=== PATIENT | male | born 1955 | race American Indian/Alaskan Native ===

== ENCOUNTER 2017-09-28 01:18 | Inpatient (IN) | payer MEDICARE, OTHER ==
[2017-09-28 01:56] LABS: Basophils # (Auto) 0.1 K/mm3 (0.0-0.1); Basophils % (Auto) 0.4 % (0.0-1.8); Eosinophils # (Auto) 0.2 K/mm3 (0.0-0.4); Eosinophils % (Auto) 1.6 % (0.0-4.3); Hematocrit 35.8 % (35.5-45.6); Hemoglobin 12.1 gm/dl (11.8-15.2); Lymphocytes # (Auto) 1.1 K/mm3 (1.2-5.4); Lymphocytes % (Auto) 8.8 % (13.4-35.0); Mean Corpuscular HGB Conc 34 % (32-34); Mean Corpuscular Hemoglobin 32 pg (28-32); Mean Corpuscular Volume 93 fl (84-94); Monocytes # (Auto) 0.5 K/mm3 (0.0-0.8); Monocytes % (Auto) 4.4 % (0.0-7.3); Platelet Count 221 K/mm3 (140-440); Red Blood Count 3.84 M/mm3 (3.65-5.03); Red Cell Distribution Width 14.2 % (13.2-15.2)
--- NOTE | 2017-09-28 02:07 | XRay Report ---
FINAL REPORT EXAM: XR CHEST 1V AP HISTORY: shortness of breath, hypoxia TECHNIQUE: A portable semi-upright view of the chest was obtained. FINDINGS: The heart size is normal. The lungs appear diffusely congested. There is patchy airspace disease in the right lung base. Pleural fluid is not seen. There are EKG leads overlying the chest wall. The bones and soft tissues otherwise appear well maintained IMPRESSION: Pulmonary vascular congestion. Patchy airspace disease in the right lung base. As to whether this is related to edema or superimposed pneumonia is uncertain.
--- NOTE | 2017-09-28 02:11 | Emergency Department Report ---
HPI - General Time Seen by Provider: 09/28/17 01:27 - HPI HPI: Room 23 The patient is a 62-year-old male presenting with chief complaint of shortness of breath. The patient states approximately one hour prior to arrival he began feeling short of breath and hot and diaphoretic. Patient states he never had chest pain but he has had an occasional cough has been nonproductive. Patient does admit to subjective fever. The patient states for the last week he's had decreased energy. The patient has a history of end-stage renal disease on dialysis and was last dialyzed 09/26/2017 as part of his normal regimen. Patient satting 77% on room air Location: Lungs Duration: One hour Quality: Shortness of breath Severity: Severe Modifying factors: [see above] Context: [see above] Mode of transportation: [not driving] ED Past Medical Hx - Past Medical History Hx Hypertension: Yes Hx Diabetes: Yes Hx Renal Disease: Yes - Surgical History Additional Surgical History: A.V graft, vas cath - Family History Family history: no significant - Social History Smoking Status: Current Every Day Smoker (1 pack per day) Substance Use Type: None (denies illicit drug use) ED Review of Systems ROS: Stated complaint: AVTAR Other details as noted in HPI Constitutional: diaphoresis, fever Respiratory: cough, shortness of breath Cardiovascular: denies: chest pain Physical Exam - Physical Exam Vital Signs: Vital Signs 09/28/17 09/28/17 01:25 01:39 Pulse Rate 80 Respiratory 22 22 Rate Blood Pressure 175/84 O2 Sat by Pulse 77 L 94 Oximetry Physical Exam: GENERAL: The patient is well-developed well-nourished male lying on stretcher not appearing to be in acute distress. [] HEENT: Normocephalic. Atraumatic. Extraocular motions are intact. Patient has moist mucous membranes. NECK: Supple. Trachea midline CHEST/LUNGS: Bibasilar crackles greatest on the right. There is no respiratory distress noted. HEART/CARDIOVASCULAR: Regular. There is no tachycardia. There is no gallop rub or murmur. ABDOMEN: Abdomen is soft, nontender. Patient has normal bowel sounds. There is no abdominal distention. SKIN: There is no rash. There is no diaphoresis. 1-2+ bilateral lower extremity pitting edema NEURO: The patient is awake, alert, and oriented. The patient is cooperative. The patient has normal speech MUSCULOSKELETAL: There is no evidence of acute injury. ED Course Vital Signs 09/28/17 09/28/17 01:25 01:39 Pulse Rate 80 Respiratory 22 22 Rate Blood Pressure 175/84 O2 Sat by Pulse 77 L 94 Oximetry - Consultations Consultation #1: 09/28/17 02:27 Nephrology paged 09/28/17 02:[address] Cuadra. Recommends Lasix 80 mg IV BID ED Medical Decision Making - Lab Data Result diagrams: 09/28/17 01:45 09/28/17 01:45 Laboratory Tests 09/28/17 09/28/17 09/28/17 01:45 01:45 01:45 WBC 11.9 H RBC 3.84 Hgb 12.1 Hct 35.8 MCV 93 MCH 32 MCHC 34 RDW 14.2 Plt Count 221 Lymph % (Auto) 8.8 L [place] % (Auto) 4.4 Eos % (Auto) 1.6 Baso % (Auto) 0.4 Lymph # 1.1 L [place] # 0.5 Eos # 0.2 Baso # 0.1 Seg Neutrophils % 84.8 H Seg Neutrophils # 10.1 H PT 12.8 INR 0.92 APTT 37.2 H Sodium 134 L Potassium 4.4 Chloride 93.0 L Carbon Dioxide 28 Anion Gap 17 BUN 20 Creatinine 6.0 H Estimated GFR 12 BUN/Creatinine Ratio 3 Glucose 137 H Calcium 8.6 Total Creatine Kinase 128 CK-MB (CK-2) 3.3 CK-MB (CK-2) Rel Index 2.5 Troponin T 0.030 H - EKG Data -: EKG Interpreted by Me EKG shows normal: sinus rhythm Rate: normal - EKG Data When compared to previous EKG there are: previous EKG unavailable - Radiology Data Radiology results: report reviewed (chest x-ray), image reviewed (chest x-ray) interpreted by me: Chest [id number] haziness (greatest in the right lower lobe) consistent with pulmonary edema. No pneumothorax FINAL REPORT EXAM: XR CHEST 1V AP HISTORY: shortness of breath, hypoxia TECHNIQUE: A portable semi-upright view of the chest was obtained. FINDINGS: The heart size is normal. The lungs appear diffusely congested. There is patchy airspace disease in the right lung base. Pleural fluid is not seen. There are EKG leads overlying the chest wall. The bones and soft tissues otherwise appear well maintained IMPRESSION: Pulmonary vascular congestion. Patchy airspace disease in the right lung base. As to whether this is related to edema or superimposed pneumonia is uncertain. Transcribed By: RB Dictated By: MILA BISWAS MD Electronically Authenticated By: MILA BISWAS MD Signed Date/Time: 09/27/172203 DD/ 03 TD/TT: 09/27/172203 - Differential Diagnosis flash pulmonary edema, pneumonia, pneumothorax Critical care attestation.: If time is entered above; I have spent that time in minutes in the direct care of this critically ill patient, excluding procedure time. ED Disposition Clinical Impression: Pulmonary edema, Hypoxia, Shortness of breath Disposition: -09 OP ADMIT IP TO THIS HOSP Is pt being admited?: Yes Does the pt Need Aspirin: Yes Condition: Serious Instructions: Pulmonary Edema (ED) Referrals: JAQUELINE WAGGONER MD [Primary Care Provider] - 3-5 Days Time of Disposition: 02:56 (hospitalist paged)
[2017-09-28 02:12] LABS: INR 0.92 (0.87-1.13); Partial Thromboplastin Time 37.2 Sec. (24.2-36.6)
[2017-09-28 02:19] LABS: Creatine Kinase MB 3.3 ng/mL (0.0-4.0)
[2017-09-28 02:20] LABS: Calcium 8.6 mg/dL (8.4-10.2)
[2017-09-28] MEDS ORDERED: ASPIRIN PO ONE (02:30)
[2017-09-28] MEDS ORDERED: LASIX IV ONE (02:55)
[2017-09-28 04:36] LABS: Chol/HDL Ratio 2.77 %
[2017-09-28] MEDS ORDERED: MILK OF MAGNESIA PO PRN (05:54)
[2017-09-28] MEDS ORDERED: D50W (25GM) Syringe IV PRN (05:54)
[2017-09-28] MEDS ORDERED: ZOFRAN IV PRN (05:54)
[2017-09-28] MEDS ORDERED: DULCOLAX PR PRN (05:54)
[2017-09-28] MEDS ORDERED: TYLENOL PO PRN (05:54)
[2017-09-28] MEDS ORDERED: LEVAQUIN 500MG/100ML 500 MG/100 ML BAG IV SCH (06:00)
--- NOTE | 2017-09-28 06:03 | History and Physical Report ---
History of Present Illness Date of examination: 09/28/17 History of present illness: 62-year-old man with a history of hypertension, diabetes, end-stage renal disease on dialysis Sunday [facility] emergency room with complaints of shortness of breath that started last night. Also complaining of focal nonproductive cough, subjective fever and chills Review Of Systems: Constitutional: no weight loss Ears, eyes, nose, mouth and throat: no nasal congestion, no nasal discharge, no sinus pressure, blurry vision, diplopia Neck: No neck pain or rigidity. Cardiovascular: No chest pain, palpitations Respiratory: + shortness of breath, cough Gastrointestinal: No abdominal pain, hematochezia Genitourinary : no dysuria, frequency , hematuria Musculoskeletal: no muscle ache Integumentary: no rash, no pruritis Neurological: no parathesias, focal weakness Endocrine: no cold or heat intolerance, no polyuria or polydipsia Hematologic/Lymphatic: no easy bruising, no easy bleeding, no gland swelling Allergic/Immunologic: no urticaria, no angioedema. PAST MEDICAL HISTORY:hypertension, diabetes, end-stage renal disease on dialysis PAST SURGICAL HISTORY: AV fistula, port placement FAMILY HISTORY: Hypertension SOCIAL HISTORY: Smoke a pack a day, no alcohol or drug Medications and Allergies Allergies Allergy/AdvReac Type Severity Reaction Status Date / Time No Known Allergies Allergy Verified 09/28/17 06:02 Home Medications Medication Instructions Recorded Confirmed Last Taken Type Atorvastatin [Lipitor] 40 mg PO QHS 09/28/17 09/28/17 Unknown History Carvedilol [Coreg] 12.5 mg PO BID 09/28/17 09/28/17 Unknown History Lisinopril [Zestril TAB] 20 mg PO QDAY 09/28/17 09/28/17 Unknown History Omeprazole 20 mg PO BID 09/28/17 09/28/17 Unknown History Vit B Comp No.3/Folic/C/Biotin 1 tab PO DAILY 09/28/17 09/28/17 Unknown History [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-[facility] Rx Tablet] amLODIPine [Norvasc] 10 mg PO DAILY 09/28/17 09/28/17 Unknown History Levofloxacin [Levaquin TAB] 500 mg PO Q48H #3 tablet 09/29/17 Unknown Rx Active Meds: Active Medications Acetaminophen (Tylenol) 650 mg PO Q4H PRN PRN Reason: Pain MILD(1-3)/Fever >100.5/JUAREZ Bisacodyl (Dulcolax) 10 mg CO QDAY PRN PRN Reason: Constipation unrelieved by MOM Dextrose (D50w (25gm) Syringe) 50 ml IV PRN PRN PRN Reason: Hypoglycemia Levofloxacin/Dextrose (Levaquin 500mg/100ml) 500 mg in 100 mls @ 100 mls/hr IV Q48H JOHANA Insulin Aspart (Novolog) 0 units SUB-Q ACHS JOHANA PRN Reason: Protocol Magnesium Hydroxide (Milk Of Magnesia) 30 ml PO Q4H PRN PRN Reason: Constipation Exam - Physical Exam Narrative exam: Gen. appearance: Patient lying in bed in no acute distress HEENT: Normocephalic/atraumatic, pupils equal round reactive to light, extra occular movement intact, no scleral icterus, no JVD or thyromegaly or nodule, neck is supple, mucous membrane moist, no erythema or exudate Heart: S1-S2, regular rate and rhythm Lungs: Crackles breathing comfortable Abdomen: Positive bowel sounds, nontender, nondistended, no organomegaly Extremities: No edema, cyanosis, clubbing Neuro:: Oriented 3 , cranial nerves II-12 intact, speech, motor intact Skin: No rash, nodules, warm dry - Constitutional Vitals: Temp Pulse Resp BP Pulse Ox 70 18 145/79 100 09/28/17 04:00 09/28/17 04:00 09/28/17 04:00 09/28/17 04:00 Results - Labs CBC & Chem 7: 09/29/17 05:04 09/29/17 05:04 Labs: Abnormal lab results 09/28/17 09/28/17 09/28/17 Range/Units 01:45 01:45 01:45 WBC 11.9 H (4.5-11.0) K/mm3 Lymph % (Auto) 8.8 L (13.4-35.0) % Lymph # 1.1 L (1.2-5.4) K/mm3 Seg Neutrophils % 84.8 H (40.0-70.0) % Seg Neutrophils # 10.1 H (1.8-7.7) K/mm3 APTT 37.2 H (24.2-36.6) Sec. Sodium 134 L (137-145) mmol/L Chloride 93.0 L (98-107) mmol/L Creatinine 6.0 H (0.8-1.5) mg/dL Glucose 137 H (75-100) mg/dL Troponin T 0.030 H (0.00-0.029) ng/mL - Imaging and Cardiology EKG: image reviewed Chest x-ray: image reviewed Assessment and Plan Assessment Acquire pneumonia End-stage renal disease needing dialysis Hypertension Diabetes type 2 Plan Admit to medicine Start IV Levaquin, obtain blood cultures Consult renal for dialysis, check fingersticks and initiate insulin signs scale Continue appropriate outpatient medications DVT prophylaxis
[2017-09-28] MEDS ORDERED: NACL 0.9% 100 ML IV PRN (06:41)
[2017-09-28] MEDS ORDERED: LEVAQUIN 500MG/100ML 500 MG/100 ML BAG IV ONE (06:41)
[2017-09-28] MEDS: NOVOLOG SUB-Q SCH ×2 (07:44→22:58)
--- NOTE | 2017-09-28 08:44 | Consultation ---
History of Present Illness - Reason for Consult Consult date: 09/28/17 end stage renal disease - History of Present Illness Mr. Winters is a 62yo with ESRD on HD MWF who presented to the ED with a one week history of SOB, cough. He reports that on yesterday, symptoms worsened which prompted his visit to the ED. He denies fever but reports sweats. He states that cough is nonproductive. He denies pleuritic chest pain. Appetite is poor. Past History Past Medical History: ESRD, hypertension, hyperlipidemia Past Surgical History: Other (AV access creation) Social history: no significant social history Family history: no significant family history Medications and Allergies Allergies Allergy/AdvReac Type Severity Reaction Status Date / Time No Known Allergies Allergy Verified 09/28/17 06:02 Home Medications Medication Instructions Recorded Confirmed Last Taken Type Atorvastatin [Lipitor Tab] 40 mg PO QHS 09/28/17 09/28/17 Unknown History Carvedilol [Coreg] 12.5 mg PO BID 09/28/17 09/28/17 Unknown History Lisinopril [Zestril] 20 mg PO QDAY 09/28/17 09/28/17 Unknown History Omeprazole 20 mg PO BID 09/28/17 09/28/17 Unknown History Vit B Comp No.3/Folic/C/Biotin 1 tab PO DAILY 09/28/17 09/28/17 Unknown History [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[facility] Rx 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] amLODIPine [Norvasc] 10 mg PO DAILY 09/28/17 09/28/17 Unknown History Active Meds: Active Medications Acetaminophen (Tylenol) 650 mg PO Q4H PRN PRN Reason: Pain MILD(1-3)/Fever >100.5/JUAREZ Bisacodyl (Dulcolax) 10 mg LA QDAY PRN PRN Reason: Constipation unrelieved by MOM Dextrose (D50w (25gm) Syringe) 50 ml IV PRN PRN PRN Reason: Hypoglycemia Levofloxacin/Dextrose (Levaquin 500mg/100ml) 500 mg in 100 mls @ 100 mls/hr IV Q48H [facility] Last Admin: 09/28/17 06:58 Dose: 100 mls/hr Sodium Chloride (Nacl 0.9%) 100 mls @ 999 mls/hr IV KIMBERLY PRN PRN Reason: Hypotension Insulin Aspart (Novolog) 0 units SUB-Q ACHS JOHANA PRN Reason: Protocol Last Admin: 09/28/17 07:44 Dose: Not Given Magnesium Hydroxide (Milk Of Magnesia) 30 ml PO Q4H PRN PRN Reason: Constipation Ondansetron HCl (Zofran) 4 mg IV Q8H PRN PRN Reason: N/V unrelieved by Reglan Review of Systems All systems: negative Constitutional: poor appetite Cardiovascular: shortness of breath Respiratory: cough Gastrointestinal: no nausea, no vomiting Exam - Vital Signs Vital signs: Vital Signs Pulse Resp BP Pulse Ox 80 22 175/84 77 L 09/28/17 01:25 09/28/17 01:25 09/28/17 01:25 09/28/17 01:25 - General Appearance General appearance: well-developed, well-nourished EENT: ATNC Respiratory: Decreased Breath Sounds Heart: regular, S1S2 Gastrointestinal: Present: normal. Absent: tenderness, distended Integumentary: no rash, warm and dry Neurologic: no focal deficit, alert and oriented x3 Musculoskeletal: Present: other (no edema) Psychiatric: cooperative Results - Lab Results 09/28/17 01:45 09/28/17 01:45 Most recent lab results Calcium 8.6 mg/dL (8.4-10.2) 09/28/17 01:45 Assessment and Plan Impression: * End stage renal disease on HD * Pulmonary edema vs community acquired PNA * Hypertension * Anemia secondary to ESRD * Secondary hyperparathyroidism Plan: * Hemodialysis today, continue MWF schedule * UF as tolerated * Abx per primary team * Recommend CXR s/p dialysis today * Continue antiHTN medications * Renal diet * Dose medications for renal function
[2017-09-28] MEDS ORDERED: ZESTRIL PO SCH (10:00)
[2017-09-28 15:16] LABS: Creatine Kinase MB 2.6 ng/mL (0.0-4.0)
[2017-09-28] MEDS: NORVASC PO SCH (16:19)
[2017-09-28] MEDS: COREG PO SCH ×2 (16:20→22:58)
--- NOTE | 2017-09-28 17:07 | Event Note ---
Date: 09/28/17 62-year-old -[place] male with medical history significant for hypertension, ESRD presented to the emergency department with complaints of cough, fever, shortness of breath. Chest x-ray showed right lower lobe infiltrate versus fluid overload. Patient started on Levaquin and hemodialysis will be be done. Patient was admitted this morning and continue management per H&P.
--- NOTE | 2017-09-28 20:59 | XRay Report ---
FINAL REPORT EXAM: XR CHEST 1V AP HISTORY: pneumonia TECHNIQUE: AP portable view of the chest PRIORS: CXR 09/28/2017 at 657 hours FINDINGS: Lines, tubes, and devices: N/A Lungs and pleura: Trachea is normal in position. There is been significant improvement and near resolution of infiltrate seen previously in the lung bases. This may have represented pulmonary edema rather than pneumonia Cardiomediastinal silhouette: Cardiac and mediastinal silhouettes are unremarkable. Other: Bony structures are intact. IMPRESSION: Significant improvement in bilateral infiltrates seen previously. These have nearly resolved.
[2017-09-28 21:10] LABS: Creatine Kinase MB 1.9 ng/mL (0.0-4.0)
[2017-09-28] MEDS ORDERED: AMBIEN PO ONE (23:28)
[2017-09-29 05:38] LABS: Basophils # (Auto) 0.1 K/mm3 (0.0-0.1); Basophils % (Auto) 0.7 % (0.0-1.8); Eosinophils # (Auto) 0.2 K/mm3 (0.0-0.4); Eosinophils % (Auto) 2.2 % (0.0-4.3); Hematocrit 34.2 % (35.5-45.6); Hemoglobin 11.8 gm/dl (11.8-15.2); Lymphocytes # (Auto) 1.8 K/mm3 (1.2-5.4); Lymphocytes % (Auto) 23.4 % (13.4-35.0); Mean Corpuscular HGB Conc 35 % (32-34); Mean Corpuscular Hemoglobin 32 pg (28-32); Mean Corpuscular Volume 92 fl (84-94); Monocytes # (Auto) 0.6 K/mm3 (0.0-0.8); Monocytes % (Auto) 8.5 % (0.0-7.3); Platelet Count 219 K/mm3 (140-440); Red Blood Count 3.72 M/mm3 (3.65-5.03); Red Cell Distribution Width 13.9 % (13.2-15.2)
[2017-09-29] MEDS: NOVOLOG SUB-Q SCH (08:51)
[2017-09-29 10:13] VITALS: BP 170/95
[2017-09-29] MEDS: COREG PO SCH (10:51)
[2017-09-29] MEDS: NORVASC PO SCH (10:51)
--- NOTE | 2017-09-29 11:12 | Discharge Summary ---
Providers - Providers Date of Admission: 09/28/17 05:54 Attending physician: SHERRY MARSHALL MD 09/28/17 02:27 Consult to Physician [CONS] Urgent Consulting Provider: DARBY MURILLO Reason For Exam: end-stage renal disease, pulmonary edema Place consult to:: phone Notified:: awaiting callback Primary care physician: JAQUELINE WAGGONER Hospitalization Reason for admission: Pneumonia Condition: Serious Disposition: DC-01 TO HOME OR SELFCARE Time spent for discharge: 31 minutes - Discharge Diagnoses (1) ESRD (end stage renal disease) on dialysis Status: Acute (2) Pneumonia Status: Acute (3) Hypoxia Status: Acute (4) Pulmonary edema Status: Acute (5) Shortness of breath Status: Acute Core Measure Documentation - Palliative Care Palliative Care/ Comfort Measures: Not Applicable - Core Measures Any of the following diagnoses?: none Exam - Constitutional Vitals: Temp Pulse Resp BP Pulse Ox 97.9 F 81 18 170/95 97 09/29/17 09:05 09/29/17 09:06 09/29/17 09:05 09/29/17 09:05 09/29/17 09:09 Plan Activity: no restrictions Weight Bearing Status: Full Weight Bearing Diet: renal Follow up with: JAQUELINE WAGGONER MD [Primary Care Provider] - 7 Days Prescriptions: Levofloxacin [Levaquin TAB] 500 mg PO Q48H #3 tablet
== END 2017-09-29 11:52 | disposition home or self-care (01) | DRG 193 ==
LOC: ED 01:18 → 4A 05:54
PROVIDERS: ADMIT Internal Medicine; ATTEND Internal Medicine
PROC: 5A1D70Z Performance of Urinary Filtration, Intermittent, Less than 6 Hours Per Day (ICD-10-PCS; principal; 2017-09-28)
DX: J18.9 Pneumonia, unspecified organism (principal); N18.6 End stage renal disease; I12.0 Hypertensive chronic kidney disease with stage 5 chronic kidney disease or end stage renal disease; N25.81 Secondary hyperparathyroidism of renal origin; F17.210 Nicotine dependence, cigarettes, uncomplicated; R09.02 Hypoxemia; E11.22 Type 2 diabetes mellitus with diabetic chronic kidney disease; E78.5 Hyperlipidemia, unspecified; D63.1 Anemia in chronic kidney disease; Z82.49 Family history of ischemic heart disease and other diseases of the circulatory system
CPT/HCPCS: 36415; 71045; 80048; 80061; 82550; 82553; 82962; 84484; 85025; 85610; 85730; 93005; 93010; A9270-GY; J1940; J1956

== ENCOUNTER 2019-04-30 19:22 | Inpatient (IN) | payer MEDICARE, OTHER ==
[2019-04-30] MEDS ORDERED: NACL 0.9% 500 ML 500 ML ONE (19:33)
[2019-04-30] MEDS ORDERED: NACL 0.9% 500 ML 500 ML IV ONE (19:33)
[2019-04-30] MEDS ORDERED: TYLENOL PO STA (19:33)
[2019-04-30] MEDS ORDERED: TYLENOL PR ONE ×2 (19:35→19:48)
[2019-04-30] MEDS ORDERED: MAXIPIME/NS 1 GM/100 ML 1 GM/100 ML BAG IV ONE (20:06)
[2019-04-30 20:13] LABS: INR 1.81 (0.87-1.13)
[2019-04-30 20:26] LABS: Albumin 3.1 g/dL (3.9-5); Calcium 8.5 mg/dL (8.4-10.2)
[2019-04-30 20:36] LABS: Hemoglobin 9.5 gm/dl (11.8-15.2); Mean Corpuscular HGB Conc 32 % (32-34); Mean Corpuscular Volume 99 fl (84-94); Platelet Count 166 K/mm3 (140-440); Red Blood Count 3.02 M/mm3 (3.65-5.03); Red Cell Distribution Width 18.2 % (13.2-15.2)
[2019-04-30 20:41] LABS: Total Cells Counted 100
--- NOTE | 2019-04-30 20:41 | XRay Report ---
CHEST 1 VIEW INDICATION / CLINICAL INFORMATION: possible Sepsis. COMPARISON: None available. FINDINGS: Lungs/pleura: Severe bilateral airspace pneumonia identified throughout both lungs. Mild cardiomegaly . PermCath terminates at the SVC/right atrial junction. Signer Name: Moris Camara MD Signed: 04/30/2019 8:37 PM Workstation Name: [id number]
[2019-04-30 20:42] LABS: RBC Morphology Normal
--- NOTE | 2019-04-30 22:42 | Cat Scan Report ---
CT HEAD WITHOUT CONTRAST INDICATION: altered mental status. TECHNIQUE: All CT scans at this location are performed using CT dose reduction for ALARA by means of automated e xposure control. COMPARISON: None available. FINDINGS: The exam is limited due to significant motion. HEMORRHAGE: None. EXTRA-AXIAL SPACES: Normal in size and morphology for the patient's age. VENTRICULAR SYSTEM: Normal in size and morphology for the patient's age. BRAIN PARENCHYMA: No acute findings. MIDLINE SHIFT OR HERNIATION: None. ORBITS: Normal as visualized. SOFT TISSUES OF HEAD: Normal. CALVARIUM: Normal. VISUALIZED PARANASAL SINUSES AND MASTOID AIR CELLS: Clear. ADDITIONAL FINDINGS: None. IMPRESSION: 1. Limits study due to significant patient motion. Accounting for this, no acute intracranial abnorma lity. Signer Name: Prieto Lockwood MD Signed: 04/30/2019 10:38 PM Workstation Name: [id number]
--- NOTE | 2019-04-30 22:53 | Emergency Department Report ---
ED General Adult HPI - General Chief complaint: Altered Mental Status Stated complaint: SEPSIS Time Seen by Provider: 04/30/19 19:51 Source: patient Mode of arrival: Stretcher Limitations: No Limitations - History of Present Illness Initial comments: The patient presents to the emergency department via EMS with his daughter and son at bedside. The patient presents for altered mental status. Per family the patient was acting normal this morning then to status changed. Her family the patient goes to dialysis on Sunday, Sunday, Sunday with last dialysis treatment be intubated. 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 The patient is scheduled to have his permacath removed tomorrow. The patient is not able to add to his history due to his medical condition -: Sudden Severity scale (0 -10): 0 Improves with: none Worsens with: none Associated Symptoms: denies other symptoms Treatments Prior to Arrival: none - Related Data Home Medications Medication Instructions Recorded Confirmed Last Taken Atorvastatin [Lipitor] 40 mg PO QHS 09/28/17 09/28/17 Unknown Carvedilol [Coreg] 12.5 mg PO BID 09/28/17 09/28/17 Unknown Lisinopril [Zestril TAB] 20 mg PO QDAY 09/28/17 09/28/17 Unknown Omeprazole 20 mg PO BID 09/28/17 09/28/17 Unknown Vit B Comp No.3/Folic/C/Biotin 1 tab PO DAILY 09/28/17 09/28/17 Unknown [[employer] Rx Tablet] amLODIPine [Norvasc] 10 mg PO DAILY 09/28/17 09/28/17 Unknown Previous Rx's Medication Instructions Recorded Last Taken Type levoFLOXacin [Levaquin TAB] 500 mg PO Q48H #3 tablet 09/29/17 Unknown Rx Allergies Allergy/AdvReac Type Severity Reaction Status Date / Time No Known Allergies Allergy Verified 09/28/17 06:02 ED Review of Systems ROS: Stated complaint: SEPSIS Other details as noted in HPI Comment: Unobtainable due to pts medical conditions ED Past Medical Hx - Past Medical History Previous Medical History?: Yes Hx Hypertension: Yes Hx Diabetes: Yes Hx Renal Disease: Yes (dialysis MWF) - Surgical History Additional Surgical History: A.V graft, vas cath - Social History Smoking Status: Current Every Day Smoker Substance Use Type: Alcohol - Medications Home Medications: Home Medications Medication Instructions Recorded Confirmed Last Taken Type Atorvastatin [Lipitor] 40 mg PO QHS 09/28/17 09/28/17 Unknown History Carvedilol [Coreg] 12.5 mg PO BID 09/28/17 09/28/17 Unknown History Lisinopril [Zestril TAB] 20 mg PO QDAY 09/28/17 09/28/17 Unknown History Omeprazole 20 mg PO BID 09/28/17 09/28/17 Unknown History Vit B Comp No.3/Folic/C/Biotin 1 tab PO DAILY 09/28/17 09/28/17 Unknown History [[employer] Rx Tablet] amLODIPine [Norvasc] 10 mg PO DAILY 09/28/17 09/28/17 Unknown History levoFLOXacin [Levaquin TAB] 500 mg PO Q48H #3 tablet 09/29/17 Unknown Rx ED Physical Exam - General Limitations: No Limitations General appearance: obtunded, other (the patient is warm to touch) - Head Head exam: Present: atraumatic, normocephalic - Eye Eye exam: Present: normal appearance, PERRL, EOMI - ENT ENT exam: Present: mucous membranes dry - Neck Neck exam: Present: normal inspection - Respiratory Respiratory exam: Present: normal lung sounds bilaterally, rales, other (patient has a permacath of the right subclavian region). Absent: respiratory distress, wheezes - Cardiovascular Cardiovascular Exam: Present: normal rhythm, tachycardia. Absent: systolic murmur, diastolic murmur, rubs, gallop - GI/Abdominal GI/Abdominal exam: Present: soft, normal bowel sounds. Absent: distended, tenderness - Rectal Rectal exam: Present: deferred - Extremities Exam Extremities exam: Present: normal inspection - Back Exam Back exam: Present: normal inspection - Neurological Exam Neurological exam: Present: other (patient is obtunded; the rest of the neurological exam could not be completed due to the patient's medical condition) - Psychiatric Psychiatric exam: Present: other (not able to assess due to the patient's condition) - Skin Skin exam: Present: warm, dry, intact, normal color. Absent: rash ED Course Vital Signs 04/30/19 04/30/19 04/30/19 18:22 18:30 19:26 Pulse Rate 94 H 97 H 108 H Respiratory 20 20 39 H Rate Blood Pressure 108/77 111/72 O2 Sat by Pulse 98 98 96 Oximetry 04/30/19 04/30/19 04/30/19 19:28 19:30 19:46 Pulse Rate 108 H 107 H 108 H Respiratory 18 35 H 40 H Rate Blood Pressure 166/76 154/82 151/84 O2 Sat by Pulse 98 96 97 Oximetry 04/30/19 04/30/19 04/30/19 19:50 20:00 20:10 Pulse Rate 110 H Respiratory 26 H 23 28 H Rate Blood Pressure 159/73 O2 Sat by Pulse 98 98 Oximetry 04/30/19 04/30/19 04/30/19 20:16 20:30 20:45 Pulse Rate 103 H 100 H 102 H Respiratory 39 H 33 H 33 H Rate Blood Pressure 164/79 156/74 147/74 O2 Sat by Pulse 99 98 98 Oximetry 04/30/19 04/30/19 04/30/19 21:00 21:15 21:30 Pulse Rate 98 H 94 H 101 H Respiratory 30 H 25 H 31 H Rate Blood Pressure 142/66 133/63 142/73 O2 Sat by Pulse 97 98 98 Oximetry ED Medical Decision Making - Lab Data Result diagrams: 04/30/19 19:47 04/30/19 19:47 Lab Results 04/30/19 04/30/19 04/30/19 Range/Units 19:47 19:47 19:47 WBC 15.8 H (4.5-11.0) K/mm3 RBC 3.02 L (3.65-5.03) M/mm3 Hgb 9.5 L (11.8-15.2) gm/dl Hct 30.0 L (35.5-45.6) % MCV 99 H (84-94) fl MCH 32 (28-32) pg MCHC 32 (32-34) % RDW 18.2 H (13.2-15.2) % Plt Count 166 (140-440) K/mm3 Add Manual Diff Complete Total Counted 100 Seg Neuts % (Manual) 89.0 H (40.0-70.0) % Band Neutrophils % 0 % Lymphocytes % (Manual) 7.0 L (13.4-35.0) % Reactive Lymphs % (Man) 0 % Monocytes % (Manual) 2.0 (0.0-7.3) % Eosinophils % (Manual) 1.0 (0.0-4.3) % Basophils % (Manual) 1.0 (0.0-1.8) % Metamyelocytes % 0 % Myelocytes % 0 % Promyelocytes % 0 % Blast Cells % 0 % Nucleated RBC % Not Reportable Seg Neutrophils # Man 14.1 H (1.8-7.7) K/mm3 Band Neutrophils # 0.0 K/mm3 Lymphocytes # (Manual) 1.1 L (1.2-5.4) K/mm3 Abs React Lymphs (Man) 0.0 K/mm3 Monocytes # (Manual) 0.3 (0.0-0.8) K/mm3 Eosinophils # (Manual) 0.2 (0.0-0.4) K/mm3 Basophils # (Manual) 0.2 H (0.0-0.1) K/mm3 Metamyelocytes # 0.0 K/mm3 Myelocytes # 0.0 K/mm3 Promyelocytes # 0.0 K/mm3 Blast Cells # 0.0 K/mm3 WBC Morphology Not Reportable Hypersegmented Neuts Not Reportable Hyposegmented Neuts Not Reportable Hypogranular Neuts Not Reportable Smudge Cells Not Reportable Toxic Granulation Not Reportable Toxic Vacuolation Not Reportable Dohle Bodies Not Reportable Pelger-Huet Anomaly Not Reportable Soraida Rods Not Reportable Platelet Estimate Not Reportable Clumped Platelets Not Reportable Plt Clumps, EDTA Not Reportable Large Platelets Not Reportable Giant Platelets Not Reportable Platelet Satelliting Not Reportable Plt Morphology Comment Not Reportable RBC Morphology Normal Dimorphic RBCs Not Reportable Polychromasia Not Reportable Hypochromasia Not Reportable Poikilocytosis Not Reportable Anisocytosis Not Reportable Microcytosis Not Reportable Macrocytosis Not Reportable Spherocytes Not Reportable Pappenheimer Bodies Not Reportable Sickle Cells Not Reportable Target Cells Not Reportable Tear Drop Cells Not Reportable Ovalocytes Not Reportable Helmet Cells Not Reportable [place] Bodies Not Reportable [place] Rings Not Reportable [place] Cells Not Reportable Bite Cells Not Reportable Crenated Cell Not Reportable Elliptocytes Not Reportable Acanthocytes (Spur) Not Reportable Rouleaux Not Reportable Hemoglobin C Crystals Not Reportable Schistocytes Not Reportable Malaria parasites Not Reportable Mike Bodies Not Reportable Hem Pathologist Commnt No PT 20.6 H (12.2-14.9) Sec. INR 1.81 H (0.87-1.13) VBG pH (7.320-7.420) Sodium 135 L (137-145) mmol/L Potassium 4.1 (3.6-5.0) mmol/L Chloride 90.1 L (98-107) mmol/L Carbon Dioxide 27 (22-30) mmol/L Anion Gap 22 mmol/L BUN 28 H (9-20) mg/dL Creatinine 3.8 H (0.8-1.5) mg/dL Estimated GFR 20 ml/min BUN/Creatinine Ratio 7 % Glucose 217 H (75-100) mg/dL Lactic Acid (0.7-2.0) mmol/L Calcium 8.5 (8.4-10.2) mg/dL Total Bilirubin 0.50 (0.1-1.2) mg/dL AST 28 (5-40) units/L ALT 26 (7-56) units/L Alkaline Phosphatase 138 H (35-129) units/L Total Protein 8.9 H (6.3-8.2) g/dL Albumin 3.1 L (3.9-5) g/dL Albumin/Globulin Ratio 0.5 % 04/30/19 04/30/19 Range/Units 19:47 19:47 WBC (4.5-11.0) K/mm3 RBC (3.65-5.03) M/mm3 Hgb (11.8-15.2) gm/dl Hct (35.5-45.6) % MCV (84-94) fl MCH (28-32) pg MCHC (32-34) % RDW (13.2-15.2) % Plt Count (140-440) K/mm3 Add Manual Diff Total Counted Seg Neuts % (Manual) (40.0-70.0) % Band Neutrophils % % Lymphocytes % (Manual) (13.4-35.0) % Reactive Lymphs % (Man) % Monocytes % (Manual) (0.0-7.3) % Eosinophils % (Manual) (0.0-4.3) % Basophils % (Manual) (0.0-1.8) % Metamyelocytes % % Myelocytes % % Promyelocytes % % Blast Cells % % Nucleated RBC % Seg Neutrophils # Man (1.8-7.7) K/mm3 Band Neutrophils # K/mm3 Lymphocytes # (Manual) (1.2-5.4) K/mm3 Abs React Lymphs (Man) K/mm3 Monocytes # (Manual) (0.0-0.8) K/mm3 Eosinophils # (Manual) (0.0-0.4) K/mm3 Basophils # (Manual) (0.0-0.1) K/mm3 Metamyelocytes # K/mm3 Myelocytes # K/mm3 Promyelocytes # K/mm3 Blast Cells # K/mm3 WBC Morphology Hypersegmented Neuts Hyposegmented Neuts Hypogranular Neuts Smudge Cells Toxic Granulation Toxic Vacuolation Dohle Bodies Pelger-Huet Anomaly Soraida Rods Platelet Estimate Clumped Platelets Plt Clumps, EDTA Large Platelets Giant Platelets Platelet Satelliting Plt Morphology Comment RBC Morphology Dimorphic RBCs Polychromasia Hypochromasia Poikilocytosis Anisocytosis Microcytosis Macrocytosis Spherocytes Pappenheimer Bodies Sickle Cells Target Cells Tear Drop Cells Ovalocytes Helmet Cells [place] Bodies [place] Rings Mazin Cells Bite Cells Crenated Cell Elliptocytes Acanthocytes (Spur) Rouleaux Hemoglobin C Crystals Schistocytes Malaria parasites Mike Bodies Hem Pathologist Commnt PT (12.2-14.9) Sec. INR (0.87-1.13) VBG pH 7.457 H (7.320-7.420) Sodium (137-145) mmol/L Potassium (3.6-5.0) mmol/L Chloride (98-107) mmol/L Carbon Dioxide (22-30) mmol/L Anion Gap mmol/L BUN (9-20) mg/dL Creatinine (0.8-1.5) mg/dL Estimated GFR ml/min BUN/Creatinine Ratio % Glucose (75-100) mg/dL Lactic Acid 2.80 H* (0.7-2.0) mmol/L Calcium (8.4-10.2) mg/dL Total Bilirubin (0.1-1.2) mg/dL AST (5-40) units/L ALT (7-56) units/L Alkaline Phosphatase (35-129) units/L Total Protein (6.3-8.2) g/dL Albumin (3.9-5) g/dL Albumin/Globulin Ratio % - EKG Data -: EKG Interpreted by Me EKG shows normal: sinus rhythm Rate: normal - Radiology Data Radiology results: report reviewed - Medical Decision Making Patient received a 500 mL bolus of normal saline 30 mL/kg bolus of normal saline per sepsis protocol was politely declined by family due to concern of fluid overload IV antibiotics were initiated The patient's family refused second lactic acid drawn at the scheduled time Critical Care Time: Yes Critical care time in (mins) excluding proc time.: 45 Critical care attestation.: If time is entered above; I have spent that time in minutes in the direct care of this critically ill patient, excluding procedure time. ED Disposition Clinical Impression: Sepsis, Pneumonia Disposition: OP ADMIT IP TO THIS HOSP Is pt being admited?: Yes Does the pt Need Aspirin: Yes Condition: Stable Instructions: Bacterial Pneumonia (ED) Referrals: [facility] MD TINA [Primary Care Provider] - 3-5 Days - Assessment Assessment Interval: Baseline - Level of Consciousness 1a. Level of Consciousness: arousable/minor stimuli - LOC Questions 1b. LOC Questions: answers no questions correctly - LOC Command 1c. LOC Commands: performs no tasks correctly - Best Gaze 2. Best Gaze: normal - Visual 3. Visual: no visual loss - Facial Palsy 4. Facial Palsy: normal symmetrical movement - Motor Arm 5a. Motor Arm Left: some gravity effort 5b. Motor Arm Right: some gravity effort - Motor Leg 6a. Motor Leg Left: some gravity effort 6b. Motor Leg Right: some gravity effort - Limb Ataxia 7. Limb Ataxia: absent - Sensory 8. Sensory: normal - Best Language 9. Best Language: no aphasia - Dysarthria 10. Dysarthria: normal - Extinction and Inattention 11. Extinction/Inattention: no abnormality - Scoring Total Score: 13 Stroke Severity: Moderate Stroke
[2019-04-30] MEDS ORDERED: BABY ASPIRIN PO ONE (23:04)
--- NOTE | 2019-04-30 23:34 | History and Physical Report ---
History of Present Illness History of present illness: History per the family at [facility]. 62-year-old man with a history of hypertension, diabetes, end-stage renal disease on dialysis Sunday, liver disease, CHF comes to the emergency room with complaints of decreased responsiveness, chills trach came home from dialysis. Brought to the emergency room for further evaluation, status post hemodialysis today, he was told that he needed another session tomorrow because they were unable to pull a lot of the fluid off today, patient is also scheduled to remove his port tomorrow at the [facility]. Review Of Systems difficult to obtain, he is lethargic PAST MEDICAL HISTORY:hypertension, diabetes, end-stage renal disease on dialysis PAST SURGICAL HISTORY: AV fistula, port placement FAMILY HISTORY: Hypertension SOCIAL HISTORY: Smoke a pack a day, no alcohol or drug Medications and Allergies Allergies Allergy/AdvReac Type Severity Reaction Status Date / Time No Known Allergies Allergy Verified 09/28/17 06:02 Home Medications Medication Instructions Recorded Confirmed Last Taken Type Atorvastatin [Lipitor] 40 mg PO QHS 09/28/17 05/01/19 Unknown History Carvedilol [Coreg] 12.5 mg PO BID 09/28/17 05/01/19 Unknown History Lisinopril [Zestril TAB] 20 mg PO QDAY 09/28/17 05/01/19 Unknown History Omeprazole 20 mg PO BID 09/28/17 05/01/19 Unknown History Vit B Comp No.3/Folic/C/Biotin 1 tab PO DAILY 09/28/17 05/01/19 Unknown History [T[employer] Cl[employer] Reclaimer[employer] Rx Tablet] amLODIPine [Norvasc] 10 mg PO DAILY 09/28/17 05/01/19 Unknown History levoFLOXacin [Levaquin TAB] 500 mg PO Q48H #3 tablet 09/29/17 05/01/19 Unknown Rx ALBUTEROL Inhaler (OR & NICU) 2 puff IH QID PRN 05/01/19 05/01/19 Unknown Histor y [Proair] Amlodipine Besylate [Norvasc] 5 mg PO QDAY 05/01/19 05/01/19 Unknown History Carvedilol [Coreg] 25 mg PO BID 05/01/19 05/01/19 Unknown History Gabapentin [Neurontin] 300 mg PO Q8HR 05/01/19 05/01/19 Unknown History Latanoprost 0.005% [Xalatan 0.005%] 1 drop OP QPM 05/01/19 05/01/19 Unknown History Lisinopril [Zestril TAB] 40 mg PO QDAY 05/01/19 05/01/19 Unknown History Omeprazole 20 mg PO QDAY 05/01/19 05/01/19 Unknown History Rosuvastatin Calcium 5 mg PO QHS 05/01/19 05/01/19 Unknown History Exam - Physical Exam Narrative exam: Gen. appearance: Patient lying in bed in no acute distress HEENT: Normocephalic/atraumatic, pupils equal round reactive to light, extra occular movement intact, no scleral icterus, no JVD or thyromegaly or nodule, neck is supple, mucous membrane moist, no erythema or exudate Heart: S1-S2, regular rate and rhythm Lungs: Crackles breathing comfortable Abdomen: Positive bowel sounds, nontender, nondistended, no organomegaly Extremities: No edema, cyanosis, clubbing Neuro:: lethargic but arousable, difficult to assess Skin: No rash, nodules, warm dry - Constitutional Vitals: Temp Pulse Resp BP Pulse Ox 101 H 31 H 142/73 98 04/30/19 21:30 04/30/19 21:30 04/30/19 21:30 04/30/19 21:30 Results - Labs CBC & Chem 7: 04/30/19 19:47 04/30/19 19:47 Labs: Abnormal lab results 04/30/19 04/30/19 04/30/19 Range/Units 19:47 19:47 19:47 WBC 15.8 H (4.5-11.0) K/mm3 RBC 3.02 L (3.65-5.03) M/mm3 Hgb 9.5 L (11.8-15.2) gm/dl Hct 30.0 L (35.5-45.6) % MCV 99 H (84-94) fl RDW 18.2 H (13.2-15.2) % Seg Neuts % (Manual) 89.0 H (40.0-70.0) % Lymphocytes % (Manual) 7.0 L (13.4-35.0) % Seg Neutrophils # Man 14.1 H (1.8-7.7) K/mm3 Lymphocytes # (Manual) 1.1 L (1.2-5.4) K/mm3 Basophils # (Manual) 0.2 H (0.0-0.1) K/mm3 PT 20.6 H (12.2-14.9) Sec. INR 1.81 H (0.87-1.13) VBG pH (7.320-7.420) Sodium 135 L (137-145) mmol/L Chloride 90.1 L (98-107) mmol/L BUN 28 H (9-20) mg/dL Creatinine 3.8 H (0.8-1.5) mg/dL Glucose 217 H (75-100) mg/dL Lactic Acid (0.7-2.0) mmol/L Alkaline Phosphatase 138 H (35-129) units/L Total Protein 8.9 H (6.3-8.2) g/dL Albumin 3.1 L (3.9-5) g/dL 04/30/19 04/30/19 Range/Units 19:47 19:47 WBC (4.5-11.0) K/mm3 RBC (3.65-5.03) M/mm3 Hgb (11.8-15.2) gm/dl Hct (35.5-45.6) % MCV (84-94) fl RDW (13.2-15.2) % Seg Neuts % (Manual) (40.0-70.0) % Lymphocytes % (Manual) (13.4-35.0) % Seg Neutrophils # Man (1.8-7.7) K/mm3 Lymphocytes # (Manual) (1.2-5.4) K/mm3 Basophils # (Manual) (0.0-0.1) K/mm3 PT (12.2-14.9) Sec. INR (0.87-1.13) VBG pH 7.457 H (7.320-7.420) Sodium (137-145) mmol/L Chloride (98-107) mmol/L BUN (9-20) mg/dL Creatinine (0.8-1.5) mg/dL Glucose (75-100) mg/dL Lactic Acid 2.80 H* (0.7-2.0) mmol/L Alkaline Phosphatase (35-129) units/L Total Protein (6.3-8.2) g/dL Albumin (3.9-5) g/dL - Imaging and Cardiology EKG: image reviewed Chest x-ray: report reviewed CT Scan - head: report reviewed Assessment and Plan Assessment HCAP pneumonia End-stage renal disease Hypertension Diabetes type 2 Coagulopathy CHF, stable Plan Admit to medicine Start IV zosyn, obtain blood culturE, ammonia Consult renal for dialysis, check fingersticks and initiate insulin signs scale Continue appropriate outpatient medications DVT prophylaxis
[2019-04-30] MEDS ORDERED: D50W (25GM) Syringe IV PRN (23:49)
[2019-04-30] MEDS ORDERED: ZOFRAN IV PRN (23:49)
[2019-04-30] MEDS ORDERED: SODIUM CHLORIDE FLUSH SYRINGE 10 ML IV PRN (23:49)
[2019-05-01] MEDS: ZOSYN/NS 2.25 GM/50ML 2.25 GM/50 ML BAG IV SCH ×4 (02:00→22:00)
[2019-05-01] MEDS: TYLENOL PO PRN ×2 (02:56→06:44)
[2019-05-01 03:36] LABS: Hemoglobin 8.6 gm/dl (11.8-15.2); Mean Corpuscular HGB Conc 32 % (32-34); Mean Corpuscular Volume 99 fl (84-94); Platelet Count 133 K/mm3 (140-440); Red Blood Count 2.72 M/mm3 (3.65-5.03); Red Cell Distribution Width 18.1 % (13.2-15.2)
[2019-05-01 04:04] LABS: Calcium 8.4 mg/dL (8.4-10.2)
[2019-05-01 05:48] LABS: Band Neutrophils # (Manual) 0.5 K/mm3; Basophils % (Manual) 0 % (0.0-1.8); Eosinophils % (Manual) 0 % (0.0-4.3); Total Cells Counted 100
[2019-05-01 05:50] LABS: Macrocytosis Few; Ovalocytes Few; Platelet Estimate Consistent w Auto; Stomatocytes Few
--- NOTE | 2019-05-01 08:28 | Consultation ---
History of Present Illness - History of Present Illness Thank you for the consultation patient was evaluated today. Source of information; patient himself, dialysis facility, Patient is a very poor historian History of presenting illness; Patient is a 64-year-old -[place] male who is well-known to me from dialysis facility at [facility], patient is very noncompliant and despite ongoing counseling and education continues to bring excessive amount of fluid, his health has been declining. Patient has been chronically noncompliant, he still continues to have a dialysis catheter in the right upper part of his chest his current access is a fistula which has been used patient was advised to get his dialysis catheter out but it has not been removed yet discussed with dialysis nurse at the facility patient said that he will get it removed at the [facility], he is currently taking gabapentin 300 mg every 8 hours which should be reduced to 300 mg at bedtime Events of this hospitalization noted He is currently being admitted here with pneumonia, and has been noted to have significantly elevated white cell count Chest x-ray shows possible bilateral pneumonia Patient has been abusing fluid at the dialysis facility Past medical history significant for end-stage renal disease Anemia and end-stage renal disease Hypertension Chronic noncompliance Congestive heart failure Frequent excessive fluid gain Chronic smoker Current allergies: None Home medication present medication: Reviewed Social history/family history: Reviewed Review of systems positive for generalized weakness fatigue shortness of breath, excessive fluid abuse cough congestion All other review of systems negative Labs and x-rays: Were reviewed from the current chart Physical examination General: No acute distress HEENT: Oral mucosa moist no pharyngeal erythema no pallor or icterus no uremic order Neck: Supple no evidence of any thyromegaly trachea midline no JVD Chest: bilateral basilar crackles Functioning catheter right upper chest Heart: Regular rate and rhythm S1-S2 heard no S3-S4 Abdomen: Soft nontender no renal bruit no CVA tenderness no suprapubic fullness no organomegaly Extremity: Minimal edema dry skin no peripheral cyanosis pulses palpable fistula appears to be okay, has proximal sharp bruit Neurological: Alert awake follows command grossly nonfocal examination Back: Nontender thoracolumbar spine Musculoskeletal: No joint effusion noted Skin: No petechial rash/noted Assessment and plan End-stage renal disease: Patient will continue with hemodialysis 3 times a week on, Sunday and Sunday Fistula has been used at dialysis facility Bilateral air space disease/history of COPD/severe noncompliance with fluid/chronic tobacco abuse Consider removing catheter tomorrow if fistula is working well He may need a fistulogram however at a late Anemia and end-stage renal disease: We'll monitor hemoglobin between 10 and 12 to monitor and follow erythropoietin as required Secondary hyperparathyroidism: Goal hosphorus should be less than 5.5 intact PTH: Less than 600 goals were discussed with patient Malnutrition risk: High patient is to be maintained on high protein diet, probably 1.5 g protein per KG body weight Hypertension and volume: Goal systolic blood pressure currently less than 140 s ystolic at this time, diet plan was discussed with patient all questions were answered advised to maintain fluid restriction stated high-protein diet sodium restriction daily weight monitoring daily blood pressure monitoring was discussed with patient Patient was adequately counseled and educated in regard to all dialysis related issues Diet plan and current labs are also discussed We'll continue to follow and make recommendation from renal standpoint patient has been told on several occasions that he needs to take responsibility for his own health Family has been educated about his chronic noncompliance at the dialysis facility We'll continue to follow and make recommendations from renal standpoint. If you have any questions please feel free to contact me at [phone] Thank you for the consultation. Medications and Allergies Allergies Allergy/AdvReac Type Severity Reaction Status Date / Time No Known Allergies Allergy Verified 09/28/17 06:02 Home Medications Medication Instructions Recorded Confirmed Last Taken Type Atorvastatin [Lipitor] 40 mg PO QHS 09/28/17 05/01/19 Unknown History Carvedilol [Coreg] 12.5 mg PO BID 09/28/17 05/01/19 Unknown History Lisinopril [Zestril TAB] 20 mg PO QDAY 09/28/17 05/01/19 Unknown History Omeprazole 20 mg PO BID 09/28/17 05/01/19 Unknown History Vit B Comp No.3/Folic/C/Biotin 1 tab PO DAILY 09/28/17 05/01/19 Unknown History [[employer] Rx Tablet] amLODIPine [Norvasc] 10 mg PO DAILY 09/28/17 05/01/19 Unknown History levoFLOXacin [Levaquin TAB] 500 mg PO Q48H #3 tablet 09/29/17 05/01/19 Unknown Rx ALBUTEROL Inhaler (OR & NICU) 2 puff IH QID PRN 05/01/19 05/01/19 Unknown History [Proair] Amlodipine Besylate [Norvasc] 5 mg PO QDAY 05/01/19 05/01/19 Unknown History Carvedilol [Coreg] 25 mg PO BID 05/01/19 05/01/19 Unknown History Gabapentin [Neurontin] 300 mg PO Q8HR 05/01/19 05/01/19 Unknown History Latanoprost 0.005% [Xalatan 0.005%] 1 drop OP QPM 05/01/19 05/01/19 Unknown History Lisinopril [Zestril TAB] 40 mg PO QDAY 05/01/19 05/01/19 Unknown History Omeprazole 20 mg PO QDAY 05/01/19 05/01/19 Unknown History Rosuvastatin Calcium 5 mg PO QHS 05/01/19 05/01/19 Unknown History Active Meds: Active Medications Acetaminophen (Tylenol) 650 mg PO Q4H PRN PRN Reason: Pain MILD(1-3)/Fever >100.5/JUAREZ Last Admin: 05/01/19 06:44 Dose: 650 mg Documented by: Dextrose (D50w (25gm) Syringe) 50 ml IV PRN PRN PRN Reason: Hypoglycemia Piperacillin Sod/Tazobactam Sod (Zosyn/Ns 2.25 Gm/50ml) 2.25 gm in 50 mls @ 100 mls/hr IV Q8HR JOHANA; Protocol Last Admin: 05/01/19 06:44 Dose: 100 mls/hr Documented by: Ondansetron HCl (Zofran) 4 mg IV Q8H PRN PRN Reason: Nausea And Vomiting Sodium Chloride (Sodium Chloride Flush Syringe 10 Ml) 10 ml IV BID JOHANA Sodium Chloride (Sodium Chloride Flush Syringe 10 Ml) 10 ml IV PRN PRN PRN Reason: LINE FLUSH Exam - Vital Signs Vital signs: Vital Signs Pulse Resp Pulse Ox 94 H 20 98 04/30/19 18:22 04/30/19 18:22 04/30/19 18:22 Results - Lab Results 05/01/19 03:15 05/01/19 03:15 Most recent lab results Calcium 8.4 mg/dL (8.4-10.2) 05/01/19 03:15
[2019-05-01] MEDS ORDERED: LOVENOX SUB-Q SCH (10:00)
[2019-05-01] MEDS: SODIUM CHLORIDE FLUSH SYRINGE 10 ML IV SCH ×2 (10:17→21:36)
--- NOTE | 2019-05-01 14:16 | Progress Note ---
Assessment and Plan Sepsis with b/L PNA End-stage renal disease Hypertension Diabetes type 2 Coagulopathy CHF, stable Plan - cont IV zosyn and van, follow blood culturE, Consulted renal for dialysis, check fingersticks and cont insulin signs scale Continue appropriate outpatient medications DVT prophylaxis Subjective Date of service: 05/01/19 Interval history: Patient seen and examined. Medical records and medication list reviewed. No acute event overnight noted by the RN. Patient denies any chest pain or difficulty breathing. Patient is tolerating diet. Discussed plan of care at bedside with patient. Objective - Constitutional Vitals: Vital Signs - 12hr 05/01/19 05/01/19 05:39 11:39 Temperature 100.7 F H 98.0 F Pulse Rate 74 70 Respiratory 20 20 Rate Blood Pressure 119/62 127/71 O2 Sat by Pulse 100 97 Oximetry General appearance: Present: no acute distress, well-nourished - EENT Eyes: PERRL, EOM intact ENT: hearing intact, clear oral mucosa Ears: bilateral: normal - Neck Neck: supple, normal ROM - Respiratory Respiratory effort: normal Respiratory: bilateral: CTA - Cardiovascular Rhythm: regular Heart Sounds: Present: S1 & S2. Absent: gallop, rub Extremities: pulses intact, No edema, normal color, Full ROM - Gastrointestinal General gastrointestinal: Present: soft, non-tender, non-distended, normal bowel sounds - Integumentary Integumentary: clear, warm, dry - Musculoskeletal Musculoskeletal: 1, strength equal bilaterally - Neurologic Neurologic: moves all extremities - Psychiatric Psychiatric: memory intact, appropriate mood/affect, intact judgment & insight - Labs CBC & Chem 7: 05/02/19 04:53 05/02/19 04:53 Labs: Abnormal lab results 04/30/19 04/30/19 04/30/19 Range/Units 19:47 19:47 19:47 WBC 15.8 H (4.5-11.0) K/mm3 RBC 3.02 L (3.65-5.03) M/mm3 Hgb 9.5 L (11.8-15.2) gm/dl Hct 30.0 L (35.5-45.6) % MCV 99 H (84-94) fl RDW 18.2 H (13.2-15.2) % Plt Count (140-440) K/mm3 Seg Neuts % (Manual) 89.0 H (40.0-70.0) % Lymphocytes % (Manual) 7.0 L (13.4-35.0) % Nucleated RBC % (0.0-0.9) % Seg Neutrophils # Man 14.1 H (1.8-7.7) K/mm3 Lymphocytes # (Manual) 1.1 L (1.2-5.4) K/mm3 Monocytes # (Manual) (0.0-0.8) K/mm3 Basophils # (Manual) 0.2 H (0.0-0.1) K/mm3 PT 20.6 H (12.2-14.9) Sec. INR 1.81 H (0.87-1.13) POC ABG pH (7.35-7.45) VBG pH (7.320-7.420) Sodium 135 L (137-145) mmol/L Chloride 90.1 L (98-107) mmol/L BUN 28 H (9-20) mg/dL Creatinine 3.8 H (0.8-1.5) mg/dL Glucose 217 H (75-100) mg/dL POC Glucose (70-105) Lactic Acid (0.7-2.0) mmol/L Alkaline Phosphatase 138 H (35-129) units/L Total Protein 8.9 H (6.3-8.2) g/dL Albumin 3.1 L (3.9-5) g/dL 04/30/19 04/30/19 05/01/19 Range/Units 19:47 19:47 00:49 WBC (4.5-11.0) K/mm3 RBC (3.65-5.03) M/mm3 Hgb (11.8-15.2) gm/dl Hct (35.5-45.6) % MCV (84-94) fl RDW (13.2-15.2) % Plt Count (140-440) K/mm3 Seg Neuts % (Manual) (40.0-70.0) % Lymphocytes % (Manual) (13.4-35.0) % Nucleated RBC % (0.0-0.9) % Seg Neutrophils # Man (1.8-7.7) K/mm3 Lymphocytes # (Manual) (1.2-5.4) K/mm3 Monocytes # (Manual) (0.0-0.8) K/mm3 Basophils # (Manual) (0.0-0.1) K/mm3 PT (12.2-14.9) Sec. INR (0.87-1.13) POC ABG pH 7.473 H (7.35-7.45) VBG pH 7.457 H (7.320-7.420) Sodium (137-145) mmol/L Chloride (98-107) mmol/L BUN (9-20) mg/dL Creatinine (0.8-1.5) mg/dL Glucose (75-100) mg/dL POC Glucose (70-105) Lactic Acid 2.80 H* (0.7-2.0) mmol/L Alkaline Phosphatase (35-129) units/L Total Protein (6.3-8.2) g/dL Albumin (3.9-5) g/dL 05/01/19 05/01/19 05/01/19 Range/Units 03:15 03:15 06:19 WBC 26.4 H (4.5-11.0) K/mm3 RBC 2.72 L (3.65-5.03) M/mm3 Hgb 8.6 L (11.8-15.2) gm/dl Hct 27.0 L (35.5-45.6) % MCV 99 H (84-94) fl RDW 18.1 H (13.2-15.2) % Plt Count 133 L (140-440) K/mm3 Seg Neuts % (Manual) 90.0 H (40.0-70.0) % Lymphocytes % (Manual) 4.0 L (13.4-35.0) % Nucleated RBC % 1.0 H (0.0-0.9) % Seg Neutrophils # Man 23.8 H (1.8-7.7) K/mm3 Lymphocytes # (Manual) 1.1 L (1.2-5.4) K/mm3 Monocytes # (Manual) 1.1 H (0.0-0.8) K/mm3 Basophils # (Manual) (0.0-0.1) K/mm3 PT (12.2-14.9) Sec. INR (0.87-1.13) POC ABG pH (7.35-7.45) VBG pH (7.320-7.420) Sodium 134 L (137-145) mmol/L Chloride 91.8 L (98-107) mmol/L BUN 40 H (9-20) mg/dL Creatinine 4.4 H (0.8-1.5) mg/dL Glucose 256 H (75-100) mg/dL POC Glucose 238 H (70-105) Lactic Acid (0.7-2.0) mmol/L Alkaline Phosphatase (35-129) units/L Total Protein (6.3-8.2) g/dL Albumin (3.9-5) g/dL 05/01/19 Range/Units 11:40 WBC (4.5-11.0) K/mm3 RBC (3.65-5.03) M/mm3 Hgb (11.8-15.2) gm/dl Hct (35.5-45.6) % MCV (84-94) fl RDW (13.2-15.2) % Plt Count (140-440) K/mm3 Seg Neuts % (Manual) (40.0-70.0) % Lymphocytes % (Manual) (13.4-35.0) % Nucleated RBC % (0.0-0.9) % Seg Neutrophils # Man (1.8-7.7) K/mm3 Lymphocytes # (Manual) (1.2-5.4) K/mm3 Monocytes # (Manual) (0.0-0.8) K/mm3 Basophils # (Manual) (0.0-0.1) K/mm3 PT (12.2-14.9) Sec. INR (0.87-1.13) POC ABG pH (7.35-7.45) VBG pH (7.320-7.420) Sodium (137-145) mmol/L Chloride (98-107) mmol/L BUN (9-20) mg/dL Creatinine (0.8-1.5) mg/dL Glucose (75-100) mg/dL POC Glucose 262 H (70-105) Lactic Acid (0.7-2.0) mmol/L Alkaline Phosphatase (35-129) units/L Total Protein (6.3-8.2) g/dL Albumin (3.9-5) g/dL - Imaging and cardiology Chest x-ray: report reviewed CT Scan - head: report reviewed
[2019-05-01] MEDS ORDERED: PROAIR IH PRN (18:55)
[2019-05-01] MEDS ORDERED: VANCOMYCIN/NS 1 GM/250 ML 1 GM/250 ML BAG IV SCH (19:00)
[2019-05-01] MEDS ORDERED: VANCOMYCIN 1,500 MG in NACL 0.9% 500 ML 500 ML IV ONE (19:30)
[2019-05-01] MEDS ORDERED: PROVENTIL IH PRN (19:52)
[2019-05-01] MEDS ORDERED: NON-FORMULARY (Omeprazole [Omeprazole] 20 MG) PO SCH (22:00)
[2019-05-01] MEDS ORDERED: NEURONTIN PO SCH (22:00)
[2019-05-01 22:32] LABS: Hepatitis B Surface Antigen Non-Reactive (Negative); Hepatitis C Virus Antibody Reactive (NonReactive)
[2019-05-01] MEDS ORDERED: BENADRYL IV PRN (22:58)
[2019-05-02] MEDS: NEURONTIN PO SCH ×4 (00:13→21:05)
[2019-05-02] MEDS: SODIUM CHLORIDE FLUSH SYRINGE 10 ML IV SCH ×3 (00:14→21:05)
[2019-05-02] MEDS: PERCOCET 5/325 PO PRN ×3 (00:18→21:50)
[2019-05-02] MEDS: PROTONIX PO SCH ×3 (00:20→21:05)
[2019-05-02 05:26] LABS: Basophils # (Auto) 0.1 K/mm3 (0.0-0.1); Basophils % (Auto) 0.5 % (0.0-1.8); Eosinophils # (Auto) 0.1 K/mm3 (0.0-0.4); Eosinophils % (Auto) 0.6 % (0.0-4.3); Hematocrit 25.2 % (35.5-45.6); Hemoglobin 8.1 gm/dl (11.8-15.2); Lymphocytes % (Auto) 5.8 % (13.4-35.0); Mean Corpuscular HGB Conc 32 % (32-34); Mean Corpuscular Volume 99 fl (84-94); Monocytes # (Auto) 0.8 K/mm3 (0.0-0.8); Monocytes % (Auto) 4.9 % (0.0-7.3); Platelet Count 129 K/mm3 (140-440); Red Blood Count 2.55 M/mm3 (3.65-5.03); Red Cell Distribution Width 18.3 % (13.2-15.2)
[2019-05-02] MEDS: ZOSYN/NS 2.25 GM/50ML 2.25 GM/50 ML BAG IV SCH ×3 (05:27→21:05)
[2019-05-02 05:49] LABS: Calcium 8.3 mg/dL (8.4-10.2)
[2019-05-02] MEDS ORDERED: [UNRECOGNIZED DRUG - REMARK] PO SCH (10:00)
[2019-05-02] MEDS ORDERED: Renal Caps PO SCH (10:00)
[2019-05-02] MEDS ORDERED: NORVASC PO SCH (10:00)
[2019-05-02] MEDS ORDERED: VANCOMYCIN PHARMACY TO DOSE IV SCH (11:00)
--- NOTE | 2019-05-02 12:15 | Progress Note ---
Assessment and Plan Sepsis with b/L PNA and bacteremia, POA - cx growing staph aureus - cont vanc, get 2d echo, consult ID - likely from perm cath - consulted Vascular to remove the perm cath End-stage renal disease, renal following for HD Hypertension, cont home meds Diabetes type 2, SSI Coagulopathy, likely from underlying CLD with hep B and C CHF, stable DVT prophylaxis, SCD Subjective Date of service: 05/02/19 Interval history: Patient seen and examined. Medical records and medication list reviewed. No acute event overnight noted by the RN. Patient denies any chest pain or difficulty breathing. Patient is tolerating diet. Discussed plan of care at bedside with patient. Objective - Constitutional Vitals: Vital Signs - 12hr 05/02/19 05/02/19 05/02/19 06:36 08:58 09:30 Temperature 97.7 F 97.5 F L Pulse Rate 69 75 Respiratory 18 24 24 Rate Blood Pressure 114/59 Blood Pressure 127/74 [Right] O2 Sat by Pulse 95 95 Oximetry 05/02/19 10:29 Temperature Pulse Rate 75 Respiratory Rate Blood Pressure 127/74 Blood Pressure [Right] O2 Sat by Pulse Oximetry General appearance: Present: no acute distress, well-nourished - EENT Eyes: PERRL, EOM intact ENT: hearing intact, clear oral mucosa Ears: bilateral: normal - Neck Neck: supple, normal ROM - Respiratory Respiratory effort: normal Respiratory: bilateral: CTA - Cardiovascular Rhythm: regular Heart Sounds: Present: S1 & S2. Absent: gallop, rub Extremities: pulses intact, No edema, normal color, Full ROM - Gastrointestinal General gastrointestinal: Present: soft, non-tender, non-distended, normal bowel sounds - Integumentary Integumentary: clear, warm, dry - Musculoskeletal Musculoskeletal: 1, strength equal bilaterally - Neurologic Neurologic: moves all extremities - Psychiatric Psychiatric: memory intact, appropriate mood/affect, intact judgment & insight - Labs CBC & Chem 7: 05/03/19 03:10 05/03/19 03:10 Labs: Abnormal lab results 05/01/19 05/01/19 05/01/19 Range/Units 15:50 17:18 23:56 WBC (4.5-11.0) K/mm3 RBC (3.65-5.03) M/mm3 Hgb (11.8-15.2) gm/dl Hct (35.5-45.6) % MCV (84-94) fl RDW (13.2-15.2) % Plt Count (140-440) K/mm3 Lymph % (Auto) (13.4-35.0) % Lymph # (1.2-5.4) K/mm3 Seg Neutrophils % (40.0-70.0) % Seg Neutrophils # (1.8-7.7) K/mm3 Sodium (137-145) mmol/L Chloride (98-107) mmol/L BUN (9-20) mg/dL Creatinine (0.8-1.5) mg/dL Glucose (75-100) mg/dL POC Glucose 132 H 201 H (70-105) Calcium (8.4-10.2) mg/dL Hep B Core IgM Ab Reactive A (NonReactive) Hepatitis C Antibody Reactive A (NonReactive) 05/02/19 05/02/19 05/02/19 Range/Units 04:53 04:53 08:41 WBC 17.3 H (4.5-11.0) K/mm3 RBC 2.55 L (3.65-5.03) M/mm3 Hgb 8.1 L (11.8-15.2) gm/dl Hct 25.2 L (35.5-45.6) % MCV 99 H (84-94) fl RDW 18.3 H (13.2-15.2) % Plt Count 129 L (140-440) K/mm3 Lymph % (Auto) 5.8 L (13.4-35.0) % Lymph # 1.0 L (1.2-5.4) K/mm3 Seg Neutrophils % 88.2 H (40.0-70.0) % Seg Neutrophils # 15.3 H (1.8-7.7) K/mm3 Sodium 136 L (137-145) mmol/L Chloride 92.7 L (98-107) mmol/L BUN 57 H (9-20) mg/dL Creatinine 5.7 H (0.8-1.5) mg/dL Glucose 163 H (75-100) mg/dL POC Glucose 142 H (70-105) Calcium 8.3 L (8.4-10.2) mg/dL Hep B Core IgM Ab (NonReactive) Hepatitis C Antibody (NonReactive) 05/02/19 Range/Units 11:51 WBC (4.5-11.0) K/mm3 RBC (3.65-5.03) M/mm3 Hgb (11.8-15.2) gm/dl Hct (35.5-45.6) % MCV (84-94) fl RDW (13.2-15.2) % Plt Count (140-440) K/mm3 Lymph % (Auto) (13.4-35.0) % Lymph # (1.2-5.4) K/mm3 Seg Neutrophils % (40.0-70.0) % Seg Neutrophils # (1.8-7.7) K/mm3 Sodium (137-145) mmol/L Chloride (98-107) mmol/L BUN (9-20) mg/dL Creatinine (0.8-1.5) mg/dL Glucose (75-100) mg/dL POC Glucose 280 H (70-105) Calcium (8.4-10.2) mg/dL Hep B Core IgM Ab (NonReactive) Hepatitis C Antibody (NonReactive) - Imaging and cardiology Chest x-ray: report reviewed CT Scan - head: report reviewed
[2019-05-02] MEDS ORDERED: NACL 0.9% 100 ML IV PRN (14:00)
--- NOTE | 2019-05-02 14:39 | Consultation ---
History of Present Illness - Reason for Consult Consult date: 05/02/19 - History of Present Illness 62 yo M PMHx HTN, DM2, ESRD on HD, liver disease, CHF admitted with altered mental status. Patient is lethargic and minimally responsive to interview, as such the history is taken from the chart. He was noted by family to have poor responsiveness and chills after receiving dialysis on Sunday. He was directed to the emergency room due to his symptoms from his dialysis centre yesterday due to his symptoms. His port was scheduled to be removed at the [facility] today. Despite his HD access being a fistula, he still has a permacath in place. Febrile on admission with a temperature of 100.7. He is currently receiving vanc and Zosyn. Whtie count of 17. Hep C Ab positive, Hep B core IgM positive. 04/30 blood cultures positive for S aureus pending finalization. Imaging personally reviewed: 04/30 CXR: bilateral airspace disease consistent with pneumonia. 05/01 CTH: No abnormality. Past History Past Medical History: ESRD, hypertension Past Surgical History: No surgical history Social history: denies: smoking, alcohol abuse Family history: hypertension Medications and Allergies Allergies Allergy/AdvReac Type Severity Reaction Status Date / Time No Known Allergies Allergy Verified 09/28/17 06:02 Home Medications Medication Instructions Recorded Confirmed Last Taken Type Atorvastatin [Lipitor] 40 mg PO QHS 09/28/17 05/01/19 Unknown History Carvedilol [Coreg] 12.5 mg PO BID 09/28/17 05/01/19 Unknown History Lisinopril [Zestril TAB] 20 mg PO QDAY 09/28/17 05/01/19 Unknown History Omeprazole 20 mg PO BID 09/28/17 05/01/19 Unknown History Vit B Comp No.3/Folic/C/Biotin 1 tab PO DAILY 09/28/17 05/01/19 Unknown History [[facility] Rx Tablet] amLODIPine [Norvasc] 10 mg PO DAILY 09/28/17 05/01/19 Unknown History levoFLOXacin [Levaquin TAB] 500 mg PO Q48H #3 tablet 09/29/17 05/01/19 Unknown Rx ALBUTEROL Inhaler (OR & NICU) 2 puff IH QID PRN 05/01/19 05/01/19 Unknown Histo ry [Proair] Amlodipine Besylate [Norvasc] 5 mg PO QDAY 05/01/19 05/01/19 Unknown History Carvedilol [Coreg] 25 mg PO BID 05/01/19 05/01/19 Unknown History Gabapentin [Neurontin] 300 mg PO Q8HR 05/01/19 05/01/19 Unknown History Latanoprost 0.005% [Xalatan 0.005%] 1 drop OP QPM 05/01/19 05/01/19 Unknown History Lisinopril [Zestril TAB] 40 mg PO QDAY 05/01/19 05/01/19 Unknown History Omeprazole 20 mg PO QDAY 05/01/19 05/01/19 Unknown History Rosuvastatin Calcium 5 mg PO QHS 05/01/19 05/01/19 Unknown History Active Meds: Active Medications Acetaminophen (Tylenol) 650 mg PO Q4H PRN PRN Reason: Pain MILD(1-3)/Fever >100.5/JUAREZ Last Admin: 05/01/19 06:44 Dose: 650 mg Documented by: Albuterol (Proventil) 2.5 mg IH Q4HRT PRN PRN Reason: Shortness Of Breath Amlodipine Besylate (Norvasc) 5 mg PO QDAY [facility] Last Admin: 05/02/19 10:29 Dose: 5 mg Documented by: Atorvastatin Calcium (Lipitor) 40 mg PO QHS [facility] Last Admin: 05/02/19 00:19 Dose: 40 mg Documented by: Dextrose (D50w (25gm) Syringe) 50 ml IV PRN PRN PRN Reason: Hypoglycemia Gabapentin (Neurontin) 100 mg PO Q8HR [facility] Piperacillin Sod/Tazobactam Sod (Zosyn/Ns 2.25 Gm/50ml) 2.25 gm in 50 mls @ 100 mls/hr IV Q8HR [facility]; Protocol Last Admin: 05/02/19 13:49 Dose: 100 mls/hr Documented by: Sodium Chloride (Nacl 0.9%) 100 mls @ 999 mls/hr IV KIMBERLY PRN PRN Reason: Hypotension Insulin Human Regular (Humulin R) 0 units SUB-Q ACHS [facility]; Protocol Latanoprost (Latanoprost 0.005%) 1 drops OU QPM [facility] Multivit/Ca Carb/B Cmplx/FA/Prenat (Renal Caps) 1 cap PO QDAY [facility] Last Admin: 05/02/19 10:29 Dose: 1 cap Documented by: Ondansetron HCl (Zofran) 4 mg IV Q8H PRN PRN Reason: Nausea And Vomiting Last Admin: 05/02/19 02:18 Dose: 4 mg Documented by: Oxycodone/Acetaminophen (Percocet 5/325) 1 tab PO Q6H PRN PRN Reason: Pain, Moderate (4-6) Last Admin: 05/02/19 10:36 Dose: 1 tab Documented by: Pantoprazole Sodium (Protonix) 20 mg PO BID [facility] Last Admin: 05/02/19 10:29 Dose: 20 mg Documented by: Sodium Chloride (Sodium Chloride Flush Syringe 10 Ml) 10 ml IV BID [facility] Last Admin: 05/02/19 10:30 Dose: 10 ml Documented by: Sodium Chloride (Sodium Chloride Flush Syringe 10 Ml) 10 ml IV PRN PRN PRN Reason: LINE FLUSH Review of Systems ROS unobtainable: due to mental status Physical Examination - Physical Exam Narrative exam: Physical Exam: Constitutional: Lethargic, co-operative. Disoriented Head, Ears, Nose: Normocephalic, atraumatic. External ears, nose normal Eyes: Conjunctivae/corneas clear. No icterus. No ptosis. Neck: Supple, no meningeal signs Oral: dentition fair, no thrush Cardiovascular: S1, S2 normal. R chest permacath in place. Respiratory: Good air entry, clear to auscultation bilaterally GI: Soft, non-tender; bowel sounds normal. No peritoneal signs. Musculoskeletal: No pedal edema, no cyanosis. Skin: No rash or abscess Hem/Lymphatic: No palpable cervical or supraclavicular nodes. No lymphangitis Neurological: Disoriented, lethargic. - Constitutional Vitals: Vital Signs Temp Pulse Resp BP Pulse Ox 98.0 F 72 20 139/78 96 05/02/19 12:07 05/02/19 12:07 05/02/19 12:07 05/02/19 12:07 05/02/19 12:07 Temperature -Last 24 Hours Temperature 98.0 F Temperature 97.5 F Temperature 97.7 F Temperature 98.6 F Temperature 97.6 F Results - Labs CBC & Chem 7: 05/02/19 04:53 05/02/19 04:53 Labs: Abnormal lab results 05/01/19 05/01/19 05/01/19 Range/Units 15:50 17:18 23:56 WBC (4.5-11.0) K/mm3 RBC (3.65-5.03) M/mm3 Hgb (11.8-15.2) gm/dl Hct (35.5-45.6) % MCV (84-94) fl RDW (13.2-15.2) % Plt Count (140-440) K/mm3 Lymph % (Auto) (13.4-35.0) % Lymph # (1.2-5.4) K/mm3 Seg Neutrophils % (40.0-70.0) % Seg Neutrophils # (1.8-7.7) K/mm3 Sodium (137-145) mmol/L Chloride (98-107) mmol/L BUN (9-20) mg/dL Creatinine (0.8-1.5) mg/dL Glucose (75-100) mg/dL POC Glucose 132 H 201 H (70-105) Calcium (8.4-10.2) mg/dL Hep B Core IgM Ab Reactive A (NonReactive) Hepatitis C Antibody Reactive A (NonReactive) 05/02/19 05/02/19 05/02/19 Range/Units 04:53 04:53 08:41 WBC 17.3 H (4.5-11.0) K/mm3 RBC 2.55 L (3.65-5.03) M/mm3 Hgb 8.1 L (11.8-15.2) gm/dl Hct 25.2 L (35.5-45.6) % MCV 99 H (84-94) fl RDW 18.3 H (13.2-15.2) % Plt Count 129 L (140-440) K/mm3 Lymph % (Auto) 5.8 L (13.4-35.0) % Lymph # 1.0 L (1.2-5.4) K/mm3 Seg Neutrophils % 88.2 H (40.0-70.0) % Seg Neutrophils # 15.3 H (1.8-7.7) K/mm3 Sodium 136 L (137-145) mmol/L Chloride 92.7 L (98-107) mmol/L BUN 57 H (9-20) mg/dL Creatinine 5.7 H (0.8-1.5) mg/dL Glucose 163 H (75-100) mg/dL POC Glucose 142 H (70-105) Calcium 8.3 L (8.4-10.2) mg/dL Hep B Core IgM Ab (NonReactive) Hepatitis C Antibody (NonReactive) 05/02/19 Range/Units 11:51 WBC (4.5-11.0) K/mm3 RBC (3.65-5.03) M/mm3 Hgb (11.8-15.2) gm/dl Hct (35.5-45.6) % MCV (84-94) fl RDW (13.2-15.2) % Plt Count (140-440) K/mm3 Lymph % (Auto) (13.4-35.0) % Lymph # (1.2-5.4) K/mm3 Seg Neutrophils % (40.0-70.0) % Seg Neutrophils # (1.8-7.7) K/mm3 Sodium (137-145) mmol/L Chloride (98-107) mmol/L BUN (9-20) mg/dL Creatinine (0.8-1.5) mg/dL Glucose (75-100) mg/dL POC Glucose 280 H (70-105) Calcium (8.4-10.2) mg/dL Hep B Core IgM Ab (NonReactive) Hepatitis C Antibody (NonReactive) - Imaging and Cardiology Chest x-ray: image reviewed CT Scan - head: image reviewed Assessment and Plan Cultures: 04/30 BCx - S aureus 04/30 Sputum Cx - pending A/P: 62 yo M PMHx HTN, DM2, ESRD on HD, lvier disease, CHF admitted with altered mental status, pneumonia, bacteremia 1. Acute sepsis - Present on admission with fever, leukocytosis, tachycardia. Secondary to bilateral pneumonia and S aureus bacteremia. 2. S aureus bacteremia - source is his retained R sided permacath. This needs to be removed as soon as possible. Continue vancomycin pending culture finalization. Ordered echo. Will need 4-6 weeks of effective therapy pending results. 3. Bilateral pneumonia - Continue Zosyn but increase dose to 3.375g q12h for HAP. 4. ESRD on HD 5. DM2 - improved control will aid his infection recovery 6. HTN 7. Hepatitis C - will check PCR to assess activity 8. Hepatitis B - unclear chronicity, will check SurfAb, but surf Ag negative so unlikely acute infection. Recs: - hep C PCR (ordered by me) - hep B surf Ab, total core Ab, HBEAb/Ag (ordered by me) - f/u echo - continue vancomycin dosed per pharmacy. Appreciate their assistance. Goal trough 15-20 - increased Zosyn to 3.375g q12h - remove R chest permacath as soon as possible. Thank you for the consult, we will continue to follow. Larisa Royal MD [facility] ([facility]) M: [phone] O: [phone] F: [phone]
[2019-05-02] MEDS ORDERED: ZOSYN/NS 2.25 GM/50ML 2.25 GM/50 ML BAG IV SCH (16:00)
--- NOTE | 2019-05-02 16:33 | Event Note ---
Date: 05/02/19 Consulted for PermCath removal. Patient has a functioning fistula. The patient presented with uremia and MRSA blood cultures. Currently afebrile. The patient is currently in cardiac echo. We will plan on removal of the PermCath after reviewing the results of the echo for possible thrombus.
[2019-05-02] MEDS ORDERED: NACL 0.9 (PRIMING MACHINE ONLY DIALYSIS) MC ONE (16:58)
[2019-05-02] MEDS ORDERED: LATANOPROST 0.005% OU SCH (18:00)
[2019-05-02] MEDS: HumuLIN R SUB-Q SCH ×2 (18:58→21:46)
--- NOTE | 2019-05-02 20:30 | Progress Note ---
Assessment and Plan Assessment/Plan: # End-stage renal disease: Patient will continue with hemodialysis 3 times a week on Sunday and Sunday Fistula has been used at dialysis facility, will attempt to use here #Bilateral air space disease/history of COPD/severe noncompliance with fluid/chronic tobacco abuse Consider removing catheter if fistula is working well; will continue to follow. May need a fistulogram however at a late # Anemia and end-stage renal disease: We'll monitor hemoglobin between 10 and 12 to monitor and follow erythropoietin as required # Secondary hyperparathyroidism: Goal phosphorus should be less than 5.5 and intact PTH less than 600; discussed with patient. We will provide vitamin D analogs as needed # Hypertension and volume: Goal systolic blood pressure currently less than 140 systolic at this time, diet plan was discussed with patient Family has been educated about his chronic noncompliance at the dialysis facility We'll continue to follow and make recommendations from renal standpoint. Subjective Date of service: 05/02/19 Principal diagnosis: altered mental status Interval history: no acute events noted. Seen on HD, doing well and denies any cramping, lightheadedness, dizziness. No renal related concerns today Objective - Exam Narrative Exam: General: No acute distress HEENT: Oral mucosa moist Neck: Supple Chest: clear to auscultation bilaterally Functioning catheter right upper chest Heart: Regular rate and rhythm S1-S2 heard no S3-S4 Abdomen: Soft nontender Extremity: no edema fistula appears to be okay, has proximal sharp bruit Neurological: Alert awake follows command grossly nonfocal examination Back: Nontender thoracolumbar spine Musculoskeletal: No joint effusion noted Skin: No petechial rash/noted - Vital Signs Vital signs: Vital Signs - 12hr 05/02/19 05/02/19 05/02/19 08:58 09:23 09:30 Temperature 97.5 F L Pulse Rate 75 Respiratory 24 24 24 Rate Blood Pressure 127/74 Blood Pressure 127/74 [Right] O2 Sat by Pulse 95 Oximetry 05/02/19 05/02/19 05/02/19 10:00 10:29 12:07 Temperature 98.0 F Pulse Rate 75 72 Respiratory 20 Rate Blood Pressure 127/74 139/78 Blood Pressure [Right] O2 Sat by Pulse 99 96 Oximetry 05/02/19 05/02/19 05/02/19 15:30 15:40 15:45 Temperature 97.2 F L Pulse Rate 16 L 65 66 Respiratory 18 Rate Blood Pressure 124/66 125/65 122/69 Blood Pressure [Right] O2 Sat by Pulse Oximetry 05/02/19 05/02/19 05/02/19 16:00 16:15 16:30 Temperature Pulse Rate 61 65 70 Respiratory Rate Blood Pressure 120/58 126/71 125/72 Blood Pressure [Right] O2 Sat by Pulse Oximetry 05/02/19 05/02/19 05/02/19 16:45 17:00 17:15 Temperature Pulse Rate 70 69 71 Respiratory Rate Blood Pressure 138/74 133/70 141/75 Blood Pressure [Right] O2 Sat by Pulse Oximetry 05/02/19 05/02/19 05/02/19 17:30 17:45 18:00 Temperature Pulse Rate 75 69 92 H Respiratory Rate Blood Pressure 140/76 136/72 127/67 Blood Pressure [Right] O2 Sat by Pulse Oximetry 05/02/19 05/02/19 05/02/19 18:15 18:30 19:30 Temperature 98.0 F Pulse Rate 74 65 62 Respiratory 18 Rate Blood Pressure 145/68 136/73 128/76 Blood Pressure [Right] O2 Sat by Pulse Oximetry 05/02/19 20:16 Temperature Pulse Rate Respiratory Rate Blood Pressure Blood Pressure [Right] O2 Sat by Pulse 97 Oximetry - Lab 05/02/19 04:53 05/02/19 04:53 Most recent lab results Calcium 8.3 mg/dL (8.4-10.2) L 05/02/19 04:53 Medications & Allergies - Medications Allergies/Adverse Reactions: Allergies No Known Allergies Allergy (Verified 09/28/17 06:02) Home Medications: Home Medications Medication Instructions Recorded Confirmed Last Taken Type Atorvastatin [Lipitor] 40 mg PO QHS 09/28/17 05/01/19 Unknown History Carvedilol [Coreg] 12.5 mg PO BID 09/28/17 05/01/19 Unknown History Lisinopril [Zestril TAB] 20 mg PO QDAY 09/28/17 05/01/19 Unknown History Omeprazole 20 mg PO BID 09/28/17 05/01/19 Unknown History Vit B Comp No.3/Folic/C/Biotin 1 tab PO DAILY 09/28/17 05/01/19 Unknown History [Room Service Waiter-[facility] Rx Tablet] amLODIPine [Norvasc] 10 mg PO DAILY 09/28/17 05/01/19 Unknown History levoFLOXacin [Levaquin TAB] 500 mg PO Q48H #3 tablet 09/29/17 05/01/19 Unknown Rx ALBUTEROL Inhaler (OR & NICU) 2 puff IH QID PRN 05/01/19 05/01/19 Unknown History [Proair] Amlodipine Besylate [Norvasc] 5 mg PO QDAY 05/01/19 05/01/19 Unknown History Carvedilol [Coreg] 25 mg PO BID 05/01/19 05/01/19 Unknown History Gabapentin [Neurontin] 300 mg PO Q8HR 05/01/19 05/01/19 Unknown History Latanoprost 0.005% [Xalatan 0.005%] 1 drop OP QPM 05/01/19 05/01/19 Unknown History Lisinopril [Zestril TAB] 40 mg PO QDAY 05/01/19 05/01/19 Unknown History Omeprazole 20 mg PO QDAY 05/01/19 05/01/19 Unknown History Rosuvastatin Calcium 5 mg PO QHS 05/01/19 05/01/19 Unknown History Active Medications: Generic Name Dose Route Start Last Admin Trade Name Freq PRN Reason Stop Dose Admin Acetaminophen 650 mg 04/30/19 23:49 05/01/19 06:44 Tylenol PO 650 mg Q4H PRN Administration Pain MILD(1-3)/Fever >100.5/JUAREZ Albuterol 2.5 mg 05/01/19 19:52 Proventil IH Q4HRT PRN Shortness Of Breath Amlodipine Besylate 5 mg 05/02/19 10:00 05/02/19 10:29 Norvasc PO 5 mg QDAY JOHANA Administration Atorvastatin Calcium 40 mg 05/01/19 22:00 05/02/19 00:19 Lipitor PO 40 mg QHS JOHANA Administration Dextrose 50 ml 04/30/19 23:49 D50w (25gm) Syringe IV PRN PRN Hypoglycemia Gabapentin 100 mg 05/02/19 14:15 05/02/19 19:00 Neurontin PO Not Given Q8HR JOHANA Piperacillin Sod/Tazobactam Sod 2.25 gm in 50 mls @ 100 mls/hr 04/30/19 23:45 05/02/19 13:49 Zosyn/Ns 2.25 Gm/50ml IV 100 mls/hr Q8HR JOHANA Administration Protocol Sodium Chloride 100 mls @ 999 mls/hr 05/02/19 14:00 Nacl 0.9% IV KIMBERLY PRN Hypotension Insulin Human Regular 0 units 05/02/19 16:30 05/02/19 18:58 Humulin R SUB-Q Not Given ACHS JOHAAN Protocol Latanoprost 1 drops 05/02/19 18:00 05/02/19 19:30 Latanoprost 0.005% OU 1 drops QPM JOHANA Administration Multivit/Ca Carb/B Cmplx/FA/Prenat 1 cap 05/02/19 10:00 05/02/19 10:29 Renal Caps PO 1 cap QDAY JOHANA Administration Ondansetron HCl 4 mg 04/30/19 23:49 05/02/19 02:18 Zofran IV 4 mg Q8H PRN Administration Nausea And Vomiting Oxycodone/Acetaminophen 1 tab 05/01/19 18:58 05/02/19 10:36 Percocet 5/325 PO 1 tab Q6H PRN Administration Pain, Moderate (4-6) Pantoprazole Sodium 20 mg 05/01/19 22:00 05/02/19 10:29 Protonix PO 20 mg BID JOHANA Administration Sodium Chloride 10 ml 05/01/19 10:00 05/02/19 10:30 Sodium Chloride Flush Syringe 10 Ml IV 10 ml BID JOHANA Administration Sodium Chloride 10 ml 04/30/19 23:49 Sodium Chloride Flush Syringe 10 Ml IV PRN PRN LINE FLUSH
[2019-05-02] MEDS ORDERED: ZOSYN/NS 3.375GM/50ML 3.375 GM/50 ML BAG IV SCH (22:00)
[2019-05-02] MEDS ORDERED: BENADRYL PO PRN (23:32)
[2019-05-02] MEDS ORDERED: BENADRYL IV ONE (23:52)
[2019-05-03 04:27] LABS: Basophils # (Auto) 0.1 K/mm3 (0.0-0.1); Basophils % (Auto) 0.5 % (0.0-1.8); Eosinophils # (Auto) 0.1 K/mm3 (0.0-0.4); Hematocrit 27.7 % (35.5-45.6); Hemoglobin 8.8 gm/dl (11.8-15.2); Lymphocytes # (Auto) 0.6 K/mm3 (1.2-5.4); Lymphocytes % (Auto) 6.4 % (13.4-35.0); Mean Corpuscular HGB Conc 32 % (32-34); Mean Corpuscular Volume 99 fl (84-94); Monocytes # (Auto) 0.5 K/mm3 (0.0-0.8); Monocytes % (Auto) 4.9 % (0.0-7.3); Platelet Count 145 K/mm3 (140-440); Red Blood Count 2.79 M/mm3 (3.65-5.03); Red Cell Distribution Width 18.3 % (13.2-15.2)
[2019-05-03 04:42] LABS: Calcium 8.1 mg/dL (8.4-10.2)
[2019-05-03] MEDS: ZOSYN/NS 2.25 GM/50ML 2.25 GM/50 ML BAG IV SCH (05:33)
[2019-05-03 05:39] VITALS: BP 153/79
[2019-05-03] MEDS: NEURONTIN PO SCH (06:54)
[2019-05-03] MEDS: HumuLIN R SUB-Q SCH (08:51)
--- NOTE | 2019-05-03 10:15 | Discharge Summary ---
Providers - Providers Date of Admission: 04/30/19 23:49 Date of discharge: 05/03/19 Attending physician: ASIA SHAW 04/30/19 23:49 Consult to Physician [CONS] Routine Comment: Consulting Provider: CRISTOFER BOOKER Physician Instructions: Reason For Exam: hd 05/02/19 12:11 Consult to Physician [CONS] Routine Comment: Consulting Provider: AIDA STAFFORD Physician Instructions: Reason For Exam: bacteremia 05/02/19 12:14 Consult to Physician [CONS] Routine Comment: Consulting Provider: RAKEL ORO Physician Instructions: Reason For Exam: remove perm cath [facility] Hospitalization Condition: Stable Hospital course: 62-year-old man with a history of hypertension, diabetes, end-stage renal disease on AV fistula on dialysis Sunday, liver disease, CHF comes to the emergency room with complaints of decreased responsiveness, chills after he came home from dialysis. Brought to the emergency room for further evaluation, patient is also scheduled to remove his perm cath at the [facility]. He was Febrile on admission with a temperature of 100.7, with elevated white count, b/l infiltrates on CXR, placed on vanc and Zosyn. His Hep C Ab positive, Hep B core IgM positive. 04/30 blood cultures positive for S aureus pending finalization. ID was consulted for abx recommendation, vascular following for permcath removal, renal following for HD. Patient and family decided to leave AMA and to do further f/u at [facility]. Imaging personally reviewed: 04/30 CXR: bilateral airspace disease consistent with pneumonia. 05/01 CTH: No abnormality. 2d echo: EF 45-50%, no vegetation Discharge diagnosis and management: Acute metabolic encephalopathy, POA - likely from Sepsis, resolved Sepsis with b/L PNA and bacteremia, POA - cx growing staph aureus - Placed on vanc, obtained 2d echo, consulted ID - likely from perm cath - consulted Vascular to remove the perm cath End-stage renal disease, renal following for HD Hypertension, cont home meds Diabetes type 2, SSI Coagulopathy, likely from underlying CLD with hep B and C CHF, stable, Ef 45-50% DVT prophylaxis, SCD Disposition: LEFT AGAINST MED ADVICE Core Measure Documentation - Palliative Care Palliative Care/ Comfort Measures: Not Applicable - Core Measures Any of the following diagnoses?: history only Exam - Constitutional Vitals: Temp Pulse Resp BP Pulse Ox 99.7 F H 85 20 153/79 100 05/03/19 05:37 05/03/19 05:37 05/03/19 05:37 05/03/19 05:37 05/03/19 05:37 General appearance: Present: no acute distress, well-nourished - EENT Eyes: Present: PERRL ENT: hearing intact, clear oral mucosa - Neck Neck: Present: supple, normal ROM - Respiratory Respiratory effort: normal Respiratory: bilateral: CTA - Cardiovascular Heart Sounds: Present: S1 & S2. Absent: rub, click - Extremities Extremities: pulses symmetrical, No edema Peripheral Pulses: within normal limits - Abdominal General gastrointestinal: Present: soft, non-tender, non-distended, normal bowel sounds - Integumentary Integumentary: Present: clear, warm, dry - Musculoskeletal Musculoskeletal: gait normal, strength equal bilaterally - Psychiatric Psychiatric: appropriate mood/affect, intact judgment & insight - Neurologic Neurologic: CNII-XII intact, moves all extremities Plan Follow up with: ROSEMARY CORDOVA MD [Primary Care Provider] - 3-5 Days
--- NOTE | 2019-05-03 11:24 | Event Note ---
Date: 05/03/19 Came to the room earlier today for permcath removal. Patient had left AMA.
[2019-05-05] MEDS ORDERED: VANCOMYCIN/NS 1 GM/250 ML 1 GM/250 ML BAG IV SCH (20:00)
== END 2019-05-03 08:30 | disposition left against medical advice (07) | DRG 871 ==
LOC: ED 19:22 → 3A 23:49
PROVIDERS: ADMIT Internal Medicine; ATTEND Internal Medicine
PROC: 4A033R1 Measurement of Arterial Saturation, Peripheral, Percutaneous Approach (ICD-10-PCS; principal; 2019-05-01)
PROC: 5A1D70Z Performance of Urinary Filtration, Intermittent, Less than 6 Hours Per Day (ICD-10-PCS; 2019-05-01)
DX: A41.01 Sepsis due to Methicillin susceptible Staphylococcus aureus (principal); N18.6 End stage renal disease; J18.9 Pneumonia, unspecified organism; G93.41 Metabolic encephalopathy; D68.9 Coagulation defect, unspecified; I13.2 Hypertensive heart and chronic kidney disease with heart failure and with stage 5 chronic kidney disease, or end stage renal disease; N25.81 Secondary hyperparathyroidism of renal origin; B19.10 Unspecified viral hepatitis B without hepatic coma; J44.0 Chronic obstructive pulmonary disease with (acute) lower respiratory infection; B19.20 Unspecified viral hepatitis C without hepatic coma; I50.9 Heart failure, unspecified; E11.22 Type 2 diabetes mellitus with diabetic chronic kidney disease; D63.1 Anemia in chronic kidney disease; F17.210 Nicotine dependence, cigarettes, uncomplicated; Z53.21 Procedure and treatment not carried out due to patient leaving prior to being seen by health care provider; Z91.19 Patient's noncompliance with other medical treatment and regimen; Z99.2 Dependence on renal dialysis; Z82.49 Family history of ischemic heart disease and other diseases of the circulatory system
CPT/HCPCS: 36415; 36600; 70450; 71045; 80048; 80053; 80074; 80202; 82140; 82803; 82805; 82962; 85007; 85025; 85610; 86705; 87040; 87186; 87350; 87517; 93005; 93010; 93306; 94640; 94760; 99406; G0378; A9270-GY; J0692; J1200; J1815; J2405; J2543; J3370; J7030; J7040

== ENCOUNTER 2021-01-25 07:43 | Inpatient (IN) | payer MEDICARE ==
--- NOTE | 2021-01-25 08:07 | Emergency Department Report ---
HPI - General Time Seen by Provider: 01/25/21 07:54 - HPI HPI: Room 22 The patient is a 65-year-old male present with a chief complaint of cardiac arrest. The patient's last known well time was last night per EMS. This morning the patient's spouse found him unresponsive and stated he was not breathing and subsequently called 911. EMS arrived on scene at 07:11 to find the patient in asystole. ACLS protocols were initiated. EMS attempted intubation but was unsuccessful. Patient was administered bicarb and epinephrine prior to arrival. Upon arrival to the ED the patient was found to be asystolic. The patient was intubated by myself and ACLS protocols were continued with eventual return of spontaneous circulation. Of note family states that the patient was recently discharged from the [facility] after admission for an infection of his fistula and placement of a Vas- Cath. Family is uncertain of the last time the patient was dialyzed but believes it was recently ED Past Medical Hx - Past Medical History Hx Hypertension: Yes Hx Congestive Heart Failure: Yes Hx Diabetes: Yes Hx Renal Disease: Yes (dialysis MWF) - Surgical History Additional Surgical History: A.V graft, vas cath - Family History Family history: no significant - Social History Smoking Status: Unknown if ever smoked - Medications Home Medications: Home Medications Medication Instructions Recorded Confirmed Last Taken Type Atorvastatin [Lipitor] 40 mg PO QHS 09/28/17 05/01/19 Unknown History Omeprazole 20 mg PO BID 09/28/17 05/01/19 Unknown History Vit B Comp No.3/Folic/C/Biotin 1 tab PO DAILY 09/28/17 05/01/19 Unknown History [Cryptologic Technician Technical-[facility] Rx Tablet] amLODIPine 10 mg PO DAILY 09/28/17 05/01/19 Unknown History carvediloL [Coreg] 12.5 mg PO BID 09/28/17 05/01/19 Unknown History lisinopriL [Zestril TAB] 20 mg PO QDAY 09/28/17 05/01/19 Unknown History Albuterol Mdi (or & Nicu Only) 2 puff IH QID PRN 05/01/19 05/01/19 Unknown History [ProAir HFA Inhaler] Amlodipine Besylate [Norvasc] 5 mg PO QDAY 05/01/19 05/01/19 Unknown History Gabapentin 300 mg PO Q8HR 05/01/19 05/01/19 Unknown History Latanoprost 0.005% 1 drop OP QPM 05/01/19 05/01/19 Unknown History Omeprazole 20 mg PO QDAY 05/01/19 05/01/19 Unknown History Rosuvastatin Calcium 5 mg PO QHS 05/01/19 05/01/19 Unknown History carvediloL [Coreg] 25 mg PO BID 05/01/19 05/01/19 Unknown History lisinopriL [Zestril TAB] 40 mg PO QDAY 05/01/19 05/01/19 Unknown History ED Review of Systems ROS: Stated complaint: CARDIAC ARREST Other details as noted in HPI Comment: Unobtainable due to pts medical conditions Physical Exam - Physical Exam Physical Exam: GENERAL: The patient is well-developed well-nourished male lying on stretcher being bagged via BVM and receiving chest compressions from EMS. [] HEENT: Normocephalic. Atraumatic. NECK: Supple. Trachea midline CHEST/LUNGS: No spontaneous respirations. Breath sounds equal bilaterally with bagging after intubation by myself HEART/CARDIOVASCULAR: No heart sounds. Asystole on monitor ABDOMEN: Abdomen is soft, nontender. Patient has normal bowel sounds. There is no abdominal distention. SKIN: There is no rash. There is no edema. There is no diaphoresis. 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 There is no evidence of acute injury. - Central Line Placement Right Femoral Consent Obtained: emergent situation Time Out Performed: Yes Patient Placed on Monitor/Pulse Ox: Yes MD Prep: mask, gown, gloves Central Line Prep: Chlorhexidine scrub Local Anesthesia Used: Lidocaine 1% Amount of Anesthesia Used (mls): 5 Ultrasound Used for Placement: No Central Line Lumen Inserted: triple Reason for Insertion: High Alert Medication Bloods Obtained for Lab: No Central Line Position: good blood return, all ports aspirated, flus Dressing Applied: Tegaderm Patient Tolerated Procedure: well, no complications Complications: none - Intubation Time Out Performed: No Laryngoscope: Dalia Size: 3 ET Tube Size: 8 Tube Secured Depth (cm): 24 Tube Secured Location: lips Tube Placement Confirmation: visualized tube passing t, equal breath sounds bilat, no breath sounds over epi, confirmation by capnometr Patient Tolerated Procedure: no complications Intubation Complications: none ED Medical Decision Making - Lab Data Result diagrams: 01/25/21 08:13 01/25/21 08:13 Laboratory Tests 01/25/21 01/25/21 01/25/21 07:56 08:13 08:13 WBC 11.4 H RBC 2.50 L Hgb 7.3 L Hct 22.2 L MCV 89 MCH 29 MCHC 33 RDW 17.5 H Plt Count 237 Lymph % (Auto) 13.0 L [place] % (Auto) 1.6 Eos % (Auto) 1.5 Baso % (Auto) 2.2 H Lymph # (Auto) 1.5 [place] # (Auto) 0.2 Eos # (Auto) 0.2 Baso # (Auto) 0.3 H Seg Neutrophils % 81.7 H Seg Neutrophils # 9.3 H PT 16.0 H INR 1.28 H APTT 56.8 H ABG pH POC ABG pCO2 POC ABG pO2 POC ABG HCO3 ABG O2 Saturation POC ABG Base Excess ABG Hemoglobin ABG Oxyhemoglobin ABG Methemoglobin ABG Sodium ABG Potassium ABG Chloride ABG Glucose VBG pH Carboxyhemoglobin FiO2 % Sodium Potassium Chloride Carbon Dioxide Anion Gap BUN Creatinine Estimated GFR BUN/Creatinine Ratio Glucose POC Glucose 139 H Calcium Magnesium Total Bilirubin AST ALT Alkaline Phosphatase Total Creatine Kinase CK-MB (CK-2) CK-MB (CK-2) Rel Index Troponin T NT-Pro-B Natriuret Pep Total Protein Albumin Albumin/Globulin Ratio Triglycerides Cholesterol LDL Cholesterol Direct HDL Cholesterol Cholesterol/HDL Ratio Arterial Blood Glucose Arterial Blood Ionized Calcium Urine Color Urine Turbidity Urine pH Ur Specific Herman Urine Protein Urine Glucose (UA) Urine Ketones Urine Blood Urine Nitrite Urine Bilirubin Urine Urobilinogen Ur Leukocyte Esterase Urine WBC (Auto) Urine RBC (Auto) Urine Bacteria (Auto) Urine WBC Clumps Ur Transition Epith Cell Urine Mucus 01/25/21 01/25/21 01/25/21 08:13 08:13 08:44 WBC RBC Hgb Hct MCV MCH MCHC RDW Plt Count Lymph % (Auto) [place] % (Auto) Eos % (Auto) Baso % (Auto) Lymph # (Auto) [place] # (Auto) Eos # (Auto) Baso # (Auto) Seg Neutrophils % Seg Neutrophils # PT INR APTT ABG pH 7.174 L POC ABG pCO2 58.4 H POC ABG pO2 109.3 H POC ABG HCO3 21.0 ABG O2 Saturation 96.4 POC ABG Base Excess -7.1 ABG Hemoglobin 7.7 L ABG Oxyhemoglobin 92.0 L ABG Methemoglobin 0.3 ABG Sodium 133.9 L ABG Potassium 5.4 H ABG Chloride 97.0 L ABG Glucose 157 H VBG pH 7.100 L* Carboxyhemoglobin 4.3 H FiO2 % 100.0 Sodium 135 L Potassium 5.4 H Chloride 92.1 L Carbon Dioxide 21 L Anion Gap 27 BUN 18 Creatinine 4.8 H Estimated GFR 15 BUN/Creatinine Ratio 4 Glucose 157 H POC Glucose Calcium 8.6 Magnesium 2.30 Total Bilirubin 0.20 AST 284 H ALT 85 H Alkaline Phosphatase 102 Total Creatine Kinase 156 CK-MB (CK-2) 3.4 CK-MB (CK-2) Rel Index 2.1 Troponin T 0.233 H* NT-Pro-B Natriuret Pep 31000 H Total Protein 5.8 L Albumin 2.5 L Albumin/Globulin Ratio 0.8 Triglycerides 83 Cholesterol 101 LDL Cholesterol Direct 54 HDL Cholesterol 43 Cholesterol/HDL Ratio 2.34 Arterial Blood Glucose 157 H Arterial Blood Ionized Calcium 4.5 L Urine Color Urine Turbidity Urine pH Ur Specific Herman Urine Protein Urine Glucose (UA) Urine Ketones Urine Blood Urine Nitrite Urine Bilirubin Urine Urobilinogen Ur Leukocyte Esterase Urine WBC (Auto) Urine RBC (Auto) Urine Bacteria (Auto) Urine WBC Clumps Ur Transition Epith Cell Urine Mucus 01/25/21 Unknown WBC RBC Hgb Hct MCV MCH MCHC RDW Plt Count Lymph % (Auto) [place] % (Auto) Eos % (Auto) Baso % (Auto) Lymph # (Auto) [place] # (Auto) Eos # (Auto) Baso # (Auto) Seg Neutrophils % Seg Neutrophils # PT INR APTT ABG pH POC ABG pCO2 POC ABG pO2 POC ABG HCO3 ABG O2 Saturation POC ABG Base Excess ABG Hemoglobin ABG Oxyhemoglobin ABG Methemoglobin ABG Sodium ABG Potassium ABG Chloride ABG Glucose VBG pH Carboxyhemoglobin FiO2 % Sodium Potassium Chloride Carbon Dioxide Anion Gap BUN Creatinine Estimated GFR BUN/Creatinine Ratio Glucose POC Glucose Calcium Magnesium Total Bilirubin AST ALT Alkaline Phosphatase Total Creatine Kinase CK-MB (CK-2) CK-MB (CK-2) Rel Index Troponin T NT-Pro-B Natriuret Pep Total Protein Albumin Albumin/Globulin Ratio Triglycerides Cholesterol LDL Cholesterol Direct HDL Cholesterol Cholesterol/HDL Ratio Arterial Blood Glucose Arterial Blood Ionized Calcium Urine Color Yellow Urine Turbidity Turbid Urine pH 8.0 H Ur Specific Herman 1.015 Urine Protein >500 Urine Glucose (UA) Neg Urine Ketones Neg Urine Blood Mod Urine Nitrite Neg Urine Bilirubin Neg Urine Urobilinogen < 2.0 Ur Leukocyte Esterase Lg Urine WBC (Auto) > 182.0 H Urine RBC (Auto) > 182.0 Urine Bacteria (Auto) 3+ Urine WBC Clumps 3+ Ur Transition Epith Cell 7 Urine Mucus Few - EKG Data -: EKG Interpreted by Me EKG shows normal: sinus rhythm Rate: normal (96 bpm) - EKG Data When compared to previous EKG there are: previous EKG unavailable Interpretation: nonspecific ST-T wave dandy (T wave inversions anterolaterally) - Radiology Data Radiology results: pending (CT head), report reviewed (Chest x-ray, abdominal x- ray), image reviewed (Chest x-ray, abdominal x-ray) interpreted by me: Chest x-ray-right lower lobe infiltrate. ET tube in appropriate position. No pneumothorax Abdominal [id number] positioning of NG tube. [facility] [address] [place] [address] XRay Report Signed Patient: TOM LYONS MR#: [id number] [birth year] : 1955 Acct:[id number] Age/Sex: 65 / M ADM Date: 01/25/21 Loc: ED Attending Dr: Ordering Physician: EMILY HUI MD Date of Service: 01/25/21 Procedure(s): XR chest 1V ap Accession Number(s): [id number] cc: EMILY HUI MD Fluoro Time In Minutes: CHEST 1 VIEW INDICATION: Endotracheal tube placement. Cardiac arrest. COMPARISON: 11/30/2020 FINDINGS: Support devices: The endotracheal tube terminates 1.5 cm superior to the dianne. Consider retraction by 2.5 cm. Left IJ permacath terminates in the superior right atrium. Heart: Within normal limits. Lungs/Pleura: The interstitium is prominent bilaterally suggesting mild pulmo nary venous congestion. Focal airspace opacity is identified in the right infrahilar region which could represent a developing infiltrate. Small right pleural effusion has developed. No pneumothorax. Additional findings: None. IMPRESSION: Endotracheal tube as described above. Mild pulmonary venous c ongestion and small right pleural effusion. Possible right infrahilar infiltrate. ABDOMEN 1 VIEW(S) INDICATION / CLINICAL INFORMATION: OG tube placement. COMPARISON: None available. FINDINGS: TUBES / LINES: The sidehole in distal tip of the nasogastric tube terminate in the mid stomach. BOWEL GAS PA TTERN: Only the superior half of the abdomen is included. There is no obvious dilated bowel. Moderate fecal matter is noted in the transverse colon. FREE AIR / EXTRALUMINAL GAS: None seen. ADDITIONAL FINDINGS: No significant additional findings. IMPRESSION: Adequate placement of the OG tube. Signer Name: New Tomlinson Jr, MD Signed: 01/25/2021 8:43 AM Workstation Name: [id number] Transcribed By: TTR Dictated By: NEW TOMILNSON JR, MD Electronically Authenticated By: NEW TOMLINSON JR, MD Signed Date/Time: 01/25/21842 DD/ 0 TD/TT: Print Cancel [address] [address] XRay Report Signed Patient: TOM LYONS MR#: [id number] [birth year] : 1955 Acct:[id number] Age/Sex: 65 / M ADM Date: 01/25/21 Loc: ED Attending Dr: Ordering Physician: EMILY HUI MD Date of Service: 01/25/21 Procedure(s): XR abdomen 1V ap Accession Number(s): [id number] cc: EMILY HUI MD Fluoro Time In Minutes: CHEST 1 VIEW INDICATION: Endotracheal tube placement. Cardiac arrest. COMPARISON: 11/30/2020 FINDINGS: Support devices: The endotracheal tube terminates 1.5 cm superior to the dianne. Consider retraction by 2.5 cm. Left IJ permacath terminates in the superior right atrium. Heart: Within normal limits. Lungs/Pleura: The interstitium is prominent bilaterally suggesting mild pulmonary venous congestion. Focal airspace opacity is identified in the right infrahilar region which could represent a developing infiltrate. Small right pleural effusion has developed. No pneumothorax. Additional findings: None. IMPRESSION: Endotracheal tube as described above. Mild pulmonary venous congestion and small right pleural effusion. Possible right infrahilar infiltrate. ABDOMEN 1 VIEW(S) INDICATION / CLINICAL INFORMATION: OG tube placement. COMPARISON: None available. FINDINGS: TUBES / LINES: The sidehole in distal tip of the nasogastric tube terminate in the mid stomach. BOWEL GAS PATTERN: Only the superior half of the abdomen is included. There is no obvious dilated bowel. Moderate fecal matter is noted in the transverse colon. FREE AIR / EXTRALUMINAL GAS: None seen. ADDITIONAL FINDINGS: No significant additional findings. IMPRESSION: Adequate placement of the OG tube. Signer Name: New Tomlinson Jr, MD Signed: 01/25/2021 8:43 AM Workstation Name: [id number] Transcribed By: TTR Dictated By: NEW TOMLINSON JR, MD Electronically Authenticated By: NEW TOMLINSON JR, MD Signed Date/Time: 01/25/21842 DD/ 0 TD/TT: Print Cancel - Differential Diagnosis Cardiac arrest, hyperkalemia, Critical care attestation.: If time is entered above; I have spent that time in minutes in the direct care of this critically ill patient, excluding procedure time. ED Disposition Clinical Impression: Cardiac arrest, UTI (urinary tract infection) Disposition: OP ADMIT IP TO THIS HOSP Is pt being admited?: Yes Condition: Serious Referrals: PRIMARY CARE, [Primary Care Provider] - 3-5 Days Time of Disposition: 11:18 (Hospitalist paged (Dr. Martínez))
[2021-01-25] MEDS ORDERED: LIP THERAPY VASELINE TP PRN (08:08)
[2021-01-25] MEDS ORDERED: MINERAL OIL/PETROLATUM, WHITE OPHTH OINT 3.5 GM OU PRN (08:08)
[2021-01-25] MEDS ORDERED: DOPamine/D5W 800 MG/250 ML 800 MG/250 ML BAG IV ONE (08:30)
--- NOTE | 2021-01-25 08:48 | XRay Report ---
CHEST 1 VIEW INDICATION: Endotracheal tube placement. Cardiac arrest. COMPARISON: 11/30/2020 FINDINGS: Support devices: The endotracheal tube terminates 1.5 cm superior to the dianne. Consider retraction by 2.5 cm. Left IJ permacath terminates in the superior right atrium. Heart: Within normal limits. Lungs/Pleura: The interstitium is prominent bilaterally suggesting mild pulmonary venous congestion. Focal airspace opacity is identified in the right infrahilar region which could represent a developin g infiltrate. Small right pleural effusion has developed. No pneumothorax. Additional findings: None. IMPRESSION: Endotracheal tube as described above. Mild pulmonary venous congestion and small right pleural effusion. Possible right infrahilar infiltra te. ABDOMEN 1 VIEW(S) INDICATION / CLINICAL INFORMATION: OG tube placement. COMPARISON: None available. FINDINGS: TUBES / LINES: The sidehole in distal tip of the nasogastric tube terminate in the mid stomach. BOWEL GAS PATTERN: Only the superior half of the abdomen is included. There is no obvious dilated bow el. Moderate fecal matter is noted in the transverse colon. FREE AIR / EXTRALUMINAL GAS: None seen. ADDITIONAL FINDINGS: No significant additional findings. IMPRESSION: Adequate placement of the OG tube. Signer Name: New Tomlinson Jr, MD Signed: 01/25/2021 8:43 AM Workstation Name: [id number]
[2021-01-25 08:52] LABS: Basophils # (Auto) 0.3 K/mm3 (0.0-0.1); Basophils % (Auto) 2.2 % (0.0-1.8); Eosinophils # (Auto) 0.2 K/mm3 (0.0-0.4); Eosinophils % (Auto) 1.5 % (0.0-4.3); Hematocrit 22.2 % (35.5-45.6); Hemoglobin 7.3 gm/dl (11.8-15.2); Lymphocytes # (Auto) 1.5 K/mm3 (1.2-5.4); Mean Corpuscular HGB Conc 33 % (32-34); Mean Corpuscular Volume 89 fl (84-94); Monocytes # (Auto) 0.2 K/mm3 (0.0-0.8); Monocytes % (Auto) 1.6 % (0.0-7.3); Platelet Count 237 K/mm3 (140-440); Red Cell Distribution Width 17.5 % (13.2-15.2)
[2021-01-25 08:57] LABS: Bacteria,Urine 3+ /HPF (Negative); Bilirubin,Urine NEG (Negative); Blood,Urine MOD (Negative); Color,Urine Yellow (Yellow); Mucus,Urine FEW /HPF; Urobilinogen,Urine < 2.0 mg/dL (<2.0)
[2021-01-25 08:58] LABS: Protein,Urine >500 mg/dL (Negative); RBC,Urine > 182.0 /HPF (0.0-6.0); WBC,Urine > 182.0 /HPF (0.0-6.0)
[2021-01-25] MEDS ORDERED: PIPERACIL-TAZO 2.25 GM/50 ML 2.25 GM/50 ML BAG IV ONE (08:59)
[2021-01-25 09:02] LABS: INR 1.28 (0.87-1.13)
[2021-01-25 09:03] LABS: Partial Thromboplastin Time 56.8 Sec. (24.2-36.6)
[2021-01-25 09:06] LABS: Creatine Kinase MB 3.4 ng/mL (0.0-4.0)
[2021-01-25 09:07] LABS: Albumin 2.5 g/dL (3.9-5); Calcium 8.6 mg/dL (8.4-10.2)
[2021-01-25] MEDS ORDERED: FAMOTIDINE 20 MG/2 ML INJ IV SCH (10:00)
[2021-01-25 10:01] LABS: Chol/HDL Ratio 2.34 %
[2021-01-25] MEDS: SENNOSIDES/DOCUSATE SODIUM 8.6/50 MG TAB FEEDTUBE SCH ×2 (12:19→21:13)
--- NOTE | 2021-01-25 12:30 | History and Physical Report ---
History of Present Illness Chief complaint: Unresponsive History of present illness: 65 YO Male with HTN, DM, ESRD on HD(M,W,F), Severe Malnutrition, CLD, CHF, HLD, GERD, Nicotine Dependence presented to ED for evaluation. Patient is intubated and on ventilatory support at the time my evaluation and is unable to provide history. Patient history taken from EMS staff, ED staff, as well as the patient's family who was at bedside during exam and interview. As per family the patient was in his usual state of health at bedtime around 2100 hrs. Upon awakening from sleep with the patient reports that she found the patient unresponsive. EMS was notified and upon arrival the patient was found to be in asystolic arrest. Patient treated" with ACLS protocol and separately transported to [facility] for further care and evaluation of the aforementioned symptoms. The patient arrived to the emergency department in asystolic arrest. Patient continued treatment with ACLS protocol as per ED staff with eventual return of perfusing cardiac rhythm. The patient was also intubated and placed on ventilatory support in the emergency department. Patient found to have cardiac arrest, acute hypoxemic respiratory failure, as well as acute encephalopathy. Patient admitted to ICU. Critical care team consulted in ED, nephrology team consulted in ED. No reports of fever, chills, chest pain, palpitation, productive cough, skin rash, recent ill contacts, prolonged travel/immobility, unilateral leg swelling, calf pain, individual/family history of DVT/PE/bleeding/blood clotting disorders. Prior admission on 11/28/2020 r pam. All medication listed at time of admission has been reconciled. Advanced care planning conducted in ED. Past History Past Medical History: diabetes, GERD, heart failure, hypertension, other (See HPI) Past Surgical History: Other (Dialysis access) Social history: , lives with family. 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] amLODIPine 10 mg PO DAILY 09/28/17 05/01/19 Unknown History carvediloL [Coreg] 12.5 mg PO BID 09/28/17 05/01/19 Unknown History lisinopriL [Zestril TAB] 20 mg PO QDAY 09/28/17 05/01/19 Unknown History Albuterol Mdi (or & Nicu Only) 2 puff IH QID PRN 05/01/19 05/01/19 Unknown History [ProAir HFA Inhaler] Amlodipine Besylate [Norvasc] 5 mg PO QDAY 05/01/19 05/01/19 Unknown History Gabapentin 300 mg PO Q8HR 05/01/19 05/01/19 Unknown History Latanoprost 0.005% 1 drop OP QPM 05/01/19 05/01/19 Unknown History Omeprazole 20 mg PO QDAY 05/01/19 05/01/19 Unknown History Rosuvastatin Calcium 5 mg PO QHS 05/01/19 05/01/19 Unknown History carvediloL [Coreg] 25 mg PO BID 05/01/19 05/01/19 Unknown History lisinopriL [Zestril TAB] 40 mg PO QDAY 05/01/19 05/01/19 Unknown History Active Meds: Active Medications Famotidine (Famotidine 20 Mg/2 Ml Inj) 20 mg IV BID JOHANA Hydrophilic Ointment (Lip Therapy Vaseline) 1 applic TP Q2HR PRN PRN Reason: Dry Lips Dopamine HCl/Dextrose (Intropin Drip 800 Mg/D5w 250 Ml) 800 mg in 250 mls @ 2.363 mls/hr IV TITR ONE; Protocol Stop: 01/29/21 18:17 Last Admin: 01/25/21 08:43 Dose: 2 mcg/kg/min, 2.363 mls/hr Documented by: Multi-Ingred Cream/Lotion/Oil/Oint (Mineral Oil/Petrolatum, White Ophth Oint 3.5 Gm) 1 applic OU Q4HR PRN PRN Reason: Dry Eye(s) Senna/Docusate Sodium (Sennosides/Docusate Sodium 8.6/50 Mg Tab) 1 tab FEEDTUBE BID [facility] Review of Systems ROS unobtainable: due to endotracheal tube, due to mental status Exam - Constitutional Vitals: Temp Pulse Resp BP Pulse Ox 97.5 F L 98 H 20 196/105 100 01/25/21 08:35 01/25/21 11:27 01/25/21 08:30 01/25/21 11:27 01/25/21 11:27 General appearance: Present: severe distress - EENT Eyes: Present: miosis ENT: hearing decreased - Neck Neck: Present: supple, normal ROM - Respiratory Respiratory effort: labored Respiratory: bilateral: diminished, rhonchi - Cardiovascular Rhythm: other (Hypotensive) Heart Sounds: Present: S1 & S2. Absent: rub, click - Extremities Extremities: pulses symmetrical, No edema Peripheral Pulses: abnormal (Diminished bilaterally, 1+ bilateral lower extremities, 1+ bilateral upper extremities) - Abdominal General gastrointestinal: Present: soft, non-tender, non-distended Male genitourinary: Present: normal - Integumentary Integumentary: Present: dry, clammy, decreased turgor - Musculoskeletal Musculoskeletal: generalized weakness - Psychiatric Psychiatric: no appropriate mood/affect, no intact judgment & insight, no memory intact - Neurologic Neurologic: CNII-XII intact, no gait normal HEART Score - HEART Score Troponin: Troponin T 0.233 ng/mL (0.00-0.029) H* 01/25/21 08:13 Results - Labs CBC & Chem 7: 01/25/21 08:13 01/25/21 08:13 Labs: Abnormal lab results 01/25/21 01/25/21 01/25/21 Range/Units 07:56 08:13 08:13 WBC 11.4 H (4.5-11.0) K/mm3 RBC 2.50 L (3.65-5.03) M/mm3 Hgb 7.3 L (11.8-15.2) gm/dl Hct 22.2 L (35.5-45.6) % RDW 17.5 H (13.2-15.2) % Lymph % (Auto) 13.0 L (13.4-35.0) % Baso % (Auto) 2.2 H (0.0-1.8) % Baso # (Auto) 0.3 H (0.0-0.1) K/mm3 Seg Neutrophils % 81.7 H (40.0-70.0) % Seg Neutrophils # 9.3 H (1.8-7.7) K/mm3 PT 16.0 H (12.2-14.9) Sec. INR 1.28 H (0.87-1.13) APTT 56.8 H (24.2-36.6) Sec. ABG pH (7.320-7.450) POC ABG pCO2 (32.0-48.0) mmHg POC ABG pO2 (83-108) mmHg ABG Hemoglobin (12.0-17.5) ABG Oxyhemoglobin (94-98) ABG Sodium (136.0-145.0) mmol/L ABG Potassium (3.40-4.50) mmol/L ABG Chloride (98-107) mmol/L ABG Glucose (65-95) mg/dL VBG pH (7.320-7.420) Carboxyhemoglobin (0.5-1.5) Sodium (137-145) mmol/L Potassium (3.6-5.0) mmol/L Chloride (98-107) mmol/L Carbon Dioxide (22-30) mmol/L Creatinine (0.8-1.3) mg/dL Glucose (75-100) mg/dL POC Glucose 139 H (70-105) mg/dL AST (5-40) units/L ALT (7-56) units/L Troponin T (0.00-0.029) ng/mL NT-Pro-B Natriuret Pep (0-900) pg/mL Total Protein (6.3-8.2) g/dL Albumin (3.9-5) g/dL Arterial Blood Glucose (65-95) mg/dL Arterial Blood Ionized Calcium (4.6-5.3) mg/dL Urine pH (5.0-7.0) Urine WBC (Auto) (0.0-6.0) /HPF 01/25/21 01/25/21 01/25/21 Range/Units 08:13 08:13 08:44 WBC (4.5-11.0) K/mm3 RBC (3.65-5.03) M/mm3 Hgb (11.8-15.2) gm/dl Hct (35.5-45.6) % RDW (13.2-15.2) % Lymph % (Auto) (13.4-35.0) % Baso % (Auto) (0.0-1.8) % Baso # (Auto) (0.0-0.1) K/mm3 Seg Neutrophils % (40.0-70.0) % Seg Neutrophils # (1.8-7.7) K/mm3 PT (12.2-14.9) Sec. INR (0.87-1.13) APTT (24.2-36.6) Sec. ABG pH 7.174 L (7.320-7.450) POC ABG pCO2 58.4 H (32.0-48.0) mmHg POC ABG pO2 109.3 H (83-108) mmHg ABG Hemoglobin 7.7 L (12.0-17.5) ABG Oxyhemoglobin 92.0 L (94-98) ABG Sodium 133.9 L (136.0-145.0) mmol/L ABG Potassium 5.4 H (3.40-4.50) mmol/L ABG Chloride 97.0 L (98-107) mmol/L ABG Glucose 157 H (65-95) mg/dL VBG pH 7.100 L* (7.320-7.420) Carboxyhemoglobin 4.3 H (0.5-1.5) Sodium 135 L (137-145) mmol/L Potassium 5.4 H (3.6-5.0) mmol/L Chloride 92.1 L (98-107) mmol/L Carbon Dioxide 21 L (22-30) mmol/L Creatinine 4.8 H (0.8-1.3) mg/dL Glucose 157 H (75-100) mg/dL POC Glucose (70-105) mg/dL AST 284 H (5-40) units/L ALT 85 H (7-56) units/L Troponin T 0.233 H* (0.00-0.029) ng/mL NT-Pro-B Natriuret Pep 23647 H (0-900) pg/mL Total Protein 5.8 L (6.3-8.2) g/dL Albumin 2.5 L (3.9-5) g/dL Arterial Blood Glucose 157 H (65-95) mg/dL Arterial Blood Ionized Calcium 4.5 L (4.6-5.3) mg/dL Urine pH (5.0-7.0) Urine WBC (Auto) (0.0-6.0) /HPF 01/25/21 Range/Units Unknown WBC (4.5-11.0) K/mm3 RBC (3.65-5.03) M/mm3 Hgb (11.8-15.2) gm/dl Hct (35.5-45.6) % RDW (13.2-15.2) % Lymph % (Auto) (13.4-35.0) % Baso % (Auto) (0.0-1.8) % Baso # (Auto) (0.0-0.1) K/mm3 Seg Neutrophils % (40.0-70.0) % Seg Neutrophils # (1.8-7.7) K/mm3 PT (12.2-14.9) Sec. INR (0.87-1.13) APTT (24.2-36.6) Sec. ABG pH (7.320-7.450) POC ABG pCO2 (32.0-48.0) mmHg POC ABG pO2 (83-108) mmHg ABG Hemoglobin (12.0-17.5) ABG Oxyhemoglobin (94-98) ABG Sodium (136.0-145.0) mmol/L ABG Potassium (3.40-4.50) mmol/L ABG Chloride (98-107) mmol/L ABG Glucose (65-95) mg/dL VBG pH (7.320-7.420) Carboxyhemoglobin (0.5-1.5) Sodium (137-145) mmol/L Potassium (3.6-5.0) mmol/L Chloride (98-107) mmol/L Carbon Dioxide (22-30) mmol/L Creatinine (0.8-1.3) mg/dL Glucose (75-100) mg/dL POC Glucose (70-105) mg/dL AST (5-40) units/L ALT (7-56) units/L Troponin T (0.00-0.029) ng/mL NT-Pro-B Natriuret Pep (0-900) pg/mL Total Protein (6.3-8.2) g/dL Albumin (3.9-5) g/dL Arterial Blood Glucose (65-95) mg/dL Arterial Blood Ionized Calcium (4.6-5.3) mg/dL Urine pH 8.0 H (5.0-7.0) Urine WBC (Auto) > 182.0 H (0.0-6.0) /HPF Assessment and Plan - Patient Problems (1) Acute hypoxemic respiratory failure Current Visit: No Status: Acute Plan to address problem: Patient intubated and on ventilatory support, wean vent as tolerated, sedation holiday, daily spontaneous breathing trial, daily arterial blood gas, chest x-ray, supportive care. The high probability of a clinically significant, sudden or life threatening deterioration of the [pulmonary, cardiac, nephro, neuro] system(s) required my full and direct attention, intervention and personal management. The aggregate critical care time was [90] minutes. This time is in addition to time spent performing reported procedures but includes the following: [x] Data Review and interpretation [x] Patient assessment and monitoring of vital signs [x] Documentation [x] Medication orders and management (2) Cardiac arrest Current Visit: Yes Status: Acute Plan to address problem: Patient treated" with ACLS protocol with eventual return of perfusing cardiac rhythm. Patient currently on IV pressor support, continue medical management. Cardiology team consulted. Echocardiogram ordered and is pending at time of admission. (3) UTI (urinary tract infection) Current Visit: Yes Status: Acute Qualifiers: Encounter type: initial encounter Plan to address problem: Empiric IV antibiotic therapy, urinalysis, supportive care. (4) ESRD (end stage renal disease) on dialysis Current Visit: No Status: Chronic Plan to address problem: Nephrology team consulted in ED, dialysis as per renal team. (5) Diastolic CHF Current Visit: Yes Status: Acute Qualifiers: Heart failure chronicity: chronic Qualified Code(s): I50.32 - Chronic diastolic (congestive) heart failure Plan to address problem: Strict I's/O, monitor urine output every shift, Monitor fluid balance, cardiology team consulted, echocardiogram ordered and pending at time of admission. (6) DVT prophylaxis Current Visit: No Status: Acute Plan to address problem: SCDs bilateral lower extremities while in bed, prophylactic anticoagulation. (7) Advance care planning Current Visit: No Status: Acute Plan to address problem: Disease education conducted, patient is full code, care plan discussed, prognosis discussed, diagnoses discussed, patient family knowledges understanding and agreement with care plan. Patient family knowledges understan ding poor prognosis. +30 minutes.
[2021-01-25] MEDS ORDERED: ALBUTEROL 2.5 MG/3 ML NEBU IH PRN (12:47)
--- NOTE | 2021-01-25 13:28 | Consultation ---
History of Present Illness Consult date: 01/25/21 Requesting physician: VILMA BROWN Reason for consult: other (Acute Hypoxemic Respiratory Failure) History of present illness: PULMONARY/CCM CONSULT NOTE (Full dictation # [id number]) Please see dictated notes for full details Medications and Allergies Allergies Allergy/AdvReac Type Severity Reaction Status Date / Time No Known Allergies Allergy Verified 01/25/21 07:55 Home Medications Medication Instructions Recorded Confirmed Last Taken Type Atorvastatin [Lipitor] 40 mg PO QHS 09/28/17 05/01/19 Unknown History Omeprazole 20 mg PO BID 09/28/17 05/01/19 Unknown History Vit B Comp No.3/Folic/C/Biotin 1 tab PO DAILY 09/28/17 05/01/19 Unknown History [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] amLODIPine 10 mg PO DAILY 09/28/17 05/01/19 Unknown History carvediloL [Coreg] 12.5 mg PO BID 09/28/17 05/01/19 Unknown History lisinopriL [Zestril TAB] 20 mg PO QDAY 09/28/17 05/01/19 Unknown History Albuterol Mdi (or & Nicu Only) 2 puff IH QID PRN 05/01/19 05/01/19 Unknown History [ProAir HFA Inhaler] Amlodipine Besylate [Norvasc] 5 mg PO QDAY 05/01/19 05/01/19 Unknown History Gabapentin 300 mg PO Q8HR 05/01/19 05/01/19 Unknown History Latanoprost 0.005% 1 drop OP QPM 05/01/19 05/01/19 Unknown History Omeprazole 20 mg PO QDAY 05/01/19 05/01/19 Unknown History Rosuvastatin Calcium 5 mg PO QHS 05/01/19 05/01/19 Unknown History carvediloL [Coreg] 25 mg PO BID 05/01/19 05/01/19 Unknown History lisinopriL [Zestril TAB] 40 mg PO QDAY 05/01/19 05/01/19 Unknown History Active Meds: Active Medications Albuterol (Albuterol 2.5 Mg/3 Ml Nebu) 2.5 mg IH Q3HRT PRN PRN Reason: Shortness Of Breath Famotidine (Famotidine 20 Mg/2 Ml Inj) 20 mg IV BID JOHANA Hydrophilic Ointment (Lip Therapy Vaseline) 1 applic TP Q2HR PRN PRN Reason: Dry Lips Dopamine HCl/Dextrose (Intropin Drip 800 Mg/D5w 250 Ml) 800 mg in 250 mls @ 2.363 mls/hr IV TITR ONE; Protocol Stop: 01/29/21 18:17 Last Admin: 01/25/21 08:43 Dose: 2 mcg/kg/min, 2.363 mls/hr Documented by: Multi-Ingred Cream/Lotion/Oil/Oint (Mineral Oil/Petrolatum, White Ophth Oint 3.5 Gm) 1 applic OU Q4HR PRN PRN Reason: Dry Eye(s) Senna/Docusate Sodium (Sennosides/Docusate Sodium 8.6/50 Mg Tab) 1 tab FEEDTUBE BID JOHANA Sodium Chloride (Sodium Chloride 0.9% 10 Ml Flush Syringe) 10 ml IV BID JOHANA Sodium Chloride (Sodium Chloride 0.9% 10 Ml Flush Syringe) 10 ml IV PRN PRN PRN Reason: LINE FLUSH Physical Examination Vital signs: Vital Signs Pulse Resp 86 14 01/25/21 07:54 01/25/21 07:54 Results - Laboratory Findings CBC and BMP: 01/25/21 08:13 01/25/21 08:13 ABG ABG pH 7.174 (7.320-7.450) L 01/25/21 08:44 POC ABG pCO2 58.4 mmHg (32.0-48.0) H 01/25/21 08:44 POC ABG pO2 109.3 mmHg (83-108) H 01/25/21 08:44 POC ABG HCO3 21.0 01/25/21 08:44 ABG O2 Saturation 96.4 (0-100) 01/25/21 08:44 PT/INR, D-dimer PT 16.0 Sec. (12.2-14.9) H 01/25/21 08:13 INR 1.28 (0.87-1.13) H 01/25/21 08:13 Abnormal lab findings: Abnormal Labs 01/25/21 01/25/21 01/25/21 07:56 08:13 08:13 WBC 11.4 H RBC 2.50 L Hgb 7.3 L Hct 22.2 L RDW 17.5 H Lymph % (Auto) 13.0 L Baso % (Auto) 2.2 H Baso # (Auto) 0.3 H Seg Neutrophils % 81.7 H Seg Neutrophils # 9.3 H PT 16.0 H INR 1.28 H APTT 56.8 H ABG pH POC ABG pCO2 POC ABG pO2 ABG Hemoglobin ABG Oxyhemoglobin ABG Sodium ABG Potassium ABG Chloride ABG Glucose VBG pH Carboxyhemoglobin Sodium Potassium Chloride Carbon Dioxide Creatinine Glucose POC Glucose 139 H AST ALT Troponin T NT-Pro-B Natriuret Pep Total Protein Albumin Arterial Blood Glucose Arterial Blood Ionized Calcium Urine pH Urine WBC (Auto) 01/25/21 01/25/21 01/25/21 08:13 08:13 08:44 WBC RBC Hgb Hct RDW Lymph % (Auto) Baso % (Auto) Baso # (Auto) Seg Neutrophils % Seg Neutrophils # PT INR APTT ABG pH 7.174 L POC ABG pCO2 58.4 H POC ABG pO2 109.3 H ABG Hemoglobin 7.7 L ABG Oxyhemoglobin 92.0 L ABG Sodium 133.9 L ABG Potassium 5.4 H ABG Chloride 97.0 L ABG Glucose 157 H VBG pH 7.100 L* Carboxyhemoglobin 4.3 H Sodium 135 L Potassium 5.4 H Chloride 92.1 L Carbon Dioxide 21 L Creatinine 4.8 H Glucose 157 H POC Glucose AST 284 H ALT 85 H Troponin T 0.233 H* NT-Pro-B Natriuret Pep 57111 H Total Protein 5.8 L Albumin 2.5 L Arterial Blood Glucose 157 H Arterial Blood Ionized Calcium 4.5 L Urine pH Urine WBC (Auto) 01/25/21 Unknown WBC RBC Hgb Hct RDW Lymph % (Auto) Baso % (Auto) Baso # (Auto) Seg Neutrophils % Seg Neutrophils # PT INR APTT ABG pH POC ABG pCO2 POC ABG pO2 ABG Hemoglobin ABG Oxyhemoglobin ABG Sodium ABG Potassium ABG Chloride ABG Glucose VBG pH Carboxyhemoglobin Sodium Potassium Chloride Carbon Dioxide Creatinine Glucose POC Glucose AST ALT Troponin T NT-Pro-B Natriuret Pep Total Protein Albumin Arterial Blood Glucose Arterial Blood Ionized Calcium Urine pH 8.0 H Urine WBC (Auto) > 182.0 H
--- NOTE | 2021-01-25 14:55 | Cat Scan Report ---
CT HEAD WITHOUT CONTRAST INDICATION / CLINICAL INFORMATION: Status post cardiac arrest. TECHNIQUE: Axial imaging performed from the skull apex through the skull base without the use of cont rast. Sagittal and coronal reformatted images. All CT scans at this location are performed using CT dose reduction for ALARA by means of automated exposure control. COMPARISON: 04/30/2019 FINDINGS: CEREBRAL PARENCHYMA: Relatively small areas of diminished attenuation have developed in the basal girma glia including the caudate nuclei, thalami and globus pallidus bilaterally. This is a new finding sin ce the previous exam and concerning for ischemic injury. The remaining brain parenchyma demonstrates normal density. The ray-white interface appears well maintained. No chronic infarct is appreciated. HEMORRHAGE: None. EXTRA-AXIAL SPACES: Normal in size and morphology for the patient's age. VENTRICULAR SYSTEM: Normal in size and morphology for the patient's age. MIDLINE SHIFT OR HERNIATION: None. CEREBELLUM / BRAINSTEM: No significant abnormality. CALVARIUM: No significant abnormality. ORBITS: Normal as visualized. PARANASAL SINUSES / MASTOID AIR CELLS: There is moderate fluid in the ethmoid, maxillary and left sph enoid sinus which probably represents retained secretions. SOFT TISSUES of HEAD: No significant abnormality. ADDITIONAL FINDINGS: None. IMPRESSION: Areas of diminished attenuation are identified throughout the basal ganglia as described concerning f or anoxic injury. No evidence for hemorrhage or mass effect. Further evaluation with MRI is recommend ed. Signer Name: New Tomlinson Jr, MD Signed: 01/25/2021 2:50 PM Workstation Name: [id number]
[2021-01-25] MEDS ORDERED: SODIUM CHLORIDE 0.9% 100 ML IV PRN (15:37)
[2021-01-25] MEDS ORDERED: fentaNYL 100 MCG/2 ML INJ IV PRN (19:36)
[2021-01-25] MEDS ORDERED: AZITHROMYCIN/NS 500 MG/250 ML 500 MG/250 ML BAG IV SCH (20:00)
[2021-01-25] MEDS ORDERED: fentaNYL DRIP Premix 2,000 MCG/100 ML BAG IV SCH (20:00)
[2021-01-25] MEDS ORDERED: cefTRIAXone/NS 1 GM/50 ML 1 GM/50 ML BAG IV SCH (21:00)
[2021-01-25 21:10] LABS: Hepatitis B Surface Antigen Non-Reactive (Negative); Hepatitis C Virus Antibody Reactive (NonReactive)
[2021-01-25] MEDS: FAMOTIDINE 20 MG/2 ML INJ IV SCH (21:14)
[2021-01-25] MEDS: HEPARIN 5,000 UNIT/1 ML VIAL SUB-Q SCH (21:14)
[2021-01-25] MEDS: cefTRIAXone/NS 1 GM/50 ML 1 GM/50 ML BAG IV SCH (22:51)
[2021-01-25] MEDS ORDERED: hydrALAZINE 20 MG/1 ML INJ IV ONE (23:32)
--- NOTE | 2021-01-26 00:46 | Consultation ---
DATE OF CONSULTATION: 01/25/2021 PULMONARY CRITICAL CARE CONSULT NOTE CONSULTING PHYSICIAN: Dr. Pio Martínez. REASON FOR CONSULTATION: Acute hypoxemic respiratory failure, on mechanical ventilatory support. Cardiac arrest with return of spontaneous circulation. CHIEF COMPLAINT AND HISTORY OF PRESENT ILLNESS: The patient is a 65-year-old male with past medical history significant amongst other things for a diagnosis of congestive heart failure, end-stage renal disease on dialysis, but also recent admission for severe sepsis in the hospital in 11/2020. He was found down essentially by his spouse at home this morning. She mentioned that he was not breathing, 911 was called. EMS found the patient in asystole. ACLS protocols were started. An attempt at intubation in the field was unsuccessful. He was brought into the Emergency Room. In the Emergency Room, he remained in asystole. He was intubated by the Emergency Room physician and there was eventual return of spontaneous circulation. Post-stabilization, we are asked to assist with management. When I stopped by to see him, he was resting in bed. He was not having any myoclonic type jerks. His sister was in the room. Do not have any history of vomiting or overt aspiration. The patient is not a current smoker. Remote history is unknown. The sister could not give me much more history. The above is as much of the history of presentation that I have. I should mention that she did say that he was just discharged from the [facility], [place] the day before this event. While at the [facility], he reportedly was evaluated for an infection of his AV fistula and he had Vas-Cath placed in the left upper anterior chest wall. She is uncertain of the last time he had dialysis, but believes it was recently. Again that is as much of the history of presentation as I have. PAST MEDICAL HISTORY: According to the records, significant for hypertension, diabetes, end-stage renal disease, severe malnutrition, hyperlipidemia, congestive heart failure, gastroesophageal reflux disease and diabetes. PAST SURGICAL HISTORY: He has had dialysis access, a Vas-Cath recently placed and he has recently had interrogation of his AV fistula. MEDICATIONS: He was on at the time I stopped by to see him according to the medication administration record included the following: He was on albuterol 2.5 mg nebulized q. 3 hours p.r.n. shortness of breath, Pepcid 20 mg IV b.i.d., dopamine drip had been going earlier 5 mcg per kilogram per minute, Senna 8.6 mg p.o. b.i.d. All p.o. meds via the feeding tube. ALLERGIES: No known drug allergies. DIET: Thin gentleman, acute weight loss or gain history is unknown. FAMILY AND SOCIAL HISTORY: Apparently, lives in the community. He is per the records. No current alcohol, tobacco or illicit drug use or abuse. Remote history is unknown. FAMILY HISTORY: Otherwise unknown. REVIEW OF SYSTEMS: Unobtainable secondary to the patient's medical and mental condition. Since he has been here, no gross hematochezia or melena, no gross hematuria, no hematemesis, no bloody tracheal secretions, no witnessed seizures. He was having myoclonic type jerks at presentation according to the records. Review of systems otherwise unobtainable or as in the body of history above. PHYSICAL EXAMINATION: VITAL SIGNS: First temperature 97.5 degrees Fahrenheit with a pulse of 86, respiratory rate of 20, blood pressure 137/64, O2 sats 100%, inspired oxygen concentration at that time was not recorded. When I stopped by to see him, O2 sats were 99% that was on the assist control mode of ventilation, tidal volumes 450, rate of 20 and PEEP of 6 and 30% FIO2. GENERAL: Again, elderly and chronically ill looking male. Normocephalic, atraumatic on the mechanical ventilator with mildly increased respiratory effort at rest and taking intermittent breaths over the ventilator. HEAD, EYES, EARS, NOSE AND THROAT: Anicteric. No conjunctival erythema. Oropharynx was moist. ET tube was taped at the lips around 24 cm. No significant bloody secretions were noted. Grossly, there were no palpable lymph nodes in the supraclavicular or submandibular lymph node chains. LUNGS: Auscultation of both lung cheema significant for diminished bilateral air movement. Scant basilar rhonchi. No active wheezing. Again, grossly, there were no palpable lymph nodes in the supraclavicular or submandibular lymph node chains. Vascular catheter for dialysis was placed in the left upper anterior chest wall. ABDOMEN: Soft, flat, bowel sounds are positive, nontender, no palpable hepatosplenomegaly. EXTREMITIES: Without overt digital clubbing or cyanosis, no pedal edema. Pedal pulses 2+ bilaterally in the left lower extremity. He has a right below-knee amputation. NEUROLOGIC: Pupils are equal, round, about 1 mm, difficult to see any real reactivity to light. Extraocular muscle movements could not be assessed. He was taking spontaneous respiratory efforts over the ventilator, but was not following commands. He did have some intermittent movement of his lower extremities. SKIN: Poor turgor. He did have a rash over the skin. Please see the wound care nurses' notes for full description of his skin. PSYCHIATRIC: Mood and affect could not be assessed. They were flat essentially. LABORATORY DATA: From my review are as follows: Admission white cell count 11,400, hemoglobin 7.3, hematocrit 22.2, platelet count 237. No manual differential. INR 1.28. Arterial blood gas at presentation showed a pH of 7.17, pCO2 of 58, pO2 of 109 that was on the ventilator, I believe the above-mentioned ventilator settings. Serum sodium 135, potassium 5.4, chloride was 92, bicarbonate was 21, BUN 18, creatinine 4.8 and glucose 157. AST was 284, ALT 85. Troponin 0.233. Albumin was low at 2.5, calcium was 8.6. Urinalysis shows large leukocyte esterase, greater than 182 white cells per high power field, 3+ bacteria. Coronavirus PCR is negative. Two sets of blood cultures, no growth to date. Tracheal aspirate, no growth to date. Chest x-ray was done, I have reviewed the chest x-ray as well as the radiologist's interpretation. I do agree there is a mild perihilar predominant infiltrate, I cannot rule out small pleural effusion on the right. On the right side, the Vas-Cath is in place, the tip is in the distal SVC/right atrial junction. No gross pneumothorax, no gross bony fracture that I can see. Endotracheal tube tip appears to be 1-2 cm above the dianne, but definitely not right mainstem. No gross pneumothorax, no gross bony fracture. A CT scan of the head was also done. I have reviewed the radiologist's interpretation and essentially it mentions areas of diminished attenuation in the basal ganglia, concerning for anoxic injury. Otherwise, no evidence of hemorrhage or mass effect. ASSESSMENT: 1. Cardiac arrest with return of spontaneous circulation. 2. Acute hypoxemic respiratory failure, on mechanical ventilatory support. 3. Severe sepsis with shock, presumably due to urinary tract infection. 4. Urinary tract infection. 5. End-stage renal disease, on dialysis. 6. Acute toxic metabolic encephalopathy, possibly anoxic. 7. Anemia that is normocytic. 8. Hypercapnia at presentation. 9. Leukocytosis. 10. Hyperkalemia. 11. Elevated serum troponins, possibly non-ST elevation myocardial infarction secondary to demand ischemia. 12. History of diabetes. 13. Congestive heart failure. 14. Gastroesophageal reflux disease. 15. Oropharyngeal dysphagia. PLAN: I have spoken with his sister and mentioned that he does seem to have suffered significant injury and perhaps anoxic encephalopathy, which has a poor prognosis. However, I explained to her that he does not look brain to me. They do want aggressive care at this time. I have increased the minute ventilation just to push the pH up to about certainly above 7.20, at which point we will reduce the hyperventilation. Oxygen will be weaned to keep sats greater than or equal to about 90%. Aspiration precautions will be maintained. Of note, coronavirus PCR is negative. Ventilator-associated pneumonia bundle has been introduced. In light of the pulmonary infiltrates, I will treat him empirically for community-acquired pneumonia with Rocephin and Zithromax, but this should also be of benefit if he does have a true UTI. Infectious disease evaluation will be requested. Neurology evaluation will be requested. Vasopressors will be weaned to keep mean arterial pressures greater than or equal to about 65 mmHg. He is about to come off the dopamine at this point. No acute indication for central venous access. Otherwise, if there is an emergent procedure, the Vas-Cath can be assessed. Enteral nutrition will be the feeding modality of choice. He is going to be on GI prophylaxis as well as DVT prophylaxis. Flu and pneumonia vaccination will be addressed per protocol. Cardiology evaluation will be at the behest of the attending physician, not unexpected to see elevated troponins post-cardiac resuscitation. Nonetheless, he is critically ill on life-sustaining interventions including mechanical ventilatory support at high risk of from cardiopulmonary system decompensation. At this time, I have spent about 35-40 minutes of critical care time without overlap and excluding any procedural time that may be necessary. TID: [id number] RECEIPT: [id number] STEVE/EYAL JOHNSTON
--- NOTE | 2021-01-26 03:45 | XRay Report ---
CHEST 1 VIEW INDICATION: follow up respiratory failure COMPARISON: 01/25/2021 FINDINGS: SUPPORT DEVICES: Endotracheal tubes in good position. Central venous lines tip in superior vena cava HEART / MEDIASTINUM: No significant abnormality. LUNGS / PLEURA: Improved aeration throughout both lungs is noted. No pneumothorax. ADDITIONAL FINDINGS: IMPRESSION: 1. Improvement appearance the chest as compared to previous exam Signer Name: Gary Meng MD Signed: 01/26/2021 3:40 AM Workstation Name: [id number]
[2021-01-26] MEDS ORDERED: ACETAMINOPHEN 325 MG/10.15 ML ORAL LIQD UNIT DOSE FEEDTUBE PRN (03:47)
[2021-01-26] MEDS: hydrALAZINE 20 MG/1 ML INJ IV PRN ×2 (04:04→18:03)
--- NOTE | 2021-01-26 07:35 | Progress Note ---
Assessment and Plan Assessment and plan: This is a 65-year-old female with hypertension, diabetes mellitus, ESRD on HD, hepatitis C, CHF, HLD, GERD, nicotine dependence admitted s/p cardiac arrest Sepsis Shock: Source of sepsis could be possible UTI given significant pyuria, aspiration, r/o bacteremia S/p cardiac arrest COVID-19 PUI, ruled out Acute hypoxic respiratory failure on mechanical ventilation Seizure versus myoclonic jerking Urinary tract infection ESRD on HD Diastolic CHF Hypertension Diabetes mellitus Hyperlipidemia GERD Nicotine dependence -CCM, nephrology, cardiology, infectious disease, neurology consulted, appreciate recommendations -COVID-19 PCR negative -s/p vasopressor use -Contact d/t MRSA PCR positive -Intubated 01/25, wean mechanical ventilation as tolerated, VAP bundle -IV antibiotics -12/02/2020 echocardiogram shows four-chamber dilated cardiomyopathy, left ventricle systolic function severely decreased with LVEF of 15 to 20%, mild to moderate concentric LVH, mild AR, mild to moderate MR, mild TR, RVSP is 30 mmHg, left pleural effusion is evident with no pericardial effusion. -IV analgesic with fentanyl abd sedation with propofol -EEG pending -IV Valproic acid -Seizure/aspiration precautions -Resume home antihypertensive/cardioprotective regimen and titrate as needed, hydralazine as needed -Nutrition consulted for tube feeding -SSI, Accu-Cheks every 6, hypoglycemic protocol -Resume home statin GI/DVT prophylaxis: PPI, SCDs to bilateral lower extremities while in bed, heparin subcu Disposition: ICU The high probability of a clinically significant, sudden or life threatening deterioration of the [multi] system(s) required my full and direct attention, intervention and personal management. The aggregate critical care time was [35] minutes. This time is in addition to time spent performing reported procedures but includes the following: [x] Data Review and interpretation [x] Patient assessment and monitoring of vital signs [x] Documentation [x] Medication orders and management History Interval history: This is a 65-year-old male with hypertension, diabetes mellitus, ESRD on HD (MWF), hepatitis C, congestive heart failure, hyperlipidemia, GERD, nicotine dependence presented to the emergency department on 01/25 s/p cardiac arrest. Patient was found to be asystolic upon arrival of EMS and ACLS protocol was followed however he was unable to be intubated. Upon arrival to the emergency department patient was found to be in systolic arrest and ACLS was continued per ED staff with eventual ROSC. Patient was intubated in the emergency department. Patient was admitted to the hospital service with acute hypoxemic respiratory failure, s/p cardiac arrest, acute encephalopathy with consults to nephrology, CCM, neurology, infectious disease and cardiology. 01/26: Patient remains hypertensive and his home antihypertensive regimen will be resumed gradually. Nutrition consult pending. Called to bedside by RN this morning patient was noted to have seizure-like activity, and Ativan IV given. Neurology was later at bedside and witnessed activity. Patient was started on valproic acid and EEG ordered. Fentanyl gtt increased per neurology request. At the time of my examination he was on CMV TV 450, R 16, PEEP 6 and FiO2 of 30%. Hospitalist Physical - Constitutional Vitals: Temp Pulse Resp BP Pulse Ox 101.9 F H 104 H 17 178/80 100 01/26/21 04:00 01/26/21 06:00 01/26/21 06:00 01/26/21 06:00 01/26/21 06:00 General appearance: Present: other (sedated on MV) - EENT Eyes: Absent: PERRL (pupils not reactive and dialted) ENT: poor dentition - Neck Neck: Present: masses or JVD - Respiratory Respiratory effort: normal Respiratory: bilateral: diminished - Cardiovascular Rhythm: regular Heart Sounds: Present: S1 & S2. Absent: systolic murmur, diastolic murmur - Extremities Extremities: no ischemia, pulses intact, pulses symmetrical, No edema, normal temperature, normal color Peripheral Pulses: within normal limits - Abdominal General gastrointestinal: soft, non-tender, non-distended, hypoactive bowel sounds - Integumentary Integumentary: Present: warm, dry - Psychiatric Psychiatric: other (not interactive) - Neurologic Neurologic: no moves all extremities (unresponsive to painful stimuli, ) - Allied Health Allied health notes reviewed: nursing, RT HEART Score - HEART Score Troponin: Troponin T 0.233 ng/mL (0.00-0.029) H* 01/25/21 08:13 Results - Labs CBC & Chem 7: 01/26/21 07:58 01/26/21 04:00 Labs: Laboratory Last Values WBC 11.4 K/mm3 (4.5-11.0) H 01/25/21 08:13 RBC 2.50 M/mm3 (3.65-5.03) L 01/25/21 08:13 Hgb 7.3 gm/dl (11.8-15.2) L 01/25/21 08:13 Hct 22.2 % (35.5-45.6) L 01/25/21 08:13 MCV 89 fl (84-94) 01/25/21 08:13 MCH 29 pg (28-32) 01/25/21 08:13 MCHC 33 % (32-34) 01/25/21 08:13 RDW 17.5 % (13.2-15.2) H 01/25/21 08:13 Plt Count 237 K/mm3 (140-440) 01/25/21 08:13 Lymph % (Auto) 13.0 % (13.4-35.0) L 01/25/21 08:13 Lipscomb % (Auto) 1.6 % (0.0-7.3) 01/25/21 08:13 Eos % (Auto) 1.5 % (0.0-4.3) 01/25/21 08:13 Baso % (Auto) 2.2 % (0.0-1.8) H 01/25/21 08:13 Lymph # (Auto) 1.5 K/mm3 (1.2-5.4) 01/25/21 08:13 Lipscomb # (Auto) 0.2 K/mm3 (0.0-0.8) 01/25/21 08:13 Eos # (Auto) 0.2 K/mm3 (0.0-0.4) 01/25/21 08:13 Baso # (Auto) 0.3 K/mm3 (0.0-0.1) H 01/25/21 08:13 Seg Neutrophils % 81.7 % (40.0-70.0) H 01/25/21 08:13 Seg Neutrophils # 9.3 K/mm3 (1.8-7.7) H 01/25/21 08:13 PT 16.0 Sec. (12.2-14.9) H 01/25/21 08:13 INR 1.28 (0.87-1.13) H 01/25/21 08:13 APTT 56.8 Sec. (24.2-36.6) H 01/25/21 08:13 ABG pH 7.547 (7.320-7.450) H 01/26/21 03:10 POC ABG pCO2 31.7 mmHg (32.0-48.0) L 01/26/21 03:10 POC ABG pO2 92.7 mmHg (83-108) 01/26/21 03:10 POC ABG HCO3 26.9 01/26/21 03:10 ABG O2 Saturation 97.5 (0-100) 01/26/21 03:10 POC ABG Base Excess 4.5 01/26/21 03:10 ABG Hemoglobin 9.2 (12.0-17.5) L 01/26/21 03:10 ABG Oxyhemoglobin 96.6 (94-98) 01/26/21 03:10 ABG Methemoglobin 0.3 (0.0-1.5) 01/26/21 03:10 ABG Sodium 138.4 mmol/L (136.0-145.0) 01/26/21 03:10 ABG Potassium 3.8 mmol/L (3.40-4.50) 01/26/21 03:10 ABG Chloride 101.0 mmol/L (98-107) 01/26/21 03:10 ABG Glucose 108 mg/dL (65-95) H 01/26/21 03:10 VBG pH 7.100 (7.320-7.420) L* 01/25/21 08:13 Carboxyhemoglobin 0.6 (0.5-1.5) 01/26/21 03:10 FiO2 % 30.0 01/26/21 03:10 Sodium 135 mmol/L (137-145) L 01/25/21 08:13 Potassium 5.4 mmol/L (3.6-5.0) H 01/25/21 08:13 Chloride 92.1 mmol/L (98-107) L 01/25/21 08:13 Carbon Dioxide 21 mmol/L (22-30) L 01/25/21 08:13 Anion Gap 27 mmol/L 01/25/21 08:13 BUN 18 mg/dL (9-20) 01/25/21 08:13 Creatinine 4.8 mg/dL (0.8-1.3) H 01/25/21 08:13 Estimated GFR 15 ml/min 01/25/21 08:13 BUN/Creatinine Ratio 4 % 01/25/21 08:13 Glucose 157 mg/dL (75-100) H 01/25/21 08:13 POC Glucose 96 mg/dL (70-105) 01/26/21 05:27 Calcium 8.6 mg/dL (8.4-10.2) 01/25/21 08:13 Magnesium 2.30 mg/dL (1.7-2.3) 01/25/21 08:13 Total Bilirubin 0.20 mg/dL (0.1-1.2) 01/25/21 08:13 AST 284 units/L (5-40) H 01/25/21 08:13 ALT 85 units/L (7-56) H 01/25/21 08:13 Alkaline Phosphatase 102 units/L (35-129) 01/25/21 08:13 Total Creatine Kinase 156 units/L (55-170) 01/25/21 08:13 CK-MB (CK-2) 3.4 ng/mL (0.0-4.0) 01/25/21 08:13 CK-MB (CK-2) Rel Index 2.1 (0-4) 01/25/21 08:13 Troponin T 0.233 ng/mL (0.00-0.029) H* 01/25/21 08:13 NT-Pro-B Natriuret Pep 61946 pg/mL (0-900) H 01/25/21 08:13 Total Protein 5.8 g/dL (6.3-8.2) L 01/25/21 08:13 Albumin 2.5 g/dL (3.9-5) L 01/25/21 08:13 Albumin/Globulin Ratio 0.8 % 01/25/21 08:13 Triglycerides 83 mg/dL (2-149) 01/25/21 08:13 Cholesterol 101 mg/dL (50-199) 01/25/21 08:13 LDL Cholesterol Direct 54 mg/dL (50-130) 01/25/21 08:13 HDL Cholesterol 43 mg/dL (40-59) 01/25/21 08:13 Cholesterol/HDL Ratio 2.34 % 01/25/21 08:13 Arterial Blood Glucose 108 mg/dL (65-95) H 01/26/21 03:10 Arterial Blood Ionized Calcium 4.0 mg/dL (4.6-5.3) L 01/26/21 03:10 Urine Color Yellow (Yellow) 01/25/21 Unknown Urine Turbidity Turbid (Clear) 01/25/21 Unknown Urine pH 8.0 (5.0-7.0) H 01/25/21 Unknown Ur Specific [place] 1.015 (1.003-1.030) 01/25/21 Unknown Urine Protein >500 mg/dL (Negative) 01/25/21 Unknown Urine Glucose (UA) Neg mg/dL (Negative) 01/25/21 Unknown Urine Ketones Neg mg/dL (Negative) 01/25/21 Unknown Urine Blood Mod (Negative) 01/25/21 Unknown Urine Nitrite Neg (Negative) 01/25/21 Unknown Urine Bilirubin Neg (Negative) 01/25/21 Unknown Urine Urobilinogen < 2.0 mg/dL (<2.0) 01/25/21 Unknown Ur Leukocyte Esterase Lg (Negative) 01/25/21 Unknown Urine WBC (Auto) > 182.0 /HPF (0.0-6.0) H 01/25/21 Unknown Urine RBC (Auto) > 182.0 /HPF (0.0-6.0) 01/25/21 Unknown Urine Bacteria (Auto) 3+ /HPF (Negative) 01/25/21 Unknown Urine WBC Clumps 3+ /HPF 01/25/21 Unknown Ur Transition Epith Cell 7 /HPF 01/25/21 Unknown Urine Mucus Few /HPF 01/25/21 Unknown Coronavirus (PCR) Negative (Negative) 01/25/21 08:35 Hepatitis A IgM Ab Non-reactive (NonReactive) 01/25/21 08:13 Hep Bs Antigen Non-reactive (Negative) 01/25/21 08:13 Hep B Core IgM Ab Non-reactive (NonReactive) 01/25/21 08:13 Hepatitis C Antibody Reactive (NonReactive) A 01/25/21 08:13 Microbiology: Microbiology 01/25/21 08:43 Tracheal Aspirate Sputum Culture - Preliminary 01/25/21 09:16 Peripheral/Venous Blood Culture - Preliminary Culture in Progress 01/25/21 09:16 Peripheral/Venous Blood Culture - Preliminary Culture in Progress Active Medications - Current Medications Current Medications: Generic Name Dose Route Start Last Admin Trade Name Freq PRN Reason Stop Dose Admin Acetaminophen 650 mg 01/26/21 03:47 01/26/21 04:52 Acetaminophen 325 Mg/10.15 Ml Oral Liqd Unit Dose FEEDTUBE 650 mg Q6H PRN Administration Non Cardiac Pain or Temp>100.5 Albuterol 2.5 mg 01/25/21 12:47 Albuterol 2.5 Mg/3 Ml Nebu IH Q3HRT PRN Shortness Of Breath Amlodipine Besylate 5 mg 01/26/21 10:00 Amlodipine 5 Mg Tab PO QDAY [facility] Atorvastatin Calcium 40 mg 01/26/21 22:00 Atorvastatin 40 Mg Tab PO QHS [facility] Carvedilol 12.5 mg 01/26/21 10:00 Carvedilol 12.5 Mg Tab PO BID [facility] Famotidine 10 mg 01/25/21 19:41 01/25/21 21:14 Famotidine 20 Mg/2 Ml Inj IV 10 mg BID JOHANA Administration Fentanyl 50 mcg 01/25/21 19:36 Fentanyl 100 Mcg/2 Ml Inj IV Q10MIN PRN ANALGESIA Heparin Sodium (Porcine) 5,000 unit 01/25/21 22:00 01/25/21 21:14 Heparin 5,000 Unit/1 Ml Vial SUB-Q 5,000 unit Q12HR JOHANA Administration Hydralazine HCl 10 mg 01/25/21 22:33 01/26/21 04:04 Hydralazine 20 Mg/1 Ml Inj IV 10 mg Q6H PRN Administration Hypertension Hydrophilic Ointment 1 applic 01/25/21 08:08 Lip Therapy Vaseline TP Q2HR PRN Dry Lips Dopamine HCl/Dextrose 800 mg in 250 mls @ 2.363 mls/hr 01/25/21 08:30 01/25/21 19:00 Intropin Drip 800 Mg/D5w 250 Ml IV 01/29/21 18:17 0 mcg/kg/min TITR ONE 0 mls/hr Titration Protocol 2 MCG/KG/MIN Sodium Chloride 100 mls @ 999 mls/hr 01/25/21 15:37 Nacl 0.9% IV KIMBERLY PRN Hypotension Fentanyl Citrate 2,000 mcg in 100 mls @ 3.15 mls/hr 01/25/21 20:00 01/26/21 04:00 Fentanyl Drip Premix IV 1 mcg/kg/hr TITR JOHANA 3.15 mls/hr Titration Protocol 1 MCG/KG/HR Azithromycin 500 mg in 250 mls @ 250 mls/hr 01/25/21 20:00 01/25/21 21:30 Zithromax/Ns IV 01/30/21 19:59 Infused Q24H JOHANA Infusion Ceftriaxone Sodium 1 gm in 50 mls @ 100 mls/hr 01/25/21 23:00 01/25/21 23:25 Rocephin/Ns 1 Gm/50 Ml IV 01/30/21 10:29 Infused Q24HR JOHANA Infusion Protocol Latanoprost drops 01/26/21 18:00 Latanoprost 0.005% Ophth Soln 2.5 Ml OU QPM [facility] Miscellaneous Medication 1 tab 01/26/21 10:00 Vit B Comp No.3/Folic/C/Biotin [Swatch Folder-[facility] Rx Tablet] PO DAILY JOHANA Multi-Ingred Cream/Lotion/Oil/Oint 1 applic 01/25/21 08:08 Mineral Oil/Petrolatum, White Ophth Oint 3.5 Gm OU Q4HR PRN Dry Eye(s) Senna/Docusate Sodium 1 tab 01/25/21 10:00 01/25/21 21:13 Sennosides/Docusate Sodium 8.6/50 Mg Tab FEEDTUBE 1 tab BID JOHANA Administration Sodium Chloride 10 ml 01/25/21 22:00 01/25/21 21:25 Sodium Chloride 0.9% 10 Ml Flush Syringe IV 10 ml BID JOHANA Administration Sodium Chloride 10 ml 01/25/21 12:47 Sodium Chloride 0.9% 10 Ml Flush Syringe IV PRN PRN LINE FLUSH
[2021-01-26] MEDS ORDERED: DEXTROSE 50% IN WATER (25GM) 50 ML SYRINGE IV PRN (08:00)
--- NOTE | 2021-01-26 08:32 | Consultation ---
History of Present Illness Consult date: 01/26/21 Reason for Consult: Post cardiac arrest asystole. History of present illness: Unresponsive History of present illness: 65 YO Male with HTN, DM, ESRD on HD(M,W,F), Severe Malnutrition, CLD, CHF, HLD, GERD, Nicotine Dependence presented to ED for evaluation. Patient is intubated and on ventilatory support at the time my evaluation and is unable to provide history. Patient history taken from EMS staff, ED staff, as well as the patient's family who was at bedside during exam and interview. As per family the patient was in his usual state of health at bedtime around 2100 hrs. Upon awakening from sleep with the patient reports that she found the patient unresponsive. EMS was notified and upon arrival the patient was found to be in asystolic arrest. Patient treated" with ACLS protocol and separately coyne sported to [facility] for further care and evaluation of the aforementioned symptoms. The patient arrived to the emergency department in asystolic arrest. Patient continued treatment with ACLS protocol as per ED staff with eventual return of perfusing cardiac rhythm. The patient was also intubated and placed on ventilatory support in the emergency department. Patient found to have cardiac arrest, acute hypoxemic respiratory failure, as well as acute encephalopathy. Patient admitted to ICU. Critical care team consulted in ED, nephrology team consulted in ED. No reports of fever, chills, chest pain, palpitation, productive cough, skin rash, recent ill contacts, prolonged travel/immobility, unilateral leg swelling, calf pain, individual/family history of DVT/PE/bleeding/blood clotting disorders. Prior admission on 11/28/2020 reviewed. All medication listed at time of admission has been reconciled. Advanced care planning conducted in ED. CT brain is remarkable for hypodensity BG bilateral suggestive of anoxic brain injury he initially presented with BP#180/80 and temperature 103 he was diagnosed with cardiac arrest and penumonia plus right pleural effusion currently on fentanyl [facility] [place]. BUN/Cr#18/4.8 troponin#0.233 Past History Past Medical History: diabetes, GERD, heart failure, hypertension, other (See HPI) Past Surgical History: Other (Dialysis access) Social history: , lives with family. denies: smoking, alcohol abuse, prescription drug abuse Family history: diabetes, hypertension Medications and Allergies Allergies Allergy/AdvReac Type Severity Reaction Status Date / Time No Known Allergies Allergy Verified 01/25/21 07:55 Home Medications Medication Instructions Recorded Confirmed Last Taken Type Atorvastatin [Lipitor] 40 mg PO QHS 09/28/17 05/01/19 Unknown History Omeprazole 20 mg PO BID 09/28/17 05/01/19 Unknown History Vit B Comp No.3/Folic/C/Biotin 1 tab PO DAILY 09/28/17 05/01/19 Unknown History [Cottage Parent-[facility]ley Rx Tablet] amLODIPine 10 mg PO DAILY 09/28/17 05/01/19 Unknown History carvediloL [Coreg] 12.5 mg PO BID 09/28/17 05/01/19 Unknown History lisinopriL [Zestril TAB] 20 mg PO QDAY 09/28/17 05/01/19 Unknown History Albuterol Mdi (or & Nicu Only) 2 puff IH QID PRN 05/01/19 05/01/19 Unknown History [ProAir HFA Inhaler] Amlodipine Besylate [Norvasc] 5 mg PO QDAY 05/01/19 05/01/19 Unknown History Gabapentin 300 mg PO Q8HR 05/01/19 05/01/19 Unknown History Latanoprost 0.005% 1 drop OP QPM 05/01/19 05/01/19 Unknown History Omeprazole 20 mg PO QDAY 05/01/19 05/01/19 Unknown History Rosuvastatin Calcium 5 mg PO QHS 05/01/19 05/01/19 Unknown History carvediloL [Coreg] 25 mg PO BID 05/01/19 05/01/19 Unknown History lisinopriL [Zestril TAB] 40 mg PO QDAY 05/01/19 05/01/19 Unknown History Active Meds: Active Medications Famotidine (Famotidine 20 Mg/2 Ml Inj) 20 mg IV BID JOHANA Hydrophilic Ointment (Lip Therapy Vaseline) 1 applic TP Q2HR PRN PRN Reason: Dry Lips Dopamine HCl/Dextrose (Intropin Drip 800 Mg/D5w 250 Ml) 800 mg in 250 mls @ 2.363 mls/hr IV TITR ONE; Protocol Stop: 01/29/21 18:17 Last Admin: 01/25/21 08:43 Dose: 2 mcg/kg/min, 2.363 mls/hr Documented by: Multi-Ingred Cream/Lotion/Oil/Oint (Mineral Oil/Petrolatum, White Ophth Oint 3.5 Gm) 1 applic OU Q4HR PRN PRN Reason: Dry Eye(s) Senna/Docusate Sodium (Sennosides/Docusate Sodium 8.6/50 Mg Tab) 1 tab FEEDTUBE BID [facility] Review of Systems ROS unobtainable: due to endotracheal tube, due to mental status Past History Past Medical History: diabetes, GERD, heart failure, hypertension, other (See HPI) Past Surgical History: Other (Dialysis access) Social history: , lives with family. denies: smoking, alcohol abuse, prescription drug abuse Family history: diabetes, hypertension Medications and Allergies Allergies Allergy/AdvReac Type Severity Reaction Status Date / Time No Known Allergies Allergy Verified 01/25/21 07:55 Home Medications Medication Instructions Recorded Confirmed Last Taken Type Atorvastatin [Lipitor] 40 mg PO QHS 09/28/17 05/01/19 Unknown History Omeprazole 20 mg PO BID 09/28/17 05/01/19 Unknown History Vit B Comp No.3/Folic/C/Biotin 1 tab PO DAILY 09/28/17 05/01/19 Unknown History [Cottage Parent-Stanley Rx Tablet] amLODIPine 10 mg PO DAILY 09/28/17 05/01/19 Unknown History carvediloL [Coreg] 12.5 mg PO BID 09/28/17 05/01/19 Unknown History lisinopriL [Zestril TAB] 20 mg PO QDAY 09/28/17 05/01/19 Unknown History Albuterol Mdi (or & Nicu Only) 2 puff IH QID PRN 05/01/19 05/01/19 Unknown History [ProAir HFA Inhaler] Amlodipine Besylate [Norvasc] 5 mg PO QDAY 05/01/19 05/01/19 Unknown History Gabapentin 300 mg PO Q8HR 05/01/19 05/01/19 Unknown History Latanoprost 0.005% 1 drop OP QPM 05/01/19 05/01/19 Unknown History Omeprazole 20 mg PO QDAY 05/01/19 05/01/19 Unknown History Rosuvastatin Calcium 5 mg PO QHS 05/01/19 05/01/19 Unknown History carvediloL [Coreg] 25 mg PO BID 05/01/19 05/01/19 Unknown History lisinopriL [Zestril TAB] 40 mg PO QDAY 05/01/19 05/01/19 Unknown History Active Meds: Active Medications Acetaminophen (Acetaminophen 325 Mg/10.15 Ml Oral Liqd Unit Dose) 650 mg FEEDTUBE Q6H PRN PRN Reason: Non Cardiac Pain or Temp>100.5 Last Admin: 01/26/21 04:52 Dose: 650 mg Documented by: Albuterol (Albuterol 2.5 Mg/3 Ml Nebu) 2.5 mg IH Q3HRT PRN PRN Reason: Shortness Of Breath Amlodipine Besylate (Amlodipine 5 Mg Tab) 5 mg PO QDAY [facility] Atorvastatin Calcium (Atorvastatin 40 Mg Tab) 40 mg PO QHS [facility] Carvedilol (Carvedilol 12.5 Mg Tab) 12.5 mg PO BID [facility] Dextrose (Dextrose 50% In Water (25gm) 50 Ml Syringe) 50 ml IV Q30MIN PRN; Pr otocol PRN Reason: Hypoglycemia Famotidine (Famotidine 20 Mg/2 Ml Inj) 10 mg IV BID [facility] Last Admin: 01/25/21 21:14 Dose: 10 mg Documented by: Fentanyl (Fentanyl 100 Mcg/2 Ml Inj) 50 mcg IV Q10MIN PRN PRN Reason: ANALGESIA Heparin Sodium (Porcine) (Heparin 5,000 Unit/1 Ml Vial) 5,000 unit SUB-Q Q12HR [facility] Last Admin: 01/25/21 21:14 Dose: 5,000 unit Documented by: Hydralazine HCl (Hydralazine 20 Mg/1 Ml Inj) 10 mg IV Q6H PRN PRN Reason: Hypertension Last Admin: 01/26/21 04:04 Dose: 10 mg Documented by: Hydrophilic Ointment (Lip Therapy Vaseline) 1 applic TP Q2HR PRN PRN Reason: Dry Lips Dopamine HCl/Dextrose (Intropin Drip 800 Mg/D5w 250 Ml) 800 mg in 250 mls @ 2.363 mls/hr IV TITR ONE; Protocol Stop: 01/29/21 18:17 Last Titration: 01/25/21 19:00 Dose: 0 mcg/kg/min, 0 mls/hr Documented by: Sodium Chloride (Nacl 0.9%) 100 mls @ 999 mls/hr IV KIMBERLY PRN PRN Reason: Hypotension Fentanyl Citrate (Fentanyl Drip Premix) 2,000 mcg in 100 mls @ 3.15 mls/hr IV TITR [facility]; Protocol Last Titration: 01/26/21 04:00 Dose: 1 mcg/kg/hr, 3.15 mls/hr Documented by: Azithromycin (Zithromax/Ns) 500 mg in 250 mls @ 250 mls/hr IV Q24H [facility] Stop: 01/30/21 19:59 Last Infusion: 01/25/21 21:30 Dose: Infused Documented by: Ceftriaxone Sodium (Rocephin/Ns 1 Gm/50 Ml) 1 gm in 50 mls @ 100 mls/hr IV Q24HR [facility]; Protocol Stop: 01/30/21 10:29 Last Infusion: 01/25/21 23:25 Dose: Infused Documented by: Insulin Human Regular (Insulin Regular, Human 100 Units/1 Ml) 0 units SUB-Q Q6H [facility]; Protocol Latanoprost (Latanoprost 0.005% Ophth Soln 2.5 Ml) 1 drops OU QPM [facility] Multi-Ingred Cream/Lotion/Oil/Oint (Mineral Oil/Petrolatum, White Ophth Oint 3.5 Gm) 1 applic OU Q4HR PRN PRN Reason: Dry Eye(s) Senna/Docusate Sodium (Sennosides/Docusate Sodium 8.6/50 Mg Tab) 1 tab FEEDTUBE BID [facility] Last Admin: 01/25/21 21:13 Dose: 1 tab Documented by: Sodium Chloride (Sodium Chloride 0.9% 10 Ml Flush Syringe) 10 ml IV BID [facility] Last Admin: 01/25/21 21:25 Dose: 10 ml Documented by: Sodium Chloride (Sodium Chloride 0.9% 10 Ml Flush Syringe) 10 ml IV PRN PRN PRN Reason: LINE FLUSH Physical Examination - Vital Signs Vital Signs: Vital Signs Pulse Resp 86 14 01/25/21 07:54 01/25/21 07:54 - Constitutional General appearance: other (intubated on Fentanyl he is with generalized myoclonus) - EENT EENT: Present: PERRL, mucous membranes moist - Respiratory Respiratory: Present: lungs clear, rhonchi - Cardiovascular Cardiovascular: Present: regular rate, normal S1, normal S2 Extremities: Present: no peripheral edema bilatateraly, other (beloe knee amputee right side) - Gastrointestinal Gastrointestinal: Present: normoactive bowel sounds - Integumentary Integumentary: Present: normal - Neurologic Cranial nerve examination: other (pupil reactive , absent corneal and gag reflex decresed EOM ) Detailed motor examination: other (no movment to stimuli) Results - Laboratory Findings CBC and BMP: 01/26/21 07:58 01/25/21 08:13 Abnormal Lab Findings: Abnormal Labs 01/25/21 01/25/21 01/25/21 07:56 08:13 08:13 WBC 11.4 H RBC 2.50 L Hgb 7.3 L Hct 22.2 L RDW 17.5 H Lymph % (Auto) 13.0 L Baso % (Auto) 2.2 H Baso # (Auto) 0.3 H Seg Neutrophils % 81.7 H Seg Neutrophils # 9.3 H PT 16.0 H INR 1.28 H APTT 56.8 H ABG pH POC ABG pCO2 POC ABG pO2 ABG Hemoglobin ABG Oxyhemoglobin ABG Sodium ABG Potassium ABG Chloride ABG Glucose VBG pH Carboxyhemoglobin Sodium Potassium Chloride Carbon Dioxide Creatinine Glucose POC Glucose 139 H AST ALT Troponin T NT-Pro-B Natriuret Pep Total Protein Albumin Arterial Blood Glucose Arterial Blood Ionized Calcium Urine pH Urine WBC (Auto) Hepatitis C Antibody 01/25/21 01/25/21 01/25/21 08:13 08:13 08:13 WBC RBC Hgb Hct RDW Lymph % (Auto) Baso % (Auto) Baso # (Auto) Seg Neutrophils % Seg Neutrophils # PT INR APTT ABG pH POC ABG pCO2 POC ABG pO2 ABG Hemoglobin ABG Oxyhemoglobin ABG Sodium ABG Potassium ABG Chloride ABG Glucose VBG pH 7.100 L* Carboxyhemoglobin Sodium 135 L Potassium 5.4 H Chloride 92.1 L Carbon Dioxide 21 L Creatinine 4.8 H Glucose 157 H POC Glucose AST 284 H ALT 85 H Troponin T 0.233 H* NT-Pro-B Natriuret Pep 26099 H Total Protein 5.8 L Albumin 2.5 L Arterial Blood Glucose Arterial Blood Ionized Calcium Urine pH Urine WBC (Auto) Hepatitis C Antibody Reactive A 01/25/21 01/25/21 01/25/21 08:44 16:31 16:57 WBC RBC Hgb Hct RDW Lymph % (Auto) Baso % (Auto) Baso # (Auto) Seg Neutrophils % Seg Neutrophils # PT INR APTT ABG pH 7.174 L 7.572 H 7.608 H POC ABG pCO2 58.4 H 24.4 L 25.2 L POC ABG pO2 109.3 H 41.6 L 257.8 H ABG Hemoglobin 7.7 L 9.3 L 9.4 L ABG Oxyhemoglobin 92.0 L 79.4 L 99.1 H ABG Sodium 133.9 L ABG Potassium 5.4 H 4.6 H ABG Chloride 97.0 L 97.0 L ABG Glucose 157 H 107 H 124 H VBG pH Carboxyhemoglobin 4.3 H 0.3 L Sodium Potassium Chloride Carbon Dioxide Creatinine Glucose POC Glucose AST ALT Troponin T NT-Pro-B Natriuret Pep Total Protein Albumin Arterial Blood Glucose 157 H 107 H 124 H Arterial Blood Ionized Calcium 4.5 L 4.3 L 4.3 L Urine pH Urine WBC (Auto) Hepatitis C Antibody 01/25/21 01/25/21 01/26/21 23:31 Unknown 03:10 WBC RBC Hgb Hct RDW Lymph % (Auto) Baso % (Auto) Baso # (Auto) Seg Neutrophils % Seg Neutrophils # PT INR APTT ABG pH 7.547 H POC ABG pCO2 31.7 L POC ABG pO2 ABG Hemoglobin 9.2 L ABG Oxyhemoglobin ABG Sodium ABG Potassium ABG Chloride ABG Glucose 108 H VBG pH Carboxyhemoglobin Sodium Potassium Chloride Carbon Dioxide Creatinine Glucose POC Glucose 111 H AST ALT Troponin T NT-Pro-B Natriuret Pep Total Protein Albumin Arterial Blood Glucose 108 H Arterial Blood Ionized Calcium 4.0 L Urine pH 8.0 H Urine WBC (Auto) > 182.0 H Hepatitis C Antibody Assessment and Plan Assessment and Plan - Patient Problems # Cardiac arrest at home found in A systole and resuscitated and intubated -CT brain is remarkable for BG ? anoxic injuey -on fentanyl -exam showed pupils dialted 4mm none reactive no corneal no gag he is with recurrent myoclonus --findings from exam and presentation is suggestive of significant anoxic brain injury -Valproic acid 500 mg IV -keep fentanyl titrate up to stop myoclonus -consider Brain MRI -EEG today -elevated cardiac enzymes -echo is pending -add ASA 325 mg ,lipitor 40 mg # Acute hypoxemic respiratory failure -Patient intubated and on ventilatory support, -wean vent as tolerated, -sedation holiday as possible, -daily spontaneous breathing trial, #UTI (urinary tract infection) -Empiric IV antibiotic therapy, urinalysis, supportive care. # ESRD (end stage renal disease) on dialysis -18/.8 -Nephrology team consulted in ED, dialysis as per renal team. #cardiac disease and diastolic heart failure -Strict I's/O, monitor urine output every shift, Monitor fluid balance, cardiology team consulted, - echocardiogram ordered and pending at time of admission. -elevated cardiac enzymes -on dopamin IV # DVT prophylaxis -SCDs bilateral lower extremities while in bed, prophylactic anticoagulation. # Advance care planning -Disease education conducted, patient is full code, care plan discussed, prognosis discussed, diagnoses discussed, patient family knowledges understanding and agreement with care plan. Patient family knowledges understanding poor prognosis. +30 minutes. The high probability of a clinically significant, sudden or life threatening deterioration of the [pulmonary, cardiac, nephro, neuro] system(s) required my full and direct attention, intervention and personal management. The aggregate critical care time was [90] minutes. This time is in addition to time spent performing reported procedures but includes the following: [x] Data Review and interpretation [x] Patient assessment and monitoring of vital signs [x] Documentation [x] Medication orders and management PLAN 1- MRI brain when possible 2-Treat underlying infection 3- EEG 4- valproic acid 500 mg IV bid 5-titrate Fentanyl as needed. 6- Add ASA 325 mg [place] tube Over all prognosis is quarded to poor .
[2021-01-26 08:52] LABS: Hematocrit 26.7 % (35.5-45.6); Hemoglobin 8.9 gm/dl (11.8-15.2); Mean Corpuscular HGB Conc 33 % (32-34); Mean Corpuscular Volume 86 fl (84-94); Platelet Count 269 K/mm3 (140-440); Red Cell Distribution Width 17.4 % (13.2-15.2)
[2021-01-26] MEDS ORDERED: SODIUM BICARBONATE 325 MG TAB FEEDTUBE PRN (08:55)
[2021-01-26] MEDS ORDERED: SIMPLE SYRUP 15 ML FEEDTUBE PRN ×2 (08:55)
[2021-01-26] MEDS ORDERED: LIPASE 10,500/PROTEASE 25,000/AMYLASE 43,750 (UNITS) DR CAP FEEDTUBE PRN (08:55)
[2021-01-26] MEDS: FAMOTIDINE 20 MG/2 ML INJ IV SCH ×2 (09:01→21:26)
[2021-01-26] MEDS: carvediloL 12.5 MG TAB PO SCH ×2 (09:01→21:27)
[2021-01-26] MEDS: cefTRIAXone/NS 1 GM/50 ML 1 GM/50 ML BAG IV SCH (09:01)
[2021-01-26] MEDS: SENNOSIDES/DOCUSATE SODIUM 8.6/50 MG TAB FEEDTUBE SCH ×2 (09:01→21:33)
[2021-01-26] MEDS: HEPARIN 5,000 UNIT/1 ML VIAL SUB-Q SCH ×2 (09:05→21:27)
[2021-01-26] MEDS ORDERED: LORazepam 2 MG/ML VIAL IV ONE (09:15)
[2021-01-26 09:22] LABS: Calcium 8.1 mg/dL (8.4-10.2)
[2021-01-26 09:34] LABS: Total Cells Counted 100
[2021-01-26 09:35] LABS: Anisocytosis 1+; Platelet Estimate Consistent w Auto
[2021-01-26] MEDS ORDERED: amLODIPine 5 MG TAB PO SCH (10:00)
[2021-01-26] MEDS ORDERED: [UNRECOGNIZED DRUG - REMARK] PO SCH (10:00)
--- NOTE | 2021-01-26 10:14 | Electrocardiograph Report ---
[facility] Test Date: 2021-01-25 Test Time: 07:54:38 Pat Name: TOM LYONS Department: Room: A254 Gender: M Weight Loss Physician: RAFIA : 1955 Requested By: EMILY HUI Order Number: [id number] Reading MD: Carlos Oliver Measurements Intervals [place] Rate: 96 P: 51 IA: 276 QRS: -55 QRSD: 109 T: 127 QT: 430 QTc: 543 Interpretive Statements Sinus rhythm Prolonged IA interval Right atrial enlargement Incomplete left bundle branch block ST depr, consider ischemia, anterior leads Abnormal T, consider ischemia, anterior leads Prolonged QT interval Electronically Signed On 01-26-2021 10:14:03 EDT by Carlos Oliver
[2021-01-26] MEDS ORDERED: VANCOMYCIN 1,000 MG in SODIUM CHLORIDE 0.9% 500 ML 500 ML IV ONE (11:13)
--- NOTE | 2021-01-26 11:13 | Consultation ---
History of Present Illness - Reason for Consult Consult date: 01/26/21 sepsis Requesting physician: SHAUNNA GARCIA - History of Present Illness The patient is a 65/M with hypertension, diabetes, ESRD on HD, malnutrition, gastroesophageal reflux disease, tobacco abuse was admitted to the hospital after he was found to be unresponsive by his . EMS came in and patient was found to be in asystolic arrest, required ACLS, mechanical ventilation and is currently admitted to ICU. Infectious diseases was consulted to evaluate for sepsis. Patient initially was afebrile but today has spiked a fever up to 103.2 F. WBC on admission was 11.4, increased to 16.6 today. Review of Systems: Limited due to vent/AMS Past History Past Medical History: diabetes, GERD, heart failure, hypertension, other (See HPI) Past Surgical History: Other (Dialysis access) Social history: , lives with family. denies: smoking, alcohol abuse, prescription drug abuse Family history: diabetes, hypertension Medications and Allergies Allergies Allergy/AdvReac Type Severity Reaction Status Date / Time No Known Allergies Allergy Verified 01/25/21 07:55 Home Medications Medication Instructions Recorded Confirmed Last Taken Type Atorvastatin [Lipitor] 40 mg PO QHS 09/28/17 05/01/19 Unknown History Omeprazole 20 mg PO BID 09/28/17 05/01/19 Unknown History Vit B Comp No.3/Folic/C/Biotin 1 tab PO DAILY 09/28/17 05/01/19 Unknown History [[facility] Rx Tablet] amLODIPine 10 mg PO DAILY 09/28/17 05/01/19 Unknown History carvediloL [Coreg] 12.5 mg PO BID 09/28/17 05/01/19 Unknown History lisinopriL [Zestril TAB] 20 mg PO QDAY 09/28/17 05/01/19 Unknown History Albuterol Mdi (or & Nicu Only) 2 puff IH QID PRN 05/01/19 05/01/19 Unknown History [ProAir HFA Inhaler] Amlodipine Besylate [Norvasc] 5 mg PO QDAY 05/01/19 05/01/19 Unknown History Gabapentin 300 mg PO Q8HR 05/01/19 05/01/19 Unknown History Latanoprost 0.005% 1 drop OP QPM 05/01/19 05/01/19 Unknown History Omeprazole 20 mg PO QDAY 05/01/19 05/01/19 Unknown History Rosuvastatin Calcium 5 mg PO QHS 05/01/19 05/01/19 Unknown History carvediloL [Coreg] 25 mg PO BID 05/01/19 05/01/19 Unknown History lisinopriL [Zestril TAB] 40 mg PO QDAY 05/01/19 05/01/19 Unknown History Active Meds: Active Medications Acetaminophen (Acetaminophen 325 Mg/10.15 Ml Oral Liqd Unit Dose) 650 mg FEEDTUBE Q6H PRN PRN Reason: Non Cardiac Pain or Temp>100.5 Last Admin: 01/26/21 04:52 Dose: 650 mg Documented by: Albuterol (Albuterol 2.5 Mg/3 Ml Nebu) 2.5 mg IH Q3HRT PRN PRN Reason: Shortness Of Breath Amlodipine Besylate (Amlodipine 5 Mg Tab) 5 mg PO QDAY [facility] Last Admin: 01/26/21 09:00 Dose: 5 mg Documented by: Lipase/Protease/Amylase (Lipase 10,500/Protease 25,000/Amylase 43,750 (Units) Dr Langley) 1 each FEEDTUBE PRN PRN PRN Reason: For Clogged Feeding Tube Aspirin (Aspirin 325 Mg Tab) 325 mg PO QDAY [facility] Atorvastatin Calcium (Atorvastatin 40 Mg Tab) 40 mg PO QHS [facility] Carvedilol (Carvedilol 12.5 Mg Tab) 12.5 mg PO BID [facility] Last Admin: 01/26/21 09:01 Dose: 12.5 mg Documented by: Dextrose (Dextrose 50% In Water (25gm) 50 Ml Syringe) 50 ml IV Q30MIN PRN; Protocol PRN Reason: Hypoglycemia Famotidine (Famotidine 20 Mg/2 Ml Inj) 10 mg IV BID [facility] Last Admin: 01/26/21 09:01 Dose: 10 mg Documented by: Fentanyl (Fentanyl 100 Mcg/2 Ml Inj) 50 mcg IV Q10MIN PRN PRN Reason: ANALGESIA Heparin Sodium (Porcine) (Heparin 5,000 Unit/1 Ml Vial) 5,000 unit SUB-Q Q12HR [facility] Last Admin: 01/26/21 09:05 Dose: 5,000 unit Documented by: Hydralazine HCl (Hydralazine 20 Mg/1 Ml Inj) 10 mg IV Q6H PRN PRN Reason: Hypertension Last Admin: 01/26/21 04:04 Dose: 10 mg Documented by: Hydrophilic Ointment (Lip Therapy Vaseline) 1 applic TP Q2HR PRN PRN Reason: Dry Lips Dopamine HCl/Dextrose (Intropin Drip 800 Mg/D5w 250 Ml) 800 mg in 250 mls @ 2.363 mls/hr IV TITR ONE; Protocol Stop: 01/29/21 18:17 Last Titration: 01/25/21 19:00 Dose: 0 mcg/kg/min, 0 mls/hr Documented by: Sodium Chloride (Nacl 0.9%) 100 mls @ 999 mls/hr IV KIMBERLY PRN PRN Reason: Hypotension Fentanyl Citrate (Fentanyl Drip Premix) 2,000 mcg in 100 mls @ 3.15 mls/hr IV TITR [facility]; Protocol Last Titration: 01/26/21 04:00 Dose: 1 mcg/kg/hr, 3.15 mls/hr Documented by: Azithromycin (Zithromax/Ns) 500 mg in 250 mls @ 250 mls/hr IV Q24H [facility] Stop: 01/30/21 19:59 Last Infusion: 01/25/21 21:30 Dose: Infused Documented by: Ceftriaxone Sodium (Rocephin/Ns 1 Gm/50 Ml) 1 gm in 50 mls @ 100 mls/hr IV Q24HR [facility]; Protocol Stop: 01/30/21 10:29 Last Admin: 01/26/21 09:01 Dose: 100 mls/hr Documented by: Valproate Sodium 500 mg/ (Sodium Chloride) 105 mls @ 100 mls/hr IV Q12HR [facility] Insulin Human Regular (Insulin Regular, Human 100 Units/1 Ml) 0 units SUB-Q Q6H [facility]; Protocol Latanoprost (Latanoprost 0.005% Ophth Soln 2.5 Ml) 1 drops OU QPM [facility] Multi-Ingred Cream/Lotion/Oil/Oint (Mineral Oil/Petrolatum, White Ophth Oint 3.5 Gm) 1 applic OU Q4HR PRN PRN Reason: Dry Eye(s) Senna/Docusate Sodium (Sennosides/Docusate Sodium 8.6/50 Mg Tab) 1 tab FEEDTUBE BID [facility] Last Admin: 01/26/21 09:01 Dose: 1 tab Documented by: Simple Syrup (Simple Syrup 15 Ml) 15 ml FEEDTUBE PRN PRN PRN Reason: Hypoglycemia Simple Syrup (Simple Syrup 15 Ml) 30 ml FEEDTUBE PRN PRN PRN Reason: Hypoglycemia Sodium Bicarbonate (Sodium Bicarbonate 325 Mg Tab) 325 mg FEEDTUBE PRN PRN PRN Reason: For Clogged Feeding Tube Sodium Chloride (Sodium Chloride 0.9% 10 Ml Flush Syringe) 10 ml IV BID [facility] Last Admin: 01/26/21 09:05 Dose: 10 ml Documented by: Sodium Chloride (Sodium Chloride 0.9% 10 Ml Flush Syringe) 10 ml IV PRN PRN PRN Reason: LINE FLUSH Physical Examination - Physical Exam Narrative exam: Physical Exam: Constitutional: sedated, intubated, on the vent Head, Ears, Nose: Normocephalic, atraumatic. External ears, nose normal Eyes: Conjunctivae/corneas clear. No icterus. No ptosis. 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 HD cath + Skin: No rash or abscess Hem/Lymphatic: No palpable cervical or supraclavicular nodes. No lymphangitis Psych: no agitation Neurological: sedated, intubated, on the vent, exam limited - Constitutional Vitals: Vital Signs Temp Pulse Resp BP Pulse Ox 103.2 F H 100 H 17 170/75 100 01/26/21 08:00 01/26/21 09:01 01/26/21 06:00 01/26/21 09:01 01/26/21 07:24 Temperature -Last 24 Hours Temperature 103.2 F Temperature 101.9 F Temperature 98.9 F Temperature 97.8 F Temperature 97.8 F Temperature 97.8 F Temperature 97.4 F Results - Labs CBC & Chem 7: 01/26/21 07:58 01/26/21 04:00 Labs: Abnormal lab results 01/25/21 01/25/21 01/25/21 Range/Units 08:13 16:31 16:57 WBC (4.5-11.0) K/mm3 RBC (3.65-5.03) M/mm3 Hgb (11.8-15.2) gm/dl Hct (35.5-45.6) % RDW (13.2-15.2) % Seg Neuts % (Manual) (40.0-70.0) % Lymphocytes % (Manual) (13.4-35.0) % Seg Neutrophils # Man (1.8-7.7) K/mm3 Lymphocytes # (Manual) (1.2-5.4) K/mm3 D-Dimer (0-234) ng/mlDDU ABG pH 7.572 H 7.608 H (7.320-7.450) POC ABG pCO2 24.4 L 25.2 L (32.0-48.0) mmHg POC ABG pO2 41.6 L 257.8 H (83-108) mmHg ABG Hemoglobin 9.3 L 9.4 L (12.0-17.5) ABG Oxyhemoglobin 79.4 L 99.1 H (94-98) ABG Potassium 4.6 H (3.40-4.50) mmol/L ABG Chloride 97.0 L (98-107) mmol/L ABG Glucose 107 H 124 H (65-95) mg/dL Carboxyhemoglobin 0.3 L (0.5-1.5) BUN (9-20) mg/dL Creatinine (0.8-1.3) mg/dL Glucose (75-100) mg/dL POC Glucose (70-105) mg/dL Lactic Acid (0.7-2.0) mmol/L Calcium (8.4-10.2) mg/dL Ferritin (30.0-300.0) ng/mL Lactate Dehydrogenase (91-180) units/L C-Reactive Protein (0.00-1.30) mg/dL Arterial Blood Glucose 107 H 124 H (65-95) mg/dL Arterial Blood Ionized Calcium 4.3 L 4.3 L (4.6-5.3) mg/dL Hepatitis C Antibody Reactive A (NonReactive) 01/25/21 01/26/21 01/26/21 Range/Units 23:31 03:10 04:00 WBC (4.5-11.0) K/mm3 RBC (3.65-5.03) M/mm3 Hgb (11.8-15.2) gm/dl Hct (35.5-45.6) % RDW (13.2-15.2) % Seg Neuts % (Manual) (40.0-70.0) % Lymphocytes % (Manual) (13.4-35.0) % Seg Neutrophils # Man (1.8-7.7) K/mm3 Lymphocytes # (Manual) (1.2-5.4) K/mm3 D-Dimer (0-234) ng/mlDDU ABG pH 7.547 H (7.320-7.450) POC ABG pCO2 31.7 L (32.0-48.0) mmHg POC ABG pO2 (83-108) mmHg ABG Hemoglobin 9.2 L (12.0-17.5) ABG Oxyhemoglobin (94-98) ABG Potassium (3.40-4.50) mmol/L ABG Chloride (98-107) mmol/L ABG Glucose 108 H (65-95) mg/dL Carboxyhemoglobin (0.5-1.5) BUN 27 H (9-20) mg/dL Creatinine 4.4 H (0.8-1.3) mg/dL Glucose 105 H (75-100) mg/dL POC Glucose 111 H (70-105) mg/dL Lactic Acid (0.7-2.0) mmol/L Calcium 8.1 L (8.4-10.2) mg/dL Ferritin (30.0-300.0) ng/mL Lactate Dehydrogenase (91-180) units/L C-Reactive Protein (0.00-1.30) mg/dL Arterial Blood Glucose 108 H (65-95) mg/dL Arterial Blood Ionized Calcium 4.0 L (4.6-5.3) mg/dL Hepatitis C Antibody (NonReactive) 01/26/21 01/26/21 01/26/21 Range/Units 07:40 07:40 07:40 WBC (4.5-11.0) K/mm3 RBC (3.65-5.03) M/mm3 Hgb (11.8-15.2) gm/dl Hct (35.5-45.6) % RDW (13.2-15.2) % Seg Neuts % (Manual) (40.0-70.0) % Lymphocytes % (Manual) (13.4-35.0) % Seg Neutrophils # Man (1.8-7.7) K/mm3 Lymphocytes # (Manual) (1.2-5.4) K/mm3 D-Dimer 8335.22 H (0-234) ng/mlDDU ABG pH (7.320-7.450) POC ABG pCO2 (32.0-48.0) mmHg POC ABG pO2 (83-108) mmHg ABG Hemoglobin (12.0-17.5) ABG Oxyhemoglobin (94-98) ABG Potassium (3.40-4.50) mmol/L ABG Chloride (98-107) mmol/L ABG Glucose (65-95) mg/dL Carboxyhemoglobin (0.5-1.5) BUN (9-20) mg/dL Creatinine (0.8-1.3) mg/dL Glucose (75-100) mg/dL POC Glucose (70-105) mg/dL Lactic Acid (0.7-2.0) mmol/L Calcium (8.4-10.2) mg/dL Ferritin 1817.0 H (30.0-300.0) ng/mL Lactate Dehydrogenase 770 H (91-180) units/L C-Reactive Protein 11.00 H (0.00-1.30) mg/dL Arterial Blood Glucose (65-95) mg/dL Arterial Blood Ionized Calcium (4.6-5.3) mg/dL Hepatitis C Antibody (NonReactive) 01/26/21 01/26/21 Range/Units 07:58 07:58 WBC 16.6 H (4.5-11.0) K/mm3 RBC 3.10 L (3.65-5.03) M/mm3 Hgb 8.9 L (11.8-15.2) gm/dl Hct 26.7 L (35.5-45.6) % RDW 17.4 H (13.2-15.2) % Seg Neuts % (Manual) 93.0 H (40.0-70.0) % Lymphocytes % (Manual) 5.0 L (13.4-35.0) % Seg Neutrophils # Man 15.4 H (1.8-7.7) K/mm3 Lymphocytes # (Manual) 0.8 L (1.2-5.4) K/mm3 D-Dimer (0-234) ng/mlDDU ABG pH (7.320-7.450) POC ABG pCO2 (32.0-48.0) mmHg POC ABG pO2 (83-108) mmHg ABG Hemoglobin (12.0-17.5) ABG Oxyhemoglobin (94-98) ABG Potassium (3.40-4.50) mmol/L ABG Chloride (98-107) mmol/L ABG Glucose (65-95) mg/dL Carboxyhemoglobin (0.5-1.5) BUN (9-20) mg/dL Creatinine (0.8-1.3) mg/dL Glucose (75-100) mg/dL POC Glucose (70-105) mg/dL Lactic Acid 3.20 H* (0.7-2.0) mmol/L Calcium (8.4-10.2) mg/dL Ferritin (30.0-300.0) ng/mL Lactate Dehydrogenase (91-180) units/L C-Reactive Protein (0.00-1.30) mg/dL Arterial Blood Glucose (65-95) mg/dL Arterial Blood Ionized Calcium (4.6-5.3) mg/dL Hepatitis C Antibody (NonReactive) - Imaging and Cardiology Chest x-ray: report reviewed, image reviewed (?RLL pneumonia) Assessment and Plan Cultures: COVID-19 PCR: Negative Hepatitis serologies: Positive for hepatitis C antibody 01/25/2021 tracheal aspirate: In process 01/25/2021 blood culture: No growth 01/25/2021 urine culture: No growth A/P: 65/M with hypertension, diabetes, ESRD on HD, malnutrition, gastroesophageal reflux disease, tobacco abuse: #Shock, status post cardiac arrest, sepsis: Source of sepsis could be possible UTI given significant pyuria, aspiration. Rule out bacteremia due to indwelling HD catheter. Off pressors now. #ESRD on HD: Renally dose antibiotics. #Acute respiratory failure: On mechanical ventilation. #Acute encephalopathy, possible seizures: Neurology following, concern for anoxic brain injury. Recs: -Renally dosed cefepime, vancomycin -Ceftriaxone and azithromycin discontinued -f/u cultures Giovanni Roa MD, FACP [facility] O: [phone] F: [phone]
--- NOTE | 2021-01-26 11:29 | Consultation ---
<VIKTORIA JUNIOR - Last Filed: 01/26/21 11:44> History of Present Illness Consult date: 01/26/21 Consult reason: cardiac arrest History of present illness: 65-year old male with multiple medial problems. He has chronic systolic heart failure, severe dilated cardiomyopathy with ejection fraction 15 to 20% by an echocardiogram 1 month ago. He has end stage renal disease on hemodialysis, hypertension, and PAD with right BKA. Patient was brought in after he was found unresponsive by a family member. It is reported initial rhythm was asytolic on EMS arrival and with continuation of ACLS protocol on presentation to the emergency department. He is currently intubated, unresponsive on mechanical ventilation. Head CT is suggestive of anoxic brain injury. Chest x-ray reports interstitial edema. It is unclear if there was any missed dialysis sessions. Initial labs shows a potassium of 5.4 with a creatinine at 4.8. There was elevation of liver enzymes. An ECG is sinus rhythm with LVH. Cardiology consultation has been requested. Past History Past Medical History: diabetes, GERD, heart failure, hypertension Past Surgical History: Other (Dialysis access) Social history: , lives with family. denies: smoking, alcohol abuse, prescription drug abuse Family history: diabetes, hypertension Medications and Allergies Allergies Allergy/AdvReac Type Severity Reaction Status Date / Time No Known Allergies Allergy Verified 01/25/21 07:55 Home Medications Medication Instructions Recorded Confirmed Last Taken Type Dextrose 50% in Water [D50W (25GM) 50 ml IV Q30MIN PRN syringe 01/31/21 Unknown Rx Syringe] Petrolatum,White [Vaseline Lip 1 applic TP Q2HR PRN tube 01/31/21 Unknown Rx Therapy] Active Meds: Active Medications Acetaminophen (Acetaminophen 325 Mg/10.15 Ml Oral Liqd Unit Dose) 650 mg FEEDTUBE Q6H PRN PRN Reason: Non Cardiac Pain or Temp>100.5 Last Admin: 01/26/21 04:52 Dose: 650 mg Documented by: Albuterol (Albuterol 2.5 Mg/3 Ml Nebu) 2.5 mg IH Q3HRT PRN PRN Reason: Shortness Of Breath Amlodipine Besylate (Amlodipine 5 Mg Tab) 5 mg PO QDAY [facility] Last Admin: 01/26/21 09:00 Dose: 5 mg Documented by: Lipase/Protease/Amylase (Lipase 10,500/Protease 25,000/Amylase 43,750 (Units) Dr Cap) 1 each FEEDTUBE PRN PRN PRN Reason: For Clogged Feeding Tube Aspirin (Aspirin 325 Mg Tab) 325 mg PO QDAY [facility] Atorvastatin Calcium (Atorvastatin 40 Mg Tab) 40 mg PO QHS [facility] Carvedilol (Carvedilol 12.5 Mg Tab) 12.5 mg PO BID [facility] Last Admin: 01/26/21 09:01 Dose: 12.5 mg Documented by: Dextrose (Dextrose 50% In Water (25gm) 50 Ml Syringe) 50 ml IV Q30MIN PRN; Protocol PRN Reason: Hypoglycemia Famotidine (Famotidine 20 Mg/2 Ml Inj) 10 mg IV BID [facility] Last Admin: 01/26/21 09:01 Dose: 10 mg Documented by: Fentanyl (Fentanyl 100 Mcg/2 Ml Inj) 50 mcg IV Q10MIN PRN PRN Reason: ANALGESIA Heparin Sodium (Porcine) (Heparin 5,000 Unit/1 Ml Vial) 5,000 unit SUB-Q Q12HR [facility] Last Admin: 01/26/21 09:05 Dose: 5,000 unit Documented by: Hydralazine HCl (Hydralazine 20 Mg/1 Ml Inj) 10 mg IV Q6H PRN PRN Reason: Hypertension Last Admin: 01/26/21 04:04 Dose: 10 mg Documented by: Hydrophilic Ointment (Lip Therapy Vaseline) 1 applic TP Q2HR PRN PRN Reason: Dry Lips Dopamine HCl/Dextrose (Intropin Drip 800 Mg/D5w 250 Ml) 800 mg in 250 mls @ 2.363 mls/hr IV TITR ONE; Protocol Stop: 01/29/21 18:17 Last Titration: 01/25/21 19:00 Dose: 0 mcg/kg/min, 0 mls/hr Documented by: Sodium Chloride (Nacl 0.9%) 100 mls @ 999 mls/hr IV KIMBERLY PRN PRN Reason: Hypotension Fentanyl Citrate (Fentanyl Drip Premix) 2,000 mcg in 100 mls @ 3.15 mls/hr IV TITR [facility]; Protocol Last Titration: 01/26/21 10:30 Dose: 4 mcg/kg/hr, 12.6 mls/hr Documented by: Valproate Sodium 500 mg/ (Sodium Chloride) 105 mls @ 100 mls/hr IV Q12HR [facility] Cefepime HCl (Cefepime/Ns 1 Gm/100 Ml) 1 gm in 100 mls @ 200 mls/hr IV QPM [facility]; Protocol Vancomycin HCl 1,250 mg/ (Sodium Chloride) 275 mls @ 166.667 mls/hr IV ONCE ONE Stop: 01/26/21 13:08 Insulin Human Regular (Insulin Regular, Human 100 Units/1 Ml) 0 units SUB-Q Q6H [facility]; Protocol Latanoprost (Latanoprost 0.005% Ophth Soln 2.5 Ml) 1 drops OU QPM [facility] Multi-Ingred Cream/Lotion/Oil/Oint (Mineral Oil/Petrolatum, White Ophth Oint 3.5 Gm) 1 applic OU Q4HR PRN PRN Reason: Dry Eye(s) Senna/Docusate Sodium (Sennosides/Docusate Sodium 8.6/50 Mg Tab) 1 tab FEEDTUBE BID [facility] Last Admin: 01/26/21 09:01 Dose: 1 tab Documented by: Simple Syrup (Simple Syrup 15 Ml) 15 ml FEEDTUBE PRN PRN PRN Reason: Hypoglycemia Simple Syrup (Simple Syrup 15 Ml) 30 ml FEEDTUBE PRN PRN PRN Reason: Hypoglycemia Sodium Bicarbonate (Sodium Bicarbonate 325 Mg Tab) 325 mg FEEDTUBE PRN PRN PRN Reason: For Clogged Feeding Tube Sodium Chloride (Sodium Chloride 0.9% 10 Ml Flush Syringe) 10 ml IV BID [facility] Last Admin: 01/26/21 09:05 Dose: 10 ml Documented by: Sodium Chloride (Sodium Chloride 0.9% 10 Ml Flush Syringe) 10 ml IV PRN PRN PRN Reason: LINE FLUSH Review of Systems ROS unobtainable: due to endotracheal tube Physical Examination Vital Signs Pulse Resp 86 14 01/25/21 07:54 01/25/21 07:54 General appearance: other (unresponsive on the vent) Cardiac: Positive: Reg Rate and Rhythm Results 01/26/21 07:58 01/26/21 04:00 Cardiac Enzymes 01/26/21 Range/Units 07:40 Lactate Dehydrogenase 770 H (91-180) units/L CBC 01/26/21 Range/Units 07:58 WBC 16.6 H (4.5-11.0) K/mm3 RBC 3.10 L (3.65-5.03) M/mm3 Hgb 8.9 L (11.8-15.2) gm/dl Hct 26.7 L (35.5-45.6) % Plt Count 269 (140-440) K/mm3 Comprehensive Metabolic Panel 01/26/21 Range/Units 04:00 Sodium 142 D (137-145) mmol/L Potassium 4.1 D (3.6-5.0) mmol/L Chloride 99.4 (98-107) mmol/L Carbon Dioxide 26 (22-30) mmol/L BUN 27 H (9-20) mg/dL Creatinine 4.4 H (0.8-1.3) mg/dL Glucose 105 H (75-100) mg/dL Calcium 8.1 L (8.4-10.2) mg/dL Assessment and Plan Asystolic arrest Head CT is suggestive of anoxic brain injury. Sepsis Dilated Cardiomyopathy 11/2020 echo demonstrates a 4 chamber dilated CMP, ejection fraction 15-20%. Respiratory failure ESRD on dialysis Right BKA Hypertension Recommend: Hemodialysis for fluid and electrolyte management. Medical therapy for dilated cardiomyopathy as tolerated. <PALLAVI OVERTON - Last Filed: 02/01/21 17:09> History of Present Illness History of present illness: I SAW THIS PT & AGREE WITH THE Dx & Tx PLAN. Physical Examination Vital Signs Pulse Resp 86 14 01/25/21 07:54 01/25/21 07:54 Results 01/29/21 08:07 01/29/21 08:07 Assessment and Plan - Patient Problems (1) Cardiac arrest Status: Acute (2) Respiratory failure Status: Acute Qualifiers: Chronicity: acute Respiratory failure complication: hypoxia Qualified Code(s): J96.01 - Acute respiratory failure with hypoxia (3) Sepsis Status: Acute Qualifiers: Sepsis type: sepsis due to unspecified organism Sepsis acute organ dysfunction status: unspecified Qualified Code(s): A41.9 - Sepsis, unspecified organism
[2021-01-26] MEDS: VALPROATE SODIUM 500 MG in SODIUM CHLORIDE 0.9% 100 ML IV SCH ×2 (11:30→21:30)
[2021-01-26] MEDS: INSULIN REGULAR, HUMAN 100 UNITS/1 ML SUB-Q SCH ×2 (11:30→18:00)
[2021-01-26] MEDS ORDERED: VANCOMYCIN 1,250 MG in SODIUM CHLORIDE 0.9% 250ML 250 ML IV ONE (11:30)
[2021-01-26] MEDS: ASPIRIN 325 MG TAB PO SCH (11:30)
[2021-01-26] MEDS ORDERED: VANCOMYCIN PHARMACY TO DOSE IV SCH (12:00)
--- NOTE | 2021-01-26 12:02 | Progress Note ---
Assessment and Plan Cardiac arrest with return of spontaneous circulation. Acute hypoxemic respiratory failure, on mechanical ventilatory support. Severe sepsis with shock Urinary tract infection. ESRD on dialysis. Acute toxic metabolic encephalopathy, possibly anoxic. Anemia that is normocytic. Hypercapnia Leukocytosis. Hyperkalemia. NSTEMI DM II Congestive heart failure. Gastroesophageal reflux disease. Oropharyngeal dysphagia (Discussed very poort prognosis with his and requested a substituted judgment as to wether he would want a tracheostomy and watchful waiting knowing the poor prognosis or perhaps hospice / comfort care. She will let us know) - started on AED's (Keppra, dilantin) - begin Propofol drip - reduced set rate to 12/min - follow dopplers +/- CTA re: sudden cardiac arrest - discontinue Femoral CVL - discontinue Osborn catheter - complete AB's per ID recommendations (Cefepime & Vancomycin) - continue care as below otherwise; - continue to wean supplemental oxygen for target O2 sat's > 90% acutely - VAP bundle addressed - continue lung protective strategies - continue bronchodilators with pulmonary hygiene per RT - Daily SAT and SBT assessment as tolerated - wean per pulmonary driven protocols otherwise - continue accuchecks with glycemic control per SSI (While critically ill target blood glucose of 140-180 mg/dL; avoid hypoglycemia) - sedation prn for target RASS 0 to -1 - continue HD/UF for toxin and volume clearance - avoid nephrotoxins, renally dose all medications - avoid benzodiazepine's if possible, reduce the possibility of delirium - prn analgesia per CPOT score - Maintenance of sleep-wake cycle, avoid delirium - continue enteral nutritional support at goal rate as tolerated - G.I. & VTE prophylaxis - PT/OT/ROM exercises - continue mobility protocols for pressure ulcer prophylaxis - Monitor hemodynamics closely - continue other care per attending / other consultants - discharge planning ongoing concurrently .... Re-evaluate in am & prn CONDITION: CRITICAL PROGNOSIS: GUARDED CODE STATUS: FULL CODE The high probability of a clinically significant, sudden or life-threatening de terioration of the [respiratory, cardiovascular, GI & neurologic] system(s) required my full and direct attention, intervention and personal management. The aggregate critical care time was [45] minutes without overlap. Time includes spent on; [x] Data Review and interpretation [x] Patient assessment and monitoring of vital signs [x] Documentation [x] Medication orders and management Subjective Date of service: 01/26/21 Principal diagnosis: Cardiac arrest; Ac hypoxemic resp failure; Septic Shock; UTI; AMS; ESRD Interval history: Patient is seen today for: Cardiac arrest with ROSC; Acute hypoxemic respiratory failure; Septic Shock; UTI; ESRD on dialysis; Acute toxic metabolic encephalopathy, possibly anoxic; NSTEMI; CHF Seen and examined at bedside; 24hour events reviewed; nursing and respiratory care staff consulted; no adverse overnight events reported to me; resting peacefully in bed; clinical examination worse today and he is now with myoclonic / seizure tyope activity; MRI also shows severe anoxic injury; no emesis or overt aspiration; HD/UF yesterday and ongoing now. Objective Vital Signs - 12hr 01/26/21 01/26/21 01/26/21 00:10 00:20 00:22 Temperature Pulse Rate 94 H 93 H 93 H Pulse Rate [ From Monitor] Respiratory 13 17 Rate Blood Pressure 184/85 214/94 185/105 O2 Sat by Pulse 100 100 100 Oximetry 01/26/21 01/26/21 01/26/21 00:30 00:40 00:50 Temperature Pulse Rate 94 H 95 H 94 H Pulse Rate [ From Monitor] Respiratory 21 18 15 Rate Blood Pressure 207/91 207/91 211/92 O2 Sat by Pulse 100 100 100 Oximetry 01/26/21 01/26/21 01/26/21 01:00 01:10 01:20 Temperature Pulse Rate 96 H 96 H 96 H Pulse Rate [ From Monitor] Respiratory 14 12 17 Rate Blood Pressure 204/88 204/88 209/87 O2 Sat by Pulse 100 100 100 Oximetry 01/26/21 01/26/21 01/26/21 01:30 01:40 01:50 Temperature Pulse Rate 98 H 98 H 99 H Pulse Rate [ From Monitor] Respiratory 14 19 31 H Rate Blood Pressure 208/92 208/92 209/88 O2 Sat by Pulse 100 100 100 Oximetry 01/26/21 01/26/21 01/26/21 02:00 02:10 02:20 Temperature Pulse Rate 100 H 99 H 99 H Pulse Rate [ From Monitor] Respiratory 19 23 28 H Rate Blood Pressure 207/92 207/92 190/82 O2 Sat by Pulse 100 100 100 Oximetry 01/26/21 01/26/21 01/26/21 02:30 02:40 02:50 Temperature Pulse Rate 101 H 100 H 101 H Pulse Rate [ From Monitor] Respiratory 40 H 38 H 21 Rate Blood Pressure 177/75 177/75 173/78 O2 Sat by Pulse 100 100 100 Oximetry 01/26/21 01/26/21 01/26/21 03:00 03:10 03:20 Temperature Pulse Rate 102 H 102 H 102 H Pulse Rate [ From Monitor] Respiratory 25 H 17 16 Rate Blood Pressure 175/79 175/79 186/82 O2 Sat by Pulse 100 100 100 Oximetry 01/26/21 01/26/21 01/26/21 03:30 03:40 03:50 Temperature Pulse Rate 104 H 102 H 104 H Pulse Rate [ From Monitor] Respiratory 22 27 H 15 Rate Blood Pressure 190/83 190/83 191/84 O2 Sat by Pulse 100 100 100 Oximetry 01/26/21 01/26/21 01/26/21 03:51 04:00 04:04 Temperature 101.9 F H Pulse Rate 103 H 104 H 104 H Pulse Rate [ 104 H From Monitor] Respiratory 12 Rate Blood Pressure 191/84 198/88 198/88 O2 Sat by Pulse 100 99 Oximetry 01/26/21 01/26/21 01/26/21 04:10 04:20 04:30 Temperature Pulse Rate 105 H 103 H 104 H Pulse Rate [ From Monitor] Respiratory 11 L 24 27 H Rate Blood Pressure 198/88 174/77 165/78 O2 Sat by Pulse 100 100 100 Oximetry 01/26/21 01/26/21 01/26/21 04:40 04:50 04:52 Temperature Pulse Rate 104 H 104 H Pulse Rate [ From Monitor] Respiratory 31 H 26 H 20 Rate Blood Pressure 165/78 174/77 O2 Sat by Pulse 100 100 Oximetry 01/26/21 01/26/21 01/26/21 05:00 05:10 05:20 Temperature Pulse Rate 106 H 105 H 104 H Pulse Rate [ From Monitor] Respiratory 18 25 H 25 H Rate Blood Pressure 171/79 171/79 176/81 O2 Sat by Pulse 100 100 100 Oximetry 01/26/21 01/26/21 01/26/21 05:30 05:40 05:50 Temperature Pulse Rate 105 H 105 H 105 H Pulse Rate [ From Monitor] Respiratory 24 35 H 28 H Rate Blood Pressure 180/80 180/80 179/84 O2 Sat by Pulse 100 100 100 Oximetry 01/26/21 01/26/2121 06:00 07:24 08:00 Temperature 103.2 F H Pulse Rate 104 H 104 H Pulse Rate [ From Monitor] Respiratory 17 Rate Blood Pressure 178/80 181/81 O2 Sat by Pulse 100 100 Oximetry 01/26/21 01/26/21 09:00 09:01 Temperature Pulse Rate 101 H 100 H Pulse Rate [ From Monitor] Respiratory Rate Blood Pressure 170/75 170/75 O2 Sat by Pulse Oximetry Constitutional: no acute distress, other (elderly thin male riding set rate on MVS) Eyes: non-icteric ENT: oropharynx moist, other (ETT 24 cm FREDI) Neck: supple, no lymphadenopathy, no JVD Effort: mildly labored Ascultation: Bilateral: diminished breath sounds, rhonchi (scant, bases) Percussion: Bilateral: not dull Cardiovascular: regular rate and rhythm Gastrointestinal: normoactive bowel sounds, soft, non-tender, non-distended Integumentary: rash (stasis dermatitis type to legs) Extremities: no cyanosis, no edema, pulses normal, no ischemia or petechiae Neurologic: pupils equal and round (fixed and dilated), unable to assess Psychiatric: other (unable to assess re: AMS) CBC and BMP: 01/26/21 07:58 01/26/21 04:00 ABG, PT/INR, D-dimer: ABG ABG pH 7.547 (7.320-7.450) H 01/26/21 03:10 POC ABG pCO2 31.7 mmHg (32.0-48.0) L 01/26/21 03:10 POC ABG pO2 92.7 mmHg (83-108) 01/26/21 03:10 POC ABG HCO3 26.9 01/26/21 03:10 ABG O2 Saturation 97.5 (0-100) 01/26/21 03:10 PT/INR, D-dimer PT 16.0 Sec. (12.2-14.9) H 01/25/21 08:13 INR 1.28 (0.87-1.13) H 01/25/21 08:13 D-Dimer 8335.22 ng/mlDDU (0-234) H 01/26/21 07:40 Abnormal lab findings: Abnormal Labs 01/25/21 01/25/21 01/25/21 07:56 08:13 08:13 WBC 11.4 H RBC 2.50 L Hgb 7.3 L Hct 22.2 L RDW 17.5 H Lymph % (Auto) 13.0 L Baso % (Auto) 2.2 H Baso # (Auto) 0.3 H Seg Neutrophils % 81.7 H Seg Neuts % (Manual) Lymphocytes % (Manual) Seg Neutrophils # 9.3 H Seg Neutrophils # Man Lymphocytes # (Manual) PT 16.0 H INR 1.28 H APTT 56.8 H D-Dimer ABG pH POC ABG pCO2 POC ABG pO2 ABG Hemoglobin ABG Oxyhemoglobin ABG Sodium ABG Potassium ABG Chloride ABG Glucose VBG pH Carboxyhemoglobin Sodium Potassium Chloride Carbon Dioxide BUN Creatinine Glucose POC Glucose 139 H Lactic Acid Calcium Ferritin AST ALT Lactate Dehydrogenase Troponin T C-Reactive Protein NT-Pro-B Natriuret Pep Total Protein Albumin Arterial Blood Glucose Arterial Blood Ionized Calcium Urine pH Urine WBC (Auto) Hepatitis C Antibody 01/25/21 01/25/21 01/25/21 08:13 08:13 08:13 WBC RBC Hgb Hct RDW Lymph % (Auto) Baso % (Auto) Baso # (Auto) Seg Neutrophils % Seg Neuts % (Manual) Lymphocytes % (Manual) Seg Neutrophils # Seg Neutrophils # Man Lymphocytes # (Manual) PT INR APTT D-Dimer ABG pH POC ABG pCO2 POC ABG pO2 ABG Hemoglobin ABG Oxyhemoglobin ABG Sodium ABG Potassium ABG Chloride ABG Glucose VBG pH 7.100 L* Carboxyhemoglobin Sodium 135 L Potassium 5.4 H Chloride 92.1 L Carbon Dioxide 21 L BUN Creatinine 4.8 H Glucose 157 H POC Glucose Lactic Acid Calcium Ferritin AST 284 H ALT 85 H Lactate Dehydrogenase Troponin T 0.233 H* C-Reactive Protein NT-Pro-B Natriuret Pep 89504 H Total Protein 5.8 L Albumin 2.5 L Arterial Blood Glucose Arterial Blood Ionized Calcium Urine pH Urine WBC (Auto) Hepatitis C Antibody Reactive A 01/25/21 01/25/21 01/25/21 08:44 16:31 16:57 WBC RBC Hgb Hct RDW Lymph % (Auto) Baso % (Auto) Baso # (Auto) Seg Neutrophils % Seg Neuts % (Manual) Lymphocytes % (Manual) Seg Neutrophils # Seg Neutrophils # Man Lymphocytes # (Manual) PT INR APTT D-Dimer ABG pH 7.174 L 7.572 H 7.608 H POC ABG pCO2 58.4 H 24.4 L 25.2 L POC ABG pO2 109.3 H 41.6 L 257.8 H ABG Hemoglobin 7.7 L 9.3 L 9.4 L ABG Oxyhemoglobin 92.0 L 79.4 L 99.1 H ABG Sodium 133.9 L ABG Potassium 5.4 H 4.6 H ABG Chloride 97.0 L 97.0 L ABG Glucose 157 H 107 H 124 H VBG pH Carboxyhemoglobin 4.3 H 0.3 L Sodium Potassium Chloride Carbon Dioxide BUN Creatinine Glucose POC Glucose Lactic Acid Calcium Ferritin AST ALT Lactate Dehydrogenase Troponin T C-Reactive Protein NT-Pro-B Natriuret Pep Total Protein Albumin Arterial Blood Glucose 157 H 107 H 124 H Arterial Blood Ionized Calcium 4.5 L 4.3 L 4.3 L Urine pH Urine WBC (Auto) Hepatitis C Antibody 01/25/21 01/25/21 01/26/21 23:31 Unknown 03:10 WBC RBC Hgb Hct RDW Lymph % (Auto) Baso % (Auto) Baso # (Auto) Seg Neutrophils % Seg Neuts % (Manual) Lymphocytes % (Manual) Seg Neutrophils # Seg Neutrophils # Man Lymphocytes # (Manual) PT INR APTT D-Dimer ABG pH 7.547 H POC ABG pCO2 31.7 L POC ABG pO2 ABG Hemoglobin 9.2 L ABG Oxyhemoglobin ABG Sodium ABG Potassium ABG Chloride ABG Glucose 108 H VBG pH Carboxyhemoglobin Sodium Potassium Chloride Carbon Dioxide BUN Creatinine Glucose POC Glucose 111 H Lactic Acid Calcium Ferritin AST ALT Lactate Dehydrogenase Troponin T C-Reactive Protein NT-Pro-B Natriuret Pep Total Protein Albumin Arterial Blood Glucose 108 H Arterial Blood Ionized Calcium 4.0 L Urine pH 8.0 H Urine WBC (Auto) > 182.0 H Hepatitis C Antibody 01/26/21 01/26/21 01/26/21 04:00 07:40 07:40 WBC RBC Hgb Hct RDW Lymph % (Auto) Baso % (Auto) Baso # (Auto) Seg Neutrophils % Seg Neuts % (Manual) Lymphocytes % (Manual) Seg Neutrophils # Seg Neutrophils # Man Lymphocytes # (Manual) PT INR APTT D-Dimer 8335.22 H ABG pH POC ABG pCO2 POC ABG pO2 ABG Hemoglobin ABG Oxyhemoglobin ABG Sodium ABG Potassium ABG Chloride ABG Glucose VBG pH Carboxyhemoglobin Sodium Potassium Chloride Carbon Dioxide BUN 27 H Creatinine 4.4 H Glucose 105 H POC Glucose Lactic Acid Calcium 8.1 L Ferritin 1817.0 H AST ALT Lactate Dehydrogenase Troponin T C-Reactive Protein NT-Pro-B Natriuret Pep Total Protein Albumin Arterial Blood Glucose Arterial Blood Ionized Calcium Urine pH Urine WBC (Auto) Hepatitis C Antibody 01/26/21 01/26/21 01/26/21 07:40 07:58 07:58 WBC 16.6 H RBC 3.10 L Hgb 8.9 L Hct 26.7 L RDW 17.4 H Lymph % (Auto) Baso % (Auto) Baso # (Auto) Seg Neutrophils % Seg Neuts % (Manual) 93.0 H Lymphocytes % (Manual) 5.0 L Seg Neutrophils # Seg Neutrophils # Man 15.4 H Lymphocytes # (Manual) 0.8 L PT INR APTT D-Dimer ABG pH POC ABG pCO2 POC ABG pO2 ABG Hemoglobin ABG Oxyhemoglobin ABG Sodium ABG Potassium ABG Chloride ABG Glucose VBG pH Carboxyhemoglobin Sodium Potassium Chloride Carbon Dioxide BUN Creatinine Glucose POC Glucose Lactic Acid 3.20 H* Calcium Ferritin AST ALT Lactate Dehydrogenase 770 H Troponin T C-Reactive Protein 11.00 H NT-Pro-B Natriuret Pep Total Protein Albumin Arterial Blood Glucose Arterial Blood Ionized Calcium Urine pH Urine WBC (Auto) Hepatitis C Antibody Chest x-ray: image reviewed Allied health notes reviewed: nursing (edema pattern improved)
[2021-01-26] MEDS ORDERED: SODIUM CHLORIDE 0.9% 100 ML IV PRN (12:16)
--- NOTE | 2021-01-26 13:18 | Vascular Lab Report ---
DUPLEX DOPPLER LOWER EXTREMITY VEINS, BILATERAL INDICATION: r/o dvt. TECHNIQUE: Duplex doppler imaging was performed through the veins of both lower extremities using venous eva amara and other maneuvers. COMPARISON: No relevant prior imaging study available. FINDINGS: Right Common femoral vein: Negative. Right Superficial femoral vein: Negative. Right Popliteal vein: Negative. Right Calf veins: Negative. Left Common femoral vein: Negative. Left Superficial femoral vein: Negative. Left Popliteal vein: Negative. Left Calf veins: Negative. Additional findings: None.. IMPRESSION: 1. No sonographic evidence for DVT in either lower extremity. Signer Name: Washington Montoya MD Signed: 01/26/2021 1:13 PM Workstation Name: [id number]
[2021-01-26] MEDS ORDERED: fentaNYL 100 MCG/2 ML INJ IV PRN (14:00)
--- NOTE | 2021-01-26 16:19 | Consultation ---
History of Present Illness - Reason for Consult Consult date: 01/26/21 end stage renal disease - History of Present Illness This is a 65-year-old man with end-stage renal disease on hemodialysis MWF, hypertension, diabetes, congestive heart failure, chronic liver disease and severe malnutrition who presented to the emergency department via EMS for evaluation. He was found at home by his unresponsive after awaking from sleep. He was found to be in asystolic arrest by EMS and was initiated on ACS protocol and brought to the emergency department where he was noted to be in arrest. He was continued on ACLS protocol and eventually developed ROSC. Nephrology was consulted for ESRD management. Patient is unable to up provide history as he is encephalopathic and intubated. History was obtained from chart review. Past History Past Medical History: diabetes, GERD, heart failure, hypertension Past Surgical History: Other (Dialysis access) Social history: , lives with family. denies: smoking, alcohol abuse, prescription drug abuse Family history: diabetes, hypertension Medications and Allergies Allergies Allergy/AdvReac Type Severity Reaction Status Date / Time No Known Allergies Allergy Verified 01/25/21 07:55 Home Medications Medication Instructions Recorded Confirmed Last Taken Type Atorvastatin [Lipitor] 40 mg PO QHS 09/28/17 05/01/19 Unknown History Omeprazole 20 mg PO BID 09/28/17 05/01/19 Unknown History Vit B Comp No.3/Folic/C/Biotin 1 tab PO DAILY 09/28/17 05/01/19 Unknown History [Special [employer] Rx Tablet] amLODIPine 10 mg PO DAILY 09/28/17 05/01/19 Unknown History carvediloL [Coreg] 12.5 mg PO BID 09/28/17 05/01/19 Unknown History lisinopriL [Zestril TAB] 20 mg PO QDAY 09/28/17 05/01/19 Unknown History Albuterol Mdi (or & Nicu Only) 2 puff IH QID PRN 05/01/19 05/01/19 Unknown History [ProAir HFA Inhaler] Amlodipine Besylate [Norvasc] 5 mg PO QDAY 05/01/19 05/01/19 Unknown History Gabapentin 300 mg PO Q8HR 05/01/19 05/01/19 Unknown History Latanoprost 0.005% 1 drop OP QPM 05/01/19 05/01/19 Unknown History Omeprazole 20 mg PO QDAY 05/01/19 05/01/19 Unknown History Rosuvastatin Calcium 5 mg PO QHS 05/01/19 05/01/19 Unknown History carvediloL [Coreg] 25 mg PO BID 05/01/19 05/01/19 Unknown History lisinopriL [Zestril TAB] 40 mg PO QDAY 05/01/19 05/01/19 Unknown History Active Meds: Active Medications Acetaminophen (Acetaminophen 325 Mg/10.15 Ml Oral Liqd Unit Dose) 650 mg FEEDTUBE Q6H PRN PRN Reason: Non Cardiac Pain or Temp>100.5 Last Admin: 01/26/21 04:52 Dose: 650 mg Documented by: Albuterol (Albuterol 2.5 Mg/3 Ml Nebu) 2.5 mg IH Q3HRT PRN PRN Reason: Shortness Of Breath Amlodipine Besylate (Amlodipine 5 Mg Tab) 5 mg PO QDAY [facility] Last Admin: 01/26/21 09:00 Dose: 5 mg Documented by: Lipase/Protease/Amylase (Lipase 10,500/Protease 25,000/Amylase 43,750 (Units) Dr Langley) 1 each FEEDTUBE PRN PRN PRN Reason: For Clogged Feeding Tube Aspirin (Aspirin 325 Mg Tab) 325 mg PO QDAY [facility] Last Admin: 01/26/21 11:30 Dose: 325 mg Documented by: Atorvastatin Calcium (Atorvastatin 40 Mg Tab) 40 mg PO QHS [facility] Carvedilol (Carvedilol 12.5 Mg Tab) 12.5 mg PO BID [facility] Last Admin: 01/26/21 09:01 Dose: 12.5 mg Documented by: Dextrose (Dextrose 50% In Water (25gm) 50 Ml Syringe) 50 ml IV Q30MIN PRN; Protocol PRN Reason: Hypoglycemia Famotidine (Famotidine 20 Mg/2 Ml Inj) 10 mg IV BID [facility] Last Admin: 01/26/21 09:01 Dose: 10 mg Documented by: Fentanyl (Fentanyl 100 Mcg/2 Ml Inj) 50 mcg IV Q2H PRN PRN Reason: Pain , Severe (7-10) Heparin Sodium (Porcine) (Heparin 5,000 Unit/1 Ml Vial) 5,000 unit SUB-Q Q12HR [facility] Last Admin: 01/26/21 09:05 Dose: 5,000 unit Documented by: Hydralazine HCl (Hydralazine 20 Mg/1 Ml Inj) 10 mg IV Q6H PRN PRN Reason: Hypertension Last Admin: 01/26/21 04:04 Dose: 10 mg Documented by: Hydrophilic Ointment (Lip Therapy Vaseline) 1 applic TP Q2HR PRN PRN Reason: Dry Lips Dopamine HCl/Dextrose (Intropin Drip 800 Mg/D5w 250 Ml) 800 mg in 250 mls @ 2.363 mls/hr IV TITR ONE; Protocol Stop: 01/29/21 18:17 Last Titration: 01/25/21 19:00 Dose: 0 mcg/kg/min, 0 mls/hr Documented by: Sodium Chloride (Nacl 0.9%) 100 mls @ 999 mls/hr IV KIMBERLY PRN PRN Reason: Hypotension Valproate Sodium 500 mg/ (Sodium Chloride) 105 mls @ 100 mls/hr IV Q12HR [facility] Last Admin: 01/26/21 11:30 Dose: 100 mls/hr Documented by: Cefepime HCl (Cefepime/Ns 1 Gm/100 Ml) 1 gm in 100 mls @ 200 mls/hr IV QPM [facility]; Protocol Propofol (Diprivan 10 Mg/Ml) 1,000 mg in 100 mls @ 1.89 mls/hr IV TITR [facility]OH[facility]; Protocol Insulin Human Regular (Insulin Regular, Human 100 Units/1 Ml) 0 units SUB-Q Q6H [facility]OH[facility]; Protocol Last Admin: 01/26/21 11:30 Dose: Not Given Documented by: Latanoprost (Latanoprost 0.005% Ophth Soln 2.5 Ml) 1 drops OU QPM [facility] Multi-Ingred Cream/Lotion/Oil/Oint (Mineral Oil/Petrolatum, White Ophth Oint 3.5 Gm) 1 applic OU Q4HR PRN PRN Reason: Dry Eye(s) Senna/Docusate Sodium (Sennosides/Docusate Sodium 8.6/50 Mg Tab) 1 tab FEEDTUBE BID [facility] Last Admin: 01/26/21 09:01 Dose: 1 tab Documented by: Simple Syrup (Simple Syrup 15 Ml) 15 ml FEEDTUBE PRN PRN PRN Reason: Hypoglycemia Simple Syrup (Simple Syrup 15 Ml) 30 ml FEEDTUBE PRN PRN PRN Reason: Hypoglycemia Sodium Bicarbonate (Sodium Bicarbonate 325 Mg Tab) 325 mg FEEDTUBE PRN PRN PRN Reason: For Clogged Feeding Tube Sodium Chloride (Sodium Chloride 0.9% 10 Ml Flush Syringe) 10 ml IV BID [facility] Last Admin: 01/26/21 09:05 Dose: 10 ml Documented by: Sodium Chloride (Sodium Chloride 0.9% 10 Ml Flush Syringe) 10 ml IV PRN PRN PRN Reason: LINE FLUSH Review of Systems ROS unobtainable: due to mental status Exam - Vital Signs Vital signs: Vital Signs Pulse Resp 86 14 01/25/21 07:54 01/25/21 07:54 - Physical Exam Narrative exam: General: No acute distress HEENT: Oral mucosa moist Neck: Supple, no JVD Chest: Intubated. Mechanical breath sounds Heart: RRR, S1 and S2, no pericardial rub Abdomen: Soft, nontender, no renal bruit Extremity: No peripheral cyanosis, edema Neurological: Sedated Dermatology: No skin rash Psych: Unable to assess Musculoskeletal: No joint effusion Results - Lab Results 01/26/21 07:58 01/26/21 04:00 Most recent lab results ABG pH 7.547 (7.320-7.450) H 01/26/21 03:10 ABG O2 Saturation 97.5 (0-100) 01/26/21 03:10 Calcium 8.1 mg/dL (8.4-10.2) L 01/26/21 04:00 Magnesium 2.30 mg/dL (1.7-2.3) 01/25/21 08:13 Assessment and Plan Assessment - End-stage renal disease on hemodialysis - Hypertension - Anemia of ESRD - Acidosis - Cardiac arrest - Acute resp failure, s/p intubation - Sepsis - Seizure Recommendations - Status post gentle session of hemodialysis yesterday evening - Repeat today for acidosis, clearance only - no UF - Monitor labs and volume status daily and assess need for additional dialysis session - Continue home antihypertensives - Hold antihypertensives on hemodialysis days for systolics less than 160 - Epogen with HD once acute issues resolve - Agree with antibiotics - Antiepileptics as per neurology - Renally dose medication for creatinine clearance less than 15 cc/min - Prognosis is guarded Thank you for involving us in the care of this patient. We will continue to follow along and make a donation from renal standpoint. Critical care time 36 minutes
[2021-01-26] MEDS: CEFEPIME/NS 1 GM/100 ML 1 GM/100 ML BAG IV SCH (18:04)
[2021-01-26] MEDS: LATANOPROST 0.005% OPHTH SOLN 2.5 ML OU SCH (19:00)
[2021-01-27 05:28] LABS: Hematocrit 27.3 % (35.5-45.6); Hemoglobin 8.6 gm/dl (11.8-15.2); Mean Corpuscular HGB Conc 32 % (32-34); Mean Corpuscular Volume 88 fl (84-94); Platelet Count 218 K/mm3 (140-440); Red Blood Count 3.11 M/mm3 (3.65-5.03); Red Cell Distribution Width 18.4 % (13.2-15.2)
[2021-01-27 05:48] LABS: Calcium 7.1 mg/dL (8.4-10.2)
[2021-01-27] MEDS: INSULIN REGULAR, HUMAN 100 UNITS/1 ML SUB-Q SCH ×4 (06:00→18:11)
[2021-01-27] MEDS ORDERED: NORepinephrine/NS 4 MG-250 ML 4 MG/250 ML BAG IV ONE (07:38)
[2021-01-27] MEDS ORDERED: NORepinephrine/NS 4 MG-250 ML 4 MG/250 ML BAG IV SCH (08:00)
--- NOTE | 2021-01-27 08:07 | XRay Report ---
CHEST 1 VIEW INDICATION: follow up respiratory failure COMPARISON: 01/27/2020 FINDINGS: SUPPORT DEVICES: Central venous line has tip in superior vena cava HEART / MEDIASTINUM: No significant abnormality. LUNGS / PLEURA: No significant pulmonary or pleural abnormality. No pneumothorax. ADDITIONAL FINDINGS: IMPRESSION: 1. No acute cardiopulmonary disease Signer Name: Gary Meng MD Signed: 01/27/2021 5:15 AM Workstation Name: [id number]
--- NOTE | 2021-01-27 09:47 | Progress Note ---
<VERNONVIKTORIA - Last Filed: 01/27/21 09:47> Assessment and Plan Asystolic arrest Head CT is suggestive of anoxic brain injury. Sepsis Dilated Cardiomyopathy 11/2020 echo demonstrates a 4 chamber dilated CMP, ejection fraction 15-20%. Respiratory failure ESRD on dialysis Right BKA Hypertension Medical therapy for dilated cardiomyopathy when blood pressure allows. Otherwise, supportive care. Subjective Date of service: 01/27/21 Principal diagnosis: Cardiac arrest; Ac hypoxemic resp failure; Septic Shock; UTI; AMS; ESRD Interval history: Patient is unresponsive on the ventilator and on pressors for support. Objective Vital Signs Temp Pulse Pulse Resp BP Pulse Ox Pulse Ox 01/27/21 08:50 78 135/58 100 01/27/21 08:00 99.5 F 73 76 13 107/50 100 01/27/21 07:51 76 13 68/33 93 01/27/21 07:41 76 12 75/40 94 01/27/21 07:31 75 18 102/15 96 01/27/21 07:21 72 14 78/48 100 01/27/21 07:11 73 13 87/49 100 01/27/21 07:00 73 12 82/47 100 01/27/21 06:51 73 12 75/43 100 01/27/21 06:41 72 12 74/45 100 01/27/21 06:30 71 15 69/43 99 01/27/21 06:21 73 13 75/45 99 01/27/21 06:11 72 13 73/44 98 01/27/21 06:00 73 13 73/44 96 01/27/21 05:51 71 13 94/47 97 01/27/21 05:41 75 16 99/55 97 01/27/21 05:30 76 12 99/55 96 01/27/21 05:21 78 15 116/56 96 01/27/21 05:11 75 14 107/56 99 01/27/21 05:00 78 14 107/56 99 01/27/21 04:51 75 14 129/61 100 01/27/21 04:41 75 13 128/60 100 01/27/21 04:33 75 128/60 100 01/27/21 04:30 76 13 128/60 97 01/27/21 04:21 75 13 123/59 100 01/27/21 04:11 75 15 123/60 100 06/03/21 04:00 97.3 F L 73 75 12 123/60 100 01/27/21 03:51 73 16 111/53 100 01/27/21 03:41 73 14 107/59 100 06 03:30 73 15 116/58 100 01/27/21 03:21 72 16 116/58 100 01/27/21 03:11 71 15 113/56 100 01/27/21 03:00 71 13 107/59 100 01/27/21 02:51 70 14 113/56 100 01/27/21 02:41 70 16 105/53 100 01/27/21 02:30 70 15 113/62 100 01/27/21 02:21 69 15 111/55 100 01/27/21 02:11 67 13 105/53 100 01/27/21 02:00 67 12 105/53 100 01/27/21 01:51 66 13 103/53 100 01/27/21 01:41 65 15 94/50 100 01/27/21 01:30 64 14 94/50 100 01/27/21 01:21 63 14 92/50 100 01/27/21 01:11 62 15 91/48 100 01/27/21 01:00 61 14 91/48 100 01/27/21 00:51 61 13 95/50 100 01/27/21 00:41 60 12 98/53 100 01/27/21 00:30 59 L 12 98/53 100 01/27/21 00:21 59 L 12 96/52 100 01/27/21 00:11 59 L 14 106/54 100 01/27/21 00:00 93.3 F L 58 L 58 L 15 97/53 100 01/26/21 23:50 58 L 13 98/52 100 01/26/21 23:41 58 L 13 101/52 100 01/26/21 23:30 55 L 13 81/46 100 01/26/21 23:20 57 L 13 75/44 100 01/26/21 23:11 58 L 14 75/42 100 01/26/21 23:00 58 L 13 75/44 100 01/26/21 22:51 58 L 15 83/47 100 02 22:41 59 L 14 93/54 100 01/26/21 22:30 60 13 93/54 100 06/02/21 22:21 61 13 106/56 100 01/26/21 22:11 61 12 87/57 100 01/26/21 22:01 62 14 87/57 100 01/26/21 21:51 61 13 99/58 100 01/26/21 21:41 61 13 100/55 100 01/26/21 21:30 60 12 100/55 100 01/26/21 21:27 60 100/54 01/26/21 21:21 60 13 100/54 100 01/26/21 21:11 60 13 91/50 100 01/26/21 21:00 60 13 91/50 100 01/26/21 20:51 60 13 100/53 100 01/26/21 20:41 60 13 100/54 100 01/26/21 20:30 59 L 12 100/54 100 01/26/21 20:21 60 13 113/59 100 01/26/21 20:11 59 L 13 103/54 100 01/26/21 20:00 97.0 F L 59 L 59 L 12 103/54 100 01/26/21 19:51 59 L 13 97/53 01/26/21 19:49 59 L 97/53 100 01/26/21 19:41 59 L 12 97/51 98 01/26/21 19:30 59 L 12 97/51 100 01/26/21 19:21 59 L 12 89/49 100 01/26/21 19:11 58 L 12 87/48 100 01/26/21 19:00 59 L 12 88/49 100 01/26/21 18:51 58 L 12 85/50 100 01/26/21 18:41 58 L 12 100/49 100 01/26/21 18:31 59 L 12 100/49 97 01/26/21 18:21 60 10 L 133/64 100 01/26/21 18:11 58 L 12 163/72 100 01/26/21 18:03 60 163/72 01/26/21 18:01 60 12 163/72 100 01/26/21 17:51 60 11 L 155/76 100 01/26/21 17:41 60 12 160/73 100 01/26/21 17:30 60 12 160/73 100 01/26/21 17:21 61 12 158/73 100 01/26/21 17:11 61 12 153/71 100 01/26/21 17:01 61 12 153/71 100 01/26/21 16:51 61 13 182/79 100 01/26/21 16:41 62 12 161/74 100 01/26/21 16:30 63 12 161/74 100 01/26/21 16:21 64 12 135/69 100 01/26/21 16:11 67 12 134/66 100 01/26/21 16:02 97.5 F L 60 14 134/66 100 01/26/21 16:00 60 60 12 134/66 100 01/26/21 15:51 60 12 135/69 100 01/26/21 15:45 60 135/69 01/26/21 15:41 59 L 12 127/65 100 01/26/21 15:31 63 161/74 100 01/26/21 15:30 59 L 12 127/65 100 01/26/21 15:21 59 L 12 126/64 100 01/26/21 15:15 59 L 126/64 01/26/21 15:11 59 L 12 128/64 100 01/26/21 15:00 59 L 12 128/64 100 01/26/21 14:51 60 12 137/69 100 01/26/21 14:45 59 L 137/68 01/26/21 14:41 60 12 132/64 100 01/26/21 14:30 60 12 132/64 100 01/26/21 14:21 60 12 135/64 100 01/26/21 14:15 60 135/64 01/26/21 14:11 61 12 137/67 100 01/26/21 14:01 62 12 137/67 100 01/26/21 14:00 61 137/67 01/26/21 13:51 65 12 128/65 100 01/26/21 13:45 62 128/65 01/26/21 13:41 63 12 128/66 100 01/26/21 13:30 63 12 128/66 100 01/26/21 13:21 65 12 151/67 100 01/26/21 13:15 66 151/67 01/26/21 13:11 67 16 161/75 100 01/26/21 13:00 70 16 161/75 100 01/26/21 12:51 72 16 163/74 100 01/26/21 12:50 101.5 F H 73 16 157/73 100 01/26/21 12:41 73 16 160/75 01/26/21 12:30 74 16 160/75 01/26/21 12:21 75 16 150/75 01/26/21 12:11 77 16 154/70 100 01/26/21 12:01 77 16 154/70 01/26/21 12:00 101.5 F H 67 75 13 151/67 01/26/21 11:51 78 16 143/71 01/26/21 11:41 79 16 134/71 01/26/21 11:30 80 16 134/71 01/26/21 11:21 80 16 135/62 01/26/21 11:11 81 16 138/67 01/26/21 11:00 82 16 138/67 01/26/21 10:51 83 15 139/69 01/26/21 10:41 84 16 169/77 01/26/21 10:30 86 16 148/71 01/26/21 10:21 87 15 159/74 01/26/21 10:11 90 17 169/77 01/26/21 10:00 91 H 19 169/77 01/26/21 09:51 94 H 27 H 165/79 100 - Physical Examination General: Other (unresponsive on the vent) Cardiac: Positive: Reg Rate and Rhythm - Labs and Meds CBC 01/27/21 Range/Units 04:39 WBC 17.3 H (4.5-11.0) K/mm3 RBC 3.11 L (3.65-5.03) M/mm3 Hgb 8.6 L (11.8-15.2) gm/dl Hct 27.3 L (35.5-45.6) % Plt Count 218 (140-440) K/mm3 Comprehensive Metabolic Panel 01/27/21 Range/Units 04:39 Sodium 139 (137-145) mmol/L Potassium 4.1 (3.6-5.0) mmol/L Chloride 99.7 (98-107) mmol/L Carbon Dioxide 26 (22-30) mmol/L BUN 23 H (9-20) mg/dL Creatinine 3.1 H (0.8-1.3) mg/dL Glucose 90 (75-100) mg/dL Calcium 7.1 L (8.4-10.2) mg/dL - Allied health notes Allied health notes reviewed: nursing (edema pattern improved) <PALLAVI OVERTON - Last Filed: 02/01/21 17:06> Assessment and Plan - Patient Problems (1) Cardiac arrest Status: Acute (2) Respiratory failure Status: Acute Qualifiers: Chronicity: acute Respiratory failure complication: hypoxia Qualified Code(s): J96.01 - Acute respiratory failure with hypoxia (3) Sepsis Status: Acute Qualifiers: Sepsis type: sepsis due to unspecified organism Sepsis acute organ dysfunction status: unspecified Qualified Code(s): A41.9 - Sepsis, unspecified organism Subjective Interval history: I SAW THIS PT & AGREE WITH THE Dx & Tx PLAN.
[2021-01-27] MEDS: FAMOTIDINE 20 MG/2 ML INJ IV SCH ×2 (10:24→21:54)
[2021-01-27] MEDS: HEPARIN 5,000 UNIT/1 ML VIAL SUB-Q SCH ×2 (10:25→21:53)
[2021-01-27] MEDS: ASPIRIN 325 MG TAB PO SCH (10:26)
[2021-01-27] MEDS: VALPROATE SODIUM 500 MG in SODIUM CHLORIDE 0.9% 100 ML IV SCH ×2 (10:26→22:03)
[2021-01-27] MEDS: SENNOSIDES/DOCUSATE SODIUM 8.6/50 MG TAB FEEDTUBE SCH ×2 (10:27→21:54)
--- NOTE | 2021-01-27 11:40 | Progress Note ---
Assessment and Plan Cultures: COVID-19 PCR: Negative Hepatitis serologies: Positive for hepatitis C antibody 01/25/2021 tracheal aspirate: In process 01/25/2021 blood culture: No growth 01/25/2021 urine culture: No growth MRSA nasal PCR: positive A/P: 65/M with hypertension, diabetes, ESRD on HD, malnutrition, gastroesophageal reflux disease, tobacco abuse: #Shock, status post cardiac arrest, sepsis: Source of sepsis could be possible UTI given significant pyuria, aspiration. Rule out bacteremia due to indwelling HD catheter. Off pressors. #ESRD on HD: Renally dose antibiotics. #Acute respiratory failure: On mechanical ventilation. #Acute encephalopathy, possible seizures: Neurology following, concern for anoxic brain injury. Recs: -continue renally dosed cefepime, vancomycin -f/u cultures Giovanni Roa MD, FACP [facility] ([facility]) O: [phone] F: [phone] Subjective Date of service: 01/27/21 Principal diagnosis: Cardiac arrest; Ac hypoxemic resp failure; Septic Shock; UTI; AMS; ESRD Interval history: No fever. Remains on the vent. Objective - Exam Narrative Exam: Physical Exam: Constitutional: sedated, intubated, on the vent Head, Ears, Nose: Normocephalic, atraumatic. External ears, nose normal Eyes: Conjunctivae/corneas clear. No icterus. No ptosis. 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 HD cath + Skin: No rash or abscess Hem/Lymphatic: No palpable cervical or supraclavicular nodes. No lymphangitis Psych: no agitation Neurological: sedated, intubated, on the vent, exam limited - Constitutional Vitals: Vital Signs Temp Pulse Resp BP Pulse Ox 99.5 F 78 13 135/58 100 01/27/21 08:00 01/27/21 08:50 01/27/21 08:00 01/27/21 08:50 01/27/21 08:50 Temperature -Last 24 Hours Temperature 99.5 F Temperature 97.3 F Temperature 97.3 F Temperature 93.3 F Temperature 97.0 F Temperature 97.5 F Temperature 101.5 F Temperature 101.5 F - Labs CBC & Chem 7: 01/27/21 04:39 01/27/21 04:39 Labs: Abnormal lab results 01/26/21 01/26/21 01/26/21 Range/Units 11:29 18:10 23:15 WBC (4.5-11.0) K/mm3 RBC (3.65-5.03) M/mm3 Hgb (11.8-15.2) gm/dl Hct (35.5-45.6) % RDW (13.2-15.2) % ABG Hemoglobin (12.0-17.5) ABG Glucose (65-95) mg/dL BUN (9-20) mg/dL Creatinine (0.8-1.3) mg/dL POC Glucose 108 H 149 H 113 H (70-105) mg/dL Calcium (8.4-10.2) mg/dL Arterial Blood Glucose (65-95) mg/dL Arterial Blood Ionized Calcium (4.6-5.3) mg/dL 01/27/21 01/27/21 01/27/21 Range/Units 04:39 04:39 05:00 WBC 17.3 H (4.5-11.0) K/mm3 RBC 3.11 L (3.65-5.03) M/mm3 Hgb 8.6 L (11.8-15.2) gm/dl Hct 27.3 L (35.5-45.6) % RDW 18.4 H (13.2-15.2) % ABG Hemoglobin 8.8 L (12.0-17.5) ABG Glucose 98 H (65-95) mg/dL BUN 23 H (9-20) mg/dL Creatinine 3.1 H (0.8-1.3) mg/dL POC Glucose (70-105) mg/dL Calcium 7.1 L (8.4-10.2) mg/dL Arterial Blood Glucose 98 H (65-95) mg/dL Arterial Blood Ionized Calcium 3.9 L (4.6-5.3) mg/dL 01/27/21 Range/Units 11:30 WBC (4.5-11.0) K/mm3 RBC (3.65-5.03) M/mm3 Hgb (11.8-15.2) gm/dl Hct (35.5-45.6) % RDW (13.2-15.2) % ABG Hemoglobin (12.0-17.5) ABG Glucose (65-95) mg/dL BUN (9-20) mg/dL Creatinine (0.8-1.3) mg/dL POC Glucose 132 H (70-105) mg/dL Calcium (8.4-10.2) mg/dL Arterial Blood Glucose (65-95) mg/dL Arterial Blood Ionized Calcium (4.6-5.3) mg/dL
--- NOTE | 2021-01-27 12:10 | Progress Note ---
Assessment and Plan Assessment and Plan - Patient Problems # Cardiac arrest at home found in A systole and resuscitated and intubated -CT brain is remarkable for BG ? anoxic injuey -on propofol -exam showed pupils dialted 4mm none reactive no corneal no gag he is with recurrent myoclonus --findings from exam and presentation is suggestive of significant anoxic brain injury -Valproic acid 500 mg IV -Stop sedation -consider Brain MRI -EEG -elevated cardiac enzymes -echo is pending -add ASA 325 mg ,lipitor 40 mg # Acute hypoxemic respiratory failure -Patient intubated and on ventilatory support, -wean vent as tolerated, -sedation holiday as possible, -daily spontaneous breathing trial, #UTI (urinary tract infection) -Empiric IV antibiotic therapy, urinalysis, supportive care. # ESRD (end stage renal disease) on dialysis -12/12.8-- today is 16/11.1 -Nephrology team consulted in ED, dialysis as per renal team. #cardiac disease and diastolic heart failure -Strict I's/O, monitor urine output every shift, Monitor fluid balance, cardiology team consulted, - echocardiogram ordered and pending at time of admission. -elevated cardiac enzymes -on dopamin IV # DVT prophylaxis -SCDs bilateral lower extremities while in bed, prophylactic anticoagulation. # Advance care planning -Disease education conducted, patient is full code, care plan discussed, prognosis discussed, diagnoses discussed, patient family knowledges understanding and agreement with care plan. Patient family knowledges understanding poor prognosis. +30 minutes. The high probability of a clinically significant, sudden or life threatening deterioration of the [pulmonary, cardiac, nephro, neuro] system(s) required my full and direct attention, intervention and personal management. The aggregate critical care time was [90] minutes. This time is in addition to time spent performing reported procedures but includes the following: [x] Data Review and interpretation [x] Patient assessment and monitoring of vital signs [x] Documentation [x] Medication orders and management PLAN 1- over all prognosis is poor 2- stop sedation 3-MRI brain if possible 4-might need to consider CTA brain flow am if no change in status to confirm br ain !!! Subjective Date of service: 01/27/21 Principal diagnosis: Cardiac arrest; Ac hypoxemic resp failure; Septic Shock; UTI; AMS; ESRD Interval history: Status is unchanged he is on vent. on propofol 50 mc no myoclonus is noted EEG not done no mri is done he is with dilated 4mm pupils none reactive Objective - Vital Sign Vital Signs - 12hr 01/27/21 01/27/21 01/27/21 00:11 00:21 00:30 Temperature Pulse Rate 59 L 59 L 59 L Pulse Rate [ From Monitor] Respiratory 14 12 12 Rate Blood Pressure 106/54 96/52 98/53 O2 Sat by Pulse 100 100 100 Oximetry 01/27/21 01/27/21 01/27/21 00:41 00:51 01:00 Temperature Pulse Rate 60 61 61 Pulse Rate [ From Monitor] Respiratory 12 13 14 Rate Blood Pressure 98/53 95/50 91/48 O2 Sat by Pulse 100 100 100 Oximetry 01/27/21 01/27/21 01/27/21 01:11 01:21 01:30 Temperature Pulse Rate 62 63 64 Pulse Rate [ From Monitor] Respiratory 15 14 14 Rate Blood Pressure 91/48 92/50 94/50 O2 Sat by Pulse 100 100 100 Oximetry 01/27/21 01/27/21 01/27/21 01:41 01:51 02:00 Temperature Pulse Rate 65 66 67 Pulse Rate [ From Monitor] Respiratory 15 13 12 Rate Blood Pressure 94/50 103/53 105/53 O2 Sat by Pulse 100 100 100 Oximetry 01/27/21 01/27/21 01/27/21 02:11 02:21 02:30 Temperature Pulse Rate 67 69 70 Pulse Rate [ From Monitor] Respiratory 13 15 15 Rate Blood Pressure 105/53 111/55 113/62 O2 Sat by Pulse 100 100 100 Oximetry 01/27/21 01/27/21 01/27/21 02:41 02:51 03:00 Temperature Pulse Rate 70 70 71 Pulse Rate [ From Monitor] Respiratory 16 14 13 Rate Blood Pressure 105/53 113/56 107/59 O2 Sat by Pulse 100 100 100 Oximetry 01/27/21 01/27/21 01/27/21 03:11 03:21 03:30 Temperature Pulse Rate 71 72 73 Pulse Rate [ From Monitor] Respiratory 15 16 15 Rate Blood Pressure 113/56 116/58 116/58 O2 Sat by Pulse 100 100 100 Oximetry 01/27/21 01/27/21 01/27/21 03:41 03:51 04:00 Temperature 97.3 F L Pulse Rate 73 73 73 Pulse Rate [ 75 From Monitor] Respiratory 14 16 12 Rate Blood Pressure 107/59 111/53 123/60 O2 Sat by Pulse 100 100 100 Oximetry 01/27/21 01/27/21 01/27/21 04:11 04:21 04:30 Temperature Pulse Rate 75 75 76 Pulse Rate [ From Monitor] Respiratory 15 13 13 Rate Blood Pressure 123/60 123/59 128/60 O2 Sat by Pulse 100 100 97 Oximetry 01/27/21 01/27/21 01/27/21 04:33 04:41 04:51 Temperature Pulse Rate 75 75 75 Pulse Rate [ From Monitor] Respiratory 13 14 Rate Blood Pressure 128/60 128/60 129/61 O2 Sat by Pulse 100 100 100 Oximetry 01/27/21 01/27/21 01/27/21 05:00 05:11 05:21 Temperature Pulse Rate 78 75 78 Pulse Rate [ From Monitor] Respiratory 14 14 15 Rate Blood Pressure 107/56 107/56 116/56 O2 Sat by Pulse 99 99 96 Oximetry 01/27/21 01/27/21 01/27/21 05:30 05:41 05:51 Temperature Pulse Rate 76 75 71 Pulse Rate [ From Monitor] Respiratory 12 16 13 Rate Blood Pressure 99/55 99/55 94/47 O2 Sat by Pulse 96 97 97 Oximetry 01/27/21 01/27/21 01/27/21 06:00 06:11 06:21 Temperature Pulse Rate 73 72 73 Pulse Rate [ From Monitor] Respiratory 13 13 13 Rate Blood Pressure 73/44 73/44 75/45 O2 Sat by Pulse 96 98 99 Oximetry 01/27/21 01/27/21 01/27/21 06:30 06:41 06:51 Temperature Pulse Rate 71 72 73 Pulse Rate [ From Monitor] Respiratory 15 12 12 Rate Blood Pressure 69/43 74/45 75/43 O2 Sat by Pulse 99 100 100 Oximetry 01/27/21 01/27/21 01/27/21 07:00 07:11 07:21 Temperature Pulse Rate 73 73 72 Pulse Rate [ From Monitor] Respiratory 12 13 14 Rate Blood Pressure 82/47 87/49 78/48 O2 Sat by Pulse 100 100 100 Oximetry 01/27/21 01/27/21 01/27/21 07:31 07:41 07:51 Temperature Pulse Rate 75 76 76 Pulse Rate [ From Monitor] Respiratory 18 12 13 Rate Blood Pressure 102/15 75/40 68/33 O2 Sat by Pulse 96 94 93 Oximetry 01/27/21 01/27/21 01/27/21 08:00 08:11 08:21 Temperature 99.5 F Pulse Rate 73 73 74 Pulse Rate [ 76 From Monitor] Respiratory 13 13 11 L Rate Blood Pressure 107/50 107/50 96/49 O2 Sat by Pulse 100 100 100 Oximetry 01/27/21 01/27/21 01/27/21 08:30 08:41 08:50 Temperature Pulse Rate 77 77 78 Pulse Rate [ From Monitor] Respiratory 14 12 Rate Blood Pressure 133/58 133/58 135/58 O2 Sat by Pulse 100 100 100 Oximetry 01/27/21 01/27/21 01/27/21 08:51 09:00 09:11 Temperature Pulse Rate 79 78 78 Pulse Rate [ From Monitor] Respiratory 14 14 12 Rate Blood Pressure 135/58 115/58 115/58 O2 Sat by Pulse 100 100 100 Oximetry 01/27/21 01/27/21 01/27/21 09:21 09:30 09:41 Temperature Pulse Rate 79 79 79 Pulse Rate [ From Monitor] Respiratory 13 12 12 Rate Blood Pressure 100/58 122/59 122/59 O2 Sat by Pulse 100 100 100 Oximetry 01/27/21 01/27/21 01/27/21 09:51 10:00 10:11 Temperature Pulse Rate 80 80 80 Pulse Rate [ From Monitor] Respiratory 12 12 13 Rate Blood Pressure 128/59 132/63 132/63 O2 Sat by Pulse 100 100 100 Oximetry 01/27/21 01/27/21 01/27/21 10:21 10:30 10:41 Temperature Pulse Rate 80 81 80 Pulse Rate [ From Monitor] Respiratory 12 12 14 Rate Blood Pressure 138/60 138/60 O2 Sat by Pulse 100 100 100 Oximetry 01/27/21 01/27/21 01/27/21 10:51 11:00 11:11 Temperature Pulse Rate 80 79 76 Pulse Rate [ From Monitor] Respiratory 12 12 27 H Rate Blood Pressure 140/62 126/60 126/60 O2 Sat by Pulse 100 100 100 Oximetry 01/27/21 01/27/21 01/27/21 11:21 11:30 11:41 Temperature Pulse Rate 75 75 75 Pulse Rate [ From Monitor] Respiratory 16 17 38 H Rate Blood Pressure 126/60 117/54 117/54 O2 Sat by Pulse 100 100 100 Oximetry - General Apperance Constitutional: comfortable, other (intubated sedated) - EENT EENT: other (pupils 4mm non reactive no corneal, no EOM,no gag) - Respiratory Respiratory: lungs clear, rhonchi - Cardiovascular Cardiovascular: normal S1, normal S2 Extremities: no peripheral edema bilat, other (right AKA) - Gastrointestinal Gastrointestinal: normoactive bowel sounds - Integumentary Integumentary: normal - Neurologic Cranial nerve examination: other - Laboratory Findings CBC and BMP: 01/27/21 04:39 01/27/21 04:39 Abnormal Lab Findings: Abnormal Labs 01/25/21 01/25/21 01/25/21 07:56 08:13 08:13 WBC 11.4 H RBC 2.50 L Hgb 7.3 L Hct 22.2 L RDW 17.5 H Lymph % (Auto) 13.0 L Baso % (Auto) 2.2 H Baso # (Auto) 0.3 H Seg Neutrophils % 81.7 H Seg Neuts % (Manual) Lymphocytes % (Manual) Seg Neutrophils # 9.3 H Seg Neutrophils # Man Lymphocytes # (Manual) PT 16.0 H INR 1.28 H APTT 56.8 H D-Dimer ABG pH POC ABG pCO2 POC ABG pO2 ABG Hemoglobin ABG Oxyhemoglobin ABG Sodium ABG Potassium ABG Chloride ABG Glucose VBG pH Carboxyhemoglobin Sodium Potassium Chloride Carbon Dioxide BUN Creatinine Glucose POC Glucose 139 H Lactic Acid Calcium Ferritin AST ALT Lactate Dehydrogenase Troponin T C-Reactive Protein NT-Pro-B Natriuret Pep Total Protein Albumin Arterial Blood Glucose Arterial Blood Ionized Calcium Urine pH Urine WBC (Auto) Hepatitis C Antibody 01/25/21 01/25/21 01/25/21 08:13 08:13 08:13 WBC RBC Hgb Hct RDW Lymph % (Auto) Baso % (Auto) Baso # (Auto) Seg Neutrophils % Seg Neuts % (Manual) Lymphocytes % (Manual) Seg Neutrophils # Seg Neutrophils # Man Lymphocytes # (Manual) PT INR APTT D-Dimer ABG pH POC ABG pCO2 POC ABG pO2 ABG Hemoglobin ABG Oxyhemoglobin ABG Sodium ABG Potassium ABG Chloride ABG Glucose VBG pH 7.100 L* Carboxyhemoglobin Sodium 135 L Potassium 5.4 H Chloride 92.1 L Carbon Dioxide 21 L BUN Creatinine 4.8 H Glucose 157 H POC Glucose Lactic Acid Calcium Ferritin AST 284 H ALT 85 H Lactate Dehydrogenase Troponin T 0.233 H* C-Reactive Protein NT-Pro-B Natriuret Pep 99936 H Total Protein 5.8 L Albumin 2.5 L Arterial Blood Glucose Arterial Blood Ionized Calcium Urine pH Urine WBC (Auto) Hepatitis C Antibody Reactive A 01/25/21 01/25/21 01/25/21 08:44 16:31 16:57 WBC RBC Hgb Hct RDW Lymph % (Auto) Baso % (Auto) Baso # (Auto) Seg Neutrophils % Seg Neuts % (Manual) Lymphocytes % (Manual) Seg Neutrophils # Seg Neutrophils # Man Lymphocytes # (Manual) PT INR APTT D-Dimer ABG pH 7.174 L 7.572 H 7.608 H POC ABG pCO2 58.4 H 24.4 L 25.2 L POC ABG pO2 109.3 H 41.6 L 257.8 H ABG Hemoglobin 7.7 L 9.3 L 9.4 L ABG Oxyhemoglobin 92.0 L 79.4 L 99.1 H ABG Sodium 133.9 L ABG Potassium 5.4 H 4.6 H ABG Chloride 97.0 L 97.0 L ABG Glucose 157 H 107 H 124 H VBG pH Carboxyhemoglobin 4.3 H 0.3 L Sodium Potassium Chloride Carbon Dioxide BUN Creatinine Glucose POC Glucose Lactic Acid Calcium Ferritin AST ALT Lactate Dehydrogenase Troponin T C-Reactive Protein NT-Pro-B Natriuret Pep Total Protein Albumin Arterial Blood Glucose 157 H 107 H 124 H Arterial Blood Ionized Calcium 4.5 L 4.3 L 4.3 L Urine pH Urine WBC (Auto) Hepatitis C Antibody 01/25/21 01/25/21 01/26/21 23:31 Unknown 03:10 WBC RBC Hgb Hct RDW Lymph % (Auto) Baso % (Auto) Baso # (Auto) Seg Neutrophils % Seg Neuts % (Manual) Lymphocytes % (Manual) Seg Neutrophils # Seg Neutrophils # Man Lymphocytes # (Manual) PT INR APTT D-Dimer ABG pH 7.547 H POC ABG pCO2 31.7 L POC ABG pO2 ABG Hemoglobin 9.2 L ABG Oxyhemoglobin ABG Sodium ABG Potassium ABG Chloride ABG Glucose 108 H VBG pH Carboxyhemoglobin Sodium Potassium Chloride Carbon Dioxide BUN Creatinine Glucose POC Glucose 111 H Lactic Acid Calcium Ferritin AST ALT Lactate Dehydrogenase Troponin T C-Reactive Protein NT-Pro-B Natriuret Pep Total Protein Albumin Arterial Blood Glucose 108 H Arterial Blood Ionized Calcium 4.0 L Urine pH 8.0 H Urine WBC (Auto) > 182.0 H Hepatitis C Antibody 01/26/21 01/26/21 01/26/21 04:00 07:40 07:40 WBC RBC Hgb Hct RDW Lymph % (Auto) Baso % (Auto) Baso # (Auto) Seg Neutrophils % Seg Neuts % (Manual) Lymphocytes % (Manual) Seg Neutrophils # Seg Neutrophils # Man Lymphocytes # (Manual) PT INR APTT D-Dimer 8335.22 H ABG pH POC ABG pCO2 POC ABG pO2 ABG Hemoglobin ABG Oxyhemoglobin ABG Sodium ABG Potassium ABG Chloride ABG Glucose VBG pH Carboxyhemoglobin Sodium Potassium Chloride Carbon Dioxide BUN 27 H Creatinine 4.4 H Glucose 105 H POC Glucose Lactic Acid Calcium 8.1 L Ferritin 1817.0 H AST ALT Lactate Dehydrogenase Troponin T C-Reactive Protein NT-Pro-B Natriuret Pep Total Protein Albumin Arterial Blood Glucose Arterial Blood Ionized Calcium Urine pH Urine WBC (Auto) Hepatitis C Antibody 01/26/21 01/26/21 01/26/21 07:40 07:58 07:58 WBC 16.6 H RBC 3.10 L Hgb 8.9 L Hct 26.7 L RDW 17.4 H Lymph % (Auto) Baso % (Auto) Baso # (Auto) Seg Neutrophils % Seg Neuts % (Manual) 93.0 H Lymphocytes % (Manual) 5.0 L Seg Neutrophils # Seg Neutrophils # Man 15.4 H Lymphocytes # (Manual) 0.8 L PT INR APTT D-Dimer ABG pH POC ABG pCO2 POC ABG pO2 ABG Hemoglobin ABG Oxyhemoglobin ABG Sodium ABG Potassium ABG Chloride ABG Glucose VBG pH Carboxyhemoglobin Sodium Potassium Chloride Carbon Dioxide BUN Creatinine Glucose POC Glucose Lactic Acid 3.20 H* Calcium Ferritin AST ALT Lactate Dehydrogenase 770 H Troponin T C-Reactive Protein 11.00 H NT-Pro-B Natriuret Pep Total Protein Albumin Arterial Blood Glucose Arterial Blood Ionized Calcium Urine pH Urine WBC (Auto) Hepatitis C Antibody 01/26/21 01/26/21 01/26/21 11:29 18:10 23:15 WBC RBC Hgb Hct RDW Lymph % (Auto) Baso % (Auto) Baso # (Auto) Seg Neutrophils % Seg Neuts % (Manual) Lymphocytes % (Manual) Seg Neutrophils # Seg Neutrophils # Man Lymphocytes # (Manual) PT INR APTT D-Dimer ABG pH POC ABG pCO2 POC ABG pO2 ABG Hemoglobin ABG Oxyhemoglobin ABG Sodium ABG Potassium ABG Chloride ABG Glucose VBG pH Carboxyhemoglobin Sodium Potassium Chloride Carbon Dioxide BUN Creatinine Glucose POC Glucose 108 H 149 H 113 H Lactic Acid Calcium Ferritin AST ALT Lactate Dehydrogenase Troponin T C-Reactive Protein NT-Pro-B Natriuret Pep Total Protein Albumin Arterial Blood Glucose Arterial Blood Ionized Calcium Urine pH Urine WBC (Auto) Hepatitis C Antibody 01/27/21 01/27/21 01/27/21 04:39 04:39 05:00 WBC 17.3 H RBC 3.11 L Hgb 8.6 L Hct 27.3 L RDW 18.4 H Lymph % (Auto) Baso % (Auto) Baso # (Auto) Seg Neutrophils % Seg Neuts % (Manual) Lymphocytes % (Manual) Seg Neutrophils # Seg Neutrophils # Man Lymphocytes # (Manual) PT INR APTT D-Dimer ABG pH POC ABG pCO2 POC ABG pO2 ABG Hemoglobin 8.8 L ABG Oxyhemoglobin ABG Sodium ABG Potassium ABG Chloride ABG Glucose 98 H VBG pH Carboxyhemoglobin Sodium Potassium Chloride Carbon Dioxide BUN 23 H Creatinine 3.1 H Glucose POC Glucose Lactic Acid Calcium 7.1 L Ferritin AST ALT Lactate Dehydrogenase Troponin T C-Reactive Protein NT-Pro-B Natriuret Pep Total Protein Albumin Arterial Blood Glucose 98 H Arterial Blood Ionized Calcium 3.9 L Urine pH Urine WBC (Auto) Hepatitis C Antibody 01/27/21 11:30 WBC RBC Hgb Hct RDW Lymph % (Auto) Baso % (Auto) Baso # (Auto) Seg Neutrophils % Seg Neuts % (Manual) Lymphocytes % (Manual) Seg Neutrophils # Seg Neutrophils # Man Lymphocytes # (Manual) PT INR APTT D-Dimer ABG pH POC ABG pCO2 POC ABG pO2 ABG Hemoglobin ABG Oxyhemoglobin ABG Sodium ABG Potassium ABG Chloride ABG Glucose VBG pH Carboxyhemoglobin Sodium Potassium Chloride Carbon Dioxide BUN Creatinine Glucose POC Glucose 132 H Lactic Acid Calcium Ferritin AST ALT Lactate Dehydrogenase Troponin T C-Reactive Protein NT-Pro-B Natriuret Pep Total Protein Albumin Arterial Blood Glucose Arterial Blood Ionized Calcium Urine pH Urine WBC (Auto) Hepatitis C Antibody
--- NOTE | 2021-01-27 12:20 | Progress Note ---
<GABYLARY LeftyJacquelyn - Last Filed: 01/27/21 16:39> Assessment and Plan Assessment and plan: This is a 65-year-old female with hypertension, diabetes mellitus, ESRD on HD, hepatitis C, CHF, HLD, GERD, nicotine dependence admitted s/p cardiac arrest Sepsis Shock: Source of sepsis could be possible UTI given significant pyuria, aspiration, r/o bacteremia S/p cardiac arrest COVID-19 PUI, ruled out Acute hypoxic respiratory failure on mechanical ventilation Seizure versus myoclonic jerking Urinary tract infection ESRD on HD Diastolic CHF Hypertension Diabetes mellitus Hyperlipidemia GERD Nicotine dependence MRSA PCR positive -CCM, nephrology, cardiology, infectious disease, neurology consulted, appreciate recommendations -12/02/2020 echocardiogram shows four-chamber dilated cardiomyopathy, left ventricle systolic function severely decreased with LVEF of 15 to 20%, mild to moderate concentric LVH, mild AR, mild to moderate MR, mild TR, RVSP is 30 mmHg, left pleural effusion is evident with no pericardial effusion. -01/25 CT head shows areas of diminished attenuation identified throughout the basal ganglia concerning for anoxic injury, no evidence of hemorrhage or mass- effects, MRI recommended for further evaluation. -COVID-19 PCR negative -Contact precautions d/t MRSA PCR positive -Intubated 01/25, wean mechanical ventilation as tolerated, VAP bundle -IV antibiotics -IV analgesic with fentanyl -EEG pending -MRI brain pending -IV Valproic acid -Seizure/aspiration precautions -Hold home antihypertensive regimen -Vasopressor support with levophed -Nutrition consulted for tube feeding -SSI, Accu-Cheks every 6, hypoglycemic protocol -Resume home statin GI/DVT prophylaxis: PPI, SCDs to bilateral lower extremities while in bed, heparin subcu Disposition: ICU The high probability of a clinically significant, sudden or life threatening deterioration of the [multi] system(s) required my full and direct attention, intervention and personal management. The aggregate critical care time was [35] minutes. This time is in addition to time spent performing reported procedures but includes the following: [x] Data Review and interpretation [x] Patient assessment and monitoring of vital signs [x] Documentation [x] Medication orders and management History Interval history: This is a 65-year-old male with hypertension, diabetes mellitus, ESRD on HD (MWF), hepatitis C, congestive heart failure, hyperlipidemia, GERD, nicotine dependence presented to the emergency department on 01/25 s/p cardiac arrest. Patient was found to be asystolic upon arrival of EMS and ACLS protocol was followed however he was unable to be intubated. Upon arrival to the emergency department patient was found to be in systolic arrest and ACLS was continued per ED staff with eventual ROSC. Patient was intubated in the emergency department. Patient was admitted to the hospital service with acute hypoxemic respiratory failure, s/p cardiac arrest, acute encephalopathy with consults to nephrology, CCM, neurology, infectious disease and cardiology. 01/26: Patient remains hypertensive and his home antihypertensive regimen will be resumed gradually. Nutrition consult pending. Called to bedside by RN this morning patient was noted to have seizure-like activity, and Ativan IV given. Neurology was later at bedside and witnessed activity. Patient was started on valproic acid and EEG ordered. Fentanyl gtt increased per neurology request. At the time of my examination he was on CMV TV 450, R 16, PEEP 6 and FiO2 of 30%. 01/27: Patient noted to be hypotensive and Levophed was ordered. MRI and EEG are pending. Leukocytosis slightly worsened today. Patient received HD yesterday. No DVT noted in BLE dopplar US. Family will update care team if decision regarding goals of care Hospitalist Physical - Constitutional Vitals: Temp Pulse Resp BP Pulse Ox 99 F 75 38 H 117/54 100 01/27/21 12:00 01/27/21 11:41 01/27/21 11:41 01/27/21 11:41 01/27/21 11:41 General appearance: Present: other (unresponsive to painful stimuli on mechanical ventilation) - EENT Eyes: Absent: PERRL (pupils not reactive to light) ENT: dentition normal - Neck Neck: Absent: cervical LAD - Respiratory Respiratory effort: normal Respiratory: bilateral: diminished - Cardiovascular Rhythm: regular Heart Sounds: Present: S1 & S2. Absent: systolic murmur, diastolic murmur - Extremities Extremities: no ischemia, pulses intact, pulses symmetrical, normal temperature, normal color Peripheral Pulses: within normal limits - Abdominal General gastrointestinal: soft, non-tender, non-distended, normal bowel sounds - Integumentary Integumentary: Present: warm, dry - Psychiatric Psychiatric: other (not interactive) - Neurologic Neurologic: other (does not respond to painful stimuli, pupils not reactive) - Allied Health Allied health notes reviewed: nursing, RT HEART Score - HEART Score Troponin: Troponin T 0.233 ng/mL (0.00-0.029) H* 01/25/21 08:13 Results - Labs CBC & Chem 7: 01/27/21 04:39 01/27/21 04:39 Labs: Laboratory Last Values WBC 17.3 K/mm3 (4.5-11.0) H 01/27/21 04:39 RBC 3.11 M/mm3 (3.65-5.03) L 01/27/21 04:39 Hgb 8.6 gm/dl (11.8-15.2) L 01/27/21 04:39 Hct 27.3 % (35.5-45.6) L 01/27/21 04:39 MCV 88 fl (84-94) 01/27/21 04:39 MCH 28 pg (28-32) 01/27/21 04:39 MCHC 32 % (32-34) 01/27/21 04:39 RDW 18.4 % (13.2-15.2) H 01/27/21 04:39 Plt Count 218 K/mm3 (140-440) 01/27/21 04:39 Lymph % (Auto) 13.0 % (13.4-35.0) L 01/25/21 08:13 [place] % (Auto) 1.6 % (0.0-7.3) 01/25/21 08:13 Eos % (Auto) 1.5 % (0.0-4.3) 01/25/21 08:13 Baso % (Auto) 2.2 % (0.0-1.8) H 01/25/21 08:13 Lymph # (Auto) 1.5 K/mm3 (1.2-5.4) 01/25/21 08:13 [place] # (Auto) 0.2 K/mm3 (0.0-0.8) 01/25/21 08:13 Eos # (Auto) 0.2 K/mm3 (0.0-0.4) 01/25/21 08:13 Baso # (Auto) 0.3 K/mm3 (0.0-0.1) H 01/25/21 08:13 Add Manual Diff Complete 01/26/21 07:58 Total Counted 100 01/26/21 07:58 Seg Neutrophils % [employer]ger 01/26/21 07:58 Seg Neuts % (Manual) 93.0 % (40.0-70.0) H 01/26/21 07:58 Lymphocytes % (Manual) 5.0 % (13.4-35.0) L 01/26/21 07:58 Monocytes % (Manual) 2.0 % (0.0-7.3) 01/26/21 07:58 Nucleated RBC % Not Reportable 01/26/21 07:58 Seg Neutrophils # 9.3 K/mm3 (1.8-7.7) H 01/25/21 08:13 Seg Neutrophils # Man 15.4 K/mm3 (1.8-7.7) H 01/26/21 07:58 Band Neutrophils # 0.0 K/mm3 01/26/21 07:58 Lymphocytes # (Manual) 0.8 K/mm3 (1.2-5.4) L 01/26/21 07:58 Abs React Lymphs (Man) 0.0 K/mm3 01/26/21 07:58 Monocytes # (Manual) 0.3 K/mm3 (0.0-0.8) 01/26/21 07:58 Eosinophils # (Manual) 0.0 K/mm3 (0.0-0.4) 01/26/21 07:58 Basophils # (Manual) 0.0 K/mm3 (0.0-0.1) 01/26/21 07:58 Metamyelocytes # 0.0 K/mm3 01/26/21 07:58 Myelocytes # 0.0 K/mm3 01/26/21 07:58 Promyelocytes # 0.0 K/mm3 01/26/21 07:58 Blast Cells # 0.0 K/mm3 01/26/21 07:58 WBC Morphology Not Reportable 01/26/21 07:58 Hypersegmented Neuts Not Reportable 01/26/21 07:58 Hyposegmented Neuts Not Reportable 01/26/21 07:58 Hypogranular Neuts Not Reportable 01/26/21 07:58 Smudge Cells Not Reportable 01/26/21 07:58 Toxic Granulation Not Reportable 01/26/21 07:58 Toxic Vacuolation Not Reportable 01/26/21 07:58 Dohle Bodies Not Reportable 01/26/21 07:58 Pelger-Huet Anomaly Not Reportable 01/26/21 07:58 Soraida Rods Not Reportable 01/26/21 07:58 Platelet Estimate Consistent w auto 01/26/21 07:58 Clumped Platelets Not Reportable 01/26/21 07:58 Plt Clumps, EDTA Not Reportable 01/26/21 07:58 Large Platelets Not Reportable 01/26/21 07:58 Giant Platelets Not Reportable 01/26/21 07:58 Platelet Satelliting Not Reportable 01/26/21 07:58 Plt Morphology Comment Not Reportable 01/26/21 07:58 RBC Morphology Not Reportable 01/26/21 07:58 Dimorphic RBCs Not Reportable 01/26/21 07:58 Polychromasia Not Reportable 01/26/21 07:58 Hypochromasia Not Reportable 01/26/21 07:58 Poikilocytosis Not Reportable 01/26/21 07:58 Anisocytosis 1+ 01/26/21 07:58 Microcytosis Not Reportable 01/26/21 07:58 Macrocytosis Not Reportable 01/26/21 07:58 Spherocytes Not Reportable 01/26/21 07:58 Pappenheimer Bodies Not Reportable 01/26/21 07:58 Sickle Cells Not Reportable 01/26/21 07:58 Target Cells Not Reportable 01/26/21 07:58 Tear Drop Cells Not Reportable 01/26/21 07:58 Ovalocytes Not Reportable 01/26/21 07:58 Helmet Cells Not Reportable 01/26/21 07:58 [place] Bodies Not Reportable 01/26/21 07:58 [place] Rings Not Reportable 01/26/21 07:58 [place] Cells Not Reportable 01/26/21 07:58 Bite Cells Not Reportable 01/26/21 07:58 Crenated Cell Not Reportable 01/26/21 07:58 Elliptocytes Not Reportable 01/26/21 07:58 Acanthocytes (Spur) Not Reportable 01/26/21 07:58 Rouleaux Not Reportable 01/26/21 07:58 Hemoglobin C Crystals Not Reportable 01/26/21 07:58 Schistocytes Not Reportable 01/26/21 07:58 Malaria parasites Not Reportable 01/26/21 07:58 Mike Bodies Not Reportable 01/26/21 07:58 Hem Pathologist Commnt No 01/26/21 07:58 PT 16.0 Sec. (12.2-14.9) H 01/25/21 08:13 INR 1.28 (0.87-1.13) H 01/25/21 08:13 APTT 56.8 Sec. (24.2-36.6) H 01/25/21 08:13 D-Dimer 8335.22 ng/mlDDU (0-234) H 01/26/21 07:40 ABG pH 7.447 (7.320-7.450) 01/27/21 05:00 POC ABG pCO2 37.5 mmHg (32.0-48.0) 01/27/21 05:00 POC ABG pO2 85.1 mmHg (83-108) 01/27/21 05:00 POC ABG HCO3 25.3 01/27/21 05:00 ABG O2 Saturation 96.6 (0-100) 01/27/21 05:00 POC ABG Base Excess 1.3 01/27/21 05:00 ABG Hemoglobin 8.8 (12.0-17.5) L 01/27/21 05:00 ABG Oxyhemoglobin 95.8 (94-98) 01/27/21 05:00 ABG Methemoglobin 0.3 (0.0-1.5) 01/27/21 05:00 ABG Sodium 136.2 mmol/L (136.0-145.0) 01/27/21 05:00 ABG Potassium 3.9 mmol/L (3.40-4.50) 01/27/21 05:00 ABG Chloride 100.0 mmol/L (98-107) 01/27/21 05:00 ABG Glucose 98 mg/dL (65-95) H 01/27/21 05:00 VBG pH 7.100 (7.320-7.420) L* 01/25/21 08:13 Carboxyhemoglobin 0.5 (0.5-1.5) 01/27/21 05:00 FiO2 % 30.0 01/27/21 05:00 Sodium 139 mmol/L (137-145) 01/27/21 04:39 Potassium 4.1 mmol/L (3.6-5.0) 01/27/21 04:39 Chloride 99.7 mmol/L (98-107) 01/27/21 04:39 Carbon Dioxide 26 mmol/L (22-30) 01/27/21 04:39 Anion Gap 17 mmol/L 01/27/21 04:39 BUN 23 mg/dL (9-20) H 01/27/21 04:39 Creatinine 3.1 mg/dL (0.8-1.3) H 01/27/21 04:39 Estimated GFR 25 ml/min 01/27/21 04:39 BUN/Creatinine Ratio 7 % 01/27/21 04:39 Glucose 90 mg/dL (75-100) 01/27/21 04:39 POC Glucose 132 mg/dL (70-105) H 01/27/21 11:30 Hemoglobin A1c 4.9 % (4-6) 01/26/21 07:58 Lactic Acid 1.40 mmol/L (0.7-2.0) 01/26/21 16:15 Calcium 7.1 mg/dL (8.4-10.2) L 01/27/21 04:39 Magnesium 2.30 mg/dL (1.7-2.3) 01/25/21 08:13 Ferritin 1817.0 ng/mL (30.0-300.0) H 01/26/21 07:40 Total Bilirubin 0.20 mg/dL (0.1-1.2) 01/25/21 08:13 AST 284 units/L (5-40) H 01/25/21 08:13 ALT 85 units/L (7-56) H 01/25/21 08:13 Alkaline Phosphatase 102 units/L (35-129) 01/25/21 08:13 Lactate Dehydrogenase 770 units/L (91-180) H 01/26/21 07:40 Total Creatine Kinase 156 units/L (55-170) 01/25/21 08:13 CK-MB (CK-2) 3.4 ng/mL (0.0-4.0) 01/25/21 08:13 CK-MB (CK-2) Rel Index 2.1 (0-4) 01/25/21 08:13 Troponin T 0.233 ng/mL (0.00-0.029) H* 01/25/21 08:13 C-Reactive Protein 11.00 mg/dL (0.00-1.30) H 01/26/21 07:40 NT-Pro-B Natriuret Pep 03359 pg/mL (0-900) H 01/25/21 08:13 Total Protein 5.8 g/dL (6.3-8.2) L 01/25/21 08:13 Albumin 2.5 g/dL (3.9-5) L 01/25/21 08:13 Albumin/Globulin Ratio 0.8 % 01/25/21 08:13 Triglycerides 83 mg/dL (2-149) 01/25/21 08:13 Cholesterol 101 mg/dL (50-199) 01/25/21 08:13 LDL Cholesterol Direct 54 mg/dL (50-130) 01/25/21 08:13 HDL Cholesterol 43 mg/dL (40-59) 01/25/21 08:13 Cholesterol/HDL Ratio 2.34 % 01/25/21 08:13 Procalcitonin 0.28 ng/mL (<0.15) 01/25/21 08:13 Arterial Blood Glucose 98 mg/dL (65-95) H 01/27/21 05:00 Arterial Blood Ionized Calcium 3.9 mg/dL (4.6-5.3) L 01/27/21 05:00 Urine Color Yellow (Yellow) 01/25/21 Unknown Urine Turbidity Turbid (Clear) 01/25/21 Unknown Urine pH 8.0 (5.0-7.0) H 01/25/21 Unknown Ur Specific [place] 1.015 (1.003-1.030) 01/25/21 Unknown Urine Protein >500 mg/dL (Negative) 01/25/21 Unknown Urine Glucose (UA) Neg mg/dL (Negative) 01/25/21 Unknown Urine Ketones Neg mg/dL (Negative) 01/25/21 Unknown Urine Blood Mod (Negative) 01/25/21 Unknown Urine Nitrite Neg (Negative) 01/25/21 Unknown Urine Bilirubin Neg (Negative) 01/25/21 Unknown Urine Urobilinogen < 2.0 mg/dL (<2.0) 01/25/21 Unknown Ur Leukocyte Esterase Lg (Negative) 01/25/21 Unknown Urine WBC (Auto) > 182.0 /HPF (0.0-6.0) H 01/25/21 Unknown Urine RBC (Auto) > 182.0 /HPF (0.0-6.0) 01/25/21 Unknown Urine Bacteria (Auto) 3+ /HPF (Negative) 01/25/21 Unknown Urine WBC Clumps 3+ /HPF 01/25/21 Unknown Ur Transition Epith Cell 7 /HPF 01/25/21 Unknown Urine Mucus Few /HPF 01/25/21 Unknown Nasal Screen MRSA (PCR) Positive (Negative) 01/26/21 06:25 Coronavirus (PCR) Negative (Negative) 01/25/21 08:35 Hepatitis A IgM Ab Non-reactive (NonReactive) 01/25/21 08:13 Hep Bs Antigen Non-reactive (Negative) 01/25/21 08:13 Hep B Core IgM Ab Non-reactive (NonReactive) 01/25/21 08:13 Hepatitis C Antibody Reactive (NonReactive) A 01/25/21 08:13 Microbiology: Microbiology 01/25/21 09:16 Peripheral/Venous Blood Culture - Preliminary NO GROWTH AFTER 48 HOURS 01/25/21 09:16 Peripheral/Venous Blood Culture - Preliminary NO GROWTH AFTER 48 HOURS 01/25/21 Unknown Urine,[place] Urine Culture - Preliminary NO GROWTH AFTER 24 HOURS [place]/IV: Voiding Method Incontinent Active Medications - Current Medications Current Medications: Generic Name Dose Route Start Last Admin Trade Name Freq PRN Reason Stop Dose Admin Acetaminophen 650 mg 01/26/21 03:47 01/26/21 04:52 Acetaminophen 325 Mg/10.15 Ml Oral Liqd Unit Dose FEEDTUBE 650 mg Q6H PRN Administration Non Cardiac Pain or Temp>100.5 Albuterol 2.5 mg 01/25/21 12:47 Albuterol 2.5 Mg/3 Ml Nebu IH Q3HRT PRN Shortness Of Breath Lipase/Protease/Amylase 1 each 01/26/21 08:55 Lipase 10,500/Protease 25,000/Amylase 43,750 (Units) Dr Langley FEEDTUBE PRN PRN For Clogged Feeding Tube Aspirin 325 mg 01/26/21 11:00 01/27/21 10:26 Aspirin 325 Mg Tab PO 325 mg QDAY JOHANA Administration Atorvastatin Calcium 40 mg 01/26/21 22:00 01/26/21 21:28 Atorvastatin 40 Mg Tab PO 40 mg QHS JOHANA Administration Dextrose 50 ml 01/26/21 08:00 Dextrose 50% In Water (25gm) 50 Ml Syringe IV Q30MIN PRN Hypoglycemia Protocol Famotidine 10 mg 01/25/21 19:41 01/27/21 10:24 Famotidine 20 Mg/2 Ml Inj IV 10 mg BID JOHANA Administration Fentanyl 50 mcg 01/26/21 14:00 Fentanyl 100 Mcg/2 Ml Inj IV Q2H PRN Pain , Severe (7-10) Heparin Sodium (Porcine) 5,000 unit 01/25/21 22:00 01/27/21 10:25 Heparin 5,000 Unit/1 Ml Vial SUB-Q 5,000 unit Q12HR JOHANA Administration Hydrophilic Ointment 1 applic 01/25/21 08:08 Lip Therapy Vaseline TP Q2HR PRN Dry Lips Dopamine HCl/Dextrose 800 mg in 250 mls @ 2.363 mls/hr 01/25/21 08:30 01/25/21 19:00 Intropin Drip 800 Mg/D5w 250 Ml IV 01/29/21 18:17 0 mcg/kg/min TITR ONE 0 mls/hr Titration Protocol 2 MCG/KG/MIN Sodium Chloride 100 mls @ 999 mls/hr 01/25/21 15:37 Nacl 0.9% IV KIMBERLY PRN Hypotension Valproate Sodium 500 mg/ 105 mls @ 100 mls/hr 01/26/21 11:00 01/27/21 10:26 Sodium Chloride IV 100 mls/hr Q12HR JOHANA Administration Cefepime HCl 1 gm in 100 mls @ 200 mls/hr 01/26/21 18:00 01/26/21 18:40 Cefepime/Ns 1 Gm/100 Ml IV Infused QPM JOHANA Infusion Protocol Propofol 1,000 mg in 100 mls @ 1.89 mls/hr 01/26/21 14:00 01/27/21 06:30 Diprivan 10 Mg/Ml IV 0 mcg/kg/min TITR JOHANA 0 mls/hr Titration Protocol 5 MCG/KG/MIN Norepinephrine 4 mg in 250 mls @ 7.5 mls/hr 01/27/21 08:00 01/27/21 07:59 Levophed Drip 4 Mg/Ns 250 Ml IV 2 mcg/min TITR JOHANA 7.5 mls/hr Administration Protocol 2 MCG/MIN Insulin Human Regular 0 units 01/26/21 12:00 01/27/21 06:00 Insulin Regular, Human 100 Units/1 Ml SUB-Q Not Given Q6H JOHANA Protocol Latanoprost 1 drops 01/26/21 18:00 01/26/21 19:00 Latanoprost 0.005% Ophth Soln 2.5 Ml OU 1 drops QPM JOHANA Administration Multi-Ingred Cream/Lotion/Oil/Oint 1 applic 01/25/21 08:08 Mineral Oil/Petrolatum, White Ophth Oint 3.5 Gm OU Q4HR PRN Dry Eye(s) Senna/Docusate Sodium 1 tab 01/25/21 10:00 01/27/21 10:27 Sennosides/Docusate Sodium 8.6/50 Mg Tab FEEDTUBE Not Given BID JOHANA Simple Syrup 15 ml 01/26/21 08:55 Simple Syrup 15 Ml FEEDTUBE PRN PRN Hypoglycemia Simple Syrup 30 ml 01/26/21 08:55 Simple Syrup 15 Ml FEEDTUBE PRN PRN Hypoglycemia Sodium Bicarbonate 325 mg 01/26/21 08:55 Sodium Bicarbonate 325 Mg Tab FEEDTUBE PRN PRN For Clogged Feeding Tube Sodium Chloride 10 ml 01/25/21 22:00 01/27/21 10:27 Sodium Chloride 0.9% 10 Ml Flush Syringe IV 10 ml BID JOHANA Administration Sodium Chloride 10 ml 01/25/21 12:47 Sodium Chloride 0.9% 10 Ml Flush Syringe IV PRN PRN LINE FLUSH Nutrition/Malnutrition Assess - Dietary Evaluation Nutrition/Malnutrition Findings: Nutrition Notes Start: 01/26/21 08:46 Freq: Status: Active Protocol: Document 01/26/21 08:46 (Rec: 01/26/21 08:55 [id number]) Nutrition Notes Need for Assessment generated from: MD Order Initial or Follow up Assessment Current Diagnosis CKD (stage V CKD),Diabetes, Hypertension,Heart Failure, Respiratory Failure, Hyperlipidemia Other Pertinent Diagnosis UTI, cardiac arrest Current Diet NPO Labs/Tests 01/25: Na 135 K 5.4 AST 284 ALT 85 Pertinent Medications Reviewed Height 5 ft 6 in Weight 63 kg [place] Body Weight (kg) 64.54 BMI 22.4 Weight Status Appropriate Subjective/Other Information MD order for TF. Pt is on the vent. Burn Absent Trauma Absent Current % PO Negligible Minimum of two criteria No Muscle Mass Mild Depletion (non-severe) #1 Nutrition Diagnosis Inadequate oral intake Etiology respiratory failure As Evidenced by Signs and Symptoms pt on vent and unable to consume PO Is patient on ventilator? Yes Is Patient Ambulatory and/or Out of Bed No [facility] 1634.784 Calculation Used for Recommendations [facility] Additional Notes Protein: (1.2-2g/kg) 76-95g Fluid: 5977-0533 ml or per MD Nutrition Intervention Change Diet Order: Start TF Nutrition Support: Nepro 1.8 at 38 ml/hr Flush 50 ml q4h for hyponatermia. Once resolved, flush 125 ml q4h or per MD Kcal 1,641 Protein (gm) 74 Fluid (mL) 663 Goal #1 Meet at least 75% of protein and energy needs via TF Anticipated Discharge Needs: Unable to determine at this time Follow-Up By: 01/28/21 Additional Comments FU for TF start and tolerance <JAQUELINE MUÑOZ O - Last Filed: 01/27/21 17:34> Assessment and Plan Assessment and plan: I saw and evaluated the patient. I agree with the findings and the plan of care as documented in the Nurse Practitioner's~note, with the following corrections and additions. Patient has poor prognosis. I have discussed with Nurse Practitioner and with Dr. Chen, Pulmonology. Family to discuss goals of care. Hospitalist Physical - Constitutional Vitals: Temp Pulse Resp BP Pulse Ox 99 F 70 12 156/66 100 01/27/21 16:00 01/27/21 15:01 01/27/21 15:01 01/27/21 15:01 01/27/21 15:01 HEART Score - HEART Score Troponin: Troponin T 0.233 ng/mL (0.00-0.029) H* 01/25/21 08:13 Results - Labs CBC & Chem 7: 01/27/21 04:39 01/27/21 04:39 Labs: Laboratory Last Values WBC 17.3 K/mm3 (4.5-11.0) H 01/27/21 04:39 RBC 3.11 M/mm3 (3.65-5.03) L 01/27/21 04:39 Hgb 8.6 gm/dl (11.8-15.2) L 01/27/21 04:39 Hct 27.3 % (35.5-45.6) L 01/27/21 04:39 MCV 88 fl (84-94) 01/27/21 04:39 MCH 28 pg (28-32) 01/27/21 04:39 MCHC 32 % (32-34) 01/27/21 04:39 RDW 18.4 % (13.2-15.2) H 01/27/21 04:39 Plt Count 218 K/mm3 (140-440) 01/27/21 04:39 Lymph % (Auto) 13.0 % (13.4-35.0) L 01/25/21 08:13 [place] % (Auto) 1.6 % (0.0-7.3) 01/25/21 08:13 Eos % (Auto) 1.5 % (0.0-4.3) 01/25/21 08:13 Baso % (Auto) 2.2 % (0.0-1.8) H 01/25/21 08:13 Lymph # (Auto) 1.5 K/mm3 (1.2-5.4) 01/25/21 08:13 [place] # (Auto) 0.2 K/mm3 (0.0-0.8) 01/25/21 08:13 Eos # (Auto) 0.2 K/mm3 (0.0-0.4) 01/25/21 08:13 Baso # (Auto) 0.3 K/mm3 (0.0-0.1) H 01/25/21 08:13 Add Manual Diff Complete 01/26/21 07:58 Total Counted 100 01/26/21 07:58 Seg Neutrophils % [place] 01/26/21 07:58 Seg Neuts % (Manual) 93.0 % (40.0-70.0) H 01/26/21 07:58 Lymphocytes % (Manual) 5.0 % (13.4-35.0) L 01/26/21 07:58 Monocytes % (Manual) 2.0 % (0.0-7.3) 01/26/21 07:58 Nucleated RBC % Not Reportable 01/26/21 07:58 Seg Neutrophils # 9.3 K/mm3 (1.8-7.7) H 01/25/21 08:13 Seg Neutrophils # Man 15.4 K/mm3 (1.8-7.7) H 01/26/21 07:58 Band Neutrophils # 0.0 K/mm3 01/26/21 07:58 Lymphocytes # (Manual) 0.8 K/mm3 (1.2-5.4) L 01/26/21 07:58 Abs React Lymphs (Man) 0.0 K/mm3 01/26/21 07:58 Monocytes # (Manual) 0.3 K/mm3 (0.0-0.8) 01/26/21 07:58 Eosinophils # (Manual) 0.0 K/mm3 (0.0-0.4) 01/26/21 07:58 Basophils # (Manual) 0.0 K/mm3 (0.0-0.1) 01/26/21 07:58 Metamyelocytes # 0.0 K/mm3 01/26/21 07:58 Myelocytes # 0.0 K/mm3 01/26/21 07:58 Promyelocytes # 0.0 K/mm3 01/26/21 07:58 Blast Cells # 0.0 K/mm3 01/26/21 07:58 WBC Morphology Not Reportable 01/26/21 07:58 Hypersegmented Neuts Not Reportable 01/26/21 07:58 Hyposegmented Neuts Not Reportable 01/26/21 07:58 Hypogranular Neuts Not Reportable 01/26/21 07:58 Smudge Cells Not Reportable 01/26/21 07:58 Toxic Granulation Not Reportable 01/26/21 07:58 Toxic Vacuolation Not Reportable 01/26/21 07:58 Dohle Bodies Not Reportable 01/26/21 07:58 [place]-Huet Anomaly Not Reportable 01/26/21 07:58 Soraida Rods Not Reportable 01/26/21 07:58 Platelet Estimate Consistent w auto 01/26/21 07:58 Clumped Platelets Not Reportable 01/26/21 07:58 Plt Clumps, EDTA Not Reportable 01/26/21 07:58 Large Platelets Not Reportable 01/26/21 07:58 Giant Platelets Not Reportable 01/26/21 07:58 Platelet Satelliting Not Reportable 01/26/21 07:58 Plt Morphology Comment Not Reportable 01/26/21 07:58 RBC Morphology Not Reportable 01/26/21 07:58 Dimorphic RBCs Not Reportable 01/26/21 07:58 Polychromasia Not Reportable 01/26/21 07:58 Hypochromasia Not Reportable 01/26/21 07:58 Poikilocytosis Not Reportable 01/26/21 07:58 Anisocytosis 1+ 01/26/21 07:58 Microcytosis Not Reportable 01/26/21 07:58 Macrocytosis Not Reportable 01/26/21 07:58 Spherocytes Not Reportable 01/26/21 07:58 Pappenheimer Bodies Not Reportable 01/26/21 07:58 Sickle Cells Not Reportable 01/26/21 07:58 Target Cells Not Reportable 01/26/21 07:58 Tear Drop Cells Not Reportable 01/26/21 07:58 Ovalocytes Not Reportable 01/26/21 07:58 Helmet Cells Not Reportable 01/26/21 07:58 [place] Bodies Not Reportable 01/26/21 07:58 [place] Rings Not Reportable 01/26/21 07:58 [place] Cells Not Reportable 01/26/21 07:58 Bite Cells Not Reportable 01/26/21 07:58 Crenated Cell Not Reportable 01/26/21 07:58 Elliptocytes Not Reportable 01/26/21 07:58 Acanthocytes (Spur) Not Reportable 01/26/21 07:58 Rouleaux Not Reportable 01/26/21 07:58 Hemoglobin C Crystals Not Reportable 01/26/21 07:58 Schistocytes Not Reportable 01/26/21 07:58 Malaria parasites Not Reportable 01/26/21 07:58 [place] Bodies Not Reportable 01/26/21 07:58 Hem Pathologist Commnt No 01/26/21 07:58 PT 16.0 Sec. (12.2-14.9) H 01/25/21 08:13 INR 1.28 (0.87-1.13) H 01/25/21 08:13 APTT 56.8 Sec. (24.2-36.6) H 01/25/21 08:13 D-Dimer 8335.22 ng/mlDDU (0-234) H 01/26/21 07:40 ABG pH 7.447 (7.320-7.450) 01/27/21 05:00 POC ABG pCO2 37.5 mmHg (32.0-48.0) 01/27/21 05:00 POC ABG pO2 85.1 mmHg (83-108) 01/27/21 05:00 POC ABG HCO3 25.3 01/27/21 05:00 ABG O2 Saturation 96.6 (0-100) 01/27/21 05:00 POC ABG Base Excess 1.3 01/27/21 05:00 ABG Hemoglobin 8.8 (12.0-17.5) L 01/27/21 05:00 ABG Oxyhemoglobin 95.8 (94-98) 01/27/21 05:00 ABG Methemoglobin 0.3 (0.0-1.5) 01/27/21 05:00 ABG Sodium 136.2 mmol/L (136.0-145.0) 01/27/21 05:00 ABG Potassium 3.9 mmol/L (3.40-4.50) 01/27/21 05:00 ABG Chloride 100.0 mmol/L (98-107) 01/27/21 05:00 ABG Glucose 98 mg/dL (65-95) H 01/27/21 05:00 VBG pH 7.100 (7.320-7.420) L* 01/25/21 08:13 Carboxyhemoglobin 0.5 (0.5-1.5) 01/27/21 05:00 FiO2 % 30.0 01/27/21 05:00 Sodium 139 mmol/L (137-145) 01/27/21 04:39 Potassium 4.1 mmol/L (3.6-5.0) 01/27/21 04:39 Chloride 99.7 mmol/L (98-107) 01/27/21 04:39 Carbon Dioxide 26 mmol/L (22-30) 01/27/21 04:39 Anion Gap 17 mmol/L 01/27/21 04:39 BUN 23 mg/dL (9-20) H 01/27/21 04:39 Creatinine 3.1 mg/dL (0.8-1.3) H 01/27/21 04:39 Estimated GFR 25 ml/min 01/27/21 04:39 BUN/Creatinine Ratio 7 % 01/27/21 04:39 Glucose 90 mg/dL (75-100) 01/27/21 04:39 POC Glucose 132 mg/dL (70-105) H 01/27/21 11:30 Hemoglobin A1c 4.9 % (4-6) 01/26/21 07:58 Lactic Acid 1.40 mmol/L (0.7-2.0) 01/26/21 16:15 Calcium 7.1 mg/dL (8.4-10.2) L 01/27/21 04:39 Magnesium 2.30 mg/dL (1.7-2.3) 01/25/21 08:13 Ferritin 1817.0 ng/mL (30.0-300.0) H 01/26/21 07:40 Total Bilirubin 0.20 mg/dL (0.1-1.2) 01/25/21 08:13 AST 284 units/L (5-40) H 01/25/21 08:13 ALT 85 units/L (7-56) H 01/25/21 08:13 Alkaline Phosphatase 102 units/L (35-129) 01/25/21 08:13 Lactate Dehydrogenase 770 units/L (91-180) H 01/26/21 07:40 Total Creatine Kinase 156 units/L (55-170) 01/25/21 08:13 CK-MB (CK-2) 3.4 ng/mL (0.0-4.0) 01/25/21 08:13 CK-MB (CK-2) Rel Index 2.1 (0-4) 01/25/21 08:13 Troponin T 0.233 ng/mL (0.00-0.029) H* 01/25/21 08:13 C-Reactive Protein 11.00 mg/dL (0.00-1.30) H 01/26/21 07:40 NT-Pro-B Natriuret Pep 58187 pg/mL (0-900) H 01/25/21 08:13 Total Protein 5.8 g/dL (6.3-8.2) L 01/25/21 08:13 Albumin 2.5 g/dL (3.9-5) L 01/25/21 08:13 Albumin/Globulin Ratio 0.8 % 01/25/21 08:13 Triglycerides 83 mg/dL (2-149) 01/25/21 08:13 Cholesterol 101 mg/dL (50-199) 01/25/21 08:13 LDL Cholesterol Direct 54 mg/dL (50-130) 01/25/21 08:13 HDL Cholesterol 43 mg/dL (40-59) 01/25/21 08:13 Cholesterol/HDL Ratio 2.34 % 01/25/21 08:13 Procalcitonin 0.28 ng/mL (<0.15) 01/25/21 08:13 Arterial Blood Glucose 98 mg/dL (65-95) H 01/27/21 05:00 Arterial Blood Ionized Calcium 3.9 mg/dL (4.6-5.3) L 01/27/21 05:00 Urine Color Yellow (Yellow) 01/25/21 Unknown Urine Turbidity Turbid (Clear) 01/25/21 Unknown Urine pH 8.0 (5.0-7.0) H 01/25/21 Unknown Ur Specific [place] 1.015 (1.003-1.030) 01/25/21 Unknown Urine Protein >500 mg/dL (Negative) 01/25/21 Unknown Urine Glucose (UA) Neg mg/dL (Negative) 01/25/21 Unknown Urine Ketones Neg mg/dL (Negative) 01/25/21 Unknown Urine Blood Mod (Negative) 01/25/21 Unknown Urine Nitrite Neg (Negative) 01/25/21 Unknown Urine Bilirubin Neg (Negative) 01/25/21 Unknown Urine Urobilinogen < 2.0 mg/dL (<2.0) 01/25/21 Unknown Ur Leukocyte Esterase Lg (Negative) 01/25/21 Unknown Urine WBC (Auto) > 182.0 /HPF (0.0-6.0) H 01/25/21 Unknown Urine RBC (Auto) > 182.0 /HPF (0.0-6.0) 01/25/21 Unknown Urine Bacteria (Auto) 3+ /HPF (Negative) 01/25/21 Unknown Urine WBC Clumps 3+ /HPF 01/25/21 Unknown Ur Transition Epith Cell 7 /HPF 01/25/21 Unknown Urine Mucus Few /HPF 01/25/21 Unknown Nasal Screen MRSA (PCR) Positive (Negative) 01/26/21 06:25 Coronavirus (PCR) Negative (Negative) 01/25/21 08:35 Hepatitis A IgM Ab Non-reactive (NonReactive) 01/25/21 08:13 Hep Bs Antigen Non-reactive (Negative) 01/25/21 08:13 Hep B Core IgM Ab Non-reactive (NonReactive) 01/25/21 08:13 Hepatitis C Antibody Reactive (NonReactive) A 01/25/21 08:13 Microbiology: Microbiology 01/25/21 Unknown Urine,[place] Urine Culture - Final NO GROWTH AFTER 48 HOURS 01/25/21 09:16 Peripheral/Venous Blood Culture - Preliminary NO GROWTH AFTER 48 HOURS 01/25/21 09:16 Peripheral/Venous Blood Culture - Preliminary NO GROWTH AFTER 48 HOURS [place]/IV: Voiding Method Incontinent Active Medications - Current Medications Current Medications: Generic Name Dose Route Start Last Admin Trade Name Freq PRN Reason Stop Dose Admin Acetaminophen 650 mg 01/26/21 03:47 01/26/21 04:52 Acetaminophen 325 Mg/10.15 Ml Oral Liqd Unit Dose FEEDTUBE 650 mg Q6H PRN Administration Non Cardiac Pain or Temp>100.5 Albuterol 2.5 mg 01/25/21 12:47 Albuterol 2.5 Mg/3 Ml Nebu IH Q3HRT PRN Shortness Of Breath Lipase/Protease/Amylase 1 each 01/26/21 08:55 Lipase 10,500/Protease 25,000/Amylase 43,750 (Units) Dr Langley FEEDTUBE PRN PRN For Clogged Feeding Tube Aspirin 325 mg 01/26/21 11:00 01/27/21 10:26 Aspirin 325 Mg Tab PO 325 mg QDAY JOHANA Administration Atorvastatin Calcium 40 mg 01/26/21 22:00 01/26/21 21:28 Atorvastatin 40 Mg Tab PO 40 mg QHS JOHANA Administration Dextrose 50 ml 01/26/21 08:00 Dextrose 50% In Water (25gm) 50 Ml Syringe IV Q30MIN PRN Hypoglycemia Protocol Famotidine 10 mg 01/25/21 19:41 01/27/21 10:24 Famotidine 20 Mg/2 Ml Inj IV 10 mg BID JOHANA Administration Fentanyl 50 mcg 01/26/21 14:00 Fentanyl 100 Mcg/2 Ml Inj IV Q2H PRN Pain , Severe (7-10) Heparin Sodium (Porcine) 5,000 unit 01/25/21 22:00 01/27/21 10:25 Heparin 5,000 Unit/1 Ml Vial SUB-Q 5,000 unit Q12HR JOHANA Administration Hydrophilic Ointment 1 applic 01/25/21 08:08 Lip Therapy Vaseline TP Q2HR PRN Dry Lips Dopamine HCl/Dextrose 800 mg in 250 mls @ 2.363 mls/hr 01/25/21 08:30 01/25/21 19:00 Intropin Drip 800 Mg/D5w 250 Ml IV 01/29/21 18:17 0 mcg/kg/min TITR ONE 0 mls/hr Titration Protocol 2 MCG/KG/MIN Sodium Chloride 100 mls @ 999 mls/hr 01/25/21 15:37 Nacl 0.9% IV KIMBERLY PRN Hypotension Valproate Sodium 500 mg/ 105 mls @ 100 mls/hr 01/26/21 11:00 01/27/21 10:26 Sodium Chloride IV 100 mls/hr Q12HR JOHANA Administration Cefepime HCl 1 gm in 100 mls @ 200 mls/hr 01/26/21 18:00 01/26/21 18:40 Cefepime/Ns 1 Gm/100 Ml IV Infused QPM JOHANA Infusion Protocol Propofol 1,000 mg in 100 mls @ 1.89 mls/hr 01/26/21 14:00 01/27/21 06:30 Diprivan 10 Mg/Ml IV 0 mcg/kg/min TITR JOHANA 0 mls/hr Titration Protocol 5 MCG/KG/MIN Norepinephrine 4 mg in 250 mls @ 7.5 mls/hr 01/27/21 08:00 01/27/21 07:59 Levophed Drip 4 Mg/Ns 250 Ml IV 2 mcg/min TITR JOHANA 7.5 mls/hr Administration Protocol 2 MCG/MIN Insulin Human Regular 0 units 01/26/21 12:00 01/27/21 12:00 Insulin Regular, Human 100 Units/1 Ml SUB-Q Not Given Q6H JOHANA Protocol Latanoprost 1 drops 01/26/21 18:00 01/26/21 19:00 Latanoprost 0.005% Ophth Soln 2.5 Ml OU 1 drops QPM JOHANA Administration Multi-Ingred Cream/Lotion/Oil/Oint 1 applic 01/25/21 08:08 Mineral Oil/Petrolatum, White Ophth Oint 3.5 Gm OU Q4HR PRN Dry Eye(s) Senna/Docusate Sodium 1 tab 01/25/21 10:00 01/27/21 10:27 Sennosides/Docusate Sodium 8.6/50 Mg Tab FEEDTUBE Not Given BID JOHANA Simple Syrup 15 ml 01/26/21 08:55 Simple Syrup 15 Ml FEEDTUBE PRN PRN Hypoglycemia Simple Syrup 30 ml 01/26/21 08:55 Simple Syrup 15 Ml FEEDTUBE PRN PRN Hypoglycemia Sodium Bicarbonate 325 mg 01/26/21 08:55 Sodium Bicarbonate 325 Mg Tab FEEDTUBE PRN PRN For Clogged Feeding Tube Sodium Chloride 10 ml 01/25/21 22:00 01/27/21 10:27 Sodium Chloride 0.9% 10 Ml Flush Syringe IV 10 ml BID JOHANA Administration Sodium Chloride 10 ml 01/25/21 12:47 Sodium Chloride 0.9% 10 Ml Flush Syringe IV PRN PRN LINE FLUSH Nutrition/Malnutrition Assess - Dietary Evaluation Nutrition/Malnutrition Findings: Nutrition Notes Start: 01/26/21 08:46 Freq: Status: Active Protocol: Document 01/26/21 08:46 (Rec: 01/26/21 08:55 [email or web address]) Nutrition Notes Need for Assessment generated from: MD Order Initial or Follow up Assessment Current Diagnosis CKD (stage V CKD),Diabetes, Hypertension,Heart Failure, Respiratory Failure, Hyperlipidemia Other Pertinent Diagnosis UTI, cardiac arrest Current Diet NPO Labs/Tests 01/25: Na 135 K 5.4 AST 284 ALT 85 Pertinent Medications Reviewed Height 5 ft 6 in Weight 63 kg [place] Body Weight (kg) 64.54 BMI 22.4 Weight Status Appropriate Subjective/Other Information MD order for TF. Pt is on the vent. Burn Absent Trauma Absent Current % PO Negligible Minimum of two criteria No Muscle Mass Mild Depletion (non-severe) #1 Nutrition Diagnosis Inadequate oral intake Etiology respiratory failure As Evidenced by Signs and Symptoms pt on vent and unable to consume PO Is patient on ventilator? Yes Is Patient Ambulatory and/or Out of Bed No [facility] [phone] Calculation Used for Recommendations [facility] Additional Notes Protein: (1.2-2g/kg) 76-95g Fluid: 7258-4452 ml or per MD Nutrition Intervention Change Diet Order: Start TF Nutrition Support: Nepro 1.8 at 38 ml/hr Flush 50 ml q4h for hyponatermia. Once resolved, flush 125 ml q4h or per MD Kcal 1,641 Protein (gm) 74 Fluid (mL) 663 Goal #1 Meet at least 75% of protein and energy needs via TF Anticipated Discharge Needs: Unable to determine at this time Follow-Up By: 01/28/21 Additional Comments FU for TF start and tolerance
--- NOTE | 2021-01-27 13:24 | Progress Note ---
Assessment and Plan Cardiac arrest with return of spontaneous circulation. Acute hypoxemic respiratory failure, on mechanical ventilatory support. Severe sepsis with shock Urinary tract infection. ESRD on dialysis. Acute toxic metabolic encephalopathy, possibly anoxic. Anemia that is normocytic. Hypercapnia Leukocytosis. Hyperkalemia. NSTEMI DM II Congestive heart failure. Gastroesophageal reflux disease. Oropharyngeal dysphagia (Discussed very poor prognosis with his at bedside requested a substituted judgment as to wether he would want a tracheostomy and watchful waiting knowing the poor prognosis or perhaps hospice / comfort care. She states she has to discuss with their son and daughter. I also discussed likely brain flow scan evaluation in am and the consequences of a positive flow scan confirming brain ) - get midline - wean Levophed for target MAP > 65 mmHg - dopplers negative for VTE - continue care as below otherwise; - continue on AED's (Keppra, dilantin) - keep set rate at 12/min - complete AB's per ID recommendations (Cefepime & Vancomycin) - continue to wean supplemental oxygen for target O2 sat's > 90% acutely - VAP bundle addressed - continue lung protective strategies - continue bronchodilators with pulmonary hygiene per RT - Daily SAT and SBT assessment as tolerated - wean per pulmonary driven protocols otherwise - continue accuchecks with glycemic control per SSI (While critically ill target blood glucose of 140-180 mg/dL; avoid hypoglycemia) - sedation prn for target RASS 0 to -1 - continue HD/UF for toxin and volume clearance - avoid nephrotoxins, renally dose all medications - avoid benzodiazepine's if possible, reduce the possibility of delirium - prn analgesia per CPOT score - Maintenance of sleep-wake cycle, avoid delirium - continue enteral nutritional support at goal rate as tolerated - G.I. & VTE prophylaxis - PT/OT/ROM exercises - continue mobility protocols for pressure ulcer prophylaxis - Monitor hemodynamics closely - continue other care per attending / other consultants - discharge planning ongoing concurrently .... Re-evaluate in am & prn CONDITION: CRITICAL PROGNOSIS: GUARDED CODE STATUS: FULL CODE The high probability of a clinically significant, sudden or life-threatening deterioration of the [respiratory, cardiovascular, GI & neurologic] system(s) required my full and direct attention, intervention and personal management. The aggregate critical care time was [35] minutes without overlap. Time includes spent on; [x] Data Review and interpretation [x] Patient assessment and monitoring of vital signs [x] Documentation [x] Medication orders and management Subjective Date of service: 01/27/21 Principal diagnosis: Cardiac arrest; Ac hypoxemic resp failure; Septic Shock; UTI; AMS; ESRD Interval history: Patient is seen today for: Cardiac arrest with ROSC; Acute hypoxemic respiratory failure; Septic Shock; UTI; ESRD on dialysis; Acute toxic metabolic encephalopathy, possibly anoxic; NSTEMI; CHF Seen and examined at bedside; 24hour events reviewed; nursing and respiratory care staff consulted; no adverse overnight events reported to me; resting peacefully in bed; remains on MVS; AMS is persistent; EEG with slowing and no spike activity; afebrile; pupils remain fixed and dilated Objective Vital Signs - 12hr 01/27/21 01/27/21 01/27/21 01:30 01:41 01:51 Temperature Pulse Rate 64 65 66 Pulse Rate [ From Monitor] Respiratory 14 15 13 Rate Blood Pressure 94/50 94/50 103/53 O2 Sat by Pulse 100 100 100 Oximetry 01/27/21 01/27/21 01/27/21 02:00 02:11 02:21 Temperature Pulse Rate 67 67 69 Pulse Rate [ From Monitor] Respiratory 12 13 15 Rate Blood Pressure 105/53 105/53 111/55 O2 Sat by Pulse 100 100 100 Oximetry 01/27/21 01/27/21 01/27/21 02:30 02:41 02:51 Temperature Pulse Rate 70 70 70 Pulse Rate [ From Monitor] Respiratory 15 16 14 Rate Blood Pressure 113/62 105/53 113/56 O2 Sat by Pulse 100 100 100 Oximetry 01/27/21 01/27/21 01/27/21 03:00 03:11 03:21 Temperature Pulse Rate 71 71 72 Pulse Rate [ From Monitor] Respiratory 13 15 16 Rate Blood Pressure 107/59 113/56 116/58 O2 Sat by Pulse 100 100 100 Oximetry 01/27/21 01/27/21 01/27/21 03:30 03:41 03:51 Temperature Pulse Rate 73 73 73 Pulse Rate [ From Monitor] Respiratory 15 14 16 Rate Blood Pressure 116/58 107/59 111/53 O2 Sat by Pulse 100 100 100 Oximetry 01/27/21 01/27/21 01/27/21 04:00 04:11 04:21 Temperature 97.3 F L Pulse Rate 73 75 75 Pulse Rate [ 75 From Monitor] Respiratory 12 15 13 Rate Blood Pressure 123/60 123/60 123/59 O2 Sat by Pulse 100 100 100 Oximetry 01/27/21 01/27/21 01/27/21 04:30 04:33 04:41 Temperature Pulse Rate 76 75 75 Pulse Rate [ From Monitor] Respiratory 13 13 Rate Blood Pressure 128/60 128/60 128/60 O2 Sat by Pulse 97 100 100 Oximetry 01/27/21 01/27/21 01/27/21 04:51 05:00 05:11 Temperature Pulse Rate 75 78 75 Pulse Rate [ From Monitor] Respiratory 14 14 14 Rate Blood Pressure 129/61 107/56 107/56 O2 Sat by Pulse 100 99 99 Oximetry 01/27/21 01/27/21 01/27/21 05:21 05:30 05:41 Temperature Pulse Rate 78 76 75 Pulse Rate [ From Monitor] Respiratory 15 12 16 Rate Blood Pressure 116/56 99/55 99/55 O2 Sat by Pulse 96 96 97 Oximetry 01/27/21 01/27/21 01/27/21 05:51 06:00 06:11 Temperature Pulse Rate 71 73 72 Pulse Rate [ From Monitor] Respiratory 13 13 13 Rate Blood Pressure 94/47 73/44 73/44 O2 Sat by Pulse 97 96 98 Oximetry 01/27/21 01/27/21 01/27/21 06:21 06:30 06:41 Temperature Pulse Rate 73 71 72 Pulse Rate [ From Monitor] Respiratory 13 15 12 Rate Blood Pressure 75/45 69/43 74/45 O2 Sat by Pulse 99 99 100 Oximetry 01/27/21 01/27/21 01/27/21 06:51 07:00 07:11 Temperature Pulse Rate 73 73 73 Pulse Rate [ From Monitor] Respiratory 12 12 13 Rate Blood Pressure 75/43 82/47 87/49 O2 Sat by Pulse 100 100 100 Oximetry 01/27/21 01/27/21 01/27/21 07:21 07:31 07:41 Temperature Pulse Rate 72 75 76 Pulse Rate [ From Monitor] Respiratory 14 18 12 Rate Blood Pressure 78/48 102/15 75/40 O2 Sat by Pulse 100 96 94 Oximetry 01/27/21 01/27/21 01/27/21 07:51 08:00 08:11 Temperature 99.5 F Pulse Rate 76 73 73 Pulse Rate [ 76 From Monitor] Respiratory 13 13 13 Rate Blood Pressure 68/33 107/50 107/50 O2 Sat by Pulse 93 100 100 Oximetry 01/27/21 01/27/21 01/27/21 08:21 08:30 08:41 Temperature Pulse Rate 74 77 77 Pulse Rate [ From Monitor] Respiratory 11 L 14 12 Rate Blood Pressure 96/49 133/58 133/58 O2 Sat by Pulse 100 100 100 Oximetry 01/27/21 01/27/21 01/27/21 08:50 08:51 09:00 Temperature Pulse Rate 78 79 78 Pulse Rate [ From Monitor] Respiratory 14 14 Rate Blood Pressure 135/58 135/58 115/58 O2 Sat by Pulse 100 100 100 Oximetry 01/27/21 01/27/21 01/27/21 09:11 09:21 09:30 Temperature Pulse Rate 78 79 79 Pulse Rate [ From Monitor] Respiratory 12 13 12 Rate Blood Pressure 115/58 100/58 122/59 O2 Sat by Pulse 100 100 100 Oximetry 01/27/21 01/27/21 01/27/21 09:41 09:51 10:00 Temperature Pulse Rate 79 80 80 Pulse Rate [ From Monitor] Respiratory 12 12 12 Rate Blood Pressure 122/59 128/59 132/63 O2 Sat by Pulse 100 100 100 Oximetry 01/27/21 01/27/21 01/27/21 10:11 10:21 10:30 Temperature Pulse Rate 80 80 81 Pulse Rate [ From Monitor] Respiratory 13 12 12 Rate Blood Pressure 132/63 138/60 138/60 O2 Sat by Pulse 100 100 100 Oximetry 01/27/21 01/27/21 01/27/21 10:41 10:51 11:00 Temperature Pulse Rate 80 80 79 Pulse Rate [ From Monitor] Respiratory 14 12 12 Rate Blood Pressure 140/62 126/60 O2 Sat by Pulse 100 100 100 Oximetry 01/27/21 01/27/21 01/27/21 11:11 11:21 11:30 Temperature Pulse Rate 76 75 75 Pulse Rate [ From Monitor] Respiratory 27 H 16 17 Rate Blood Pressure 126/60 126/60 117/54 O2 Sat by Pulse 100 100 100 Oximetry 01/27/21 01/27/21 01/27/21 11:41 11:51 12:00 Temperature 99 F Pulse Rate 75 74 Pulse Rate [ From Monitor] Respiratory 38 H 18 Rate Blood Pressure 117/54 117/54 O2 Sat by Pulse 100 100 Oximetry 01/27/21 12:01 Temperature Pulse Rate 74 Pulse Rate [ From Monitor] Respiratory 15 Rate Blood Pressure 102/51 O2 Sat by Pulse 100 Oximetry Constitutional: no acute distress, other (elderly thin male riding set rate on MVS) Eyes: non-icteric ENT: oropharynx moist, other (ETT 24 cm FREDI) Neck: supple, no lymphadenopathy, no JVD Effort: mildly labored Ascultation: Bilateral: diminished breath sounds, rhonchi (scant, bases) Percussion: Bilateral: not dull Cardiovascular: regular rate and rhythm Gastrointestinal: normoactive bowel sounds Integumentary: normal Extremities: no cyanosis, no edema, pulses normal, no ischemia or petechiae Neurologic: pupils equal and round (fixed and dilated), unable to assess Psychiatric: other (unable to assess re: AMS) CBC and BMP: 01/27/21 04:39 01/27/21 04:39 ABG, PT/INR, D-dimer: ABG ABG pH 7.447 (7.320-7.450) 01/27/21 05:00 POC ABG pCO2 37.5 mmHg (32.0-48.0) 01/27/21 05:00 POC ABG pO2 85.1 mmHg (83-108) 01/27/21 05:00 POC ABG HCO3 25.3 01/27/21 05:00 ABG O2 Saturation 96.6 (0-100) 01/27/21 05:00 PT/INR, D-dimer PT 16.0 Sec. (12.2-14.9) H 01/25/21 08:13 INR 1.28 (0.87-1.13) H 01/25/21 08:13 D-Dimer 8335.22 ng/mlDDU (0-234) H 01/26/21 07:40 Abnormal lab findings: Abnormal Labs 01/25/21 01/25/21 01/25/21 07:56 08:13 08:13 WBC 11.4 H RBC 2.50 L Hgb 7.3 L Hct 22.2 L RDW 17.5 H Lymph % (Auto) 13.0 L Baso % (Auto) 2.2 H Baso # (Auto) 0.3 H Seg Neutrophils % 81.7 H Seg Neuts % (Manual) Lymphocytes % (Manual) Seg Neutrophils # 9.3 H Seg Neutrophils # Man Lymphocytes # (Manual) PT 16.0 H INR 1.28 H APTT 56.8 H D-Dimer ABG pH POC ABG pCO2 POC ABG pO2 ABG Hemoglobin ABG Oxyhemoglobin ABG Sodium ABG Potassium ABG Chloride ABG Glucose VBG pH Carboxyhemoglobin Sodium Potassium Chloride Carbon Dioxide BUN Creatinine Glucose POC Glucose 139 H Lactic Acid Calcium Ferritin AST ALT Lactate Dehydrogenase Troponin T C-Reactive Protein NT-Pro-B Natriuret Pep Total Protein Albumin Arterial Blood Glucose Arterial Blood Ionized Calcium Urine pH Urine WBC (Auto) Hepatitis C Antibody 01/25/21 01/25/21 01/25/21 08:13 08:13 08:13 WBC RBC Hgb Hct RDW Lymph % (Auto) Baso % (Auto) Baso # (Auto) Seg Neutrophils % Seg Neuts % (Manual) Lymphocytes % (Manual) Seg Neutrophils # Seg Neutrophils # Man Lymphocytes # (Manual) PT INR APTT D-Dimer ABG pH POC ABG pCO2 POC ABG pO2 ABG Hemoglobin ABG Oxyhemoglobin ABG Sodium ABG Potassium ABG Chloride ABG Glucose VBG pH 7.100 L* Carboxyhemoglobin Sodium 135 L Potassium 5.4 H Chloride 92.1 L Carbon Dioxide 21 L BUN Creatinine 4.8 H Glucose 157 H POC Glucose Lactic Acid Calcium Ferritin AST 284 H ALT 85 H Lactate Dehydrogenase Troponin T 0.233 H* C-Reactive Protein NT-Pro-B Natriuret Pep 24579 H Total Protein 5.8 L Albumin 2.5 L Arterial Blood Glucose Arterial Blood Ionized Calcium Urine pH Urine WBC (Auto) Hepatitis C Antibody Reactive A 01/25/21 01/25/21 01/25/21 08:44 16:31 16:57 WBC RBC Hgb Hct RDW Lymph % (Auto) Baso % (Auto) Baso # (Auto) Seg Neutrophils % Seg Neuts % (Manual) Lymphocytes % (Manual) Seg Neutrophils # Seg Neutrophils # Man Lymphocytes # (Manual) PT INR APTT D-Dimer ABG pH 7.174 L 7.572 H 7.608 H POC ABG pCO2 58.4 H 24.4 L 25.2 L POC ABG pO2 109.3 H 41.6 L 257.8 H ABG Hemoglobin 7.7 L 9.3 L 9.4 L ABG Oxyhemoglobin 92.0 L 79.4 L 99.1 H ABG Sodium 133.9 L ABG Potassium 5.4 H 4.6 H ABG Chloride 97.0 L 97.0 L ABG Glucose 157 H 107 H 124 H VBG pH Carboxyhemoglobin 4.3 H 0.3 L Sodium Potassium Chloride Carbon Dioxide BUN Creatinine Glucose POC Glucose Lactic Acid Calcium Ferritin AST ALT Lactate Dehydrogenase Troponin T C-Reactive Protein NT-Pro-B Natriuret Pep Total Protein Albumin Arterial Blood Glucose 157 H 107 H 124 H Arterial Blood Ionized Calcium 4.5 L 4.3 L 4.3 L Urine pH Urine WBC (Auto) Hepatitis C Antibody 01/25/21 01/25/21 01/26/21 23:31 Unknown 03:10 WBC RBC Hgb Hct RDW Lymph % (Auto) Baso % (Auto) Baso # (Auto) Seg Neutrophils % Seg Neuts % (Manual) Lymphocytes % (Manual) Seg Neutrophils # Seg Neutrophils # Man Lymphocytes # (Manual) PT INR APTT D-Dimer ABG pH 7.547 H POC ABG pCO2 31.7 L POC ABG pO2 ABG Hemoglobin 9.2 L ABG Oxyhemoglobin ABG Sodium ABG Potassium ABG Chloride ABG Glucose 108 H VBG pH Carboxyhemoglobin Sodium Potassium Chloride Carbon Dioxide BUN Creatinine Glucose POC Glucose 111 H Lactic Acid Calcium Ferritin AST ALT Lactate Dehydrogenase Troponin T C-Reactive Protein NT-Pro-B Natriuret Pep Total Protein Albumin Arterial Blood Glucose 108 H Arterial Blood Ionized Calcium 4.0 L Urine pH 8.0 H Urine WBC (Auto) > 182.0 H Hepatitis C Antibody 01/26/21 01/26/21 01/26/21 04:00 07:40 07:40 WBC RBC Hgb Hct RDW Lymph % (Auto) Baso % (Auto) Baso # (Auto) Seg Neutrophils % Seg Neuts % (Manual) Lymphocytes % (Manual) Seg Neutrophils # Seg Neutrophils # Man Lymphocytes # (Manual) PT INR APTT D-Dimer 8335.22 H ABG pH POC ABG pCO2 POC ABG pO2 ABG Hemoglobin ABG Oxyhemoglobin ABG Sodium ABG Potassium ABG Chloride ABG Glucose VBG pH Carboxyhemoglobin Sodium Potassium Chloride Carbon Dioxide BUN 27 H Creatinine 4.4 H Glucose 105 H POC Glucose Lactic Acid Calcium 8.1 L Ferritin 1817.0 H AST ALT Lactate Dehydrogenase Troponin T C-Reactive Protein NT-Pro-B Natriuret Pep Total Protein Albumin Arterial Blood Glucose Arterial Blood Ionized Calcium Urine pH Urine WBC (Auto) Hepatitis C Antibody 01/26/21 01/26/21 01/26/21 07:40 07:58 07:58 WBC 16.6 H RBC 3.10 L Hgb 8.9 L Hct 26.7 L RDW 17.4 H Lymph % (Auto) Baso % (Auto) Baso # (Auto) Seg Neutrophils % Seg Neuts % (Manual) 93.0 H Lymphocytes % (Manual) 5.0 L Seg Neutrophils # Seg Neutrophils # Man 15.4 H Lymphocytes # (Manual) 0.8 L PT INR APTT D-Dimer ABG pH POC ABG pCO2 POC ABG pO2 ABG Hemoglobin ABG Oxyhemoglobin ABG Sodium ABG Potassium ABG Chloride ABG Glucose VBG pH Carboxyhemoglobin Sodium Potassium Chloride Carbon Dioxide BUN Creatinine Glucose POC Glucose Lactic Acid 3.20 H* Calcium Ferritin AST ALT Lactate Dehydrogenase 770 H Troponin T C-Reactive Protein 11.00 H NT-Pro-B Natriuret Pep Total Protein Albumin Arterial Blood Glucose Arterial Blood Ionized Calcium Urine pH Urine WBC (Auto) Hepatitis C Antibody 01/26/21 01/26/21 01/26/21 11:29 18:10 23:15 WBC RBC Hgb Hct RDW Lymph % (Auto) Baso % (Auto) Baso # (Auto) Seg Neutrophils % Seg Neuts % (Manual) Lymphocytes % (Manual) Seg Neutrophils # Seg Neutrophils # Man Lymphocytes # (Manual) PT INR APTT D-Dimer ABG pH POC ABG pCO2 POC ABG pO2 ABG Hemoglobin ABG Oxyhemoglobin ABG Sodium ABG Potassium ABG Chloride ABG Glucose VBG pH Carboxyhemoglobin Sodium Potassium Chloride Carbon Dioxide BUN Creatinine Glucose POC Glucose 108 H 149 H 113 H Lactic Acid Calcium Ferritin AST ALT Lactate Dehydrogenase Troponin T C-Reactive Protein NT-Pro-B Natriuret Pep Total Protein Albumin Arterial Blood Glucose Arterial Blood Ionized Calcium Urine pH Urine WBC (Auto) Hepatitis C Antibody 01/27/21 01/27/21 01/27/21 04:39 04:39 05:00 WBC 17.3 H RBC 3.11 L Hgb 8.6 L Hct 27.3 L RDW 18.4 H Lymph % (Auto) Baso % (Auto) Baso # (Auto) Seg Neutrophils % Seg Neuts % (Manual) Lymphocytes % (Manual) Seg Neutrophils # Seg Neutrophils # Man Lymphocytes # (Manual) PT INR APTT D-Dimer ABG pH POC ABG pCO2 POC ABG pO2 ABG Hemoglobin 8.8 L ABG Oxyhemoglobin ABG Sodium ABG Potassium ABG Chloride ABG Glucose 98 H VBG pH Carboxyhemoglobin Sodium Potassium Chloride Carbon Dioxide BUN 23 H Creatinine 3.1 H Glucose POC Glucose Lactic Acid Calcium 7.1 L Ferritin AST ALT Lactate Dehydrogenase Troponin T C-Reactive Protein NT-Pro-B Natriuret Pep Total Protein Albumin Arterial Blood Glucose 98 H Arterial Blood Ionized Calcium 3.9 L Urine pH Urine WBC (Auto) Hepatitis C Antibody 01/27/21 11:30 WBC RBC Hgb Hct RDW Lymph % (Auto) Baso % (Auto) Baso # (Auto) Seg Neutrophils % Seg Neuts % (Manual) Lymphocytes % (Manual) Seg Neutrophils # Seg Neutrophils # Man Lymphocytes # (Manual) PT INR APTT D-Dimer ABG pH POC ABG pCO2 POC ABG pO2 ABG Hemoglobin ABG Oxyhemoglobin ABG Sodium ABG Potassium ABG Chloride ABG Glucose VBG pH Carboxyhemoglobin Sodium Potassium Chloride Carbon Dioxide BUN Creatinine Glucose POC Glucose 132 H Lactic Acid Calcium Ferritin AST ALT Lactate Dehydrogenase Troponin T C-Reactive Protein NT-Pro-B Natriuret Pep Total Protein Albumin Arterial Blood Glucose Arterial Blood Ionized Calcium Urine pH Urine WBC (Auto) Hepatitis C Antibody Chest x-ray: image reviewed Allied health notes reviewed: nursing (edema pattern improved)
--- NOTE | 2021-01-27 13:35 | Magnetic Resonance Report ---
MRI BRAIN WITHOUT CONTRAST INDICATION / CLINICAL INFORMATION: encephalopathy. TECHNIQUE: Multiplanar, multisequence MR images of the brain were obtained. COMPARISON: Head CT on 01/25/2021 FINDINGS: BRAIN / INTRACRANIAL CONTENTS: There is global abnormal restricted diffusion throughout the cerebral and cerebellar cortex as well as involving the dorsal brainstem and bilateral basal ganglia. There is no associated hemorrhage or adverse mass effect. Ventricular and cisternal size appears normal for a ge. CRANIOCERVICAL JUNCTION: No significant abnormality. VASCULAR FLOW-VOIDS: No significant abnormality. ORBITS: No significant abnormality of visualized orbits. SINUSES / MASTOIDS: No significant abnormality of visualized sinuses and mastoid air cells. ADDITIONAL FINDINGS: None. IMPRESSION: 1. Global restricted diffusion involving the cerebral cortex, basal ganglia, cerebral cortex, and ricardo ashley brainstem most suggestive of an anoxic brain injury. Signer Name: Arpit Damon MD Signed: 01/27/2021 1:30 PM Workstation Name: [id number]
--- NOTE | 2021-01-27 15:19 | Progress Note ---
Assessment and Plan Assessment - End-stage renal disease on hemodialysis - Anemia of ESRD - Acidosis - Cardiac arrest - Acute resp failure, s/p intubation - Septic shock - Acute encephalopathy, suspect anoxic brain injury - Seizure Recommendations - Status post HD daily x 2 days - gentle sessions with no UF, next session tomorrow - Monitor labs and volume status daily and assess need for additional dialysis session - Keep MAP>65, vasopressors prn - Epogen with HD once acute issues resolve - Agree with antibiotics - Antiepileptics as per neurology - Renally dose medication for creatinine clearance less than 15 cc/min - Prognosis is guarded - Plan for brain scan noted - Recommend goals of care discussion Subjective Date of service: 01/27/21 Principal diagnosis: Cardiac arrest; Ac hypoxemic resp failure; Septic Shock; UTI; AMS; ESRD Interval history: Mental status unchanged. Seizures/myoclonic jerk controlled with antiepileptics. Remains intubated and on vasopressors. Objective - Exam Narrative Exam: General: Intubated. Neck: Supple, no JVD Chest: Intubated. Mechanical breath sounds Heart: RRR, S1 and S2, no pericardial rub Abdomen: Soft, nontender, no renal bruit Extremity: No peripheral cyanosis, edema Neurological: Obtunded Dermatology: No skin rash Psych: Unable to assess Musculoskeletal: No joint effusion - Vital Signs Vital signs: Vital Signs - 12hr 01/27/21 01/27/21 01/27/21 03:21 03:30 03:41 Temperature Pulse Rate 72 73 73 Pulse Rate [ From Monitor] Respiratory 16 15 14 Rate Blood Pressure 116/58 116/58 107/59 O2 Sat by Pulse 100 100 100 Oximetry 01/27/21 01/27/21 01/27/21 03:51 04:00 04:11 Temperature 97.3 F L Pulse Rate 73 73 75 Pulse Rate [ 75 From Monitor] Respiratory 16 12 15 Rate Blood Pressure 111/53 123/60 123/60 O2 Sat by Pulse 100 100 100 Oximetry 01/27/21 01/27/21 01/27/21 04:21 04:30 04:33 Temperature Pulse Rate 75 76 75 Pulse Rate [ From Monitor] Respiratory 13 13 Rate Blood Pressure 123/59 128/60 128/60 O2 Sat by Pulse 100 97 100 Oximetry 01/27/21 01/27/21 01/27/21 04:41 04:51 05:00 Temperature Pulse Rate 75 75 78 Pulse Rate [ From Monitor] Respiratory 13 14 14 Rate Blood Pressure 128/60 129/61 107/56 O2 Sat by Pulse 100 100 99 Oximetry 01/27/21 01/27/21 01/27/21 05:11 05:21 05:30 Temperature Pulse Rate 75 78 76 Pulse Rate [ From Monitor] Respiratory 14 15 12 Rate Blood Pressure 107/56 116/56 99/55 O2 Sat by Pulse 99 96 96 Oximetry 01/27/21 01/27/21 01/27/21 05:41 05:51 06:00 Temperature Pulse Rate 75 71 73 Pulse Rate [ From Monitor] Respiratory 16 13 13 Rate Blood Pressure 99/55 94/47 73/44 O2 Sat by Pulse 97 97 96 Oximetry 01/27/21 01/27/21 01/27/21 06:11 06:21 06:30 Temperature Pulse Rate 72 73 71 Pulse Rate [ From Monitor] Respiratory 13 13 15 Rate Blood Pressure 73/44 75/45 69/43 O2 Sat by Pulse 98 99 99 Oximetry 01/27/21 01/27/21 01/27/21 06:41 06:51 07:00 Temperature Pulse Rate 72 73 73 Pulse Rate [ From Monitor] Respiratory 12 12 12 Rate Blood Pressure 74/45 75/43 82/47 O2 Sat by Pulse 100 100 100 Oximetry 01/27/21 01/27/21 01/27/21 07:11 07:21 07:31 Temperature Pulse Rate 73 72 75 Pulse Rate [ From Monitor] Respiratory 13 14 18 Rate Blood Pressure 87/49 78/48 102/15 O2 Sat by Pulse 100 100 96 Oximetry 01/27/21 01/27/21 01/27/21 07:41 07:51 08:00 Temperature 99.5 F Pulse Rate 76 76 74 Pulse Rate [ 76 From Monitor] Respiratory 12 13 13 Rate Blood Pressure 75/40 68/33 107/50 O2 Sat by Pulse 94 93 100 Oximetry 01/27/21 01/27/21 01/27/21 08:11 08:21 08:30 Temperature Pulse Rate 73 74 77 Pulse Rate [ From Monitor] Respiratory 13 11 L 14 Rate Blood Pressure 107/50 96/49 133/58 O2 Sat by Pulse 100 100 100 Oximetry 01/27/21 01/27/21 01/27/21 08:41 08:50 08:51 Temperature Pulse Rate 77 78 79 Pulse Rate [ From Monitor] Respiratory 12 14 Rate Blood Pressure 133/58 135/58 135/58 O2 Sat by Pulse 100 100 100 Oximetry 01/27/21 01/27/21 01/27/21 09:00 09:11 09:21 Temperature Pulse Rate 78 78 79 Pulse Rate [ From Monitor] Respiratory 14 12 13 Rate Blood Pressure 115/58 115/58 100/58 O2 Sat by Pulse 100 100 100 Oximetry 01/27/21 01/27/21 01/27/21 09:30 09:41 09:51 Temperature Pulse Rate 79 79 80 Pulse Rate [ From Monitor] Respiratory 12 12 12 Rate Blood Pressure 122/59 122/59 128/59 O2 Sat by Pulse 100 100 100 Oximetry 01/27/21 01/27/21 01/27/21 10:00 10:11 10:21 Temperature Pulse Rate 80 80 80 Pulse Rate [ From Monitor] Respiratory 12 13 12 Rate Blood Pressure 132/63 132/63 138/60 O2 Sat by Pulse 100 100 100 Oximetry 01/27/21 01/27/21 01/27/21 10:30 10:41 10:51 Temperature Pulse Rate 81 80 80 Pulse Rate [ From Monitor] Respiratory 12 14 12 Rate Blood Pressure 138/60 140/62 O2 Sat by Pulse 100 100 100 Oximetry 01/27/21 01/27/21 01/27/21 11:00 11:11 11:21 Temperature Pulse Rate 79 76 75 Pulse Rate [ From Monitor] Respiratory 12 27 H 16 Rate Blood Pressure 126/60 126/60 126/60 O2 Sat by Pulse 100 100 100 Oximetry 01/27/21 01/27/21 01/27/21 11:30 11:41 11:51 Temperature Pulse Rate 75 75 74 Pulse Rate [ From Monitor] Respiratory 17 38 H 18 Rate Blood Pressure 117/54 117/54 117/54 O2 Sat by Pulse 100 100 100 Oximetry 01/27/21 01/27/21 01/27/21 12:00 12:01 13:09 Temperature 99 F Pulse Rate 74 74 77 Pulse Rate [ From Monitor] Respiratory 15 13 Rate Blood Pressure 102/51 102/51 O2 Sat by Pulse 100 100 Oximetry 01/27/21 01/27/21 01/27/21 13:11 13:21 13:30 Temperature Pulse Rate 77 79 73 Pulse Rate [ From Monitor] Respiratory 16 16 12 Rate Blood Pressure 102/51 102/51 135/62 O2 Sat by Pulse 100 100 100 Oximetry 01/27/21 01/27/21 01/27/21 13:41 13:50 13:51 Temperature Pulse Rate 72 74 72 Pulse Rate [ From Monitor] Respiratory 12 12 Rate Blood Pressure 135/62 102/51 135/62 O2 Sat by Pulse 100 100 100 Oximetry 01/27/21 01/27/21 01/27/21 14:00 14:11 14:21 Temperature Pulse Rate 72 70 71 Pulse Rate [ From Monitor] Respiratory 12 12 12 Rate Blood Pressure 147/65 135/62 135/62 O2 Sat by Pulse 100 100 100 Oximetry 01/27/21 01/27/21 01/27/21 14:30 14:41 14:51 Temperature Pulse Rate 71 70 70 Pulse Rate [ From Monitor] Respiratory 12 12 12 Rate Blood Pressure 145/67 145/67 145/67 O2 Sat by Pulse 100 100 100 Oximetry 01/27/21 15:01 Temperature Pulse Rate 70 Pulse Rate [ From Monitor] Respiratory 12 Rate Blood Pressure 156/66 O2 Sat by Pulse 100 Oximetry - Lab 01/27/21 04:39 01/27/21 04:39 Most recent lab results ABG pH 7.447 (7.320-7.450) 01/27/21 05:00 ABG O2 Saturation 96.6 (0-100) 01/27/21 05:00 Calcium 7.1 mg/dL (8.4-10.2) L 01/27/21 04:39 Magnesium 2.30 mg/dL (1.7-2.3) 01/25/21 08:13 Medications & Allergies - Medications Allergies/Adverse Reactions: Allergies No Known Allergies Allergy (Verified 01/25/21 07:55) Home Medications: Home Medications Medication Instructions Recorded Confirmed Last Taken Type Atorvastatin [Lipitor] 40 mg PO QHS 09/28/17 01/27/21 Unknown History Omeprazole 20 mg PO BID 09/28/17 01/27/21 Unknown History Vit B Comp No.3/Folic/C/Biotin 1 tab PO DAILY 09/28/17 01/27/21 Unknown History [[employer] Rx Tablet] amLODIPine 10 mg PO DAILY 09/28/17 01/27/21 Unknown History carvediloL [Coreg] 12.5 mg PO BID 09/28/17 01/27/21 Unknown History Albuterol Mdi (or & Nicu Only) 2 puff IH QID PRN 05/01/19 01/27/21 Unknown History [ProAir HFA Inhaler] Gabapentin 300 mg PO Q8HR 05/01/19 01/27/21 Unknown History Latanoprost 0.005% 1 drop OP QPM 05/01/19 01/27/21 Unknown History lisinopriL [Zestril TAB] 40 mg PO QDAY 05/01/19 01/27/21 Unknown History Active Medications: Generic Name Dose Route Start Last Admin Trade Name Freq PRN Reason Stop Dose Admin Acetaminophen 650 mg 01/26/21 03:47 01/26/21 04:52 Acetaminophen 325 Mg/10.15 Ml Oral Liqd Unit Dose FEEDTUBE 650 mg Q6H PRN Administration Non Cardiac Pain or Temp>100.5 Albuterol 2.5 mg 01/25/21 12:47 Albuterol 2.5 Mg/3 Ml Nebu IH Q3HRT PRN Shortness Of Breath Lipase/Protease/Amylase 1 each 01/26/21 08:55 Lipase 10,500/Protease 25,000/Amylase 43,750 (Units) Dr Langley FEEDTUBE PRN PRN For Clogged Feeding Tube Aspirin 325 mg 01/26/21 11:00 01/27/21 10:26 Aspirin 325 Mg Tab PO 325 mg QDAY JOHANA Administration Atorvastatin Calcium 40 mg 01/26/21 22:00 01/26/21 21:28 Atorvastatin 40 Mg Tab PO 40 mg QHS JOHANA Administration Dextrose 50 ml 01/26/21 08:00 Dextrose 50% In Water (25gm) 50 Ml Syringe IV Q30MIN PRN Hypoglycemia Protocol Famotidine 10 mg 01/25/21 19:41 01/27/21 10:24 Famotidine 20 Mg/2 Ml Inj IV 10 mg BID JOHANA Administration Fentanyl 50 mcg 01/26/21 14:00 Fentanyl 100 Mcg/2 Ml Inj IV Q2H PRN Pain , Severe (7-10) Heparin Sodium (Porcine) 5,000 unit 01/25/21 22:00 01/27/21 10:25 Heparin 5,000 Unit/1 Ml Vial SUB-Q 5,000 unit Q12HR JOHANA Administration Hydrophilic Ointment 1 applic 01/25/21 08:08 Lip Therapy Vaseline TP Q2HR PRN Dry Lips Dopamine HCl/Dextrose 800 mg in 250 mls @ 2.363 mls/hr 01/25/21 08:30 01/25/21 19:00 Intropin Drip 800 Mg/D5w 250 Ml IV 01/29/21 18:17 0 mcg/kg/min TITR ONE 0 mls/hr Titration Protocol 2 MCG/KG/MIN Sodium Chloride 100 mls @ 999 mls/hr 01/25/21 15:37 Nacl 0.9% IV KIMBERLY PRN Hypotension Valproate Sodium 500 mg/ 105 mls @ 100 mls/hr 01/26/21 11:00 01/27/21 10:26 Sodium Chloride IV 100 mls/hr Q12HR JOHANA Administration Cefepime HCl 1 gm in 100 mls @ 200 mls/hr 01/26/21 18:00 01/26/21 18:40 Cefepime/Ns 1 Gm/100 Ml IV Infused QPM JOHANA Infusion Protocol Propofol 1,000 mg in 100 mls @ 1.89 mls/hr 01/26/21 14:00 01/27/21 06:30 Diprivan 10 Mg/Ml IV 0 mcg/kg/min TITR JOHANA 0 mls/hr Titration Protocol 5 MCG/KG/MIN Norepinephrine 4 mg in 250 mls @ 7.5 mls/hr 01/27/21 08:00 01/27/21 07:59 Levophed Drip 4 Mg/Ns 250 Ml IV 2 mcg/min TITR JOHANA 7.5 mls/hr Administration Protocol 2 MCG/MIN Insulin Human Regular 0 units 01/26/21 12:00 01/27/21 06:00 Insulin Regular, Human 100 Units/1 Ml SUB-Q Not Given Q6H JOHANA Protocol Latanoprost 1 drops 01/26/21 18:00 01/26/21 19:00 Latanoprost 0.005% Ophth Soln 2.5 Ml OU 1 drops QPM JOHANA Administration Multi-Ingred Cream/Lotion/Oil/Oint 1 applic 01/25/21 08:08 Mineral Oil/Petrolatum, White Ophth Oint 3.5 Gm OU Q4HR PRN Dry Eye(s) Senna/Docusate Sodium 1 tab 01/25/21 10:00 01/27/21 10:27 Sennosides/Docusate Sodium 8.6/50 Mg Tab FEEDTUBE Not Given BID JOHANA Simple Syrup 15 ml 01/26/21 08:55 Simple Syrup 15 Ml FEEDTUBE PRN PRN Hypoglycemia Simple Syrup 30 ml 01/26/21 08:55 Simple Syrup 15 Ml FEEDTUBE PRN PRN Hypoglycemia Sodium Bicarbonate 325 mg 01/26/21 08:55 Sodium Bicarbonate 325 Mg Tab FEEDTUBE PRN PRN For Clogged Feeding Tube Sodium Chloride 10 ml 01/25/21 22:00 01/27/21 10:27 Sodium Chloride 0.9% 10 Ml Flush Syringe IV 10 ml BID JOHANA Administration Sodium Chloride 10 ml 01/25/21 12:47 Sodium Chloride 0.9% 10 Ml Flush Syringe IV PRN PRN LINE FLUSH
[2021-01-27] MEDS: CEFEPIME/NS 1 GM/100 ML 1 GM/100 ML BAG IV SCH (18:02)
[2021-01-27] MEDS: LATANOPROST 0.005% OPHTH SOLN 2.5 ML OU SCH (18:12)
[2021-01-28] MEDS: INSULIN REGULAR, HUMAN 100 UNITS/1 ML SUB-Q SCH ×4 (00:14→17:51)
--- NOTE | 2021-01-28 06:32 | XRay Report ---
CHEST 1 VIEW INDICATION: follow up respiratory failure COMPARISON: One day prior. FINDINGS: Support devices: Unchanged. Heart: Stable. Lungs/Pleura: No acute pulmonary or pleural findings. IMPRESSION: 1. No acute disease and no interval change. Signer Name: Marcin Faust MD Signed: 01/28/2021 6:27 AM Workstation Name: [id number]
[2021-01-28] MEDS: ASPIRIN 325 MG TAB PO SCH (09:27)
[2021-01-28] MEDS: FAMOTIDINE 20 MG/2 ML INJ IV SCH ×2 (09:28→21:09)
[2021-01-28] MEDS: SENNOSIDES/DOCUSATE SODIUM 8.6/50 MG TAB FEEDTUBE SCH ×2 (09:28→22:00)
[2021-01-28] MEDS: VALPROATE SODIUM 500 MG in SODIUM CHLORIDE 0.9% 100 ML IV SCH ×2 (09:29→21:09)
[2021-01-28] MEDS: HEPARIN 5,000 UNIT/1 ML VIAL SUB-Q SCH ×2 (09:29→21:09)
[2021-01-28] MEDS ORDERED: amLODIPine 10 MG TAB PO SCH (10:00)
[2021-01-28] MEDS ORDERED: amLODIPine 5 MG TAB PO SCH ×2 (10:00→11:39)
--- NOTE | 2021-01-28 11:36 | Progress Note ---
Assessment and Plan - Patient Problems (1) Cardiac arrest Current Visit: Yes Status: Acute (2) Respiratory failure Current Visit: No Status: Acute Qualifiers: Chronicity: acute Respiratory failure complication: hypoxia Qualified Code(s): J96.01 - Acute respiratory failure with hypoxia (3) Sepsis Current Visit: No Status: Acute Qualifiers: Sepsis type: sepsis due to unspecified organism Sepsis acute organ dy sfunction status: unspecified Qualified Code(s): A41.9 - Sepsis, unspecified organism Subjective Date of service: 01/28/21 Principal diagnosis: Cardiac arrest; Ac hypoxemic resp failure; Septic Shock; UTI; AMS; ESRD Interval history: UNRESPONSIVE Objective Vital Signs Temp Pulse Pulse Pulse Pulse Pulse Resp 01/28/21 11:21 68 12 01/28/21 11:11 67 15 01/28/21 11:00 67 11 L 01/28/21 10:51 68 12 01/28/21 10:41 68 16 01/28/21 10:31 67 13 01/28/21 10:21 67 15 01/28/21 10:11 68 19 01/28/21 10:00 69 12 01/28/21 09:51 68 12 01/28/21 09:41 68 12 01/28/21 09:31 68 13 01/28/21 09:28 68 01/28/21 09:20 68 12 01/28/21 09:10 69 12 01/28/21 09:00 69 12 01/28/21 08:51 68 12 01/28/21 08:41 68 11 L 01/28/21 08:31 68 12 01/28/21 08:21 68 12 01/28/21 08:10 69 11 L 01/28/21 08:00 97 F L 68 68 68 64 64 14 01/28/21 07:50 68 12 01/28/21 07:41 67 12 01/28/21 07:31 67 11 L 01/28/21 07:21 67 11 L 01/28/21 07:11 68 12 01/28/21 07:00 98.9 F 66 12 01/28/21 06:51 66 12 01/28/21 06:41 66 12 01/28/21 06:31 66 11 L 01/28/21 06:21 65 12 01/28/21 06:11 67 12 01/28/21 06:00 67 11 L 06/04/21 05:51 66 19 01/28/21 05:40 66 13 01/28/21 05:31 66 15 01/28/21 05:21 67 15 01/28/21 05:11 67 15 01/28/21 05:00 66 13 01/28/21 04:51 67 12 01/28/21 04:41 66 12 01/28/21 04:31 66 12 01/28/21 04:21 66 12 01/28/21 04:11 66 11 L 01/28/21 04:00 68 67 12 01/28/21 03:51 66 11 L 01/28/21 03:41 66 14 01/28/21 03:31 64 12 01/28/21 03:21 98.9 F 70 11 L 01/28/21 03:11 69 12 01/28/21 03:00 69 12 01/28/21 02:51 68 11 L 01/28/21 02:41 67 11 L 01/28/21 02:31 68 12 01/28/21 02:21 67 12 01/28/21 02:11 69 13 01/28/21 02:00 67 12 01/28/21 01:51 67 11 L 01/28/21 01:41 67 14 01/28/21 01:31 67 12 01/28/21 01:21 68 12 01/28/21 01:11 67 12 01/28/21 01:00 67 11 L 01/28/21 00:51 68 13 01/28/21 00:41 67 11 L 01/28/21 00:31 67 13 01/28/21 00:21 68 10 L 01/28/21 00:11 67 14 01/28/21 00:00 67 67 11 L 01/27/21 23:56 97.4 F L 01/27/21 23:51 65 12 01/27/21 23:49 66 01/27/21 23:41 66 12 01/27/21 23:31 67 13 01/27/21 23:21 67 12 01/27/21 23:11 68 11 L 01/27/21 23:00 66 13 01/27/21 22:51 66 12 01/27/21 22:41 66 10 L 01/27/21 22:31 67 12 01/27/21 22:21 66 11 L 01/27/21 22:11 67 12 01/27/21 22:00 68 13 01/27/21 21:51 68 12 01/27/21 21:41 69 12 01/27/21 21:31 68 12 01/27/21 21:21 68 11 L 01/27/21 21:10 68 12 01/27/21 21:00 67 11 L 01/27/21 20:51 69 12 01/27/21 20:41 68 12 01/27/21 20:31 67 12 01/27/21 20:21 69 14 01/27/21 20:11 68 12 01/27/21 20:06 69 01/27/21 20:00 67 67 11 L 01/27/21 19:51 67 12 01/27/21 19:50 99.4 F 01/27/21 19:41 68 12 01/27/21 19:31 68 11 L 01/27/21 19:21 68 11 L 01/27/21 19:11 68 12 01/27/21 19:01 67 11 L 01/27/21 19:00 67 12 01/27/21 18:51 67 12 01/27/21 18:41 68 11 L 01/27/21 18:31 68 11 L 01/27/21 18:21 67 12 01/27/21 18:11 69 12 01/27/21 18:00 68 12 01/27/21 17:51 68 11 L 01/27/21 17:41 68 12 01/27/21 17:39 70 01/27/21 17:31 68 12 01/27/21 17:21 68 12 01/27/21 17:11 68 12 01/27/21 17:00 68 12 01/27/21 16:51 68 12 01/27/21 16:41 68 12 01/27/21 16:31 69 12 01/27/21 16:21 69 9 L 01/27/21 16:11 69 11 L 01/27/21 16:01 69 11 L 01/27/21 16:00 99 F 69 69 12 01/27/21 15:51 70 12 01/27/21 15:41 70 10 L 01/27/21 15:31 70 12 01/27/21 15:21 70 12 01/27/21 15:11 72 13 01/27/21 15:01 70 12 01/27/21 14:51 70 12 01/27/21 14:41 70 12 01/27/21 14:30 71 12 01/27/21 14:21 71 12 01/27/21 14:11 70 12 01/27/21 14:00 72 12 01/27/21 13:51 72 12 01/27/21 13:50 74 01/27/21 13:41 72 12 01/27/21 13:30 73 12 01/27/21 13:21 79 16 01/27/21 13:11 77 16 01/27/21 13:09 77 13 01/27/21 12:01 74 15 01/27/21 12:00 99 F 74 01/27/21 11:51 74 18 01/27/21 11:41 75 38 H BP Pulse Ox 01/28/21 11:21 179/75 100 01/28/21 11:11 179/75 100 01/28/21 11:00 179/75 100 01/28/21 10:51 165/78 100 01/28/21 10:41 165/78 100 01/28/21 10:31 165/78 100 01/28/21 10:21 165/78 100 01/28/21 10:11 165/78 100 01/28/21 10:00 165/78 100 01/28/21 09:51 163/77 100 01/28/21 09:41 163/77 100 01/28/21 09:31 163/77 100 01/28/21 09:28 163/77 01/28/21 09:20 163/77 100 01/28/21 09:10 163/77 100 01/28/21 09:00 163/77 100 01/28/21 08:51 157/75 100 01/28/21 08:41 157/75 100 01/28/21 08:31 157/75 100 01/28/21 08:21 157/75 100 01/28/21 08:10 157/75 100 01/28/21 08:00 157/75 100 01/28/21 07:50 163/74 100 01/28/21 07:41 163/74 100 01/28/21 07:31 163/74 100 01/28/21 07:21 163/74 100 01/28/21 07:11 163/74 100 06 07:00 163/74 100 06 06:51 163/73 100 06 06:41 163/73 100 01/28/21 06:31 148/68 100 0604 06:21 148/68 100 01/28/21 06:11 148/68 100 06 06:00 148/68 100 06 05:51 173/75 100 01/28/21 05:40 173/75 100 06 05:31 177/72 99 01/28/21 05:21 177/72 99 06 05:11 174/75 100 06 05:00 174/75 100 01/28/21 04:51 168/74 100 06 04:41 168/74 100 01/28/21 04:31 168/74 100 06 04:21 168/74 100 06 04:11 168/74 100 01/28/21 04:00 168/74 100 01/28/21 03:51 144/65 100 01/28/21 03:41 144/65 100 01/28/21 03:31 144/65 100 01/28/21 03:21 144/65 99 01/28/21 03:11 144/65 98 01/28/21 03:00 144/65 99 01/28/21 02:51 155/68 100 06 02:41 155/68 100 06 02:31 155/68 100 06 02:21 155/68 100 01/28/21 02:11 155/68 100 01/28/21 02:00 155/68 99 01/28/21 01:51 158/72 100 0604 01:41 158/72 100 0604 01:31 158/72 100 01/28/21 01:21 158/72 100 06 01:11 158/72 100 01/28/21 01:00 158/72 100 06 00:51 153/67 100 06 00:41 153/67 100 06 00:31 153/67 100 01/28/21 00:21 153/67 100 01/28/21 00:11 153/67 100 01/28/21 00:00 153/67 100 01/27/21 23:56 06 23:51 149/66 99 01/27/21 23:49 149/66 100 01/27/21 23:41 149/66 100 01/27/21 23:31 149/66 100 01/27/21 23:21 149/66 100 01/27/21 23:11 149/66 100 01/27/21 23:00 149/66 100 01/27/21 22:51 162/69 100 01/27/21 22:41 162/69 100 01/27/21 22:31 162/69 100 01/27/21 22:21 162/69 100 01/27/21 22:11 162/69 100 01/27/21 22:00 162/69 100 01/27/21 21:51 157/73 100 01/27/21 21:41 157/73 100 01/27/21 21:31 157/73 100 01/27/21 21:21 157/73 100 01/27/21 21:10 157/73 100 01/27/21 21:00 157/73 100 01/27/21 20:51 158/69 100 01/27/21 20:41 158/69 100 01/27/21 20:31 158/69 100 01/27/21 20:21 158/69 100 01/27/21 20:11 158/69 84 01/27/21 20:06 158/69 100 01/27/21 20:00 158/69 100 01/27/21 19:51 157/67 100 01/27/21 19:50 06 19:41 157/67 100 01/27/21 19:31 157/67 100 01/27/21 19:21 157/67 100 01/27/21 19:11 157/67 100 01/27/21 19:01 157/67 100 01/27/21 19:00 157/67 100 01/27/21 18:51 160/70 100 01/27/21 18:41 160/70 100 06 18:31 160/70 100 01/27/21 18:21 160/70 100 01/27/21 18:11 160/70 100 01/27/21 18:00 160/70 100 01/27/21 17:51 167/65 100 01/27/21 17:41 167/65 100 01/27/21 17:39 156/66 100 01/27/21 17:31 167/65 100 01/27/21 17:21 167/65 100 01/27/21 17:11 167/65 100 01/27/21 17:00 167/65 100 01/27/21 16:51 157/69 100 01/27/21 16:41 157/69 100 01/27/21 16:31 157/69 100 01/27/21 16:21 157/69 100 01/27/21 16:11 156/66 100 01/27/21 16:01 156/66 100 01/27/21 16:00 100 01/27/21 15:51 156/66 100 01/27/21 15:41 156/66 100 01/27/21 15:31 156/66 100 01/27/21 15:21 156/66 100 01/27/21 15:11 156/66 100 01/27/21 15:01 156/66 100 01/27/21 14:51 145/67 100 01/27/21 14:41 145/67 100 01/27/21 14:30 145/67 100 01/27/21 14:21 135/62 100 01/27/21 14:11 135/62 100 01/27/21 14:00 147/65 100 01/27/21 13:51 135/62 100 01/27/21 13:50 102/51 100 01/27/21 13:41 135/62 100 01/27/21 13:30 135/62 100 01/27/21 13:21 102/51 100 01/27/21 13:11 102/51 100 01/27/21 13:09 102/51 01/27/21 12:01 102/51 100 01/27/21 12:00 100 01/27/21 11:51 117/54 100 01/27/21 11:41 117/54 100 - Physical Examination General: Other (unresponsive on the vent) Neck: Positive: neck supple Cardiac: Positive: Reg Rate and Rhythm Lungs: Positive: Decreased Breath Sounds Abdomen: Positive: Soft Extremities: Present: Other (NO EDEMA) - Allied health notes Allied health notes reviewed: nursing (edema pattern improved)
--- NOTE | 2021-01-28 11:56 | Progress Note ---
Assessment and Plan Assessment - End-stage renal disease on hemodialysis - Anemia of ESRD - Acidosis - Cardiac arrest - Acute resp failure, s/p intubation - Septic shock - Acute encephalopathy, suspect anoxic brain injury - Seizure Recommendations - Status post HD daily x 2 days - gentle sessions with no UF, - Patient is scheduled for hemodialysis treatment for today. Keep him on MWF schedule for now. - Monitor labs and volume status daily and assess need for additional dialysis session - Keep MAP>65, vasopressors prn - Epogen with HD once acute issues resolve - Agree with antibiotics - Antiepileptics as per neurology - Renally dose medication for creatinine clearance less than 15 cc/min - Prognosis is guarded - Plan for brain scan noted - Recommend goals of care discussion Subjective Date of service: 01/28/21 Principal diagnosis: Cardiac arrest; Ac hypoxemic resp failure; Septic Shock; UTI; AMS; ESRD Interval history: Patient remains on the ventilator. Currently on 30% FiO2. Unresponsive. Tube feed in progress. Rectal tube in place. Objective - Vital Signs Vital signs: Vital Signs - 12hr 01/27/21 01/28/21 01/28/21 23:56 00:00 00:11 Temperature 97.4 F L Pulse Rate 67 67 Pulse Rate [ 67 From Monitor] Pulse Rate [ Left Dorsalis Pedis] Pulse Rate [ Left Radial] Pulse Rate [ Right Radial] Respiratory 11 L 14 Rate Blood Pressure 153/67 153/67 O2 Sat by Pulse 100 100 Oximetry 01/28/21 01/28/21 01/28/21 00:21 00:31 00:41 Temperature Pulse Rate 68 67 67 Pulse Rate [ From Monitor] Pulse Rate [ Left Dorsalis Pedis] Pulse Rate [ Left Radial] Pulse Rate [ Right Radial] Respiratory 10 L 13 11 L Rate Blood Pressure 153/67 153/67 153/67 O2 Sat by Pulse 100 100 100 Oximetry 01/28/21 01/28/21 01/28/21 00:51 01:00 01:11 Temperature Pulse Rate 68 67 67 Pulse Rate [ From Monitor] Pulse Rate [ Left Dorsalis Pedis] Pulse Rate [ Left Radial] Pulse Rate [ Right Radial] Respiratory 13 11 L 12 Rate Blood Pressure 153/67 158/72 158/72 O2 Sat by Pulse 100 100 100 Oximetry 01/28/21 01/28/21 01/28/21 01:21 01:31 01:41 Temperature Pulse Rate 68 67 67 Pulse Rate [ From Monitor] Pulse Rate [ Left Dorsalis Pedis] Pulse Rate [ Left Radial] Pulse Rate [ Right Radial] Respiratory 12 12 14 Rate Blood Pressure 158/72 158/72 158/72 O2 Sat by Pulse 100 100 100 Oximetry 01/28/21 01/28/21 01/28/21 01:51 02:00 02:11 Temperature Pulse Rate 67 67 69 Pulse Rate [ From Monitor] Pulse Rate [ Left Dorsalis Pedis] Pulse Rate [ Left Radial] Pulse Rate [ Right Radial] Respiratory 11 L 12 13 Rate Blood Pressure 158/72 155/68 155/68 O2 Sat by Pulse 100 99 100 Oximetry 01/28/21 01/28/21 01/28/21 02:21 02:31 02:41 Temperature Pulse Rate 67 68 67 Pulse Rate [ From Monitor] Pulse Rate [ Left Dorsalis Pedis] Pulse Rate [ Left Radial] Pulse Rate [ Right Radial] Respiratory 12 12 11 L Rate Blood Pressure 155/68 155/68 155/68 O2 Sat by Pulse 100 100 100 Oximetry 01/28/21 01/28/21 01/28/21 02:51 03:00 03:11 Temperature Pulse Rate 68 69 69 Pulse Rate [ From Monitor] Pulse Rate [ Left Dorsalis Pedis] Pulse Rate [ Left Radial] Pulse Rate [ Right Radial] Respiratory 11 L 12 12 Rate Blood Pressure 155/68 144/65 144/65 O2 Sat by Pulse 100 99 98 Oximetry 01/28/21 01/28/21 01/28/21 03:21 03:31 03:41 Temperature 98.9 F Pulse Rate 70 64 66 Pulse Rate [ From Monitor] Pulse Rate [ Left Dorsalis Pedis] Pulse Rate [ Left Radial] Pulse Rate [ Right Radial] Respiratory 11 L 12 14 Rate Blood Pressure 144/65 144/65 144/65 O2 Sat by Pulse 99 100 100 Oximetry 01/28/21 01/28/21 01/28/21 03:51 04:00 04:11 Temperature Pulse Rate 66 68 66 Pulse Rate [ 67 From Monitor] Pulse Rate [ Left Dorsalis Pedis] Pulse Rate [ Left Radial] Pulse Rate [ Right Radial] Respiratory 11 L 12 11 L Rate Blood Pressure 144/65 168/74 168/74 O2 Sat by Pulse 100 100 100 Oximetry 01/28/21 01/28/21 01/28/21 04:21 04:31 04:41 Temperature Pulse Rate 66 66 66 Pulse Rate [ From Monitor] Pulse Rate [ Left Dorsalis Pedis] Pulse Rate [ Left Radial] Pulse Rate [ Right Radial] Respiratory 12 12 12 Rate Blood Pressure 168/74 168/74 168/74 O2 Sat by Pulse 100 100 100 Oximetry 01/28/21 01/28/21 01/28/21 04:51 05:00 05:11 Temperature Pulse Rate 67 66 67 Pulse Rate [ From Monitor] Pulse Rate [ Left Dorsalis Pedis] Pulse Rate [ Left Radial] Pulse Rate [ Right Radial] Respiratory 12 13 15 Rate Blood Pressure 168/74 174/75 174/75 O2 Sat by Pulse 100 100 100 Oximetry 01/28/21 01/28/21 01/28/21 05:21 05:31 05:40 Temperature Pulse Rate 67 66 66 Pulse Rate [ From Monitor] Pulse Rate [ Left Dorsalis Pedis] Pulse Rate [ Left Radial] Pulse Rate [ Right Radial] Respiratory 15 15 13 Rate Blood Pressure 177/72 177/72 173/75 O2 Sat by Pulse 99 99 100 Oximetry 01/28/21 01/28/21 01/28/21 05:51 06:00 06:11 Temperature Pulse Rate 66 67 67 Pulse Rate [ From Monitor] Pulse Rate [ Left Dorsalis Pedis] Pulse Rate [ Left Radial] Pulse Rate [ Right Radial] Respiratory 19 11 L 12 Rate Blood Pressure 173/75 148/68 148/68 O2 Sat by Pulse 100 100 100 Oximetry 01/28/21 01/28/21 01/28/21 06:21 06:31 06:41 Temperature Pulse Rate 65 66 66 Pulse Rate [ From Monitor] Pulse Rate [ Left Dorsalis Pedis] Pulse Rate [ Left Radial] Pulse Rate [ Right Radial] Respiratory 12 11 L 12 Rate Blood Pressure 148/68 148/68 163/73 O2 Sat by Pulse 100 100 100 Oximetry 01/28/21 01/28/21 01/28/21 06:51 07:00 07:11 Temperature 98.9 F Pulse Rate 66 66 68 Pulse Rate [ From Monitor] Pulse Rate [ Left Dorsalis Pedis] Pulse Rate [ Left Radial] Pulse Rate [ Right Radial] Respiratory 12 12 12 Rate Blood Pressure 163/73 163/74 163/74 O2 Sat by Pulse 100 100 100 Oximetry 01/28/21 01/28/21 01/28/21 07:21 07:31 07:41 Temperature Pulse Rate 67 67 67 Pulse Rate [ From Monitor] Pulse Rate [ Left Dorsalis Pedis] Pulse Rate [ Left Radial] Pulse Rate [ Right Radial] Respiratory 11 L 11 L 12 Rate Blood Pressure 163/74 163/74 163/74 O2 Sat by Pulse 100 100 100 Oximetry 01/28/21 01/28/21 01/28/21 07:50 08:00 08:10 Temperature 97 F L Pulse Rate 68 68 69 Pulse Rate [ 68 From Monitor] Pulse Rate [ 68 Left Dorsalis Pedis] Pulse Rate [ 64 Left Radial] Pulse Rate [ 64 Right Radial] Respiratory 12 14 11 L Rate Blood Pressure 163/74 157/75 157/75 O2 Sat by Pulse 100 100 100 Oximetry 01/28/21 01/28/21 01/28/21 08:21 08:31 08:41 Temperature Pulse Rate 68 68 68 Pulse Rate [ From Monitor] Pulse Rate [ Left Dorsalis Pedis] Pulse Rate [ Left Radial] Pulse Rate [ Right Radial] Respiratory 12 12 11 L Rate Blood Pressure 157/75 157/75 157/75 O2 Sat by Pulse 100 100 100 Oximetry 01/28/21 01/28/21 01/28/21 08:51 09:00 09:10 Temperature Pulse Rate 68 69 69 Pulse Rate [ From Monitor] Pulse Rate [ Left Dorsalis Pedis] Pulse Rate [ Left Radial] Pulse Rate [ Right Radial] Respiratory 12 12 12 Rate Blood Pressure 157/75 163/77 163/77 O2 Sat by Pulse 100 100 100 Oximetry 01/28/21 01/28/21 01/28/21 09:20 09:28 09:31 Temperature Pulse Rate 68 68 68 Pulse Rate [ From Monitor] Pulse Rate [ Left Dorsalis Pedis] Pulse Rate [ Left Radial] Pulse Rate [ Right Radial] Respiratory 12 13 Rate Blood Pressure 163/77 163/77 163/77 O2 Sat by Pulse 100 100 Oximetry 01/28/21 01/28/21 01/28/21 09:41 09:51 10:00 Temperature Pulse Rate 68 68 69 Pulse Rate [ From Monitor] Pulse Rate [ Left Dorsalis Pedis] Pulse Rate [ Left Radial] Pulse Rate [ Right Radial] Respiratory 12 12 12 Rate Blood Pressure 163/77 163/77 165/78 O2 Sat by Pulse 100 100 100 Oximetry 01/28/21 01/28/21 01/28/21 10:11 10:21 10:31 Temperature Pulse Rate 68 67 67 Pulse Rate [ From Monitor] Pulse Rate [ Left Dorsalis Pedis] Pulse Rate [ Left Radial] Pulse Rate [ Right Radial] Respiratory 19 15 13 Rate Blood Pressure 165/78 165/78 165/78 O2 Sat by Pulse 100 100 100 Oximetry 01/28/21 01/28/21 01/28/21 10:41 10:51 11:00 Temperature Pulse Rate 68 68 67 Pulse Rate [ From Monitor] Pulse Rate [ Left Dorsalis Pedis] Pulse Rate [ Left Radial] Pulse Rate [ Right Radial] Respiratory 16 12 11 L Rate Blood Pressure 165/78 165/78 179/75 O2 Sat by Pulse 100 100 100 Oximetry 01/28/21 01/28/21 01/28/21 11:11 11:21 11:38 Temperature 97.9 F Pulse Rate 67 68 Pulse Rate [ From Monitor] Pulse Rate [ Left Dorsalis Pedis] Pulse Rate [ Left Radial] Pulse Rate [ Right Radial] Respiratory 15 12 Rate Blood Pressure 179/75 179/75 O2 Sat by Pulse 100 100 Oximetry - General Appearance General appearance: well-developed, well-nourished, appears stated age, intubated EENT: PERRL, mucous membranes moist Neck: no JVD, no thyromegaly, no carotid bruit, supple, other (Left IJ PermCath in place) Respiratory: Present: Clear to Ascultation Cardiology: regular, normal heart rate, S1S2, no murmurs Gastrointestinal: normal, normoactive bowel sounds Integumentary: other (Right below-knee amputation. No edema.) - Lab 01/27/21 04:39 01/27/21 04:39 Most recent lab results ABG pH 7.369 (7.320-7.450) 01/28/21 03:14 ABG O2 Saturation 97.9 (0-100) 01/28/21 03:14 Calcium 7.1 mg/dL (8.4-10.2) L 01/27/21 04:39 Magnesium 2.30 mg/dL (1.7-2.3) 01/25/21 08:13 Medications & Allergies - Medications Allergies/Adverse Reactions: Allergies No Known Allergies Allergy (Verified 01/25/21 07:55) Home Medications: Home Medications Medication Instructions Recorded Confirmed Last Taken Type Atorvastatin [Lipitor] 40 mg PO QHS 09/28/17 01/27/21 Unknown History Omeprazole 20 mg PO BID 09/28/17 01/27/21 Unknown History Vit B Comp No.3/Folic/C/Biotin 1 tab PO DAILY 09/28/17 01/27/21 Unknown History [[employer] Tablet] amLODIPine 10 mg PO DAILY 09/28/17 01/27/21 Unknown History carvediloL [Coreg] 12.5 mg PO BID 09/28/17 01/27/21 Unknown History Albuterol Mdi (or & Nicu Only) 2 puff IH QID PRN 05/01/19 01/27/21 Unknown History [ProAir HFA Inhaler] Gabapentin 300 mg PO Q8HR 05/01/19 01/27/21 Unknown History Latanoprost 0.005% 1 drop OP QPM 05/01/19 01/27/21 Unknown History lisinopriL [Zestril TAB] 40 mg PO QDAY 05/01/19 01/27/21 Unknown History Active Medications: Generic Name Dose Route Start Last Admin Trade Name Freq PRN Reason Stop Dose Admin Acetaminophen 650 mg 01/26/21 03:47 01/26/21 04:52 Acetaminophen 325 Mg/10.15 Ml Oral Liqd Unit Dose FEEDTUBE 650 mg Q6H PRN Administration Non Cardiac Pain or Temp>100.5 Albuterol 2.5 mg 01/25/21 12:47 Albuterol 2.5 Mg/3 Ml Nebu IH Q3HRT PRN Shortness Of Breath Amlodipine Besylate 5 mg 01/28/21 12:40 Amlodipine 5 Mg Tab PO 01/28/21 12:41 ONCE ONE Amlodipine Besylate 10 mg 01/29/21 10:00 Amlodipine 10 Mg Tab PO QDAY [facility] Lipase/Protease/Amylase 1 each 01/26/21 08:55 Lipase 10,500/Protease 25,000/Amylase 43,750 (Units) Dr Langley FEEDTUBE PRN PRN For Clogged Feeding Tube Aspirin 325 mg 01/26/21 11:00 01/28/21 09:27 Aspirin 325 Mg Tab PO 325 mg QDAY JOHANA Administration Atorvastatin Calcium 40 mg 01/26/21 22:00 01/27/21 21:54 Atorvastatin 40 Mg Tab PO 40 mg QHS JOHANA Administration Dextrose 50 ml 01/26/21 08:00 Dextrose 50% In Water (25gm) 50 Ml Syringe IV Q30MIN PRN Hypoglycemia Protocol Famotidine 10 mg 01/25/21 19:41 01/28/21 09:28 Famotidine 20 Mg/2 Ml Inj IV 10 mg BID JOHANA Administration Fentanyl 50 mcg 01/26/21 14:00 Fentanyl 100 Mcg/2 Ml Inj IV Q2H PRN Pain , Severe (7-10) Heparin Sodium (Porcine) 5,000 unit 01/25/21 22:00 01/28/21 09:29 Heparin 5,000 Unit/1 Ml Vial SUB-Q 5,000 unit Q12HR JOHANA Administration Hydralazine HCl 10 mg 01/28/21 11:39 Hydralazine 20 Mg/1 Ml Inj IV Q4HR PRN Hypertension Hydrophilic Ointment 1 applic 01/25/21 08:08 Lip Therapy Vaseline TP Q2HR PRN Dry Lips Dopamine HCl/Dextrose 800 mg in 250 mls @ 2.363 mls/hr 01/25/21 08:30 01/25/21 19:00 Intropin Drip 800 Mg/D5w 250 Ml IV 01/29/21 18:17 0 mcg/kg/min TITR ONE 0 mls/hr Titration Protocol 2 MCG/KG/MIN Sodium Chloride 100 mls @ 999 mls/hr 01/25/21 15:37 Nacl 0.9% IV KIMBERLY PRN Hypotension Valproate Sodium 500 mg/ 105 mls @ 100 mls/hr 01/26/21 11:00 01/28/21 09:29 Sodium Chloride IV 100 mls/hr Q12HR JOHANA Administration Cefepime HCl 1 gm in 100 mls @ 200 mls/hr 01/26/21 18:00 01/27/21 18:35 Cefepime/Ns 1 Gm/100 Ml IV Infused QPM JOHANA Infusion Protocol Propofol 1,000 mg in 100 mls @ 1.89 mls/hr 01/26/21 14:00 01/28/21 04:42 Diprivan 10 Mg/Ml IV 5 mcg/kg/min TITR JOHANA 1.89 mls/hr Titration Protocol 5 MCG/KG/MIN Norepinephrine 4 mg in 250 mls @ 7.5 mls/hr 01/27/21 08:00 01/27/21 08:30 Levophed Drip 4 Mg/Ns 250 Ml IV 0 mcg/min TITR JOHANA 0 mls/hr Titration Protocol 2 MCG/MIN Insulin Human Regular 0 units 01/26/21 12:00 01/28/21 06:35 Insulin Regular, Human 100 Units/1 Ml SUB-Q Not Given Q6H JOHANA Protocol Latanoprost 1 drops 01/26/21 18:00 01/27/21 18:12 Latanoprost 0.005% Ophth Soln 2.5 Ml OU 1 drops QPM JOHANA Administration Multi-Ingred Cream/Lotion/Oil/Oint 1 applic 01/25/21 08:08 Mineral Oil/Petrolatum, White Ophth Oint 3.5 Gm OU Q4HR PRN Dry Eye(s) Senna/Docusate Sodium 1 tab 01/25/21 10:00 01/28/21 09:28 Sennosides/Docusate Sodium 8.6/50 Mg Tab FEEDTUBE 1 tab BID JOHANA Administration Simple Syrup 15 ml 01/26/21 08:55 Simple Syrup 15 Ml FEEDTUBE PRN PRN Hypoglycemia Simple Syrup 30 ml 01/26/21 08:55 Simple Syrup 15 Ml FEEDTUBE PRN PRN Hypoglycemia Sodium Bicarbonate 325 mg 01/26/21 08:55 Sodium Bicarbonate 325 Mg Tab FEEDTUBE PRN PRN For Clogged Feeding Tube Sodium Chloride 10 ml 01/25/21 22:00 01/28/21 09:29 Sodium Chloride 0.9% 10 Ml Flush Syringe IV 10 ml BID JOHANA Administration Sodium Chloride 10 ml 01/25/21 12:47 Sodium Chloride 0.9% 10 Ml Flush Syringe IV PRN PRN LINE FLUSH
--- NOTE | 2021-01-28 12:22 | Progress Note ---
Assessment and Plan Cultures: COVID-19 PCR: Negative Hepatitis serologies: Positive for hepatitis C antibody 01/25/2021 tracheal aspirate: In process 01/25/2021 blood culture: No growth 01/25/2021 urine culture: No growth MRSA nasal PCR: positive A/P: 65/M with hypertension, diabetes, ESRD on HD, malnutrition, gastroesophageal reflux disease, tobacco abuse: #Shock, status post cardiac arrest, sepsis: Source of sepsis could be possible UTI given significant pyuria, aspiration. Rule out bacteremia due to indwelling HD catheter. Off pressors. #ESRD on HD: Renally dose antibiotics. #Acute respiratory failure: On mechanical ventilation. #Acute encephalopathy, possible seizures: Neurology following, concern for anoxic brain injury. #Hepatitis C: unknown status. Can f/u outpt. Recs: -continue renally dosed cefepime, vancomycin, stop in 2 days -f/u cultures, no growth so far Giovanni Roa MD, FACP [facility] O: [phone] F: [phone] Subjective Date of service: 01/28/21 Principal diagnosis: Cardiac arrest; Ac hypoxemic resp failure; Septic Shock; UTI; AMS; ESRD Interval history: Afebrile. Remains on the vent. Not on pressors. Objective - Exam Narrative Exam: Physical Exam: Constitutional: unresponsive, intubated, on the vent Head, Ears, Nose: Normocephalic, atraumatic. External ears, nose normal Eyes: Conjunctivae/corneas clear. No icterus. No ptosis. 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 HD cath + Skin: No rash or abscess Hem/Lymphatic: No palpable cervical or supraclavicular nodes. No lymphangitis Psych: no agitation Neurological: unresponsive, intubated, on the vent, exam limited - Constitutional Vitals: Vital Signs Temp Pulse Resp BP Pulse Ox 97.9 F 68 12 179/75 100 01/28/21 11:38 01/28/21 11:21 01/28/21 11:21 01/28/21 11:21 01/28/21 11:21 Temperature -Last 24 Hours Temperature 97.9 F Temperature 97 F Temperature 98.9 F Temperature 98.9 F Temperature 97.4 F Temperature 99.4 F Temperature 99 F - Labs CBC & Chem 7: 01/27/21 04:39 01/27/21 04:39 Labs: Abnormal lab results 01/27/21 01/27/21 01/28/21 Range/Units 18:10 23:22 03:14 POC ABG pCO2 48.6 H (32.0-48.0) mmHg ABG Hemoglobin 8.1 L (12.0-17.5) ABG Glucose 140 H (65-95) mg/dL Carboxyhemoglobin 1.7 H (0.5-1.5) POC Glucose 122 H 134 H (70-105) mg/dL Arterial Blood Glucose 140 H (65-95) mg/dL Arterial Blood Ionized Calcium 4.1 L (4.6-5.3) mg/dL
[2021-01-28] MEDS ORDERED: amLODIPine 5 MG TAB PO ONE (12:40)
--- NOTE | 2021-01-28 13:39 | Progress Note ---
Assessment and Plan Cardiac arrest with return of spontaneous circulation. Acute hypoxemic respiratory failure, on mechanical ventilatory support. Severe sepsis with shock Urinary tract infection. ESRD on dialysis. Acute toxic metabolic encephalopathy, possibly anoxic. Anemia that is normocytic. Hypercapnia Leukocytosis. Hyperkalemia. NSTEMI DM II Congestive heart failure. Gastroesophageal reflux disease. Oropharyngeal dysphagia (Discussed very poor prognosis with his at bedside requested a substituted judgment as to wether he would want a tracheostomy and watchful waiting knowing the poor prognosis or perhaps hospice / comfort care. She states she has to discuss with their son and daughter. I also discussed likely brain flow scan evaluation in am and the consequences of a positive flow scan confirming brain ) - NM Brain flow scan ordered - continue to wean Levophed for target MAP > 65 mmHg - await further family input - continue care as below otherwise; - continue on AED's (Keppra, dilantin) - keep set rate at 12/min - complete AB's per ID recommendations (Cefepime & Vancomycin) - continue to wean supplemental oxygen for target O2 sat's > 90% acutely - VAP bundle addressed - continue lung protective strategies - continue bronchodilators with pulmonary hygiene per RT - Daily SAT and SBT assessment as tolerated - wean per pulmonary driven protocols otherwise - continue accuchecks with glycemic control per SSI (While critically ill target blood glucose of 140-180 mg/dL; avoid hypoglycemia) - sedation prn for target RASS 0 to -1 - continue HD/UF for toxin and volume clearance - avoid nephrotoxins, renally dose all medications - avoid benzodiazepine's if possible, reduce the possibility of delirium - prn analgesia per CPOT score - Maintenance of sleep-wake cycle, avoid delirium - continue enteral nutritional support at goal rate as tolerated - G.I. & VTE prophylaxis - PT/OT/ROM exercises - continue mobility protocols for pressure ulcer prophylaxis - Monitor hemodynamics closely - continue other care per attending / other consultants - discharge planning ongoing concurrently .... Re-evaluate in am & prn CONDITION: CRITICAL PROGNOSIS: GUARDED CODE STATUS: FULL CODE The high probability of a clinically significant, sudden or life-threatening deterioration of the [respiratory, cardiovascular, GI & neurologic] system(s) required my full and direct attention, intervention and personal management. The aggregate critical care time was [32] minutes without overlap. Time includes spent on; [x] Data Review and interpretation [x] Patient assessment and monitoring of vital signs [x] Documentation [x] Medication orders and management Subjective Date of service: 01/28/21 Principal diagnosis: Cardiac arrest; Ac hypoxemic resp failure; Septic Shock; UTI; AMS; ESRD Interval history: Patient is seen today for: Cardiac arrest with ROSC; Acute hypoxemic respiratory failure; Septic Shock; UTI; ESRD on dialysis; Acute toxic metabolic encephalopathy, possibly anoxic; NSTEMI; CHF Seen and examined at bedside; 24hour events reviewed; nursing and respiratory care staff consulted; no adverse overnight events reported to me; resting peacefully in bed; remains on MVS; AMS is persistent; NM brain flow scan ordered today Objective Vital Signs - 12hr 01/28/21 01/28/21 01/28/21 01:41 01:51 02:00 Temperature Pulse Rate 67 67 67 Pulse Rate [ From Monitor] Pulse Rate [ Left Dorsalis Pedis] Pulse Rate [ Left Radial] Pulse Rate [ Right Radial] Respiratory 14 11 L 12 Rate Blood Pressure 158/72 158/72 155/68 O2 Sat by Pulse 100 100 99 Oximetry 01/28/21 01/28/21 01/28/21 02:11 02:21 02:31 Temperature Pulse Rate 69 67 68 Pulse Rate [ From Monitor] Pulse Rate [ Left Dorsalis Pedis] Pulse Rate [ Left Radial] Pulse Rate [ Right Radial] Respiratory 13 12 12 Rate Blood Pressure 155/68 155/68 155/68 O2 Sat by Pulse 100 100 100 Oximetry 01/28/21 01/28/21 01/28/21 02:41 02:51 03:00 Temperature Pulse Rate 67 68 69 Pulse Rate [ From Monitor] Pulse Rate [ Left Dorsalis Pedis] Pulse Rate [ Left Radial] Pulse Rate [ Right Radial] Respiratory 11 L 11 L 12 Rate Blood Pressure 155/68 155/68 144/65 O2 Sat by Pulse 100 100 99 Oximetry 01/28/21 01/28/21 01/28/21 03:11 03:21 03:31 Temperature 98.9 F Pulse Rate 69 70 64 Pulse Rate [ From Monitor] Pulse Rate [ Left Dorsalis Pedis] Pulse Rate [ Left Radial] Pulse Rate [ Right Radial] Respiratory 12 11 L 12 Rate Blood Pressure 144/65 144/65 144/65 O2 Sat by Pulse 98 99 100 Oximetry 01/28/21 01/28/21 01/28/21 03:41 03:51 04:00 Temperature Pulse Rate 66 66 68 Pulse Rate [ 67 From Monitor] Pulse Rate [ Left Dorsalis Pedis] Pulse Rate [ Left Radial] Pulse Rate [ Right Radial] Respiratory 14 11 L 12 Rate Blood Pressure 144/65 144/65 168/74 O2 Sat by Pulse 100 100 100 Oximetry 01/28/21 01/28/21 01/28/21 04:11 04:21 04:31 Temperature Pulse Rate 66 66 66 Pulse Rate [ From Monitor] Pulse Rate [ Left Dorsalis Pedis] Pulse Rate [ Left Radial] Pulse Rate [ Right Radial] Respiratory 11 L 12 12 Rate Blood Pressure 168/74 168/74 168/74 O2 Sat by Pulse 100 100 100 Oximetry 01/28/21 01/28/21 01/28/21 04:41 04:51 05:00 Temperature Pulse Rate 66 67 66 Pulse Rate [ From Monitor] Pulse Rate [ Left Dorsalis Pedis] Pulse Rate [ Left Radial] Pulse Rate [ Right Radial] Respiratory 12 12 13 Rate Blood Pressure 168/74 168/74 174/75 O2 Sat by Pulse 100 100 100 Oximetry 01/28/21 01/28/21 01/28/21 05:11 05:21 05:31 Temperature Pulse Rate 67 67 66 Pulse Rate [ From Monitor] Pulse Rate [ Left Dorsalis Pedis] Pulse Rate [ Left Radial] Pulse Rate [ Right Radial] Respiratory 15 15 15 Rate Blood Pressure 174/75 177/72 177/72 O2 Sat by Pulse 100 99 99 Oximetry 01/28/21 01/28/21 01/28/21 05:40 05:51 06:00 Temperature Pulse Rate 66 66 67 Pulse Rate [ From Monitor] Pulse Rate [ Left Dorsalis Pedis] Pulse Rate [ Left Radial] Pulse Rate [ Right Radial] Respiratory 13 19 11 L Rate Blood Pressure 173/75 173/75 148/68 O2 Sat by Pulse 100 100 100 Oximetry 01/28/21 01/28/21 01/28/21 06:11 06:21 06:31 Temperature Pulse Rate 67 65 66 Pulse Rate [ From Monitor] Pulse Rate [ Left Dorsalis Pedis] Pulse Rate [ Left Radial] Pulse Rate [ Right Radial] Respiratory 12 12 11 L Rate Blood Pressure 148/68 148/68 148/68 O2 Sat by Pulse 100 100 100 Oximetry 01/28/21 01/28/21 01/28/21 06:41 06:51 07:00 Temperature 98.9 F Pulse Rate 66 66 66 Pulse Rate [ From Monitor] Pulse Rate [ Left Dorsalis Pedis] Pulse Rate [ Left Radial] Pulse Rate [ Right Radial] Respiratory 12 12 12 Rate Blood Pressure 163/73 163/73 163/74 O2 Sat by Pulse 100 100 100 Oximetry 01/28/21 01/28/21 01/28/21 07:11 07:21 07:31 Temperature Pulse Rate 68 67 67 Pulse Rate [ From Monitor] Pulse Rate [ Left Dorsalis Pedis] Pulse Rate [ Left Radial] Pulse Rate [ Right Radial] Respiratory 12 11 L 11 L Rate Blood Pressure 163/74 163/74 163/74 O2 Sat by Pulse 100 100 100 Oximetry 01/28/21 01/28/21 01/28/21 07:41 07:50 08:00 Temperature 97 F L Pulse Rate 67 68 68 Pulse Rate [ 68 From Monitor] Pulse Rate [ 68 Left Dorsalis Pedis] Pulse Rate [ 64 Left Radial] Pulse Rate [ 64 Right Radial] Respiratory 12 12 14 Rate Blood Pressure 163/74 163/74 157/75 O2 Sat by Pulse 100 100 100 Oximetry 01/28/21 01/28/21 01/28/21 08:10 08:21 08:31 Temperature Pulse Rate 69 68 68 Pulse Rate [ From Monitor] Pulse Rate [ Left Dorsalis Pedis] Pulse Rate [ Left Radial] Pulse Rate [ Right Radial] Respiratory 11 L 12 12 Rate Blood Pressure 157/75 157/75 157/75 O2 Sat by Pulse 100 100 100 Oximetry 01/28/21 01/28/21 01/28/21 08:41 08:51 09:00 Temperature Pulse Rate 68 68 69 Pulse Rate [ From Monitor] Pulse Rate [ Left Dorsalis Pedis] Pulse Rate [ Left Radial] Pulse Rate [ Right Radial] Respiratory 11 L 12 12 Rate Blood Pressure 157/75 157/75 163/77 O2 Sat by Pulse 100 100 100 Oximetry 01/28/21 01/28/21 01/28/21 09:10 09:20 09:28 Temperature Pulse Rate 69 68 68 Pulse Rate [ From Monitor] Pulse Rate [ Left Dorsalis Pedis] Pulse Rate [ Left Radial] Pulse Rate [ Right Radial] Respiratory 12 12 Rate Blood Pressure 163/77 163/77 163/77 O2 Sat by Pulse 100 100 Oximetry 01/28/21 01/28/21 01/28/21 09:31 09:41 09:51 Temperature Pulse Rate 68 68 68 Pulse Rate [ From Monitor] Pulse Rate [ Left Dorsalis Pedis] Pulse Rate [ Left Radial] Pulse Rate [ Right Radial] Respiratory 13 12 12 Rate Blood Pressure 163/77 163/77 163/77 O2 Sat by Pulse 100 100 100 Oximetry 01/28/21 01/28/21 01/28/21 10:00 10:11 10:21 Temperature Pulse Rate 69 68 67 Pulse Rate [ From Monitor] Pulse Rate [ Left Dorsalis Pedis] Pulse Rate [ Left Radial] Pulse Rate [ Right Radial] Respiratory 12 19 15 Rate Blood Pressure 165/78 165/78 165/78 O2 Sat by Pulse 100 100 100 Oximetry 01/28/21 01/28/21 01/28/21 10:31 10:41 10:51 Temperature Pulse Rate 67 68 68 Pulse Rate [ From Monitor] Pulse Rate [ Left Dorsalis Pedis] Pulse Rate [ Left Radial] Pulse Rate [ Right Radial] Respiratory 13 16 12 Rate Blood Pressure 165/78 165/78 165/78 O2 Sat by Pulse 100 100 100 Oximetry 01/28/21 01/28/21 01/28/21 11:00 11:11 11:21 Temperature Pulse Rate 67 67 68 Pulse Rate [ From Monitor] Pulse Rate [ Left Dorsalis Pedis] Pulse Rate [ Left Radial] Pulse Rate [ Right Radial] Respiratory 11 L 15 12 Rate Blood Pressure 179/75 179/75 179/75 O2 Sat by Pulse 100 100 100 Oximetry 01/28/21 01/28/21 01/28/21 11:31 11:38 11:41 Temperature 97.9 F Pulse Rate 68 67 Pulse Rate [ From Monitor] Pulse Rate [ Left Dorsalis Pedis] Pulse Rate [ Left Radial] Pulse Rate [ Right Radial] Respiratory 11 L 12 Rate Blood Pressure 179/75 163/73 O2 Sat by Pulse 100 100 Oximetry 01/28/21 01/28/21 01/28/21 11:51 12:00 12:11 Temperature 97.9 F Pulse Rate 70 70 69 Pulse Rate [ 69 From Monitor] Pulse Rate [ 68 Left Dorsalis Pedis] Pulse Rate [ 64 Left Radial] Pulse Rate [ 64 Right Radial] Respiratory 18 12 12 Rate Blood Pressure 163/73 172/76 172/76 O2 Sat by Pulse 100 100 100 Oximetry 01/28/21 01/28/21 01/28/21 12:21 12:30 12:31 Temperature Pulse Rate 70 Pulse Rate [ From Monitor] Pulse Rate [ Left Dorsalis Pedis] Pulse Rate [ Left Radial] Pulse Rate [ Right Radial] Respiratory Rate Blood Pressure 170/75 165/73 179/75 O2 Sat by Pulse 100 100 100 Oximetry 01/28/21 01/28/21 12:41 12:51 Temperature Pulse Rate 69 69 Pulse Rate [ From Monitor] Pulse Rate [ Left Dorsalis Pedis] Pulse Rate [ Left Radial] Pulse Rate [ Right Radial] Respiratory 22 26 H Rate Blood Pressure 165/73 147/71 O2 Sat by Pulse 100 98 Oximetry Constitutional: no acute distress, other (elderly thin male riding set rate on MVS) Eyes: non-icteric ENT: oropharynx moist, other (ETT 24 cm FREDI) Neck: supple, no lymphadenopathy, no JVD Effort: mildly labored Ascultation: Bilateral: diminished breath sounds, rhonchi (scant, bases) Percussion: Bilateral: not dull Cardiovascular: regular rate and rhythm Gastrointestinal: normoactive bowel sounds Integumentary: normal Extremities: no cyanosis, no edema, pulses normal, no ischemia or petechiae Neurologic: pupils equal and round (fixed and dilated), unable to assess Psychiatric: other (unable to assess re: AMS) CBC and BMP: 01/27/21 04:39 01/27/21 04:39 ABG, PT/INR, D-dimer: ABG ABG pH 7.369 (7.320-7.450) 01/28/21 03:14 POC ABG pCO2 48.6 mmHg (32.0-48.0) H 01/28/21 03:14 POC ABG pO2 94.4 mmHg (83-108) 01/28/21 03:14 POC ABG HCO3 27.4 01/28/21 03:14 ABG O2 Saturation 97.9 (0-100) 01/28/21 03:14 PT/INR, D-dimer PT 16.0 Sec. (12.2-14.9) H 01/25/21 08:13 INR 1.28 (0.87-1.13) H 01/25/21 08:13 D-Dimer 8335.22 ng/mlDDU (0-234) H 01/26/21 07:40 Abnormal lab findings: Abnormal Labs 01/25/21 01/25/2121 07:56 08:13 08:13 WBC 11.4 H RBC 2.50 L Hgb 7.3 L Hct 22.2 L RDW 17.5 H Lymph % (Auto) 13.0 L Baso % (Auto) 2.2 H Baso # (Auto) 0.3 H Seg Neutrophils % 81.7 H Seg Neuts % (Manual) Lymphocytes % (Manual) Seg Neutrophils # 9.3 H Seg Neutrophils # Man Lymphocytes # (Manual) PT 16.0 H INR 1.28 H APTT 56.8 H D-Dimer ABG pH POC ABG pCO2 POC ABG pO2 ABG Hemoglobin ABG Oxyhemoglobin ABG Sodium ABG Potassium ABG Chloride ABG Glucose VBG pH Carboxyhemoglobin Sodium Potassium Chloride Carbon Dioxide BUN Creatinine Glucose POC Glucose 139 H Lactic Acid Calcium Ferritin AST ALT Lactate Dehydrogenase Troponin T C-Reactive Protein NT-Pro-B Natriuret Pep Total Protein Albumin Arterial Blood Glucose Arterial Blood Ionized Calcium Urine pH Urine WBC (Auto) Hepatitis C Antibody 01/25/21 01/25/21 01/25/21 08:13 08:13 08:13 WBC RBC Hgb Hct RDW Lymph % (Auto) Baso % (Auto) Baso # (Auto) Seg Neutrophils % Seg Neuts % (Manual) Lymphocytes % (Manual) Seg Neutrophils # Seg Neutrophils # Man Lymphocytes # (Manual) PT INR APTT D-Dimer ABG pH POC ABG pCO2 POC ABG pO2 ABG Hemoglobin ABG Oxyhemoglobin ABG Sodium ABG Potassium ABG Chloride ABG Glucose VBG pH 7.100 L* Carboxyhemoglobin Sodium 135 L Potassium 5.4 H Chloride 92.1 L Carbon Dioxide 21 L BUN Creatinine 4.8 H Glucose 157 H POC Glucose Lactic Acid Calcium Ferritin AST 284 H ALT 85 H Lactate Dehydrogenase Troponin T 0.233 H* C-Reactive Protein NT-Pro-B Natriuret Pep 67436 H Total Protein 5.8 L Albumin 2.5 L Arterial Blood Glucose Arterial Blood Ionized Calcium Urine pH Urine WBC (Auto) Hepatitis C Antibody Reactive A 01/25/21 01/25/21 01/25/21 08:44 16:31 16:57 WBC RBC Hgb Hct RDW Lymph % (Auto) Baso % (Auto) Baso # (Auto) Seg Neutrophils % Seg Neuts % (Manual) Lymphocytes % (Manual) Seg Neutrophils # Seg Neutrophils # Man Lymphocytes # (Manual) PT INR APTT D-Dimer ABG pH 7.174 L 7.572 H 7.608 H POC ABG pCO2 58.4 H 24.4 L 25.2 L POC ABG pO2 109.3 H 41.6 L 257.8 H ABG Hemoglobin 7.7 L 9.3 L 9.4 L ABG Oxyhemoglobin 92.0 L 79.4 L 99.1 H ABG Sodium 133.9 L ABG Potassium 5.4 H 4.6 H ABG Chloride 97.0 L 97.0 L ABG Glucose 157 H 107 H 124 H VBG pH Carboxyhemoglobin 4.3 H 0.3 L Sodium Potassium Chloride Carbon Dioxide BUN Creatinine Glucose POC Glucose Lactic Acid Calcium Ferritin AST ALT Lactate Dehydrogenase Troponin T C-Reactive Protein NT-Pro-B Natriuret Pep Total Protein Albumin Arterial Blood Glucose 157 H 107 H 124 H Arterial Blood Ionized Calcium 4.5 L 4.3 L 4.3 L Urine pH Urine WBC (Auto) Hepatitis C Antibody 01/25/21 01/25/21 01/26/21 23:31 Unknown 03:10 WBC RBC Hgb Hct RDW Lymph % (Auto) Baso % (Auto) Baso # (Auto) Seg Neutrophils % Seg Neuts % (Manual) Lymphocytes % (Manual) Seg Neutrophils # Seg Neutrophils # Man Lymphocytes # (Manual) PT INR APTT D-Dimer ABG pH 7.547 H POC ABG pCO2 31.7 L POC ABG pO2 ABG Hemoglobin 9.2 L ABG Oxyhemoglobin ABG Sodium ABG Potassium ABG Chloride ABG Glucose 108 H VBG pH Carboxyhemoglobin Sodium Potassium Chloride Carbon Dioxide BUN Creatinine Glucose POC Glucose 111 H Lactic Acid Calcium Ferritin AST ALT Lactate Dehydrogenase Troponin T C-Reactive Protein NT-Pro-B Natriuret Pep Total Protein Albumin Arterial Blood Glucose 108 H Arterial Blood Ionized Calcium 4.0 L Urine pH 8.0 H Urine WBC (Auto) > 182.0 H Hepatitis C Antibody 01/26/21 01/26/21 01/26/21 04:00 07:40 07:40 WBC RBC Hgb Hct RDW Lymph % (Auto) Baso % (Auto) Baso # (Auto) Seg Neutrophils % Seg Neuts % (Manual) Lymphocytes % (Manual) Seg Neutrophils # Seg Neutrophils # Man Lymphocytes # (Manual) PT INR APTT D-Dimer 8335.22 H ABG pH POC ABG pCO2 POC ABG pO2 ABG Hemoglobin ABG Oxyhemoglobin ABG Sodium ABG Potassium ABG Chloride ABG Glucose VBG pH Carboxyhemoglobin Sodium Potassium Chloride Carbon Dioxide BUN 27 H Creatinine 4.4 H Glucose 105 H POC Glucose Lactic Acid Calcium 8.1 L Ferritin 1817.0 H AST ALT Lactate Dehydrogenase Troponin T C-Reactive Protein NT-Pro-B Natriuret Pep Total Protein Albumin Arterial Blood Glucose Arterial Blood Ionized Calcium Urine pH Urine WBC (Auto) Hepatitis C Antibody 01/26/21 01/26/21 01/26/21 07:40 07:58 07:58 WBC 16.6 H RBC 3.10 L Hgb 8.9 L Hct 26.7 L RDW 17.4 H Lymph % (Auto) Baso % (Auto) Baso # (Auto) Seg Neutrophils % Seg Neuts % (Manual) 93.0 H Lymphocytes % (Manual) 5.0 L Seg Neutrophils # Seg Neutrophils # Man 15.4 H Lymphocytes # (Manual) 0.8 L PT INR APTT D-Dimer ABG pH POC ABG pCO2 POC ABG pO2 ABG Hemoglobin ABG Oxyhemoglobin ABG Sodium ABG Potassium ABG Chloride ABG Glucose VBG pH Carboxyhemoglobin Sodium Potassium Chloride Carbon Dioxide BUN Creatinine Glucose POC Glucose Lactic Acid 3.20 H* Calcium Ferritin AST ALT Lactate Dehydrogenase 770 H Troponin T C-Reactive Protein 11.00 H NT-Pro-B Natriuret Pep Total Protein Albumin Arterial Blood Glucose Arterial Blood Ionized Calcium Urine pH Urine WBC (Auto) Hepatitis C Antibody 01/26/21 01/26/21 01/26/21 11:29 18:10 23:15 WBC RBC Hgb Hct RDW Lymph % (Auto) Baso % (Auto) Baso # (Auto) Seg Neutrophils % Seg Neuts % (Manual) Lymphocytes % (Manual) Seg Neutrophils # Seg Neutrophils # Man Lymphocytes # (Manual) PT INR APTT D-Dimer ABG pH POC ABG pCO2 POC ABG pO2 ABG Hemoglobin ABG Oxyhemoglobin ABG Sodium ABG Potassium ABG Chloride ABG Glucose VBG pH Carboxyhemoglobin Sodium Potassium Chloride Carbon Dioxide BUN Creatinine Glucose POC Glucose 108 H 149 H 113 H Lactic Acid Calcium Ferritin AST ALT Lactate Dehydrogenase Troponin T C-Reactive Protein NT-Pro-B Natriuret Pep Total Protein Albumin Arterial Blood Glucose Arterial Blood Ionized Calcium Urine pH Urine WBC (Auto) Hepatitis C Antibody 01/27/21 01/27/21 01/27/21 04:39 04:39 05:00 WBC 17.3 H RBC 3.11 L Hgb 8.6 L Hct 27.3 L RDW 18.4 H Lymph % (Auto) Baso % (Auto) Baso # (Auto) Seg Neutrophils % Seg Neuts % (Manual) Lymphocytes % (Manual) Seg Neutrophils # Seg Neutrophils # Man Lymphocytes # (Manual) PT INR APTT D-Dimer ABG pH POC ABG pCO2 POC ABG pO2 ABG Hemoglobin 8.8 L ABG Oxyhemoglobin ABG Sodium ABG Potassium ABG Chloride ABG Glucose 98 H VBG pH Carboxyhemoglobin Sodium Potassium Chloride Carbon Dioxide BUN 23 H Creatinine 3.1 H Glucose POC Glucose Lactic Acid Calcium 7.1 L Ferritin AST ALT Lactate Dehydrogenase Troponin T C-Reactive Protein NT-Pro-B Natriuret Pep Total Protein Albumin Arterial Blood Glucose 98 H Arterial Blood Ionized Calcium 3.9 L Urine pH Urine WBC (Auto) Hepatitis C Antibody 01/27/21 01/27/21 01/27/21 11:30 18:10 23:22 WBC RBC Hgb Hct RDW Lymph % (Auto) Baso % (Auto) Baso # (Auto) Seg Neutrophils % Seg Neuts % (Manual) Lymphocytes % (Manual) Seg Neutrophils # Seg Neutrophils # Man Lymphocytes # (Manual) PT INR APTT D-Dimer ABG pH POC ABG pCO2 POC ABG pO2 ABG Hemoglobin ABG Oxyhemoglobin ABG Sodium ABG Potassium ABG Chloride ABG Glucose VBG pH Carboxyhemoglobin Sodium Potassium Chloride Carbon Dioxide BUN Creatinine Glucose POC Glucose 132 H 122 H 134 H Lactic Acid Calcium Ferritin AST ALT Lactate Dehydrogenase Troponin T C-Reactive Protein NT-Pro-B Natriuret Pep Total Protein Albumin Arterial Blood Glucose Arterial Blood Ionized Calcium Urine pH Urine WBC (Auto) Hepatitis C Antibody 01/28/21 01/28/21 01/28/21 03:14 11:17 12:43 WBC RBC Hgb Hct RDW Lymph % (Auto) Baso % (Auto) Baso # (Auto) Seg Neutrophils % Seg Neuts % (Manual) Lymphocytes % (Manual) Seg Neutrophils # Seg Neutrophils # Man Lymphocytes # (Manual) PT INR APTT D-Dimer ABG pH POC ABG pCO2 48.6 H POC ABG pO2 ABG Hemoglobin 8.1 L ABG Oxyhemoglobin ABG Sodium ABG Potassium ABG Chloride ABG Glucose 140 H VBG pH Carboxyhemoglobin 1.7 H Sodium Potassium Chloride Carbon Dioxide BUN Creatinine Glucose POC Glucose 137 H 140 H Lactic Acid Calcium Ferritin AST ALT Lactate Dehydrogenase Troponin T C-Reactive Protein NT-Pro-B Natriuret Pep Total Protein Albumin Arterial Blood Glucose 140 H Arterial Blood Ionized Calcium 4.1 L Urine pH Urine WBC (Auto) Hepatitis C Antibody Chest x-ray: image reviewed (no new infiltrate) Allied health notes reviewed: nursing (edema pattern improved)
--- NOTE | 2021-01-28 13:43 | Progress Note ---
<GABYLARY HJacquelyn - Last Filed: 01/28/21 14:03> Assessment and Plan Assessment and plan: This is a 65-year-old female with hypertension, diabetes mellitus, ESRD on HD, hepatitis C, CHF, HLD, GERD, nicotine dependence admitted s/p cardiac arrest Sepsis Shock: Source of sepsis could be possible UTI given significant pyuria, aspiration, r/o bacteremia S/p cardiac arrest COVID-19 PUI, ruled out Acute hypoxic respiratory failure on mechanical ventilation Seizure versus myoclonic jerking Urinary tract infection ESRD on HD Diastolic CHF Hypertension Diabetes mellitus Hyperlipidemia GERD Nicotine dependence MRSA PCR positive Leukocytosis -[facility], nephrology, cardiology, infectious disease, neurology consulted, appreciat e recommendations -12/02/2020 echocardiogram shows four-chamber dilated cardiomyopathy, left ventricle systolic function severely decreased with LVEF of 15 to 20%, mild to moderate concentric LVH, mild AR, mild to moderate MR, mild TR, RVSP is 30 mmHg, left pleural effusion is evident with no pericardial effusion. -01/25 CT head shows areas of diminished attenuation identified throughout the basal ganglia concerning for anoxic injury, no evidence of hemorrhage or mass- effects, MRI recommended for further evaluation. --01/26 MRI brain shows global restricted diffusion involving cerebral cortex, basal ganglia, cerebral cortex and dorsal brain stroma suggestive of anoxic brain injury -01/27 EEG shows significantly abnormal record with low voltage slowing noted, suggestive of severe encephalopathic process and/or drug effect as possibilities of severe anoxic brain injury cannot be totally excluded -02/15 not very closely pending -COVID-19 PCR negative -Contact precautions d/t MRSA PCR positive -Intubated 01/25, wean mechanical ventilation as tolerated, VAP bundle -IV antibiotics -IV Valproic acid -Seizure/aspiration precautions -Hold home antihypertensive regimen -s/p vasopressor support with levophed -TF -SSI, Accu-Cheks every 6, hypoglycemic protocol -Resume home statin GI/DVT prophylaxis: PPI, SCDs to bilateral lower extremities while in bed, heparin subcu Disposition: ICU, awaiting family decision about goals of care The high probability of a clinically significant, sudden or life threatening deterioration of the [multi] system(s) required my full and direct attention, intervention and personal management. The aggregate critical care time was [35] minutes. This time is in addition to time spent performing reported procedures but includes the following: [x] Data Review and interpretation [x] Patient assessment and monitoring of vital signs [x] Documentation [x] Medication orders and management History Interval history: This is a 65-year-old male with hypertension, diabetes mellitus, ESRD on HD (MWF), hepatitis C, congestive heart failure, hyperlipidemia, GERD, nicotine dependence presented to the emergency department on 01/25 s/p cardiac arrest. Patient was found to be asystolic upon arrival of EMS and ACLS protocol was followed however he was unable to be intubated. Upon arrival to the emergency department patient was found to be in systolic arrest and ACLS was continued per ED staff with eventual ROSC. Patient was intubated in the emergency department. Patient was admitted to the hospital service with acute hypoxemic respiratory failure, s/p cardiac arrest, acute encephalopathy with consults to nephrology, CCM, neurology, infectious disease and cardiology. 01/26: Patient remains hypertensive and his home antihypertensive regimen will be resumed gradually. Nutrition consult pending. Called to bedside by RN this morning patient was noted to have seizure-like activity, and Ativan IV given. Neurology was later at bedside and witnessed activity. Patient was started on valproic acid and EEG ordered. Fentanyl gtt increased per neurology request. At the time of my examination he was on CMV TV 450, R 16, PEEP 6 and FiO2 of 30%. 01/27: Patient noted to be hypotensive and Levophed was ordered. MRI and EEG are pending. Leukocytosis slightly worsened today. Patient received HD yesterday. No DVT noted in BLE dopplar US. Family will update care team if decision regarding goals of care 01/28: did not convey goals of care decision, [facility] ordered a nuclear med brain flow study. Increase in Norvasc d/t hypertension. Will gradually restart home antihypertensive regimen as tolerated. Cardio suggests Hydral TID, nitrol and coreg Hospitalist Physical - Constitutional Vitals: Temp Pulse Resp BP Pulse Ox 97.9 F 69 26 H 147/71 98 01/28/21 12:00 01/28/21 12:51 01/28/21 12:51 01/28/21 12:51 01/28/21 12:51 General appearance: Present: other (unresponsive to painful stimuli on mechanical ventilation) - EENT Eyes: Absent: PERRL ENT: poor dentition - Neck Neck: Absent: masses or JVD, cervical LAD - Respiratory Respiratory effort: normal Respiratory: bilateral: CTA - Cardiovascular Rhythm: regular Heart Sounds: Present: S1 & S2. Absent: systolic murmur, diastolic murmur - Extremities Extremities: no ischemia, pulses intact, pulses symmetrical, No edema, normal temperature, normal color Peripheral Pulses: within normal limits - Abdominal General gastrointestinal: soft, non-tender, non-distended, normal bowel sounds - Integumentary Integumentary: Present: warm - Psychiatric Psychiatric: other (not interactive) - Neurologic Neurologic: no moves all extremities, other (pupils not reactive, dilated, no cough/gag appreciated, no track/focus) - Allied Health Allied health notes reviewed: nursing, RT, social work HEART Score - HEART Score Troponin: Troponin T 0.233 ng/mL (0.00-0.029) H* 01/25/21 08:13 Results - Labs CBC & Chem 7: 01/27/21 04:39 01/27/21 04:39 Labs: Laboratory Last Values WBC 17.3 K/mm3 (4.5-11.0) H 01/27/21 04:39 RBC 3.11 M/mm3 (3.65-5.03) L 01/27/21 04:39 Hgb 8.6 gm/dl (11.8-15.2) L 01/27/21 04:39 Hct 27.3 % (35.5-45.6) L 01/27/21 04:39 MCV 88 fl (84-94) 01/27/21 04:39 MCH 28 pg (28-32) 01/27/21 04:39 MCHC 32 % (32-34) 01/27/21 04:39 RDW 18.4 % (13.2-15.2) H 01/27/21 04:39 Plt Count 218 K/mm3 (140-440) 01/27/21 04:39 Lymph % (Auto) 13.0 % (13.4-35.0) L 01/25/21 08:13 [place] % (Auto) 1.6 % (0.0-7.3) 01/25/21 08:13 Eos % (Auto) 1.5 % (0.0-4.3) 01/25/21 08:13 Baso % (Auto) 2.2 % (0.0-1.8) H 01/25/21 08:13 Lymph # (Auto) 1.5 K/mm3 (1.2-5.4) 01/25/21 08:13 [place] # (Auto) 0.2 K/mm3 (0.0-0.8) 01/25/21 08:13 Eos # (Auto) 0.2 K/mm3 (0.0-0.4) 01/25/21 08:13 Baso # (Auto) 0.3 K/mm3 (0.0-0.1) H 01/25/21 08:13 Add Manual Diff Complete 01/26/21 07:58 Total Counted 100 01/26/21 07:58 Seg Neutrophils % Stock Pitcher 01/26/21 07:58 Seg Neuts % (Manual) 93.0 % (40.0-70.0) H 01/26/21 07:58 Lymphocytes % (Manual) 5.0 % (13.4-35.0) L 01/26/21 07:58 Monocytes % (Manual) 2.0 % (0.0-7.3) 01/26/21 07:58 Nucleated RBC % Not Reportable 01/26/21 07:58 Seg Neutrophils # 9.3 K/mm3 (1.8-7.7) H 01/25/21 08:13 Seg Neutrophils # Man 15.4 K/mm3 (1.8-7.7) H 01/26/21 07:58 Band Neutrophils # 0.0 K/mm3 01/26/21 07:58 Lymphocytes # (Manual) 0.8 K/mm3 (1.2-5.4) L 01/26/21 07:58 Abs React Lymphs (Man) 0.0 K/mm3 01/26/21 07:58 Monocytes # (Manual) 0.3 K/mm3 (0.0-0.8) 01/26/21 07:58 Eosinophils # (Manual) 0.0 K/mm3 (0.0-0.4) 01/26/21 07:58 Basophils # (Manual) 0.0 K/mm3 (0.0-0.1) 01/26/21 07:58 Metamyelocytes # 0.0 K/mm3 01/26/21 07:58 Myelocytes # 0.0 K/mm3 01/26/21 07:58 Promyelocytes # 0.0 K/mm3 01/26/21 07:58 Blast Cells # 0.0 K/mm3 01/26/21 07:58 WBC Morphology Not Reportable 01/26/21 07:58 Hypersegmented Neuts Not Reportable 01/26/21 07:58 Hyposegmented Neuts Not Reportable 01/26/21 07:58 Hypogranular Neuts Not Reportable 01/26/21 07:58 Smudge Cells Not Reportable 01/26/21 07:58 Toxic Granulation Not Reportable 01/26/21 07:58 Toxic Vacuolation Not Reportable 01/26/21 07:58 Dohle Bodies Not Reportable 01/26/21 07:58 Pelger-Huet Anomaly Not Reportable 01/26/21 07:58 Soraida Rods Not Reportable 01/26/21 07:58 Platelet Estimate Consistent w auto 01/26/21 07:58 Clumped Platelets Not Reportable 01/26/21 07:58 Plt Clumps, EDTA Not Reportable 01/26/21 07:58 Large Platelets Not Reportable 01/26/21 07:58 Giant Platelets Not Reportable 01/26/21 07:58 Platelet Satelliting Not Reportable 01/26/21 07:58 Plt Morphology Comment Not Reportable 01/26/21 07:58 RBC Morphology Not Reportable 01/26/21 07:58 Dimorphic RBCs Not Reportable 01/26/21 07:58 Polychromasia Not Reportable 01/26/21 07:58 Hypochromasia Not Reportable 01/26/21 07:58 Poikilocytosis Not Reportable 01/26/21 07:58 Anisocytosis 1+ 01/26/21 07:58 Microcytosis Not Reportable 01/26/21 07:58 Macrocytosis Not Reportable 01/26/21 07:58 Spherocytes Not Reportable 01/26/21 07:58 Pappenheimer Bodies Not Reportable 01/26/21 07:58 Sickle Cells Not Reportable 01/26/21 07:58 Target Cells Not Reportable 01/26/21 07:58 Tear Drop Cells Not Reportable 01/26/21 07:58 Ovalocytes Not Reportable 01/26/21 07:58 Helmet Cells Not Reportable 01/26/21 07:58 [place] Bodies Not Reportable 01/26/21 07:58 [place] Rings Not Reportable 01/26/21 07:58 [place] Cells Not Reportable 01/26/21 07:58 Bite Cells Not Reportable 01/26/21 07:58 Crenated Cell Not Reportable 01/26/21 07:58 Elliptocytes Not Reportable 01/26/21 07:58 Acanthocytes (Spur) Not Reportable 01/26/21 07:58 Rouleaux Not Reportable 01/26/21 07:58 Hemoglobin C Crystals Not Reportable 01/26/21 07:58 Schistocytes Not Reportable 01/26/21 07:58 Malaria parasites Not Reportable 01/26/21 07:58 Mike Bodies Not Reportable 01/26/21 07:58 Hem Pathologist Commnt No 01/26/21 07:58 PT 16.0 Sec. (12.2-14.9) H 01/25/21 08:13 INR 1.28 (0.87-1.13) H 01/25/21 08:13 APTT 56.8 Sec. (24.2-36.6) H 01/25/21 08:13 D-Dimer 8335.22 ng/mlDDU (0-234) H 01/26/21 07:40 ABG pH 7.369 (7.320-7.450) 01/28/21 03:14 POC ABG pCO2 48.6 mmHg (32.0-48.0) H 01/28/21 03:14 POC ABG pO2 94.4 mmHg (83-108) 01/28/21 03:14 POC ABG HCO3 27.4 01/28/21 03:14 ABG O2 Saturation 97.9 (0-100) 01/28/21 03:14 POC ABG Base Excess 1.8 01/28/21 03:14 ABG Hemoglobin 8.1 (12.0-17.5) L 01/28/21 03:14 ABG Oxyhemoglobin 95.9 (94-98) 01/28/21 03:14 ABG Methemoglobin 0.3 (0.0-1.5) 01/28/21 03:14 ABG Sodium 137.8 mmol/L (136.0-145.0) 01/28/21 03:14 ABG Potassium 3.8 mmol/L (3.40-4.50) 01/28/21 03:14 ABG Chloride 101.0 mmol/L (98-107) 01/28/21 03:14 ABG Glucose 140 mg/dL (65-95) H 01/28/21 03:14 VBG pH 7.100 (7.320-7.420) L* 01/25/21 08:13 Carboxyhemoglobin 1.7 (0.5-1.5) H 01/28/21 03:14 FiO2 % 30.0 01/28/21 03:14 Sodium 139 mmol/L (137-145) 01/27/21 04:39 Potassium 4.1 mmol/L (3.6-5.0) 01/27/21 04:39 Chloride 99.7 mmol/L (98-107) 01/27/21 04:39 Carbon Dioxide 26 mmol/L (22-30) 01/27/21 04:39 Anion Gap 17 mmol/L 01/27/21 04:39 BUN 23 mg/dL (9-20) H 01/27/21 04:39 Creatinine 3.1 mg/dL (0.8-1.3) H 01/27/21 04:39 Estimated GFR 25 ml/min 01/27/21 04:39 BUN/Creatinine Ratio 7 % 01/27/21 04:39 Glucose 90 mg/dL (75-100) 01/27/21 04:39 POC Glucose 140 mg/dL (70-105) H 01/28/21 12:43 Hemoglobin A1c 4.9 % (4-6) 01/26/21 07:58 Lactic Acid 1.40 mmol/L (0.7-2.0) 01/26/21 16:15 Calcium 7.1 mg/dL (8.4-10.2) L 01/27/21 04:39 Magnesium 2.30 mg/dL (1.7-2.3) 01/25/21 08:13 Ferritin 1817.0 ng/mL (30.0-300.0) H 01/26/21 07:40 Total Bilirubin 0.20 mg/dL (0.1-1.2) 01/25/21 08:13 AST 284 units/L (5-40) H 01/25/21 08:13 ALT 85 units/L (7-56) H 01/25/21 08:13 Alkaline Phosphatase 102 units/L (35-129) 01/25/21 08:13 Lactate Dehydrogenase 770 units/L (91-180) H 01/26/21 07:40 Total Creatine Kinase 156 units/L (55-170) 01/25/21 08:13 CK-MB (CK-2) 3.4 ng/mL (0.0-4.0) 01/25/21 08:13 CK-MB (CK-2) Rel Index 2.1 (0-4) 01/25/21 08:13 Troponin T 0.233 ng/mL (0.00-0.029) H* 01/25/21 08:13 C-Reactive Protein 11.00 mg/dL (0.00-1.30) H 01/26/21 07:40 NT-Pro-B Natriuret Pep 97347 pg/mL (0-900) H 01/25/21 08:13 Total Protein 5.8 g/dL (6.3-8.2) L 01/25/21 08:13 Albumin 2.5 g/dL (3.9-5) L 01/25/21 08:13 Albumin/Globulin Ratio 0.8 % 01/25/21 08:13 Triglycerides 83 mg/dL (2-149) 01/25/21 08:13 Cholesterol 101 mg/dL (50-199) 01/25/21 08:13 LDL Cholesterol Direct 54 mg/dL (50-130) 01/25/21 08:13 HDL Cholesterol 43 mg/dL (40-59) 01/25/21 08:13 Cholesterol/HDL Ratio 2.34 % 01/25/21 08:13 Procalcitonin 0.28 ng/mL (<0.15) 01/25/21 08:13 Arterial Blood Glucose 140 mg/dL (65-95) H 01/28/21 03:14 Arterial Blood Ionized Calcium 4.1 mg/dL (4.6-5.3) L 01/28/21 03:14 Urine Color Yellow (Yellow) 01/25/21 Unknown Urine Turbidity Turbid (Clear) 01/25/21 Unknown Urine pH 8.0 (5.0-7.0) H 01/25/21 Unknown Ur Specific [place] 1.015 (1.003-1.030) 01/25/21 Unknown Urine Protein >500 mg/dL (Negative) 01/25/21 Unknown Urine Glucose (UA) Neg mg/dL (Negative) 01/25/21 Unknown Urine Ketones Neg mg/dL (Negative) 01/25/21 Unknown Urine Blood Mod (Negative) 01/25/21 Unknown Urine Nitrite Neg (Negative) 01/25/21 Unknown Urine Bilirubin Neg (Negative) 01/25/21 Unknown Urine Urobilinogen < 2.0 mg/dL (<2.0) 01/25/21 Unknown Ur Leukocyte Esterase Lg (Negative) 01/25/21 Unknown Urine WBC (Auto) > 182.0 /HPF (0.0-6.0) H 01/25/21 Unknown Urine RBC (Auto) > 182.0 /HPF (0.0-6.0) 01/25/21 Unknown Urine Bacteria (Auto) 3+ /HPF (Negative) 01/25/21 Unknown Urine WBC Clumps 3+ /HPF 01/25/21 Unknown Ur Transition Epith Cell 7 /HPF 01/25/21 Unknown Urine Mucus Few /HPF 01/25/21 Unknown Nasal Screen MRSA (PCR) Positive (Negative) 01/26/21 06:25 Random Vancomycin 15.4 ug/mL (0-40.0) 01/28/21 04:39 Coronavirus (PCR) Negative (Negative) 01/25/21 08:35 Hepatitis A IgM Ab Non-reactive (NonReactive) 01/25/21 08:13 Hep Bs Antigen Non-reactive (Negative) 01/25/21 08:13 Hep B Core IgM Ab Non-reactive (NonReactive) 01/25/21 08:13 Hepatitis C Antibody Reactive (NonReactive) A 01/25/21 08:13 Microbiology: Microbiology 01/25/21 09:16 Peripheral/Venous Blood Culture - Preliminary NO GROWTH AFTER 72 HOURS 01/25/21 09:16 Peripheral/Venous Blood Culture - Preliminary NO GROWTH AFTER 72 HOURS 01/25/21 Unknown Urine,[place] Urine Culture - Final NO GROWTH AFTER 48 HOURS [place]/IV: Voiding Method Incontinent Active Medications - Current Medications Current Medications: Generic Name Dose Route Start Last Admin Trade Name Freq PRN Reason Stop Dose Admin Acetaminophen 650 mg 01/26/21 03:47 01/26/21 04:52 Acetaminophen 325 Mg/10.15 Ml Oral Liqd Unit Dose FEEDTUBE 650 mg Q6H PRN Administration Non Cardiac Pain or Temp>100.5 Albuterol 2.5 mg 01/25/21 12:47 Albuterol 2.5 Mg/3 Ml Nebu IH Q3HRT PRN Shortness Of Breath Amlodipine Besylate 10 mg 01/29/21 10:00 Amlodipine 10 Mg Tab PO QDAY JOHANA Lipase/Protease/Amylase 1 each 01/26/21 08:55 Lipase 10,500/Protease 25,000/Amylase 43,750 (Units) Dr Cap FEEDTUBE PRN PRN For Clogged Feeding Tube Aspirin 325 mg 01/26/21 11:00 01/28/21 09:27 Aspirin 325 Mg Tab PO 325 mg QDAY JOHANA Administration Atorvastatin Calcium 40 mg 01/26/21 22:00 01/27/21 21:54 Atorvastatin 40 Mg Tab PO 40 mg QHS JOHANA Administration Dextrose 50 ml 01/26/21 08:00 Dextrose 50% In Water (25gm) 50 Ml Syringe IV Q30MIN PRN Hypoglycemia Protocol Famotidine 10 mg 01/25/21 19:41 01/28/21 09:28 Famotidine 20 Mg/2 Ml Inj IV 10 mg BID JOHANA Administration Fentanyl 50 mcg 01/26/21 14:00 Fentanyl 100 Mcg/2 Ml Inj IV Q2H PRN Pain , Severe (7-10) Heparin Sodium (Porcine) 5,000 unit 01/25/21 22:00 01/28/21 09:29 Heparin 5,000 Unit/1 Ml Vial SUB-Q 5,000 unit Q12HR JOHANA Administration Hydralazine HCl 10 mg 01/28/21 11:39 Hydralazine 20 Mg/1 Ml Inj IV Q4HR PRN Hypertension Hydrophilic Ointment 1 applic 01/25/21 08:08 Lip Therapy Vaseline TP Q2HR PRN Dry Lips Dopamine HCl/Dextrose 800 mg in 250 mls @ 2.363 mls/hr 01/25/21 08:30 01/25/21 19:00 Intropin Drip 800 Mg/D5w 250 Ml IV 01/29/21 18:17 0 mcg/kg/min TITR ONE 0 mls/hr Titration Protocol 2 MCG/KG/MIN Sodium Chloride 100 mls @ 999 mls/hr 01/25/21 15:37 Nacl 0.9% IV KIMBERLY PRN Hypotension Valproate Sodium 500 mg/ 105 mls @ 100 mls/hr 01/26/21 11:00 01/28/21 09:29 Sodium Chloride IV 100 mls/hr Q12HR JOHANA Administration Cefepime HCl 1 gm in 100 mls @ 200 mls/hr 01/26/21 18:00 01/27/21 18:35 Cefepime/Ns 1 Gm/100 Ml IV Infused QPM JOHANA Infusion Protocol Propofol 1,000 mg in 100 mls @ 1.89 mls/hr 01/26/21 14:00 01/28/21 04:42 Diprivan 10 Mg/Ml IV 5 mcg/kg/min TITR JOHANA 1.89 mls/hr Titration Protocol 5 MCG/KG/MIN Norepinephrine 4 mg in 250 mls @ 7.5 mls/hr 01/27/21 08:00 01/27/21 08:30 Levophed Drip 4 Mg/Ns 250 Ml IV 0 mcg/min TITR JOHANA 0 mls/hr Titration Protocol 2 MCG/MIN Insulin Human Regular 0 units 01/26/21 12:00 01/28/21 12:59 Insulin Regular, Human 100 Units/1 Ml SUB-Q Not Given Q6H JOHANA Protocol Latanoprost 1 drops 01/26/21 18:00 01/27/21 18:12 Latanoprost 0.005% Ophth Soln 2.5 Ml OU 1 drops QPM JOHANA Administration Multi-Ingred Cream/Lotion/Oil/Oint 1 applic 01/25/21 08:08 Mineral Oil/Petrolatum, White Ophth Oint 3.5 Gm OU Q4HR PRN Dry Eye(s) Senna/Docusate Sodium 1 tab 01/25/21 10:00 01/28/21 09:28 Sennosides/Docusate Sodium 8.6/50 Mg Tab FEEDTUBE 1 tab BID JOHANA Administration Simple Syrup 15 ml 01/26/21 08:55 Simple Syrup 15 Ml FEEDTUBE PRN PRN Hypoglycemia Simple Syrup 30 ml 01/26/21 08:55 Simple Syrup 15 Ml FEEDTUBE PRN PRN Hypoglycemia Sodium Bicarbonate 325 mg 01/26/21 08:55 Sodium Bicarbonate 325 Mg Tab FEEDTUBE PRN PRN For Clogged Feeding Tube Sodium Chloride 10 ml 01/25/21 22:00 01/28/21 09:29 Sodium Chloride 0.9% 10 Ml Flush Syringe IV 10 ml BID JOHANA Administration Sodium Chloride 10 ml 01/25/21 12:47 Sodium Chloride 0.9% 10 Ml Flush Syringe IV PRN PRN LINE FLUSH Nutrition/Malnutrition Assess - Dietary Evaluation Nutrition/Malnutrition Findings: Nutrition Notes Start: 01/26/21 08:46 Freq: Status: Active Protocol: Document 01/28/21 08:57 CW (Rec: 01/28/21 09:08 CW [id number]) Nutrition Notes Need for Assessment generated from: MD Order Initial or Follow up Reassessment Current Diagnosis CKD (stage V CKD),Diabetes, Hypertension,Heart Failure, Respiratory Failure, Hyperlipidemia Other Pertinent Diagnosis UTI, cardiac arrest, R AKA Current Diet Nepro at 38 ml/hr Labs/Tests 01/27 BUN 23 Cr 3.1 Pertinent Medications propofol at 1.89 ml/hr (50 kcal) senokot Cefepime Height 5 ft 6 in Weight 60 kg [place] Body Weight (kg) 64.54 BMI 21.3 Weight change and time frame weight change noted Weight Status Appropriate Subjective/Other Information F/U for TF start and tolerance . TF is currently running at goal of 38 ml/hr of Nepro. Pt remains on mechanical vent. Pt has had diarrhea recently; possibly related to ABTx usage . Percent of energy/protein needs met: 100%/97% Burn Absent Trauma Absent GI Symptoms Diarrhea Skin Integrity/Comment open wound on LUE Current % PO Negligible Minimum of two criteria No Muscle Mass Mild Depletion (non-severe) #2 Nutrition Diagnosis Increased nutrient needs ( specify in comment below) Comments: protein Etiology wound healing As Evidenced by Signs and Symptoms Pt has large open wound on LUE #1 Nutrition Diagnosis Inadequate oral intake Diagnosis Progress(for reassessment Continues documentation) Is patient on ventilator? Yes Is Patient Ambulatory and/or Out of Bed No REE-([place] Jeor-confined to bed) [phone] Calculation Used for Recommendations [place] Je[place] Additional Notes Protein: (1.2-2g/kg) 76-95g Fluid: 8245-3417 ml or per MD Nutrition Intervention Change Diet Order: Continue TF ar ordered Nutrition Support: Nepro 1.8 at 38 ml/hr Flush 125 ml q4h or per MD Kcal 1,641 Protein (gm) 74 Fluid (mL) 663 Goal #1 Meet at least 75% of protein and energy needs via TF Anticipated Discharge Needs: Unable to determine at this time Follow-Up By: 01/31/21 Additional Comments F/U for TF tolerance <JAQUELINE MUÑOZ O - Last Filed: 01/28/21 15:06> History Interval history: I saw and evaluated the patient. I agree with the findings and the plan of care as documented in the Nurse Practitioner's~note, with the following corrections and additions. Patient has poor prognosis. I have discussed with Nurse Practitioner and with Dr. Chen, Pulmonology. Family to discuss goals of care. Hospitalist Physical - Constitutional Vitals: Temp Pulse Resp BP Pulse Ox 97.9 F 72 12 157/76 100 01/28/21 12:00 01/28/21 14:51 01/28/21 14:51 01/28/21 14:51 01/28/21 14:51 HEART Score - HEART Score Troponin: Troponin T 0.233 ng/mL (0.00-0.029) H* 01/25/21 08:13 Results - Labs CBC & Chem 7: 01/27/21 04:39 01/27/21 04:39 Labs: Laboratory Last Values WBC 17.3 K/mm3 (4.5-11.0) H 01/27/21 04:39 RBC 3.11 M/mm3 (3.65-5.03) L 01/27/21 04:39 Hgb 8.6 gm/dl (11.8-15.2) L 01/27/21 04:39 Hct 27.3 % (35.5-45.6) L 01/27/21 04:39 MCV 88 fl (84-94) 01/27/21 04:39 MCH 28 pg (28-32) 01/27/21 04:39 MCHC 32 % (32-34) 01/27/21 04:39 RDW 18.4 % (13.2-15.2) H 01/27/21 04:39 Plt Count 218 K/mm3 (140-440) 01/27/21 04:39 Lymph % (Auto) 13.0 % (13.4-35.0) L 01/25/21 08:13 [place] % (Auto) 1.6 % (0.0-7.3) 01/25/21 08:13 Eos % (Auto) 1.5 % (0.0-4.3) 01/25/21 08:13 Baso % (Auto) 2.2 % (0.0-1.8) H 01/25/21 08:13 Lymph # (Auto) 1.5 K/mm3 (1.2-5.4) 01/25/21 08:13 [place] # (Auto) 0.2 K/mm3 (0.0-0.8) 01/25/21 08:13 Eos # (Auto) 0.2 K/mm3 (0.0-0.4) 01/25/21 08:13 Baso # (Auto) 0.3 K/mm3 (0.0-0.1) H 01/25/21 08:13 Add Manual Diff Complete 01/26/21 07:58 Total Counted 100 01/26/21 07:58 Seg Neutrophils % [place] 01/26/21 07:58 Seg Neuts % (Manual) 93.0 % (40.0-70.0) H 01/26/21 07:58 Lymphocytes % (Manual) 5.0 % (13.4-35.0) L 01/26/21 07:58 Monocytes % (Manual) 2.0 % (0.0-7.3) 01/26/21 07:58 Nucleated RBC % Not Reportable 01/26/21 07:58 Seg Neutrophils # 9.3 K/mm3 (1.8-7.7) H 01/25/21 08:13 Seg Neutrophils # Man 15.4 K/mm3 (1.8-7.7) H 01/26/21 07:58 Band Neutrophils # 0.0 K/mm3 01/26/21 07:58 Lymphocytes # (Manual) 0.8 K/mm3 (1.2-5.4) L 01/26/21 07:58 Abs React Lymphs (Man) 0.0 K/mm3 01/26/21 07:58 Monocytes # (Manual) 0.3 K/mm3 (0.0-0.8) 01/26/21 07:58 Eosinophils # (Manual) 0.0 K/mm3 (0.0-0.4) 01/26/21 07:58 Basophils # (Manual) 0.0 K/mm3 (0.0-0.1) 01/26/21 07:58 Metamyelocytes # 0.0 K/mm3 01/26/21 07:58 Myelocytes # 0.0 K/mm3 01/26/21 07:58 Promyelocytes # 0.0 K/mm3 01/26/21 07:58 Blast Cells # 0.0 K/mm3 01/26/21 07:58 WBC Morphology Not Reportable 01/26/21 07:58 Hypersegmented Neuts Not Reportable 01/26/21 07:58 Hyposegmented Neuts Not Reportable 01/26/21 07:58 Hypogranular Neuts Not Reportable 01/26/21 07:58 Smudge Cells Not Reportable 01/26/21 07:58 Toxic Granulation Not Reportable 01/26/21 07:58 Toxic Vacuolation Not Reportable 01/26/21 07:58 Dohle Bodies Not Reportable 01/26/21 07:58 Pelger-Huet Anomaly Not Reportable 01/26/21 07:58 Soraida Rods Not Reportable 01/26/21 07:58 Platelet Estimate Consistent w auto 01/26/21 07:58 Clumped Platelets Not Reportable 01/26/21 07:58 Plt Clumps, EDTA Not Reportable 01/26/21 07:58 Large Platelets Not Reportable 01/26/21 07:58 Giant Platelets Not Reportable 01/26/21 07:58 Platelet Satelliting Not Reportable 01/26/21 07:58 Plt Morphology Comment Not Reportable 01/26/21 07:58 RBC Morphology Not Reportable 01/26/21 07:58 Dimorphic RBCs Not Reportable 01/26/21 07:58 Polychromasia Not Reportable 01/26/21 07:58 Hypochromasia Not Reportable 01/26/21 07:58 Poikilocytosis Not Reportable 01/26/21 07:58 Anisocytosis 1+ 01/26/21 07:58 Microcytosis Not Reportable 01/26/21 07:58 Macrocytosis Not Reportable 01/26/21 07:58 Spherocytes Not Reportable 01/26/21 07:58 Pappenheimer Bodies Not Reportable 01/26/21 07:58 Sickle Cells Not Reportable 01/26/21 07:58 Target Cells Not Reportable 01/26/21 07:58 Tear Drop Cells Not Reportable 01/26/21 07:58 Ovalocytes Not Reportable 01/26/21 07:58 Helmet Cells Not Reportable 01/26/21 07:58 [place] Bodies Not Reportable 01/26/21 07:58 [place] Rings Not Reportable 01/26/21 07:58 [place] Cells Not Reportable 01/26/21 07:58 Bite Cells Not Reportable 01/26/21 07:58 Crenated Cell Not Reportable 01/26/21 07:58 Elliptocytes Not Reportable 01/26/21 07:58 Acanthocytes (Spur) Not Reportable 01/26/21 07:58 Rouleaux Not Reportable 01/26/21 07:58 Hemoglobin C Crystals Not Reportable 01/26/21 07:58 Schistocytes Not Reportable 01/26/21 07:58 Malaria parasites Not Reportable 01/26/21 07:58 Mike Bodies Not Reportable 01/26/21 07:58 Hem Pathologist Commnt No 01/26/21 07:58 PT 16.0 Sec. (12.2-14.9) H 01/25/21 08:13 INR 1.28 (0.87-1.13) H 01/25/21 08:13 APTT 56.8 Sec. (24.2-36.6) H 01/25/21 08:13 D-Dimer 8335.22 ng/mlDDU (0-234) H 01/26/21 07:40 ABG pH 7.369 (7.320-7.450) 01/28/21 03:14 POC ABG pCO2 48.6 mmHg (32.0-48.0) H 01/28/21 03:14 POC ABG pO2 94.4 mmHg (83-108) 01/28/21 03:14 POC ABG HCO3 27.4 01/28/21 03:14 ABG O2 Saturation 97.9 (0-100) 01/28/21 03:14 POC ABG Base Excess 1.8 01/28/21 03:14 ABG Hemoglobin 8.1 (12.0-17.5) L 01/28/21 03:14 ABG Oxyhemoglobin 95.9 (94-98) 01/28/21 03:14 ABG Methemoglobin 0.3 (0.0-1.5) 01/28/21 03:14 ABG Sodium 137.8 mmol/L (136.0-145.0) 01/28/21 03:14 ABG Potassium 3.8 mmol/L (3.40-4.50) 01/28/21 03:14 ABG Chloride 101.0 mmol/L (98-107) 01/28/21 03:14 ABG Glucose 140 mg/dL (65-95) H 01/28/21 03:14 VBG pH 7.100 (7.320-7.420) L* 01/25/21 08:13 Carboxyhemoglobin 1.7 (0.5-1.5) H 01/28/21 03:14 FiO2 % 30.0 01/28/21 03:14 Sodium 139 mmol/L (137-145) 01/27/21 04:39 Potassium 4.1 mmol/L (3.6-5.0) 01/27/21 04:39 Chloride 99.7 mmol/L (98-107) 01/27/21 04:39 Carbon Dioxide 26 mmol/L (22-30) 01/27/21 04:39 Anion Gap 17 mmol/L 01/27/21 04:39 BUN 23 mg/dL (9-20) H 01/27/21 04:39 Creatinine 3.1 mg/dL (0.8-1.3) H 01/27/21 04:39 Estimated GFR 25 ml/min 01/27/21 04:39 BUN/Creatinine Ratio 7 % 01/27/21 04:39 Glucose 90 mg/dL (75-100) 01/27/21 04:39 POC Glucose 140 mg/dL (70-105) H 01/28/21 12:43 Hemoglobin A1c 4.9 % (4-6) 01/26/21 07:58 Lactic Acid 1.40 mmol/L (0.7-2.0) 01/26/21 16:15 Calcium 7.1 mg/dL (8.4-10.2) L 01/27/21 04:39 Magnesium 2.30 mg/dL (1.7-2.3) 01/25/21 08:13 Ferritin 1817.0 ng/mL (30.0-300.0) H 01/26/21 07:40 Total Bilirubin 0.20 mg/dL (0.1-1.2) 01/25/21 08:13 AST 284 units/L (5-40) H 01/25/21 08:13 ALT 85 units/L (7-56) H 01/25/21 08:13 Alkaline Phosphatase 102 units/L (35-129) 01/25/21 08:13 Lactate Dehydrogenase 770 units/L (91-180) H 01/26/21 07:40 Total Creatine Kinase 156 units/L (55-170) 01/25/21 08:13 CK-MB (CK-2) 3.4 ng/mL (0.0-4.0) 01/25/21 08:13 CK-MB (CK-2) Rel Index 2.1 (0-4) 01/25/21 08:13 Troponin T 0.233 ng/mL (0.00-0.029) H* 01/25/21 08:13 C-Reactive Protein 11.00 mg/dL (0.00-1.30) H 01/26/21 07:40 NT-Pro-B Natriuret Pep 96385 pg/mL (0-900) H 01/25/21 08:13 Total Protein 5.8 g/dL (6.3-8.2) L 01/25/21 08:13 Albumin 2.5 g/dL (3.9-5) L 01/25/21 08:13 Albumin/Globulin Ratio 0.8 % 01/25/21 08:13 Triglycerides 83 mg/dL (2-149) 01/25/21 08:13 Cholesterol 101 mg/dL (50-199) 01/25/21 08:13 LDL Cholesterol Direct 54 mg/dL (50-130) 01/25/21 08:13 HDL Cholesterol 43 mg/dL (40-59) 01/25/21 08:13 Cholesterol/HDL Ratio 2.34 % 01/25/21 08:13 Procalcitonin 0.28 ng/mL (<0.15) 01/25/21 08:13 Arterial Blood Glucose 140 mg/dL (65-95) H 01/28/21 03:14 Arterial Blood Ionized Calcium 4.1 mg/dL (4.6-5.3) L 01/28/21 03:14 Urine Color Yellow (Yellow) 01/25/21 Unknown Urine Turbidity Turbid (Clear) 01/25/21 Unknown Urine pH 8.0 (5.0-7.0) H 01/25/21 Unknown Ur Specific [place] 1.015 (1.003-1.030) 01/25/21 Unknown Urine Protein >500 mg/dL (Negative) 01/25/21 Unknown Urine Glucose (UA) Neg mg/dL (Negative) 01/25/21 Unknown Urine Ketones Neg mg/dL (Negative) 01/25/21 Unknown Urine Blood Mod (Negative) 01/25/21 Unknown Urine Nitrite Neg (Negative) 01/25/21 Unknown Urine Bilirubin Neg (Negative) 01/25/21 Unknown Urine Urobilinogen < 2.0 mg/dL (<2.0) 01/25/21 Unknown Ur Leukocyte Esterase Lg (Negative) 01/25/21 Unknown Urine WBC (Auto) > 182.0 /HPF (0.0-6.0) H 01/25/21 Unknown Urine RBC (Auto) > 182.0 /HPF (0.0-6.0) 01/25/21 Unknown Urine Bacteria (Auto) 3+ /HPF (Negative) 01/25/21 Unknown Urine WBC Clumps 3+ /HPF 01/25/21 Unknown Ur Transition Epith Cell 7 /HPF 01/25/21 Unknown Urine Mucus Few /HPF 01/25/21 Unknown Nasal Screen MRSA (PCR) Positive (Negative) 01/26/21 06:25 Random Vancomycin 15.4 ug/mL (0-40.0) 01/28/21 04:39 Coronavirus (PCR) Negative (Negative) 01/25/21 08:35 Hepatitis A IgM Ab Non-reactive (NonReactive) 01/25/21 08:13 Hep Bs Antigen Non-reactive (Negative) 01/25/21 08:13 Hep B Core IgM Ab Non-reactive (NonReactive) 01/25/21 08:13 Hepatitis C Antibody Reactive (NonReactive) A 01/25/21 08:13 Microbiology: Microbiology 01/25/21 08:43 Tracheal Aspirate Sputum Culture - Final 01/25/21 09:16 Peripheral/Venous Blood Culture - Preliminary NO GROWTH AFTER 72 HOURS 01/25/21 09:16 Peripheral/Venous Blood Culture - Preliminary NO GROWTH AFTER 72 HOURS 01/25/21 Unknown Urine,[place] Urine Culture - Final NO GROWTH AFTER 48 HOURS [place]/IV: Voiding Method Incontinent Active Medications - Current Medications Current Medications: Generic Name Dose Route Start Last Admin Trade Name Freq PRN Reason Stop Dose Admin Acetaminophen 650 mg 01/26/21 03:47 01/26/21 04:52 Acetaminophen 325 Mg/10.15 Ml Oral Liqd Unit Dose FEEDTUBE 650 mg Q6H PRN Administration Non Cardiac Pain or Temp>100.5 Albuterol 2.5 mg 01/25/21 12:47 Albuterol 2.5 Mg/3 Ml Nebu IH Q3HRT PRN Shortness Of Breath Amlodipine Besylate 10 mg 01/29/21 10:00 Amlodipine 10 Mg Tab PO QDAY JOHANA Lipase/Protease/Amylase 1 each 01/26/21 08:55 Lipase 10,500/Protease 25,000/Amylase 43,750 (Units) Dr Cap FEEDTUBE PRN PRN For Clogged Feeding Tube Aspirin 325 mg 01/26/21 11:00 01/28/21 09:27 Aspirin 325 Mg Tab PO 325 mg QDAY JOHANA Administration Atorvastatin Calcium 40 mg 01/26/21 22:00 01/27/21 21:54 Atorvastatin 40 Mg Tab PO 40 mg QHS JOHANA Administration Dextrose 50 ml 01/26/21 08:00 Dextrose 50% In Water (25gm) 50 Ml Syringe IV Q30MIN PRN Hypoglycemia Protocol Famotidine 10 mg 01/25/21 19:41 01/28/21 09:28 Famotidine 20 Mg/2 Ml Inj IV 10 mg BID JOHANA Administration Fentanyl 50 mcg 01/26/21 14:00 Fentanyl 100 Mcg/2 Ml Inj IV Q2H PRN Pain , Severe (7-10) Heparin Sodium (Porcine) 5,000 unit 01/25/21 22:00 01/28/21 09:29 Heparin 5,000 Unit/1 Ml Vial SUB-Q 5,000 unit Q12HR JOHANA Administration Hydralazine HCl 10 mg 01/28/21 11:39 Hydralazine 20 Mg/1 Ml Inj IV Q4HR PRN Hypertension Hydrophilic Ointment 1 applic 01/25/21 08:08 Lip Therapy Vaseline TP Q2HR PRN Dry Lips Dopamine HCl/Dextrose 800 mg in 250 mls @ 2.363 mls/hr 01/25/21 08:30 01/25 19:00 Intropin Drip 800 Mg/D5w 250 Ml IV 01/29/21 18:17 0 mcg/kg/min TITR ONE 0 mls/hr Titration Protocol 2 MCG/KG/MIN Sodium Chloride 100 mls @ 999 mls/hr 01/25/21 15:37 Nacl 0.9% IV KIMBERLY PRN Hypotension Valproate Sodium 500 mg/ 105 mls @ 100 mls/hr 01/26/21 11:00 01/28/21 09:29 Sodium Chloride IV 100 mls/hr Q12HR JOHANA Administration Cefepime HCl 1 gm in 100 mls @ 200 mls/hr 01/26/21 18:00 01/27/21 18:35 Cefepime/Ns 1 Gm/100 Ml IV Infused QPM JOHANA Infusion Protocol Propofol 1,000 mg in 100 mls @ 1.89 mls/hr 01/26/21 14:00 01/28/21 04:42 Diprivan 10 Mg/Ml IV 5 mcg/kg/min TITR JOHANA 1.89 mls/hr Titration Protocol 5 MCG/KG/MIN Norepinephrine 4 mg in 250 mls @ 7.5 mls/hr 01/27/21 08:00 01/27/21 08:30 Levophed Drip 4 Mg/Ns 250 Ml IV 0 mcg/min TITR JOHANA 0 mls/hr Titration Protocol 2 MCG/MIN Insulin Human Regular 0 units 01/26/21 12:00 01/28/21 12:59 Insulin Regular, Human 100 Units/1 Ml SUB-Q Not Given Q6H JOHANA Protocol Latanoprost 1 drops 01/26/21 18:00 01/27/21 18:12 Latanoprost 0.005% Ophth Soln 2.5 Ml OU 1 drops QPM JOHANA Administration Multi-Ingred Cream/Lotion/Oil/Oint 1 applic 01/25/21 08:08 Mineral Oil/Petrolatum, White Ophth Oint 3.5 Gm OU Q4HR PRN Dry Eye(s) Senna/Docusate Sodium 1 tab 01/25/21 10:00 01/28/21 09:28 Sennosides/Docusate Sodium 8.6/50 Mg Tab FEEDTUBE 1 tab BID JOHANA Administration Simple Syrup 15 ml 01/26/21 08:55 Simple Syrup 15 Ml FEEDTUBE PRN PRN Hypoglycemia Simple Syrup 30 ml 01/26/21 08:55 Simple Syrup 15 Ml FEEDTUBE PRN PRN Hypoglycemia Sodium Bicarbonate 325 mg 01/26/21 08:55 Sodium Bicarbonate 325 Mg Tab FEEDTUBE PRN PRN For Clogged Feeding Tube Sodium Chloride 10 ml 01/25/21 22:00 01/28/21 09:29 Sodium Chloride 0.9% 10 Ml Flush Syringe IV 10 ml BID JOHANA Administration Sodium Chloride 10 ml 01/25/21 12:47 Sodium Chloride 0.9% 10 Ml Flush Syringe IV PRN PRN LINE FLUSH Nutrition/Malnutrition Assess - Dietary Evaluation Nutrition/Malnutrition Findings: Nutrition Notes Start: 01/26/21 08:46 Freq: Status: Active Protocol: Document 01/28/21 08:57 CW (Rec: 01/28/21 09:08 CW [id number]) Nutrition Notes Need for Assessment generated from: MD Order Initial or Follow up Reassessment Current Diagnosis CKD (stage V CKD),Diabetes, Hypertension,Heart Failure, Respiratory Failure, Hyperlipidemia Other Pertinent Diagnosis UTI, cardiac arrest, R AKA Current Diet Nepro at 38 ml/hr Labs/Tests / BUN 23 Cr 3.1 Pertinent Medications propofol at 1.89 ml/hr (50 kcal) senokot Cefepime Height 5 ft 6 in Weight 60 kg [place] Body Weight (kg) 64.54 BMI 21.3 Weight change and time frame weight change noted Weight Status Appropriate Subjective/Other Information F/U for TF start and tolerance . TF is currently running at goal of 38 ml/hr of Nepro. Pt remains on mechanical vent. Pt has had diarrhea recently; possibly related to ABTx usage . Percent of energy/protein needs met: 100%/97% Burn Absent Trauma Absent GI Symptoms Diarrhea Skin Integrity/Comment open wound on LUE Current % PO Negligible Minimum of two criteria No Muscle Mass Mild Depletion (non-severe) #2 Nutrition Diagnosis Increased nutrient needs ( specify in comment below) Comments: protein Etiology wound healing As Evidenced by Signs and Symptoms Pt has large open wound on LUE #1 Nutrition Diagnosis Inadequate oral intake Diagnosis Progress(for reassessment Continues documentation) Is patient on ventilator? Yes Is Patient Ambulatory and/or Out of Bed No [facility] [phone] Calculation Used for Recommendations [facility] Additional Notes Protein: (1.2-2g/kg) 76-95g Fluid: 0673-3633 ml or per MD Nutrition Intervention Change Diet Order: Continue TF ar ordered Nutrition Support: Nepro 1.8 at 38 ml/hr Flush 125 ml q4h or per MD Kcal 1,641 Protein (gm) 74 Fluid (mL) 663 Goal #1 Meet at least 75% of protein and energy needs via TF Anticipated Discharge Needs: Unable to determine at this time Follow-Up By: 01/31/21 Additional Comments F/U for TF tolerance
--- NOTE | 2021-01-28 15:59 | Nuclear Medicine Report ---
NM BRAIN FLOW HISTORY: Anoxic encephalopathy COMPARISON: MRI-01/27/2021 TECHNIQUE: Following administration of radiopharmaceutical, followed by a saline flush, immediate dyn amic images of the head and neck were acquired in the anterior projection for one minute. Subsequentl y, static images of the head were obtained. RADIOPHARMACEUTICAL: 20 mCi of technetium 99m pertechnetate FINDINGS: DYNAMIC IMAGING: Little if any flow seen in the internal carotid arteries. DELAYED IMAGING: No significant intracranial acitivity is identified. Increased activity in the nose is indicative of increased collateral flow through the external carotids. Additional Findings: None. IMPRESSION: 1. Intracranial cerebral perfusion is essentially absent. Signer Name: Antwon Gonzalez MD, III Signed: 01/28/2021 3:50 PM Workstation Name: [id number]
[2021-01-28 16:13] LABS: Hematocrit 26.2 % (35.5-45.6); Hemoglobin 8.3 gm/dl (11.8-15.2); Mean Corpuscular HGB Conc 32 % (32-34); Mean Corpuscular Volume 89 fl (84-94); Platelet Count 143 K/mm3 (140-440); Red Blood Count 2.94 M/mm3 (3.65-5.03); Red Cell Distribution Width 18.5 % (13.2-15.2)
[2021-01-28 16:34] LABS: Calcium 7.2 mg/dL (8.4-10.2)
[2021-01-28] MEDS: LATANOPROST 0.005% OPHTH SOLN 2.5 ML OU SCH (17:48)
[2021-01-28] MEDS: CEFEPIME/NS 1 GM/100 ML 1 GM/100 ML BAG IV SCH (17:48)
[2021-01-28] MEDS ORDERED: VANCOMYCIN/NS 1 GM/250 ML 1 GM/250 ML BAG IV ONE (22:00)
[2021-01-29] MEDS: INSULIN REGULAR, HUMAN 100 UNITS/1 ML SUB-Q SCH ×4 (00:52→18:18)
[2021-01-29 09:02] LABS: Hematocrit 23.6 % (35.5-45.6); Hemoglobin 7.5 gm/dl (11.8-15.2); Mean Corpuscular HGB Conc 32 % (32-34); Mean Corpuscular Volume 88 fl (84-94); Platelet Count 148 K/mm3 (140-440); Red Blood Count 2.68 M/mm3 (3.65-5.03); Red Cell Distribution Width 18.2 % (13.2-15.2)
[2021-01-29 09:14] LABS: Calcium 8.6 mg/dL (8.4-10.2)
[2021-01-29] MEDS: VALPROATE SODIUM 500 MG in SODIUM CHLORIDE 0.9% 100 ML IV SCH ×2 (09:34→21:19)
[2021-01-29] MEDS: amLODIPine 10 MG TAB PO SCH (09:35)
[2021-01-29] MEDS: SENNOSIDES/DOCUSATE SODIUM 8.6/50 MG TAB FEEDTUBE SCH ×2 (09:35→22:14)
[2021-01-29] MEDS: ASPIRIN 325 MG TAB PO SCH (09:36)
[2021-01-29] MEDS: HEPARIN 5,000 UNIT/1 ML VIAL SUB-Q SCH ×2 (09:37→21:19)
[2021-01-29] MEDS: FAMOTIDINE 20 MG/2 ML INJ IV SCH ×2 (09:37→21:19)
--- NOTE | 2021-01-29 10:45 | Progress Note ---
<GABYLARY OleaJacquelyn - Last Filed: 01/29/21 14:05> Assessment and Plan Assessment and plan: This is a 65-year-old female with hypertension, diabetes mellitus, ESRD on HD, hepatitis C, CHF, HLD, GERD, nicotine dependence admitted s/p cardiac arrest Sepsis Shock: Source of sepsis could be possible UTI given significant pyuria, aspiration, r/o bacteremia S/p cardiac arrest COVID-19 PUI, ruled out Acute hypoxic respiratory failure on mechanical ventilation Seizure versus myoclonic jerking Urinary tract infection ESRD on HD Anemia of chronic disease Diastolic CHF Hypertension Diabetes mellitus Hyperlipidemia GERD Nicotine dependence MRSA PCR positive Leukocytosis -[facility], nephrology, cardiology, infectious disease, neurology consulted, appreciate recommendations -12/02/2020 echocardiogram shows four-chamber dilated cardiomyopathy, left ventricle systolic function severely decreased with LVEF of 15 to 20%, mild to moderate concentric LVH, mild AR, mild to moderate MR, mild TR, RVSP is 30 mmHg, left pleural effusion is evident with no pericardial effusion. -01/25 CT head shows areas of diminished attenuation identified throughout the basal ganglia concerning for anoxic injury, no evidence of hemorrhage or mass-effects, MRI recommended for further evaluation. -01/26 MRI brain shows global restricted diffusion involving cerebral cortex, basal ganglia, cerebral cortex and dorsal brain stroma suggestive of anoxic brai n injury -01/27 EEG shows significantly abnormal record with low voltage slowing noted, suggestive of severe encephalopathic process and/or drug effect as possibilities of severe anoxic brain injury cannot be totally excluded -01/28 nuclear med brain flow study shows intracranial cerebral perfusion is e ssentially absent, little flow with any seen in the internal carotid arteries but no significant intracranial activity is identified -01/29 repeat COVID-19 PCR pending -COVID-19 PCR negative -Contact precautions d/t MRSA PCR positive -Intubated 01/25, wean mechanical ventilation as tolerated, VAP bundle -IV antibiotics -IV Valproic acid -Seizure/aspiration precautions -Resume antihypertensives gradually -s/p vasopressor support with levophed -TF -SSI, Accu-Cheks every 6, hypoglycemic protocol -Resume home statin GI/DVT prophylaxis: PPI, SCDs to bilateral lower extremities while in bed, heparin subcu Disposition: ICU, awaiting family decision about goals of care (possible transfer to hospice). Patient has been ruled out for organ donation by [facility]. The high probability of a clinically significant, sudden or life threatening deterioration of the [multi] system(s) required my full and direct attention, intervention and personal management. The aggregate critical care time was [35] minutes. This time is in addition to time spent performing reported procedures but includes the following: [x] Data Review and interpretation [x] Patient assessment and monitoring of vital signs [x] Documentation [x] Medication orders and management History Interval history: This is a 65-year-old male with hypertension, diabetes mellitus, ESRD on HD ([facility]), hepatitis C, congestive heart failure, hyperlipidemia, GERD, nicotine dependence presented to the emergency department on 01/25 s/p cardiac arrest. Patient was found to be asystolic upon arrival of EMS and ACLS protocol was followed however he was unable to be intubated. Upon arrival to the emergency department patient was found to be in systolic arrest and ACLS was continued per ED staff with eventual ROSC. Patient was intubated in the emergency department. Patient was admitted to the hospital service with acute hypoxemic respiratory failure, s/p cardiac arrest, acute encephalopathy with consults to nephrology, CCM, neurology, infectious disease and cardiology. 01/26: Patient remains hypertensive and his home antihypertensive regimen will be resumed gradually. Nutrition consult pending. Called to bedside by RN this morning patient was noted to have seizure-like activity, and Ativan IV given. Neurology was later at bedside and witnessed activity. Patient was started on valproic acid and EEG ordered. Fentanyl gtt increased per neurology request. At the time of my examination he was on CMV TV 450, R 16, PEEP 6 and FiO2 of 30%. 01/27: Patient noted to be hypotensive and Levophed was ordered. MRI and EEG are pending. Leukocytosis slightly worsened today. Patient received HD yesterday. No DVT noted in BLE dopplar US. Family will update care team if decision regarding goals of care 01/28: did not convey goals of care decision, [facility] ordered a nuclear med brain flow study. Increase in Norvasc d/t hypertension. Will gradually restart home antihypertensive regimen as tolerated. Cardio suggests Hydral TID, nitrol and coreg 01/29: Yesterday evening case management informed me that the family is looking into inpatient hospice and will inform case management of the decision. This morning case management spoke to patient's family and they had not decided on inpatient hospice unit. Patients neuro exam remains unchanged. Blood pressure is better controlled. The plan is to discharge the patient to secondary hospice per family decision on Sunday. Hospitalist Physical - Constitutional Vitals: Temp Pulse Resp BP Pulse Ox 94.4 F L 71 12 104/61 100 01/29/21 08:00 01/29/21 09:35 01/29/21 08:00 01/29/21 09:35 01/29/21 08:20 General appearance: Present: other (unresponsive to painful stimuli on mechanical ventilation) - EENT Eyes: Absent: PERRL ENT: poor dentition - Neck Neck: Absent: masses or JVD, cervical LAD - Respiratory Respiratory effort: normal Respiratory: bilateral: CTA - Cardiovascular Rhythm: regular Heart Sounds: Present: S1 & S2. Absent: systolic murmur, diastolic murmur - Extremities Extremities: no ischemia, pulses intact, pulses symmetrical, No edema, normal temperature, normal color Peripheral Pulses: within normal limits - Abdominal General gastrointestinal: soft, non-tender, non-distended, normal bowel sounds - Integumentary Integumentary: Present: dry - Psychiatric Psychiatric: other (Not interactive) - Neurologic Neurologic: other (Does not follow commands, no cough/gag reflex noted, pupils nonreactive, no response to painful or tactile stimuli) - Allied Health Allied health notes reviewed: nursing, RT, social work HEART Score - HEART Score Troponin: Troponin T 0.233 ng/mL (0.00-0.029) H* 01/25/21 08:13 Results - Labs CBC & Chem 7: 01/29/21 08:07 01/29/21 08:07 Labs: Laboratory Last Values WBC 7.6 K/mm3 (4.5-11.0) 01/29/21 08:07 RBC 2.68 M/mm3 (3.65-5.03) L 01/29/21 08:07 Hgb 7.5 gm/dl (11.8-15.2) L 01/29/21 08:07 Hct 23.6 % (35.5-45.6) L 01/29/21 08:07 MCV 88 fl (84-94) 01/29/21 08:07 MCH 28 pg (28-32) 01/29/21 08:07 MCHC 32 % (32-34) 01/29/21 08:07 RDW 18.2 % (13.2-15.2) H 01/29/21 08:07 Plt Count 148 K/mm3 (140-440) 01/29/21 08:07 Lymph % (Auto) 13.0 % (13.4-35.0) L 01/25/21 08:13 Sutton % (Auto) 1.6 % (0.0-7.3) 01/25/21 08:13 Eos % (Auto) 1.5 % (0.0-4.3) 01/25/21 08:13 Baso % (Auto) 2.2 % (0.0-1.8) H 01/25/21 08:13 Lymph # (Auto) 1.5 K/mm3 (1.2-5.4) 01/25/21 08:13 [place] # (Auto) 0.2 K/mm3 (0.0-0.8) 01/25/21 08:13 Eos # (Auto) 0.2 K/mm3 (0.0-0.4) 01/25/21 08:13 Baso # (Auto) 0.3 K/mm3 (0.0-0.1) H 01/25/21 08:13 Add Manual Diff Complete 01/26/21 07:58 Total Counted 100 01/26/21 07:58 Seg Neutrophils % Watch And Clock Repair Clerk 01/26/21 07:58 Seg Neuts % (Manual) 93.0 % (40.0-70.0) H 01/26/21 07:58 Lymphocytes % (Manual) 5.0 % (13.4-35.0) L 01/26/21 07:58 Monocytes % (Manual) 2.0 % (0.0-7.3) 01/26/21 07:58 Nucleated RBC % Not Reportable 01/26/21 07:58 Seg Neutrophils # 9.3 K/mm3 (1.8-7.7) H 01/25/21 08:13 Seg Neutrophils # Man 15.4 K/mm3 (1.8-7.7) H 01/26/21 07:58 Band Neutrophils # 0.0 K/mm3 01/26/21 07:58 Lymphocytes # (Manual) 0.8 K/mm3 (1.2-5.4) L 01/26/21 07:58 Abs React Lymphs (Man) 0.0 K/mm3 01/26/21 07:58 Monocytes # (Manual) 0.3 K/mm3 (0.0-0.8) 01/26/21 07:58 Eosinophils # (Manual) 0.0 K/mm3 (0.0-0.4) 01/26/21 07:58 Basophils # (Manual) 0.0 K/mm3 (0.0-0.1) 01/26/21 07:58 Metamyelocytes # 0.0 K/mm3 01/26/21 07:58 Myelocytes # 0.0 K/mm3 01/26/21 07:58 Promyelocytes # 0.0 K/mm3 01/26/21 07:58 Blast Cells # 0.0 K/mm3 01/26/21 07:58 WBC Morphology Not Reportable 01/26/21 07:58 Hypersegmented Neuts Not Reportable 01/26/21 07:58 Hyposegmented Neuts Not Reportable 01/26/21 07:58 Hypogranular Neuts Not Reportable 01/26/21 07:58 Smudge Cells Not Reportable 01/26/21 07:58 Toxic Granulation Not Reportable 01/26/21 07:58 Toxic Vacuolation Not Reportable 01/26/21 07:58 Dohle Bodies Not Reportable 01/26/21 07:58 Pelger-Huet Anomaly Not Reportable 01/26/21 07:58 Soraida Rods Not Reportable 01/26/21 07:58 Platelet Estimate Consistent w auto 01/26/21 07:58 Clumped Platelets Not Reportable 01/26/21 07:58 Plt Clumps, EDTA Not Reportable 01/26/21 07:58 Large Platelets Not Reportable 01/26/21 07:58 Giant Platelets Not Reportable 01/26/21 07:58 Platelet Satelliting Not Reportable 01/26/21 07:58 Plt Morphology Comment Not Reportable 01/26/21 07:58 RBC Morphology Not Reportable 01/26/21 07:58 Dimorphic RBCs Not Reportable 01/26/21 07:58 Polychromasia Not Reportable 01/26/21 07:58 Hypochromasia Not Reportable 01/26/21 07:58 Poikilocytosis Not Reportable 01/26/21 07:58 Anisocytosis 1+ 01/26/21 07:58 Microcytosis Not Reportable 01/26/21 07:58 Macrocytosis Not Reportable 01/26/21 07:58 Spherocytes Not Reportable 01/26/21 07:58 Pappenheimer Bodies Not Reportable 01/26/21 07:58 Sickle Cells Not Reportable 01/26/21 07:58 Target Cells Not Reportable 01/26/21 07:58 Tear Drop Cells Not Reportable 01/26/21 07:58 Ovalocytes Not Reportable 01/26/21 07:58 Helmet Cells Not Reportable 01/26/21 07:58 [place] Bodies Not Reportable 01/26/21 07:58 [place] Rings Not Reportable 01/26/21 07:58 [place] Cells Not Reportable 01/26/21 07:58 Bite Cells Not Reportable 01/26/21 07:58 Crenated Cell Not Reportable 01/26/21 07:58 Elliptocytes Not Reportable 01/26/21 07:58 Acanthocytes (Spur) Not Reportable 01/26/21 07:58 Rouleaux Not Reportable 01/26/21 07:58 Hemoglobin C Crystals Not Reportable 01/26/21 07:58 Schistocytes Not Reportable 01/26/21 07:58 Malaria parasites Not Reportable 01/26/21 07:58 Mike Bodies Not Reportable 01/26/21 07:58 Hem Pathologist Commnt No 01/26/21 07:58 PT 16.0 Sec. (12.2-14.9) H 01/25/21 08:13 INR 1.28 (0.87-1.13) H 01/25/21 08:13 APTT 56.8 Sec. (24.2-36.6) H 01/25/21 08:13 D-Dimer 8335.22 ng/mlDDU (0-234) H 01/26/21 07:40 ABG pH 7.392 (7.320-7.450) 01/29/21 03:45 POC ABG pCO2 48.2 mmHg (32.0-48.0) H 01/29/21 03:45 POC ABG pO2 115.2 mmHg (83-108) H 01/29/21 03:45 POC ABG HCO3 28.7 01/29/21 03:45 ABG O2 Saturation 98.8 (0-100) 01/29/21 03:45 POC ABG Base Excess 3.3 01/29/21 03:45 ABG Hemoglobin 8.1 (12.0-17.5) L 01/29/21 03:45 ABG Oxyhemoglobin 97.1 (94-98) 01/29/21 03:45 ABG Methemoglobin 0.3 (0.0-1.5) 01/29/21 03:45 ABG Sodium 135.8 mmol/L (136.0-145.0) L 01/29/21 03:45 ABG Potassium 4.0 mmol/L (3.40-4.50) 01/29/21 03:45 ABG Chloride 104.0 mmol/L (98-107) 01/29/21 03:45 ABG Glucose 173 mg/dL (65-95) H 01/29/21 03:45 VBG pH 7.100 (7.320-7.420) L* 01/25/21 08:13 Carboxyhemoglobin 1.4 (0.5-1.5) 01/29/21 03:45 FiO2 % 30.0 01/29/21 03:45 Sodium 140 mmol/L (137-145) 01/29/21 08:07 Potassium 4.0 mmol/L (3.6-5.0) 01/29/21 08:07 Chloride 102.7 mmol/L (98-107) 01/29/21 08:07 Carbon Dioxide 30 mmol/L (22-30) 01/29/21 08:07 Anion Gap 11 mmol/L 01/29/21 08:07 BUN 23 mg/dL (9-20) H 01/29/21 08:07 Creatinine 3.4 mg/dL (0.8-1.3) H 01/29/21 08:07 Estimated GFR 22 ml/min 01/29/21 08:07 BUN/Creatinine Ratio 7 % 01/29/21 08:07 Glucose 139 mg/dL (75-100) H 01/29/21 08:07 POC Glucose 161 mg/dL (70-105) H 01/29/21 05:26 Hemoglobin A1c 4.9 % (4-6) 01/26/21 07:58 Lactic Acid 1.40 mmol/L (0.7-2.0) 01/26/21 16:15 Calcium 8.6 mg/dL (8.4-10.2) D 01/29/21 08:07 Magnesium 2.30 mg/dL (1.7-2.3) 01/25/21 08:13 Ferritin 1817.0 ng/mL (30.0-300.0) H 01/26/21 07:40 Total Bilirubin 0.20 mg/dL (0.1-1.2) 01/25/21 08:13 AST 284 units/L (5-40) H 01/25/21 08:13 ALT 85 units/L (7-56) H 01/25/21 08:13 Alkaline Phosphatase 102 units/L (35-129) 01/25/21 08:13 Lactate Dehydrogenase 770 units/L (91-180) H 01/26/21 07:40 Total Creatine Kinase 156 units/L (55-170) 01/25/21 08:13 CK-MB (CK-2) 3.4 ng/mL (0.0-4.0) 01/25/21 08:13 CK-MB (CK-2) Rel Index 2.1 (0-4) 01/25/21 08:13 Troponin T 0.233 ng/mL (0.00-0.029) H* 01/25/21 08:13 C-Reactive Protein 11.00 mg/dL (0.00-1.30) H 01/26/21 07:40 NT-Pro-B Natriuret Pep 03516 pg/mL (0-900) H 01/25/21 08:13 Total Protein 5.8 g/dL (6.3-8.2) L 01/25/21 08:13 Albumin 2.5 g/dL (3.9-5) L 01/25/21 08:13 Albumin/Globulin Ratio 0.8 % 01/25/21 08:13 Triglycerides 83 mg/dL (2-149) 01/25/21 08:13 Cholesterol 101 mg/dL (50-199) 01/25/21 08:13 LDL Cholesterol Direct 54 mg/dL (50-130) 01/25/21 08:13 HDL Cholesterol 43 mg/dL (40-59) 01/25/21 08:13 Cholesterol/HDL Ratio 2.34 % 01/25/21 08:13 Procalcitonin 0.28 ng/mL (<0.15) 01/25/21 08:13 Arterial Blood Glucose 173 mg/dL (65-95) H 01/29/21 03:45 Arterial Blood Ionized Calcium 4.9 mg/dL (4.6-5.3) 01/29/21 03:45 Urine Color Yellow (Yellow) 01/25/21 Unknown Urine Turbidity Turbid (Clear) 01/25/21 Unknown Urine pH 8.0 (5.0-7.0) H 01/25/21 Unknown Ur Specific [place] 1.015 (1.003-1.030) 01/25/21 Unknown Urine Protein >500 mg/dL (Negative) 01/25/21 Unknown Urine Glucose (UA) Neg mg/dL (Negative) 01/25/21 Unknown Urine Ketones Neg mg/dL (Negative) 01/25/21 Unknown Urine Blood Mod (Negative) 01/25/21 Unknown Urine Nitrite Neg (Negative) 01/25/21 Unknown Urine Bilirubin Neg (Negative) 01/25/21 Unknown Urine Urobilinogen < 2.0 mg/dL (<2.0) 01/25/21 Unknown Ur Leukocyte Esterase Lg (Negative) 01/25/21 Unknown Urine WBC (Auto) > 182.0 /HPF (0.0-6.0) H 01/25/21 Unknown Urine RBC (Auto) > 182.0 /HPF (0.0-6.0) 01/25/21 Unknown Urine Bacteria (Auto) 3+ /HPF (Negative) 01/25/21 Unknown Urine WBC Clumps 3+ /HPF 01/25/21 Unknown Ur Transition Epith Cell 7 /HPF 01/25/21 Unknown Urine Mucus Few /HPF 01/25/21 Unknown Nasal Screen MRSA (PCR) Positive (Negative) 01/26/21 06:25 Random Vancomycin 15.4 ug/mL (0-40.0) 01/28/21 04:39 Coronavirus (PCR) Negative (Negative) 01/25/21 08:35 Hepatitis A IgM Ab Non-reactive (NonReactive) 01/25/21 08:13 Hep Bs Antigen Non-reactive (Negative) 01/25/21 08:13 Hep B Core IgM Ab Non-reactive (NonReactive) 01/25/21 08:13 Hepatitis C Antibody Reactive (NonReactive) A 01/25/21 08:13 Microbiology: Microbiology 01/25/21 09:16 Peripheral/Venous Blood Culture - Preliminary NO GROWTH AFTER 4 DAYS 01/25/21 09:16 Peripheral/Venous Blood Culture - Preliminary NO GROWTH AFTER 4 DAYS 01/25/21 08:43 Tracheal Aspirate Sputum Culture - Final Osborn/IV: Voiding Method Incontinent Active Medications - Current Medications Current Medications: Generic Name Dose Route Start Last Admin Trade Name Freq PRN Reason Stop Dose Admin Acetaminophen 650 mg 01/26/21 03:47 01/26/21 04:52 Acetaminophen 325 Mg/10.15 Ml Oral Liqd Unit Dose FEEDTUBE 650 mg Q6H PRN Administration Non Cardiac Pain or Temp>100.5 Albuterol 2.5 mg 01/25/21 12:47 Albuterol 2.5 Mg/3 Ml Nebu IH Q3HRT PRN Shortness Of Breath Amlodipine Besylate 10 mg 01/29/21 10:00 01/29/21 09:35 Amlodipine 10 Mg Tab PO 10 mg QDAY JOHANA Administration Lipase/Protease/Amylase 1 each 01/26/21 08:55 Lipase 10,500/Protease 25,000/Amylase 43,750 (Units) Dr Langley FEEDTUBE PRN PRN For Clogged Feeding Tube Aspirin 325 mg 01/26/21 11:00 01/29/21 09:36 Aspirin 325 Mg Tab PO 325 mg QDAY JOHANA Administration Atorvastatin Calcium 40 mg 01/26/21 22:00 01/28/21 21:09 Atorvastatin 40 Mg Tab PO 40 mg QHS JOHANA Administration Dextrose 50 ml 01/26/21 08:00 Dextrose 50% In Water (25gm) 50 Ml Syringe IV Q30MIN PRN Hypoglycemia Protocol Famotidine 10 mg 01/25/21 19:41 01/29/21 09:37 Famotidine 20 Mg/2 Ml Inj IV 10 mg BID JOHANA Administration Fentanyl 50 mcg 01/26/21 14:00 Fentanyl 100 Mcg/2 Ml Inj IV Q2H PRN Pain , Severe (7-10) Heparin Sodium (Porcine) 5,000 unit 01/25/21 22:00 01/29/21 09:37 Heparin 5,000 Unit/1 Ml Vial SUB-Q 5,000 unit Q12HR JOHANA Administration Hydralazine HCl 10 mg 01/28/21 11:39 Hydralazine 20 Mg/1 Ml Inj IV Q4HR PRN Hypertension Hydrophilic Ointment 1 applic 01/25/21 08:08 Lip Therapy Vaseline TP Q2HR PRN Dry Lips Dopamine HCl/Dextrose 800 mg in 250 mls @ 2.363 mls/hr 01/25/21 08:30 09/16 19:00 Intropin Drip 800 Mg/D5w 250 Ml IV 01/29/21 18:17 0 mcg/kg/min TITR ONE 0 mls/hr Titration Protocol 2 MCG/KG/MIN Sodium Chloride 100 mls @ 999 mls/hr 01/25/21 15:37 Nacl 0.9% IV KIMBERLY PRN Hypotension Valproate Sodium 500 mg/ 105 mls @ 100 mls/hr 01/26/21 11:00 01/29/21 09:34 Sodium Chloride IV 100 mls/hr Q12HR JOHANA Administration Cefepime HCl 1 gm in 100 mls @ 200 mls/hr 01/26/21 18:00 01/28/21 17:48 Cefepime/Ns 1 Gm/100 Ml IV 01/30/21 20:59 200 mls/hr QPM JOHANA Administration Protocol Propofol 1,000 mg in 100 mls @ 1.89 mls/hr 01/26/21 14:00 01/28/21 10:00 Diprivan 10 Mg/Ml IV 0 mcg/kg/min TITR JOHANA 0 mls/hr Titration Protocol 5 MCG/KG/MIN Norepinephrine 4 mg in 250 mls @ 7.5 mls/hr 01/27/21 08:00 01/27/21 08:30 Levophed Drip 4 Mg/Ns 250 Ml IV 0 mcg/min TITR JOHANA 0 mls/hr Titration Protocol 2 MCG/MIN Insulin Human Regular 0 units 01/26/21 12:00 01/29/21 05:48 Insulin Regular, Human 100 Units/1 Ml SUB-Q 1 units Q6H JOHANA Administration Protocol Latanoprost 1 drops 01/26/21 18:00 01/28/21 17:48 Latanoprost 0.005% Ophth Soln 2.5 Ml OU 1 drops QPM JOHANA Administration Multi-Ingred Cream/Lotion/Oil/Oint 1 applic 01/25/21 08:08 Mineral Oil/Petrolatum, White Ophth Oint 3.5 Gm OU Q4HR PRN Dry Eye(s) Senna/Docusate Sodium 1 tab 06/01/21 10:00 01/29/21 09:35 Sennosides/Docusate Sodium 8.6/50 Mg Tab FEEDTUBE 1 tab BID JOHANA Administration Simple Syrup 15 ml 01/26/21 08:55 Simple Syrup 15 Ml FEEDTUBE PRN PRN Hypoglycemia Simple Syrup 30 ml 01/26/21 08:55 Simple Syrup 15 Ml FEEDTUBE PRN PRN Hypoglycemia Sodium Bicarbonate 325 mg 01/26/21 08:55 Sodium Bicarbonate 325 Mg Tab FEEDTUBE PRN PRN For Clogged Feeding Tube Sodium Chloride 10 ml 01/25/21 22:00 01/29/21 09:34 Sodium Chloride 0.9% 10 Ml Flush Syringe IV 10 ml BID JOHANA Administration Sodium Chloride 10 ml 01/25/21 12:47 Sodium Chloride 0.9% 10 Ml Flush Syringe IV PRN PRN LINE FLUSH Nutrition/Malnutrition Assess - Dietary Evaluation Nutrition/Malnutrition Findings: Nutrition Notes Start: 01/26/21 08:46 Freq: Status: Active Protocol: Document 01/28/21 08:57 CW (Rec: 01/28/21 09:08 CW [id number]) Nutrition Notes Need for Assessment generated from: MD Order Initial or Follow up Reassessment Current Diagnosis CKD (stage V CKD),Diabetes, Hypertension,Heart Failure, Respiratory Failure, Hyperlipidemia Other Pertinent Diagnosis UTI, cardiac arrest, R AKA Current Diet Nepro at 38 ml/hr Labs/Tests 01/27 BUN 23 Cr 3.1 Pertinent Medications propofol at 1.89 ml/hr (50 kcal) senokot Cefepime Height 5 ft 6 in Weight 60 kg [place] Body Weight (kg) 64.54 BMI 21.3 Weight change and time frame weight change noted Weight Status Appropriate Subjective/Other Information F/U for TF start and tolerance . TF is currently running at goal of 38 ml/hr of Nepro. Pt remains on mechanical vent. Pt has had diarrhea recently; possibly related to ABTx usage . Percent of energy/protein needs met: 100%/97% Burn Absent Trauma Absent GI Symptoms Diarrhea Skin Integrity/Comment open wound on LUE Current % PO Negligible Minimum of two criteria No Muscle Mass Mild Depletion (non-severe) #2 Nutrition Diagnosis Increased nutrient needs ( specify in comment below) Comments: protein Etiology wound healing As Evidenced by Signs and Symptoms Pt has large open wound on LUE #1 Nutrition Diagnosis Inadequate oral intake Diagnosis Progress(for reassessment Continues documentation) Is patient on ventilator? Yes Is Patient Ambulatory and/or Out of Bed No REE-([place]conf[place] bed) [phone] Calculation Used for Recommendations [place] Additional Notes Protein: (1.2-2g/kg) 76-95g Fluid: 5269-9653 ml or per MD Nutrition Intervention Change Diet Order: Continue TF ar ordered Nutrition Support: Nepro 1.8 at 38 ml/hr Flush 125 ml q4h or per MD Kcal 1,641 Protein (gm) 74 Fluid (mL) 663 Goal #1 Meet at least 75% of protein and energy needs via TF Anticipated Discharge Needs: Unable to determine at this time Follow-Up By: 01/31/21 Additional Comments F/U for TF tolerance <JAQUELINE MUÑOZ - Last Filed: 01/29/21 15:30> History Interval history: I saw and evaluated the patient. I agree with the findings and the plan of care as documented in the Nurse Practitioner's~note, with the following corrections and additions. Patient has poor prognosis. I have discussed with Nurse Practitioner and with Dr. Chen, Pulmonology. Plan is to discharge to hospice on Sunday. Hospitalist Physical - Constitutional Vitals: Temp Pulse Resp BP Pulse Ox 97.4 F L 75 12 103/58 100 01/29/21 12:00 01/29/21 14:40 01/29/21 14:40 01/29/21 14:40 01/29/21 14:40 HEART Score - HEART Score Troponin: Troponin T 0.233 ng/mL (0.00-0.029) H* 01/25/21 08:13 Results - Labs CBC & Chem 7: 01/29/21 08:07 01/29/21 08:07 Labs: Laboratory Last Values WBC 7.6 K/mm3 (4.5-11.0) 01/29/21 08:07 RBC 2.68 M/mm3 (3.65-5.03) L 01/29/21 08:07 Hgb 7.5 gm/dl (11.8-15.2) L 01/29/21 08:07 Hct 23.6 % (35.5-45.6) L 01/29/21 08:07 MCV 88 fl (84-94) 01/29/21 08:07 MCH 28 pg (28-32) 01/29/21 08:07 MCHC 32 % (32-34) 01/29/21 08:07 RDW 18.2 % (13.2-15.2) H 01/29/21 08:07 Plt Count 148 K/mm3 (140-440) 01/29/21 08:07 Lymph % (Auto) 13.0 % (13.4-35.0) L 01/25/21 08:13 [place] % (Auto) 1.6 % (0.0-7.3) 01/25/21 08:13 Eos % (Auto) 1.5 % (0.0-4.3) 01/25/21 08:13 Baso % (Auto) 2.2 % (0.0-1.8) H 01/25/21 08:13 Lymph # (Auto) 1.5 K/mm3 (1.2-5.4) 01/25/21 08:13 [place] # (Auto) 0.2 K/mm3 (0.0-0.8) 01/25/21 08:13 Eos # (Auto) 0.2 K/mm3 (0.0-0.4) 01/25/21 08:13 Baso # (Auto) 0.3 K/mm3 (0.0-0.1) H 01/25/21 08:13 Add Manual Diff Complete 01/26/21 07:58 Total Counted 100 01/26/21 07:58 Seg Neutrophils % Watch And Clock Repair Clerk 01/26/21 07:58 Seg Neuts % (Manual) 93.0 % (40.0-70.0) H 01/26/21 07:58 Lymphocytes % (Manual) 5.0 % (13.4-35.0) L 01/26/21 07:58 Monocytes % (Manual) 2.0 % (0.0-7.3) 01/26/21 07:58 Nucleated RBC % Not Reportable 01/26/21 07:58 Seg Neutrophils # 9.3 K/mm3 (1.8-7.7) H 01/25/21 08:13 Seg Neutrophils # Man 15.4 K/mm3 (1.8-7.7) H 01/26/21 07:58 Band Neutrophils # 0.0 K/mm3 01/26/21 07:58 Lymphocytes # (Manual) 0.8 K/mm3 (1.2-5.4) L 01/26/21 07:58 Abs React Lymphs (Man) 0.0 K/mm3 01/26/21 07:58 Monocytes # (Manual) 0.3 K/mm3 (0.0-0.8) 01/26/21 07:58 Eosinophils # (Manual) 0.0 K/mm3 (0.0-0.4) 01/26/21 07:58 Basophils # (Manual) 0.0 K/mm3 (0.0-0.1) 01/26/21 07:58 Metamyelocytes # 0.0 K/mm3 01/26/21 07:58 Myelocytes # 0.0 K/mm3 01/26/21 07:58 Promyelocytes # 0.0 K/mm3 01/26/21 07:58 Blast Cells # 0.0 K/mm3 01/26/21 07:58 WBC Morphology Not Reportable 01/26/21 07:58 Hypersegmented Neuts Not Reportable 01/26/21 07:58 Hyposegmented Neuts Not Reportable 01/26/21 07:58 Hypogranular Neuts Not Reportable 01/26/21 07:58 Smudge Cells Not Reportable 01/26/21 07:58 Toxic Granulation Not Reportable 01/26/21 07:58 Toxic Vacuolation Not Reportable 01/26/21 07:58 Dohle Bodies Not Reportable 01/26/21 07:58 Pelger-Huet Anomaly Not Reportable 01/26/21 07:58 Soraida Rods Not Reportable 01/26/21 07:58 Platelet Estimate Consistent w auto 01/26/21 07:58 Clumped Platelets Not Reportable 01/26/21 07:58 Plt Clumps, EDTA Not Reportable 01/26/21 07:58 Large Platelets Not Reportable 01/26/21 07:58 Giant Platelets Not Reportable 01/26/21 07:58 Platelet Satelliting Not Reportable 01/26/21 07:58 Plt Morphology Comment Not Reportable 01/26/21 07:58 RBC Morphology Not Reportable 01/26/21 07:58 Dimorphic RBCs Not Reportable 01/26/21 07:58 Polychromasia Not Reportable 01/26/21 07:58 Hypochromasia Not Reportable 01/26/21 07:58 Poikilocytosis Not Reportable 01/26/21 07:58 Anisocytosis 1+ 01/26/21 07:58 Microcytosis Not Reportable 01/26/21 07:58 Macrocytosis Not Reportable 01/26/21 07:58 Spherocytes Not Reportable 01/26/21 07:58 Pappenheimer Bodies Not Reportable 01/26/21 07:58 Sickle Cells Not Reportable 01/26/21 07:58 Target Cells Not Reportable 01/26/21 07:58 Tear Drop Cells Not Reportable 01/26/21 07:58 Ovalocytes Not Reportable 01/26/21 07:58 Helmet Cells Not Reportable 01/26/21 07:58 [place] Bodies Not Reportable 01/26/21 07:58 [place] Rings Not Reportable 01/26/21 07:58 [place] Cells Not Reportable 01/26/21 07:58 Bite Cells Not Reportable 01/26/21 07:58 Crenated Cell Not Reportable 01/26/21 07:58 Elliptocytes Not Reportable 01/26/21 07:58 Acanthocytes (Spur) Not Reportable 01/26/21 07:58 Rouleaux Not Reportable 01/26/21 07:58 Hemoglobin C Crystals Not Reportable 01/26/21 07:58 Schistocytes Not Reportable 01/26/21 07:58 Malaria parasites Not Reportable 01/26/21 07:58 Mike Bodies Not Reportable 01/26/21 07:58 Hem Pathologist Commnt No 01/26/21 07:58 PT 16.0 Sec. (12.2-14.9) H 01/25/21 08:13 INR 1.28 (0.87-1.13) H 01/25/21 08:13 APTT 56.8 Sec. (24.2-36.6) H 01/25/21 08:13 D-Dimer 8335.22 ng/mlDDU (0-234) H 01/26/21 07:40 ABG pH 7.392 (7.320-7.450) 01/29/21 03:45 POC ABG pCO2 48.2 mmHg (32.0-48.0) H 01/29/21 03:45 POC ABG pO2 115.2 mmHg (83-108) H 01/29/21 03:45 POC ABG HCO3 28.7 01/29/21 03:45 ABG O2 Saturation 98.8 (0-100) 01/29/21 03:45 POC ABG Base Excess 3.3 01/29/21 03:45 ABG Hemoglobin 8.1 (12.0-17.5) L 01/29/21 03:45 ABG Oxyhemoglobin 97.1 (94-98) 01/29/21 03:45 ABG Methemoglobin 0.3 (0.0-1.5) 01/29/21 03:45 ABG Sodium 135.8 mmol/L (136.0-145.0) L 01/29/21 03:45 ABG Potassium 4.0 mmol/L (3.40-4.50) 01/29/21 03:45 ABG Chloride 104.0 mmol/L (98-107) 01/29/21 03:45 ABG Glucose 173 mg/dL (65-95) H 01/29/21 03:45 VBG pH 7.100 (7.320-7.420) L* 01/25/21 08:13 Carboxyhemoglobin 1.4 (0.5-1.5) 01/29/21 03:45 FiO2 % 30.0 01/29/21 03:45 Sodium 140 mmol/L (137-145) 01/29/21 08:07 Potassium 4.0 mmol/L (3.6-5.0) 01/29/21 08:07 Chloride 102.7 mmol/L (98-107) 01/29/21 08:07 Carbon Dioxide 30 mmol/L (22-30) 01/29/21 08:07 Anion Gap 11 mmol/L 01/29/21 08:07 BUN 23 mg/dL (9-20) H 01/29/21 08:07 Creatinine 3.4 mg/dL (0.8-1.3) H 01/29/21 08:07 Estimated GFR 22 ml/min 01/29/21 08:07 BUN/Creatinine Ratio 7 % 01/29/21 08:07 Glucose 139 mg/dL (75-100) H 01/29/21 08:07 POC Glucose 153 mg/dL (70-105) H 01/29/21 11:16 Hemoglobin A1c 4.9 % (4-6) 01/26/21 07:58 Lactic Acid 1.40 mmol/L (0.7-2.0) 01/26/21 16:15 Calcium 8.6 mg/dL (8.4-10.2) D 01/29/21 08:07 Magnesium 2.30 mg/dL (1.7-2.3) 01/25/21 08:13 Ferritin 1817.0 ng/mL (30.0-300.0) H 01/26/21 07:40 Total Bilirubin 0.20 mg/dL (0.1-1.2) 01/25/21 08:13 AST 284 units/L (5-40) H 01/25/21 08:13 ALT 85 units/L (7-56) H 01/25/21 08:13 Alkaline Phosphatase 102 units/L (35-129) 01/25/21 08:13 Lactate Dehydrogenase 770 units/L (91-180) H 01/26/21 07:40 Total Creatine Kinase 156 units/L (55-170) 01/25/21 08:13 CK-MB (CK-2) 3.4 ng/mL (0.0-4.0) 01/25/21 08:13 CK-MB (CK-2) Rel Index 2.1 (0-4) 01/25/21 08:13 Troponin T 0.233 ng/mL (0.00-0.029) H* 01/25/21 08:13 C-Reactive Protein 11.00 mg/dL (0.00-1.30) H 01/26/21 07:40 NT-Pro-B Natriuret Pep 03262 pg/mL (0-900) H 01/25/21 08:13 Total Protein 5.8 g/dL (6.3-8.2) L 01/25/21 08:13 Albumin 2.5 g/dL (3.9-5) L 01/25/21 08:13 Albumin/Globulin Ratio 0.8 % 01/25/21 08:13 Triglycerides 83 mg/dL (2-149) 01/25/21 08:13 Cholesterol 101 mg/dL (50-199) 01/25/21 08:13 LDL Cholesterol Direct 54 mg/dL (50-130) 01/25/21 08:13 HDL Cholesterol 43 mg/dL (40-59) 01/25/21 08:13 Cholesterol/HDL Ratio 2.34 % 01/25/21 08:13 Procalcitonin 0.28 ng/mL (<0.15) 01/25/21 08:13 Arterial Blood Glucose 173 mg/dL (65-95) H 01/29/21 03:45 Arterial Blood Ionized Calcium 4.9 mg/dL (4.6-5.3) 01/29/21 03:45 Urine Color Yellow (Yellow) 01/25/21 Unknown Urine Turbidity Turbid (Clear) 01/25/21 Unknown Urine pH 8.0 (5.0-7.0) H 01/25/21 Unknown Ur Specific [place] 1.015 (1.003-1.030) 01/25/21 Unknown Urine Protein >500 mg/dL (Negative) 01/25/21 Unknown Urine Glucose (UA) Neg mg/dL (Negative) 01/25/21 Unknown Urine Ketones Neg mg/dL (Negative) 01/25/21 Unknown Urine Blood Mod (Negative) 01/25/21 Unknown Urine Nitrite Neg (Negative) 01/25/21 Unknown Urine Bilirubin Neg (Negative) 01/25/21 Unknown Urine Urobilinogen < 2.0 mg/dL (<2.0) 01/25/21 Unknown Ur Leukocyte Esterase Lg (Negative) 01/25/21 Unknown Urine WBC (Auto) > 182.0 /HPF (0.0-6.0) H 01/25/21 Unknown Urine RBC (Auto) > 182.0 /HPF (0.0-6.0) 01/25/21 Unknown Urine Bacteria (Auto) 3+ /HPF (Negative) 01/25/21 Unknown Urine WBC Clumps 3+ /HPF 01/25/21 Unknown Ur Transition Epith Cell 7 /HPF 01/25/21 Unknown Urine Mucus Few /HPF 01/25/21 Unknown Nasal Screen MRSA (PCR) Positive (Negative) 01/26/21 06:25 Random Vancomycin 15.4 ug/mL (0-40.0) 01/28/21 04:39 Coronavirus (PCR) Negative (Negative) 01/28/21 Unknown Hepatitis A IgM Ab Non-reactive (NonReactive) 01/25/21 08:13 Hep Bs Antigen Non-reactive (Negative) 01/25/21 08:13 Hep B Core IgM Ab Non-reactive (NonReactive) 01/25/21 08:13 Hepatitis C Antibody Reactive (NonReactive) A 01/25/21 08:13 Microbiology: Microbiology 01/25/21 09:16 Peripheral/Venous Blood Culture - Preliminary NO GROWTH AFTER 4 DAYS 01/25/21 09:16 Peripheral/Venous Blood Culture - Preliminary NO GROWTH AFTER 4 DAYS 01/25/21 08:43 Tracheal Aspirate Sputum Culture - Final [place]/IV: Voiding Method Incontinent Active Medications - Current Medications Current Medications: Generic Name Dose Route Start Last Admin Trade Name Freq PRN Reason Stop Dose Admin Acetaminophen 650 mg 01/26/21 03:47 01/26/21 04:52 Acetaminophen 325 Mg/10.15 Ml Oral Liqd Unit Dose FEEDTUBE 650 mg Q6H PRN Administration Non Cardiac Pain or Temp>100.5 Albuterol 2.5 mg 01/25/21 12:47 Albuterol 2.5 Mg/3 Ml Nebu IH Q3HRT PRN Shortness Of Breath Amlodipine Besylate 10 mg 01/29/21 10:00 01/29/21 09:35 Amlodipine 10 Mg Tab PO 10 mg QDAY JOHANA Administration Lipase/Protease/Amylase 1 each 01/26/21 08:55 Lipase 10,500/Protease 25,000/Amylase 43,750 (Units) Dr Shivam FEEDTUBE PRN PRN For Clogged Feeding Tube Aspirin 325 mg 01/26/21 11:00 01/29/21 09:36 Aspirin 325 Mg Tab PO 325 mg QDAY JOHANA Administration Atorvastatin Calcium 40 mg 01/26/21 22:00 01/28/21 21:09 Atorvastatin 40 Mg Tab PO 40 mg QHS JOHANA Administration Dextrose 50 ml 01/26/21 08:00 Dextrose 50% In Water (25gm) 50 Ml Syringe IV Q30MIN PRN Hypoglycemia Protocol Famotidine 10 mg 01/25/21 19:41 01/29/21 09:37 Famotidine 20 Mg/2 Ml Inj IV 10 mg BID JOHANA Administration Fentanyl 50 mcg 01/26/21 14:00 Fentanyl 100 Mcg/2 Ml Inj IV Q2H PRN Pain , Severe (7-10) Heparin Sodium (Porcine) 5,000 unit 01/25/21 22:00 01/29/21 09:37 Heparin 5,000 Unit/1 Ml Vial SUB-Q 5,000 unit Q12HR JOHANA Administration Hydralazine HCl 10 mg 01/28/21 11:39 Hydralazine 20 Mg/1 Ml Inj IV Q4HR PRN Hypertension Hydrophilic Ointment 1 applic 01/25/21 08:08 Lip Therapy Vaseline TP Q2HR PRN Dry Lips Dopamine HCl/Dextrose 800 mg in 250 mls @ 2.363 mls/hr 01/25/21 08:30 01/25/21 19:00 Intropin Drip 800 Mg/D5w 250 Ml IV 01/29/21 18:17 0 mcg/kg/min TITR ONE 0 mls/hr Titration Protocol 2 MCG/KG/MIN Sodium Chloride 100 mls @ 999 mls/hr 01/25/21 15:37 Nacl 0.9% IV KIMBERLY PRN Hypotension Valproate Sodium 500 mg/ 105 mls @ 100 mls/hr 01/26/21 11:00 01/29/21 09:34 Sodium Chloride IV 100 mls/hr Q12HR JOHANA Administration Cefepime HCl 1 gm in 100 mls @ 200 mls/hr 01/26/21 18:00 01/28/21 17:48 Cefepime/Ns 1 Gm/100 Ml IV 01/30/21 20:59 200 mls/hr QPM JOHANA Administration Protocol Propofol 1,000 mg in 100 mls @ 1.89 mls/hr 01/26/21 14:00 01/28/21 10:00 Diprivan 10 Mg/Ml IV 0 mcg/kg/min TITR JOHANA 0 mls/hr Titration Protocol 5 MCG/KG/MIN Norepinephrine 4 mg in 250 mls @ 7.5 mls/hr 01/27/21 08:00 01/27/21 08:30 Levophed Drip 4 Mg/Ns 250 Ml IV 0 mcg/min TITR JOHANA 0 mls/hr Titration Protocol 2 MCG/MIN Insulin Human Regular 0 units 01/26/21 12:00 01/29/21 12:34 Insulin Regular, Human 100 Units/1 Ml SUB-Q 1 units Q6H JOHANA Administration Protocol Latanoprost 1 drops 01/26/21 18:00 01/28/21 17:48 Latanoprost 0.005% Ophth Soln 2.5 Ml OU 1 drops QPM JOHANA Administration Multi-Ingred Cream/Lotion/Oil/Oint 1 applic 01/25/21 08:08 Mineral Oil/Petrolatum, White Ophth Oint 3.5 Gm OU Q4HR PRN Dry Eye(s) Senna/Docusate Sodium 1 tab 01/25/21 10:00 01/29/21 09:35 Sennosides/Docusate Sodium 8.6/50 Mg Tab FEEDTUBE 1 tab BID JOHANA Administration Simple Syrup 15 ml 01/26/21 08:55 Simple Syrup 15 Ml FEEDTUBE PRN PRN Hypoglycemia Simple Syrup 30 ml 01/26/21 08:55 Simple Syrup 15 Ml FEEDTUBE PRN PRN Hypoglycemia Sodium Bicarbonate 325 mg 01/26/21 08:55 Sodium Bicarbonate 325 Mg Tab FEEDTUBE PRN PRN For Clogged Feeding Tube Sodium Chloride 10 ml 01/25/21 22:00 01/29/21 09:34 Sodium Chloride 0.9% 10 Ml Flush Syringe IV 10 ml BID JOHANA Administration Sodium Chloride 10 ml 01/25/21 12:47 Sodium Chloride 0.9% 10 Ml Flush Syringe IV PRN PRN LINE FLUSH Nutrition/Malnutrition Assess - Dietary Evaluation Nutrition/Malnutrition Findings: Nutrition Notes Start: 01/26/21 08:46 Freq: Status: Active Protocol: Document 01/28/21 08:57 CW (Rec: 01/28/21 09:08 CW [id number]) Nutrition Notes Need for Assessment generated from: MD Order Initial or Follow up Reassessment Current Diagnosis CKD (stage V CKD),Diabetes, Hypertension,Heart Failure, Respiratory Failure, Hyperlipidemia Other Pertinent Diagnosis UTI, cardiac arrest, R AKA Current Diet Nepro at 38 ml/hr Labs/Tests 01/27 BUN 23 Cr 3.1 Pertinent Medications propofol at 1.89 ml/hr (50 kcal) senokot Cefepime Height 5 ft 6 in Weight 60 kg [place] Body Weight (kg) 64.54 BMI 21.3 Weight change and time frame weight change noted Weight Status Appropriate Subjective/Other Information F/U for TF start and tolerance . TF is currently running at goal of 38 ml/hr of Nepro. Pt remains on mechanical vent. Pt has had diarrhea recently; possibly related to ABTx usage . Percent of energy/protein needs met: 100%/97% Burn Absent Trauma Absent GI Symptoms Diarrhea Skin Integrity/Comment open wound on LUE Current % PO Negligible Minimum of two criteria No Muscle Mass Mild Depletion (non-severe) #2 Nutrition Diagnosis Increased nutrient needs ( specify in comment below) Comments: protein Etiology wound healing As Evidenced by Signs and Symptoms Pt has large open wound on LUE #1 Nutrition Diagnosis Inadequate oral intake Diagnosis Progress(for reassessment Continues documentation) Is patient on ventilator? Yes Is Patient Ambulatory and/or Out of Bed No REE-([facility]-confined to bed) 7215.393 Calculation Used for Recommendations [facility] Additional Notes Protein: (1.2-2g/kg) 76-95g Fluid: 2165-8066 ml or per MD Nutrition Intervention Change Diet Order: Continue TF ar ordered Nutrition Support: Nepro 1.8 at 38 ml/hr Flush 125 ml q4h or per MD Kcal 1,641 Protein (gm) 74 Fluid (mL) 663 Goal #1 Meet at least 75% of protein and energy needs via TF Anticipated Discharge Needs: Unable to determine at this time Follow-Up By: 01/31/21 Additional Comments F/U for TF tolerance
--- NOTE | 2021-01-29 12:16 | Progress Note ---
Assessment and Plan Assessment - End-stage renal disease on hemodialysis - Anemia of ESRD - Acidosis - Cardiac arrest - Acute resp failure, s/p intubation - Septic shock - Acute encephalopathy, suspect anoxic brain injury - Seizure Recommendations - Status post HD daily x 2 days - gentle sessions with no UF, - Patient had uneventful hemodialysis yesterday . Keep him on MWF schedule for now. - Monitor labs and volume status daily and assess need for additional dialysis session - Keep MAP>65, vasopressors prn - Epogen with HD once acute issues resolve - Agree with antibiotics - Antiepileptics as per neurology - Renally dose medication for creatinine clearance less than 15 cc/min - Prognosis is guarded -Follow-up results of brain scan - Recommend goals of care discussion Subjective Date of service: 01/29/21 Principal diagnosis: Cardiac arrest; Ac hypoxemic resp failure; Septic Shock; UTI; AMS; ESRD Interval history: Patient remains on the ventilator. Currently on 25% FiO2. Oxygen saturation 100% Objective - Vital Signs Vital signs: Vital Signs - 12hr 01/29/21 01/29/21 01/29/21 00:20 00:30 00:40 Temperature Pulse Rate 71 71 71 Pulse Rate [ From Monitor] Respiratory 12 12 12 Rate Blood Pressure 160/73 150/71 156/73 O2 Sat by Pulse 99 99 99 Oximetry 01/29/21 01/29/21 01/29/21 00:50 01:00 01:10 Temperature Pulse Rate 71 72 72 Pulse Rate [ From Monitor] Respiratory 12 12 12 Rate Blood Pressure 151/70 129/67 140/71 O2 Sat by Pulse 99 100 99 Oximetry 01/29/21 01/29/21 01/29/21 01:20 01:30 01:40 Temperature Pulse Rate 72 73 71 Pulse Rate [ From Monitor] Respiratory 12 12 12 Rate Blood Pressure 145/69 148/70 135/69 O2 Sat by Pulse 99 99 100 Oximetry 01/29/21 01/29/21 01/29/21 01:50 02:00 02:10 Temperature Pulse Rate 71 71 73 Pulse Rate [ From Monitor] Respiratory 12 12 12 Rate Blood Pressure 132/67 131/66 133/69 O2 Sat by Pulse 100 99 100 Oximetry 01/29/21 01/29/21 01/29/21 02:20 02:30 02:40 Temperature Pulse Rate 71 71 72 Pulse Rate [ From Monitor] Respiratory 12 12 12 Rate Blood Pressure 146/72 151/67 143/71 O2 Sat by Pulse 99 99 99 Oximetry 01/29/21 01/29/21 01/29/21 02:50 03:00 03:10 Temperature Pulse Rate 71 72 71 Pulse Rate [ From Monitor] Respiratory 08 07 12 Rate Blood Pressure 143/72 152/74 133/67 O2 Sat by Pulse 99 99 100 Oximetry 01/29/21 01/29/21 01/29/21 03:18 03:20 03:30 Temperature 98.4 F Pulse Rate 71 70 Pulse Rate [ From Monitor] Respiratory 08 07 Rate Blood Pressure 151/73 145/72 O2 Sat by Pulse 99 99 Oximetry 01/29/21 01/29/21 01/29/21 03:40 03:50 04:00 Temperature Pulse Rate 71 71 70 Pulse Rate [ 74 From Monitor] Respiratory 08 07 12 Rate Blood Pressure 143/70 129/65 145/71 O2 Sat by Pulse 99 100 99 Oximetry 01/29/21 01/29/21 01/29/21 04:10 04:20 04:30 Temperature Pulse Rate 70 71 71 Pulse Rate [ From Monitor] Respiratory 08 07 12 Rate Blood Pressure 142/70 133/67 129/67 O2 Sat by Pulse 99 100 100 Oximetry 01/29/21 01/29/21 01/29/21 04:40 04:50 05:00 Temperature Pulse Rate 71 71 70 Pulse Rate [ From Monitor] Respiratory 08 07 12 Rate Blood Pressure 135/67 134/67 134/67 O2 Sat by Pulse 100 99 99 Oximetry 01/29/21 01/29/21 01/29/21 05:10 05:20 05:30 Temperature Pulse Rate 71 70 70 Pulse Rate [ From Monitor] Respiratory 08 07 12 Rate Blood Pressure 141/68 146/72 141/71 O2 Sat by Pulse 99 99 98 Oximetry 01/29/21 01/29/21 01/29/21 05:40 05:50 06:00 Temperature Pulse Rate 70 70 71 Pulse Rate [ From Monitor] Respiratory 08 07 12 Rate Blood Pressure 145/70 134/70 142/71 O2 Sat by Pulse 99 98 100 Oximetry 01/29/21 01/29/21 01/29/21 06:10 06:21 06:30 Temperature Pulse Rate 69 71 70 Pulse Rate [ From Monitor] Respiratory 08 07 12 Rate Blood Pressure 123/66 106/59 110/60 O2 Sat by Pulse 100 98 99 Oximetry 01/29/21 01/29/21 01/29/21 06:40 06:50 07:00 Temperature Pulse Rate 71 71 70 Pulse Rate [ From Monitor] Respiratory 08 07 12 Rate Blood Pressure 114/63 117/62 122/67 O2 Sat by Pulse 98 97 97 Oximetry 01/29/21 01/29/21 01/29/21 07:10 07:20 07:30 Temperature Pulse Rate 70 70 69 Pulse Rate [ From Monitor] Respiratory 08 07 12 Rate Blood Pressure 128/66 136/69 126/65 O2 Sat by Pulse 98 100 100 Oximetry 01/29/21 01/29/21 01/29/21 07:40 07:50 08:00 Temperature 94.4 F L Pulse Rate 70 70 69 Pulse Rate [ 69 From Monitor] Respiratory 08 07 12 Rate Blood Pressure 115/64 114/64 121/64 O2 Sat by Pulse 99 96 99 Oximetry 01/29/21 01/29/21 01/29/21 08:10 08:20 08:30 Temperature Pulse Rate 69 69 69 Pulse Rate [ From Monitor] Respiratory 08 07 12 Rate Blood Pressure 129/67 113/63 133/69 O2 Sat by Pulse 100 100 100 Oximetry 01/29/21 01/29/21 01/29/21 08:40 08:51 09:00 Temperature Pulse Rate 70 69 69 Pulse Rate [ From Monitor] Respiratory 08 07 13 Rate Blood Pressure 109/61 137/66 133/67 O2 Sat by Pulse 100 100 100 Oximetry 01/29/21 01/29/21 01/29/21 09:10 09:20 09:30 Temperature Pulse Rate 70 70 71 Pulse Rate [ From Monitor] Respiratory 08 07 12 Rate Blood Pressure 109/59 122/64 104/61 O2 Sat by Pulse 100 100 100 Oximetry 01/29/21 01/29/21 01/29/21 09:35 09:40 09:50 Temperature Pulse Rate 71 70 71 Pulse Rate [ From Monitor] Respiratory 13 Rate Blood Pressure 104/61 112/63 108/62 O2 Sat by Pulse 100 100 Oximetry 01/29/21 01/29/21 01/29/21 10:00 10:10 10:20 Temperature Pulse Rate 70 69 70 Pulse Rate [ From Monitor] Respiratory 08 07 12 Rate Blood Pressure 133/67 133/67 118/61 O2 Sat by Pulse 100 100 100 Oximetry 06/01/1401/29/21 01/29/21 10:30 10:40 10:50 Temperature Pulse Rate 70 70 69 Pulse Rate [ From Monitor] Respiratory 12 12 12 Rate Blood Pressure 122/60 122/60 125/61 O2 Sat by Pulse 100 100 100 Oximetry 01/29/21 01/29/21 11:00 11:37 Temperature Pulse Rate 69 70 Pulse Rate [ From Monitor] Respiratory 12 Rate Blood Pressure 130/65 116/59 O2 Sat by Pulse 100 100 Oximetry - General Appearance General appearance: well-developed, well-nourished, intubated EENT: PERRL, mucous membranes moist Neck: no JVD, no thyromegaly, other (Left IJ PermCath in place) Respiratory: Present: Clear to Ascultation Cardiology: regular, normal heart rate Gastrointestinal: normal, normoactive bowel sounds Integumentary: no rash, other (No edema) - Lab 01/29/21 08:07 01/29/21 08:07 Most recent lab results ABG pH 7.392 (7.320-7.450) 01/29/21 03:45 ABG O2 Saturation 98.8 (0-100) 01/29/21 03:45 Calcium 8.6 mg/dL (8.4-10.2) D 01/29/21 08:07 Magnesium 2.30 mg/dL (1.7-2.3) 01/25/21 08:13 Medications & Allergies - Medications Allergies/Adverse Reactions: Allergies No Known Allergies Allergy (Verified 01/25/21 07:55) Home Medications: Home Medications Medication Instructions Recorded Confirmed Last Taken Type Atorvastatin [Lipitor] 40 mg PO QHS 09/28/17 01/27/21 Unknown History Omeprazole 20 mg PO BID 09/28/17 01/27/21 Unknown History Vit B Comp No.3/Folic/C/Biotin 1 tab PO DAILY 09/28/17 01/27/21 Unknown History [[facility] Rx Tablet] amLODIPine 10 mg PO DAILY 09/28/17 01/27/21 Unknown History carvediloL [Coreg] 12.5 mg PO BID 09/28/17 01/27/21 Unknown History Albuterol Mdi (or & Nicu Only) 2 puff IH QID PRN 05/01/19 01/27/21 Unknown History [ProAir HFA Inhaler] Gabapentin 300 mg PO Q8HR 05/01/19 01/27/21 Unknown History Latanoprost 0.005% 1 drop OP QPM 05/01/19 01/27/21 Unknown History lisinopriL [Zestril TAB] 40 mg PO QDAY 05/01/19 01/27/21 Unknown History Active Medications: Generic Name Dose Route Start Last Admin Trade Name Freq PRN Reason Stop Dose Admin Acetaminophen 650 mg 01/26/21 03:47 01/26/21 04:52 Acetaminophen 325 Mg/10.15 Ml Oral Liqd Unit Dose FEEDTUBE 650 mg Q6H PRN Administration Non Cardiac Pain or Temp>100.5 Albuterol 2.5 mg 01/25/21 12:47 Albuterol 2.5 Mg/3 Ml Nebu IH Q3HRT PRN Shortness Of Breath Amlodipine Besylate 10 mg 01/29/21 10:00 01/29/21 09:35 Amlodipine 10 Mg Tab PO 10 mg QDAY JOHANA Administration Lipase/Protease/Amylase 1 each 01/26/21 08:55 Lipase 10,500/Protease 25,000/Amylase 43,750 (Units) Dr Langley FEEDTUBE PRN PRN For Clogged Feeding Tube Aspirin 325 mg 01/26/21 11:00 01/29/21 09:36 Aspirin 325 Mg Tab PO 325 mg QDAY JOHANA Administration Atorvastatin Calcium 40 mg 01/26/21 22:00 01/28/21 21:09 Atorvastatin 40 Mg Tab PO 40 mg QHS JOHANA Administration Dextrose 50 ml 01/26/21 08:00 Dextrose 50% In Water (25gm) 50 Ml Syringe IV Q30MIN PRN Hypoglycemia Protocol Famotidine 10 mg 01/25/21 19:41 01/29/21 09:37 Famotidine 20 Mg/2 Ml Inj IV 10 mg BID JOHANA Administration Fentanyl 50 mcg 01/26/21 14:00 Fentanyl 100 Mcg/2 Ml Inj IV Q2H PRN Pain , Severe (7-10) Heparin Sodium (Porcine) 5,000 unit 01/25/21 22:00 01/29/21 09:37 Heparin 5,000 Unit/1 Ml Vial SUB-Q 5,000 unit Q12HR JOHANA Administration Hydralazine HCl 10 mg 01/28/21 11:39 Hydralazine 20 Mg/1 Ml Inj IV Q4HR PRN Hypertension Hydrophilic Ointment 1 applic 01/25/21 08:08 Lip Therapy Vaseline TP Q2HR PRN Dry Lips Dopamine HCl/Dextrose 800 mg in 250 mls @ 2.363 mls/hr 01/25/21 08:30 01/25/21 19:00 Intropin Drip 800 Mg/D5w 250 Ml IV 01/29/21 18:17 0 mcg/kg/min TITR ONE 0 mls/hr Titration Protocol 2 MCG/KG/MIN Sodium Chloride 100 mls @ 999 mls/hr 01/25/21 15:37 Nacl 0.9% IV KIMBERLY PRN Hypotension Valproate Sodium 500 mg/ 105 mls @ 100 mls/hr 01/26/21 11:00 01/29/21 09:34 Sodium Chloride IV 100 mls/hr Q12HR JOHANA Administration Cefepime HCl 1 gm in 100 mls @ 200 mls/hr 01/26/21 18:00 01/28/21 17:48 Cefepime/Ns 1 Gm/100 Ml IV 01/30/21 20:59 200 mls/hr QPM JOHANA Administration Protocol Propofol 1,000 mg in 100 mls @ 1.89 mls/hr 01/26/21 14:00 01/28/21 10:00 Diprivan 10 Mg/Ml IV 0 mcg/kg/min TITR JOHANA 0 mls/hr Titration Protocol 5 MCG/KG/MIN Norepinephrine 4 mg in 250 mls @ 7.5 mls/hr 01/27/21 08:00 01/27/21 08:30 Levophed Drip 4 Mg/Ns 250 Ml IV 0 mcg/min TITR JOHANA 0 mls/hr Titration Protocol 2 MCG/MIN Insulin Human Regular 0 units 01/26/21 12:00 01/29/21 05:48 Insulin Regular, Human 100 Units/1 Ml SUB-Q 1 units Q6H JOHANA Administration Protocol Latanoprost 1 drops 01/26/21 18:00 01/28/21 17:48 Latanoprost 0.005% Ophth Soln 2.5 Ml OU 1 drops QPM JOHANA Administration Multi-Ingred Cream/Lotion/Oil/Oint 1 applic 01/25/21 08:08 Mineral Oil/Petrolatum, White Ophth Oint 3.5 Gm OU Q4HR PRN Dry Eye(s) Senna/Docusate Sodium 1 tab 01/25/21 10:00 01/29/21 09:35 Sennosides/Docusate Sodium 8.6/50 Mg Tab FEEDTUBE 1 tab BID JOHANA Administration Simple Syrup 15 ml 01/26/21 08:55 Simple Syrup 15 Ml FEEDTUBE PRN PRN Hypoglycemia Simple Syrup 30 ml 01/26/21 08:55 Simple Syrup 15 Ml FEEDTUBE PRN PRN Hypoglycemia Sodium Bicarbonate 325 mg 01/26/21 08:55 Sodium Bicarbonate 325 Mg Tab FEEDTUBE PRN PRN For Clogged Feeding Tube Sodium Chloride 10 ml 01/25/21 22:00 01/29/21 09:34 Sodium Chloride 0.9% 10 Ml Flush Syringe IV 10 ml BID JOHANA Administration Sodium Chloride 10 ml 01/25/21 12:47 Sodium Chloride 0.9% 10 Ml Flush Syringe IV PRN PRN LINE FLUSH
--- NOTE | 2021-01-29 13:10 | Progress Note ---
Assessment and Plan Cardiac arrest with return of spontaneous circulation. Acute hypoxemic respiratory failure, on mechanical ventilatory support. Severe sepsis with shock Urinary tract infection. ESRD on dialysis. Acute toxic metabolic encephalopathy, possibly anoxic. Anemia that is normocytic. Hypercapnia Leukocytosis. Hyperkalemia. NSTEMI DM II Congestive heart failure. Gastroesophageal reflux disease. Oropharyngeal dysphagia (Discussed very poor prognosis with his at bedside requested a substituted judgment as to wether he would want a tracheostomy and watchful waiting knowing the poor prognosis or perhaps hospice / comfort care. She states she has to discuss with their son and daughter. I also discussed likely brain flow scan evaluation in am and the consequences of a positive flow scan confirming brain ) - NM Brain flow scan positive for brain - HD/UF decisions per nephrology re: hospice transfer - continue to wean Levophed for target MAP > 65 mmHg - continue care as below otherwise; - continue on AED's (Keppra, dilantin) - keep set rate at 12/min - complete AB's per ID recommendations (Cefepime & Vancomycin) - continue to wean supplemental oxygen for target O2 sat's > 90% acutely - VAP bundle addressed - continue lung protective strategies - continue bronchodilators with pulmonary hygiene per RT - Daily SAT and SBT assessment as tolerated - wean per pulmonary driven protocols otherwise - continue accuchecks with glycemic control per SSI (While critically ill target blood glucose of 140-180 mg/dL; avoid hypoglycemia) - sedation prn for target RASS 0 to -1 - avoid nephrotoxins, renally dose all medications - avoid benzodiazepine's if possible, reduce the possibility of delirium - prn analgesia per CPOT score - Maintenance of sleep-wake cycle, avoid delirium - continue enteral nutritional support at goal rate as tolerated - G.I. & VTE prophylaxis - PT/OT/ROM exercises - continue mobility protocols for pressure ulcer prophylaxis - Monitor hemodynamics closely - continue other care per attending / other consultants - discharge planning ongoing concurrently .... Re-evaluate in am & prn CONDITION: CRITICAL PROGNOSIS: GUARDED CODE STATUS: FULL CODE The high probability of a clinically significant, sudden or life-threatening deterioration of the [respiratory, cardiovascular, GI & neurologic] system(s) required my full and direct attention, intervention and personal management. The aggregate critical care time was [35] minutes without overlap. Time includes spent on; [x] Data Review and interpretation [x] Patient assessment and monitoring of vital signs [x] Documentation [x] Medication orders and management Subjective Date of service: 01/29/21 Principal diagnosis: Cardiac arrest; Ac hypoxemic resp failure; Septic Shock; UTI; AMS; ESRD Interval history: Patient is seen today for: Cardiac arrest with ROSC; Acute hypoxemic respiratory failure; Septic Shock; UTI; ESRD on dialysis; Acute toxic metabolic encephalopathy, possibly anoxic; NSTEMI; CHF Seen and examined at bedside; 24hour events reviewed; nursing and respiratory care staff consulted; no adverse overnight events reported to me; resting peacefully in bed; remains on MVS; family has tentatively requested hospice transfer and case management is working on this; no new issues otherwise Objective Vital Signs - 12hr 01/29/21 01/29/21 01/29/21 01:10 01:20 01:30 Temperature Pulse Rate 72 72 73 Pulse Rate [ From Monitor] Respiratory 08 07 12 Rate Blood Pressure 140/71 145/69 148/70 O2 Sat by Pulse 99 99 99 Oximetry 01/29/21 01/29/21 01/29/21 01:40 01:50 02:00 Temperature Pulse Rate 71 71 71 Pulse Rate [ From Monitor] Respiratory 08 07 12 Rate Blood Pressure 135/69 132/67 131/66 O2 Sat by Pulse 100 100 99 Oximetry 01/29/21 01/29/21 01/29/21 02:10 02:20 02:30 Temperature Pulse Rate 73 71 71 Pulse Rate [ From Monitor] Respiratory 08 07 12 Rate Blood Pressure 133/69 146/72 151/67 O2 Sat by Pulse 100 99 99 Oximetry 01/29/21 01/29/21 01/29/21 02:40 02:50 03:00 Temperature Pulse Rate 72 71 72 Pulse Rate [ From Monitor] Respiratory 12 12 Rate Blood Pressure 143/71 143/72 152/74 O2 Sat by Pulse 99 99 99 Oximetry 01/29/21 01/29/21 01/29/21 03:10 03:18 03:20 Temperature 98.4 F Pulse Rate 71 71 Pulse Rate [ From Monitor] Respiratory 12 12 Rate Blood Pressure 133/67 151/73 O2 Sat by Pulse 100 99 Oximetry 01/29/21 01/29/21 01/29/21 03:30 03:40 03:50 Temperature Pulse Rate 70 71 71 Pulse Rate [ From Monitor] Respiratory 08 07 12 Rate Blood Pressure 145/72 143/70 129/65 O2 Sat by Pulse 99 99 100 Oximetry 01/29/21 01/29/21 01/29/21 04:00 04:10 04:20 Temperature Pulse Rate 70 70 71 Pulse Rate [ 74 From Monitor] Respiratory 08 07 12 Rate Blood Pressure 145/71 142/70 133/67 O2 Sat by Pulse 99 99 100 Oximetry 01/29/21 01/29/21 01/29/21 04:30 04:40 04:50 Temperature Pulse Rate 71 71 71 Pulse Rate [ From Monitor] Respiratory 08 07 12 Rate Blood Pressure 129/67 135/67 134/67 O2 Sat by Pulse 100 100 99 Oximetry 01/29/21 01/29/21 01/29/21 05:00 05:10 05:20 Temperature Pulse Rate 70 71 70 Pulse Rate [ From Monitor] Respiratory 08 07 12 Rate Blood Pressure 134/67 141/68 146/72 O2 Sat by Pulse 99 99 99 Oximetry 01/29/21 01/29/21 01/29/21 05:30 05:40 05:50 Temperature Pulse Rate 70 70 70 Pulse Rate [ From Monitor] Respiratory 08 07 12 Rate Blood Pressure 141/71 145/70 134/70 O2 Sat by Pulse 98 99 98 Oximetry 01/29/21 01/29/21 01/29/21 06:00 06:10 06:21 Temperature Pulse Rate 71 69 71 Pulse Rate [ From Monitor] Respiratory 08 07 12 Rate Blood Pressure 142/71 123/66 106/59 O2 Sat by Pulse 100 100 98 Oximetry 01/29/21 01/29/21 01/29/21 06:30 06:40 06:50 Temperature Pulse Rate 70 71 71 Pulse Rate [ From Monitor] Respiratory 08 07 12 Rate Blood Pressure 110/60 114/63 117/62 O2 Sat by Pulse 99 98 97 Oximetry 01/29/21 01/29/21 01/29/21 07:00 07:10 07:20 Temperature Pulse Rate 70 70 70 Pulse Rate [ From Monitor] Respiratory 08 07 12 Rate Blood Pressure 122/67 128/66 136/69 O2 Sat by Pulse 97 98 100 Oximetry 01/29/21 01/29/21 01/29/21 07:30 07:40 07:50 Temperature Pulse Rate 69 70 70 Pulse Rate [ From Monitor] Respiratory 08 07 12 Rate Blood Pressure 126/65 115/64 114/64 O2 Sat by Pulse 100 99 96 Oximetry 01/29/21 01/29/21 01/29/21 08:00 08:10 08:20 Temperature 94.4 F L Pulse Rate 69 69 69 Pulse Rate [ 69 From Monitor] Respiratory 12 12 12 Rate Blood Pressure 121/64 129/67 113/63 O2 Sat by Pulse 99 100 100 Oximetry 01/29/21 01/29/21 01/29/21 08:30 08:40 08:51 Temperature Pulse Rate 69 70 69 Pulse Rate [ From Monitor] Respiratory 12 12 12 Rate Blood Pressure 133/69 109/61 137/66 O2 Sat by Pulse 100 100 100 Oximetry 01/29/21 01/29/21 01/29/21 09:00 09:10 09:20 Temperature Pulse Rate 69 70 70 Pulse Rate [ From Monitor] Respiratory 13 12 12 Rate Blood Pressure 133/67 109/59 122/64 O2 Sat by Pulse 100 100 100 Oximetry 01/29/21 01/29/21 01/29/21 09:30 09:35 09:40 Temperature Pulse Rate 71 71 70 Pulse Rate [ From Monitor] Respiratory 12 12 Rate Blood Pressure 104/61 104/61 112/63 O2 Sat by Pulse 100 100 Oximetry 01/29/21 01/29/21 01/29/21 09:50 10:00 10:10 Temperature Pulse Rate 71 70 69 Pulse Rate [ From Monitor] Respiratory 13 12 12 Rate Blood Pressure 108/62 133/67 133/67 O2 Sat by Pulse 100 100 100 Oximetry 01/29/21 01/29/21 01/29/21 10:20 10:30 10:40 Temperature Pulse Rate 70 70 70 Pulse Rate [ From Monitor] Respiratory 12 12 12 Rate Blood Pressure 118/61 122/60 122/60 O2 Sat by Pulse 100 100 100 Oximetry 01/29/21 01/29/21 01/29/21 10:50 11:00 11:10 Temperature Pulse Rate 69 69 70 Pulse Rate [ From Monitor] Respiratory 12 12 12 Rate Blood Pressure 125/61 130/65 130/65 O2 Sat by Pulse 100 100 100 Oximetry 01/29/21 01/29/21 01/29/21 11:20 11:30 11:37 Temperature Pulse Rate 70 69 70 Pulse Rate [ From Monitor] Respiratory 12 12 Rate Blood Pressure 116/59 125/65 116/59 O2 Sat by Pulse 100 100 100 Oximetry 01/29/21 01/29/2101/29/21 11:40 11:50 12:00 Temperature 97.4 F L Pulse Rate 69 69 71 Pulse Rate [ 72 From Monitor] Respiratory 12 12 13 Rate Blood Pressure 125/65 108/57 123/64 O2 Sat by Pulse 100 100 100 Oximetry 01/29/21 01/29/21 01/29/21 12:10 12:20 12:30 Temperature Pulse Rate 71 71 73 Pulse Rate [ From Monitor] Respiratory 12 13 11 L Rate Blood Pressure 123/64 114/61 121/61 O2 Sat by Pulse 100 100 100 Oximetry 01/29/21 01/29/21 01/29/21 12:40 12:50 13:00 Temperature Pulse Rate 72 72 73 Pulse Rate [ From Monitor] Respiratory 16 13 13 Rate Blood Pressure 121/61 105/58 104/53 O2 Sat by Pulse 100 100 100 Oximetry Constitutional: no acute distress, other (elderly thin male riding set rate on MVS) Eyes: non-icteric ENT: oropharynx moist, other (ETT 24 cm FREDI) Neck: supple, no lymphadenopathy, no JVD Effort: mildly labored Ascultation: Bilateral: diminished breath sounds, rhonchi (scant, bases) Percussion: Bilateral: not dull Cardiovascular: regular rate and rhythm Gastrointestinal: normoactive bowel sounds Integumentary: normal Extremities: no cyanosis, no edema, pulses normal, no ischemia or petechiae Neurologic: pupils equal and round (fixed and dilated), unable to assess Psychiatric: other (unable to assess re: AMS) CBC and BMP: 01/29/21 08:07 01/29/21 08:07 ABG, PT/INR, D-dimer: ABG ABG pH 7.392 (7.320-7.450) 01/29/21 03:45 POC ABG pCO2 48.2 mmHg (32.0-48.0) H 01/29/21 03:45 POC ABG pO2 115.2 mmHg (83-108) H 01/29/21 03:45 POC ABG HCO3 28.7 01/29/21 03:45 ABG O2 Saturation 98.8 (0-100) 01/29/21 03:45 PT/INR, D-dimer PT 16.0 Sec. (12.2-14.9) H 01/25/21 08:13 INR 1.28 (0.87-1.13) H 01/25/21 08:13 D-Dimer 8335.22 ng/mlDDU (0-234) H 01/26/21 07:40 Abnormal lab findings: Abnormal Labs 01/25/21 01/25/21 01/25/21 07:56 08:13 08:13 WBC 11.4 H RBC 2.50 L Hgb 7.3 L Hct 22.2 L RDW 17.5 H Lymph % (Auto) 13.0 L Baso % (Auto) 2.2 H Baso # (Auto) 0.3 H Seg Neutrophils % 81.7 H Seg Neuts % (Manual) Lymphocytes % (Manual) Seg Neutrophils # 9.3 H Seg Neutrophils # Man Lymphocytes # (Manual) PT 16.0 H INR 1.28 H APTT 56.8 H D-Dimer ABG pH POC ABG pCO2 POC ABG pO2 ABG Hemoglobin ABG Oxyhemoglobin ABG Sodium ABG Potassium ABG Chloride ABG Glucose VBG pH Carboxyhemoglobin Sodium Potassium Chloride Carbon Dioxide BUN Creatinine Glucose POC Glucose 139 H Lactic Acid Calcium Ferritin AST ALT Lactate Dehydrogenase Troponin T C-Reactive Protein NT-Pro-B Natriuret Pep Total Protein Albumin Arterial Blood Glucose Arterial Blood Ionized Calcium Urine pH Urine WBC (Auto) Hepatitis C Antibody 01/25/21 01/25/21 01/25/21 08:13 08:13 08:13 WBC RBC Hgb Hct RDW Lymph % (Auto) Baso % (Auto) Baso # (Auto) Seg Neutrophils % Seg Neuts % (Manual) Lymphocytes % (Manual) Seg Neutrophils # Seg Neutrophils # Man Lymphocytes # (Manual) PT INR APTT D-Dimer ABG pH POC ABG pCO2 POC ABG pO2 ABG Hemoglobin ABG Oxyhemoglobin ABG Sodium ABG Potassium ABG Chloride ABG Glucose VBG pH 7.100 L* Carboxyhemoglobin Sodium 135 L Potassium 5.4 H Chloride 92.1 L Carbon Dioxide 21 L BUN Creatinine 4.8 H Glucose 157 H POC Glucose Lactic Acid Calcium Ferritin AST 284 H ALT 85 H Lactate Dehydrogenase Troponin T 0.233 H* C-Reactive Protein NT-Pro-B Natriuret Pep 66501 H Total Protein 5.8 L Albumin 2.5 L Arterial Blood Glucose Arterial Blood Ionized Calcium Urine pH Urine WBC (Auto) Hepatitis C Antibody Reactive A 06/09/1601/25/21 01/25/21 08:44 16:31 16:57 WBC RBC Hgb Hct RDW Lymph % (Auto) Baso % (Auto) Baso # (Auto) Seg Neutrophils % Seg Neuts % (Manual) Lymphocytes % (Manual) Seg Neutrophils # Seg Neutrophils # Man Lymphocytes # (Manual) PT INR APTT D-Dimer ABG pH 7.174 L 7.572 H 7.608 H POC ABG pCO2 58.4 H 24.4 L 25.2 L POC ABG pO2 109.3 H 41.6 L 257.8 H ABG Hemoglobin 7.7 L 9.3 L 9.4 L ABG Oxyhemoglobin 92.0 L 79.4 L 99.1 H ABG Sodium 133.9 L ABG Potassium 5.4 H 4.6 H ABG Chloride 97.0 L 97.0 L ABG Glucose 157 H 107 H 124 H VBG pH Carboxyhemoglobin 4.3 H 0.3 L Sodium Potassium Chloride Carbon Dioxide BUN Creatinine Glucose POC Glucose Lactic Acid Calcium Ferritin AST ALT Lactate Dehydrogenase Troponin T C-Reactive Protein NT-Pro-B Natriuret Pep Total Protein Albumin Arterial Blood Glucose 157 H 107 H 124 H Arterial Blood Ionized Calcium 4.5 L 4.3 L 4.3 L Urine pH Urine WBC (Auto) Hepatitis C Antibody 01/25/21 01/25/21 01/26/21 23:31 Unknown 03:10 WBC RBC Hgb Hct RDW Lymph % (Auto) Baso % (Auto) Baso # (Auto) Seg Neutrophils % Seg Neuts % (Manual) Lymphocytes % (Manual) Seg Neutrophils # Seg Neutrophils # Man Lymphocytes # (Manual) PT INR APTT D-Dimer ABG pH 7.547 H POC ABG pCO2 31.7 L POC ABG pO2 ABG Hemoglobin 9.2 L ABG Oxyhemoglobin ABG Sodium ABG Potassium ABG Chloride ABG Glucose 108 H VBG pH Carboxyhemoglobin Sodium Potassium Chloride Carbon Dioxide BUN Creatinine Glucose POC Glucose 111 H Lactic Acid Calcium Ferritin AST ALT Lactate Dehydrogenase Troponin T C-Reactive Protein NT-Pro-B Natriuret Pep Total Protein Albumin Arterial Blood Glucose 108 H Arterial Blood Ionized Calcium 4.0 L Urine pH 8.0 H Urine WBC (Auto) > 182.0 H Hepatitis C Antibody 06/02/21 06/02/21 06/02/21 04:00 07:40 07:40 WBC RBC Hgb Hct RDW Lymph % (Auto) Baso % (Auto) Baso # (Auto) Seg Neutrophils % Seg Neuts % (Manual) Lymphocytes % (Manual) Seg Neutrophils # Seg Neutrophils # Man Lymphocytes # (Manual) PT INR APTT D-Dimer 8335.22 H ABG pH POC ABG pCO2 POC ABG pO2 ABG Hemoglobin ABG Oxyhemoglobin ABG Sodium ABG Potassium ABG Chloride ABG Glucose VBG pH Carboxyhemoglobin Sodium Potassium Chloride Carbon Dioxide BUN 27 H Creatinine 4.4 H Glucose 105 H POC Glucose Lactic Acid Calcium 8.1 L Ferritin 1817.0 H AST ALT Lactate Dehydrogenase Troponin T C-Reactive Protein NT-Pro-B Natriuret Pep Total Protein Albumin Arterial Blood Glucose Arterial Blood Ionized Calcium Urine pH Urine WBC (Auto) Hepatitis C Antibody 01/26/21 01/26/21 01/26/21 07:40 07:58 07:58 WBC 16.6 H RBC 3.10 L Hgb 8.9 L Hct 26.7 L RDW 17.4 H Lymph % (Auto) Baso % (Auto) Baso # (Auto) Seg Neutrophils % Seg Neuts % (Manual) 93.0 H Lymphocytes % (Manual) 5.0 L Seg Neutrophils # Seg Neutrophils # Man 15.4 H Lymphocytes # (Manual) 0.8 L PT INR APTT D-Dimer ABG pH POC ABG pCO2 POC ABG pO2 ABG Hemoglobin ABG Oxyhemoglobin ABG Sodium ABG Potassium ABG Chloride ABG Glucose VBG pH Carboxyhemoglobin Sodium Potassium Chloride Carbon Dioxide BUN Creatinine Glucose POC Glucose Lactic Acid 3.20 H* Calcium Ferritin AST ALT Lactate Dehydrogenase 770 H Troponin T C-Reactive Protein 11.00 H NT-Pro-B Natriuret Pep Total Protein Albumin Arterial Blood Glucose Arterial Blood Ionized Calcium Urine pH Urine WBC (Auto) Hepatitis C Antibody 01/26/21 01/26/21 01/26/21 11:29 18:10 23:15 WBC RBC Hgb Hct RDW Lymph % (Auto) Baso % (Auto) Baso # (Auto) Seg Neutrophils % Seg Neuts % (Manual) Lymphocytes % (Manual) Seg Neutrophils # Seg Neutrophils # Man Lymphocytes # (Manual) PT INR APTT D-Dimer ABG pH POC ABG pCO2 POC ABG pO2 ABG Hemoglobin ABG Oxyhemoglobin ABG Sodium ABG Potassium ABG Chloride ABG Glucose VBG pH Carboxyhemoglobin Sodium Potassium Chloride Carbon Dioxide BUN Creatinine Glucose POC Glucose 108 H 149 H 113 H Lactic Acid Calcium Ferritin AST ALT Lactate Dehydrogenase Troponin T C-Reactive Protein NT-Pro-B Natriuret Pep Total Protein Albumin Arterial Blood Glucose Arterial Blood Ionized Calcium Urine pH Urine WBC (Auto) Hepatitis C Antibody 01/27/21 01/27/21 01/27/21 04:39 04:39 05:00 WBC 17.3 H RBC 3.11 L Hgb 8.6 L Hct 27.3 L RDW 18.4 H Lymph % (Auto) Baso % (Auto) Baso # (Auto) Seg Neutrophils % Seg Neuts % (Manual) Lymphocytes % (Manual) Seg Neutrophils # Seg Neutrophils # Man Lymphocytes # (Manual) PT INR APTT D-Dimer ABG pH POC ABG pCO2 POC ABG pO2 ABG Hemoglobin 8.8 L ABG Oxyhemoglobin ABG Sodium ABG Potassium ABG Chloride ABG Glucose 98 H VBG pH Carboxyhemoglobin Sodium Potassium Chloride Carbon Dioxide BUN 23 H Creatinine 3.1 H Glucose POC Glucose Lactic Acid Calcium 7.1 L Ferritin AST ALT Lactate Dehydrogenase Troponin T C-Reactive Protein NT-Pro-B Natriuret Pep Total Protein Albumin Arterial Blood Glucose 98 H Arterial Blood Ionized Calcium 3.9 L Urine pH Urine WBC (Auto) Hepatitis C Antibody 01/27/21 01/27/21 01/27/21 11:30 18:10 23:22 WBC RBC Hgb Hct RDW Lymph % (Auto) Baso % (Auto) Baso # (Auto) Seg Neutrophils % Seg Neuts % (Manual) Lymphocytes % (Manual) Seg Neutrophils # Seg Neutrophils # Man Lymphocytes # (Manual) PT INR APTT D-Dimer ABG pH POC ABG pCO2 POC ABG pO2 ABG Hemoglobin ABG Oxyhemoglobin ABG Sodium ABG Potassium ABG Chloride ABG Glucose VBG pH Carboxyhemoglobin Sodium Potassium Chloride Carbon Dioxide BUN Creatinine Glucose POC Glucose 132 H 122 H 134 H Lactic Acid Calcium Ferritin AST ALT Lactate Dehydrogenase Troponin T C-Reactive Protein NT-Pro-B Natriuret Pep Total Protein Albumin Arterial Blood Glucose Arterial Blood Ionized Calcium Urine pH Urine WBC (Auto) Hepatitis C Antibody 01/28/21 01/28/21 01/28/21 03:14 11:17 12:43 WBC RBC Hgb Hct RDW Lymph % (Auto) Baso % (Auto) Baso # (Auto) Seg Neutrophils % Seg Neuts % (Manual) Lymphocytes % (Manual) Seg Neutrophils # Seg Neutrophils # Man Lymphocytes # (Manual) PT INR APTT D-Dimer ABG pH POC ABG pCO2 48.6 H POC ABG pO2 ABG Hemoglobin 8.1 L ABG Oxyhemoglobin ABG Sodium ABG Potassium ABG Chloride ABG Glucose 140 H VBG pH Carboxyhemoglobin 1.7 H Sodium Potassium Chloride Carbon Dioxide BUN Creatinine Glucose POC Glucose 137 H 140 H Lactic Acid Calcium Ferritin AST ALT Lactate Dehydrogenase Troponin T C-Reactive Protein NT-Pro-B Natriuret Pep Total Protein Albumin Arterial Blood Glucose 140 H Arterial Blood Ionized Calcium 4.1 L Urine pH Urine WBC (Auto) Hepatitis C Antibody 01/28/21 01/28/21 01/28/21 15:42 15:42 17:40 WBC RBC 2.94 L Hgb 8.3 L Hct 26.2 L RDW 18.5 H Lymph % (Auto) Baso % (Auto) Baso # (Auto) Seg Neutrophils % Seg Neuts % (Manual) Lymphocytes % (Manual) Seg Neutrophils # Seg Neutrophils # Man Lymphocytes # (Manual) PT INR APTT D-Dimer ABG pH POC ABG pCO2 POC ABG pO2 ABG Hemoglobin ABG Oxyhemoglobin ABG Sodium ABG Potassium ABG Chloride ABG Glucose VBG pH Carboxyhemoglobin Sodium 136 L Potassium Chloride Carbon Dioxide BUN 38 H Creatinine 4.6 H Glucose 150 H POC Glucose 151 H Lactic Acid Calcium 7.2 L Ferritin AST ALT Lactate Dehydrogenase Troponin T C-Reactive Protein NT-Pro-B Natriuret Pep Total Protein Albumin Arterial Blood Glucose Arterial Blood Ionized Calcium Urine pH Urine WBC (Auto) Hepatitis C Antibody 01/28/21 01/28/21 01/29/21 17:42 23:11 03:45 WBC RBC Hgb Hct RDW Lymph % (Auto) Baso % (Auto) Baso # (Auto) Seg Neutrophils % Seg Neuts % (Manual) Lymphocytes % (Manual) Seg Neutrophils # Seg Neutrophils # Man Lymphocytes # (Manual) PT INR APTT D-Dimer ABG pH POC ABG pCO2 48.2 H POC ABG pO2 115.2 H ABG Hemoglobin 8.1 L ABG Oxyhemoglobin ABG Sodium 135.8 L ABG Potassium ABG Chloride ABG Glucose 173 H VBG pH Carboxyhemoglobin Sodium Potassium Chloride Carbon Dioxide BUN Creatinine Glucose POC Glucose 143 H 159 H Lactic Acid Calcium Ferritin AST ALT Lactate Dehydrogenase Troponin T C-Reactive Protein NT-Pro-B Natriuret Pep Total Protein Albumin Arterial Blood Glucose 173 H Arterial Blood Ionized Calcium Urine pH Urine WBC (Auto) Hepatitis C Antibody 01/29/21 01/29/21 01/29/21 05:26 08:07 08:07 WBC RBC 2.68 L Hgb 7.5 L Hct 23.6 L RDW 18.2 H Lymph % (Auto) Baso % (Auto) Baso # (Auto) Seg Neutrophils % Seg Neuts % (Manual) Lymphocytes % (Manual) Seg Neutrophils # Seg Neutrophils # Man Lymphocytes # (Manual) PT INR APTT D-Dimer ABG pH POC ABG pCO2 POC ABG pO2 ABG Hemoglobin ABG Oxyhemoglobin ABG Sodium ABG Potassium ABG Chloride ABG Glucose VBG pH Carboxyhemoglobin Sodium Potassium Chloride Carbon Dioxide BUN 23 H Creatinine 3.4 H Glucose 139 H POC Glucose 161 H Lactic Acid Calcium Ferritin AST ALT Lactate Dehydrogenase Troponin T C-Reactive Protein NT-Pro-B Natriuret Pep Total Protein Albumin Arterial Blood Glucose Arterial Blood Ionized Calcium Urine pH Urine WBC (Auto) Hepatitis C Antibody 01/29/21 11:16 WBC RBC Hgb Hct RDW Lymph % (Auto) Baso % (Auto) Baso # (Auto) Seg Neutrophils % Seg Neuts % (Manual) Lymphocytes % (Manual) Seg Neutrophils # Seg Neutrophils # Man Lymphocytes # (Manual) PT INR APTT D-Dimer ABG pH POC ABG pCO2 POC ABG pO2 ABG Hemoglobin ABG Oxyhemoglobin ABG Sodium ABG Potassium ABG Chloride ABG Glucose VBG pH Carboxyhemoglobin Sodium Potassium Chloride Carbon Dioxide BUN Creatinine Glucose POC Glucose 153 H Lactic Acid Calcium Ferritin AST ALT Lactate Dehydrogenase Troponin T C-Reactive Protein NT-Pro-B Natriuret Pep Total Protein Albumin Arterial Blood Glucose Arterial Blood Ionized Calcium Urine pH Urine WBC (Auto) Hepatitis C Antibody Allied health notes reviewed: nursing (edema pattern improved)
--- NOTE | 2021-01-29 13:25 | Progress Note ---
Assessment and Plan 1. Status post cardiac arrest 2. Respiratory failure intubated on mechanical ventilator 3. Chronic combined systolic and diastolic heart failure 4. Dilated cardiomyopathy left ventricular ejection fraction 15 to 20% 5. End-stage renal disease on hemodialysis 6. Peripheral vascular disease status post right BKA 7. Anoxic encephalopathy 8. Essential hypertension Plan. Hemodynamically stable we will continue supportive cardiac management. Further cardiac work-up will depend on neurologic status. Subjective Date of service: 01/29/21 Principal diagnosis: Cardiac arrest; Ac hypoxemic resp failure; Septic Shock; UTI; AMS; ESRD Interval history: Intubated on mechanical ventilator Objective Vital Signs Temp Pulse Pulse Pulse Pulse Pulse Resp 01/29/21 13:00 73 13 01/29/21 12:50 72 13 01/29/21 12:40 72 16 01/29/21 12:30 73 11 L 01/29/21 12:20 71 13 01/29/21 12:10 71 12 01/29/21 12:00 97.4 F L 71 72 13 01/29/21 11:50 69 12 01/29/21 11:40 69 12 01/29/21 11:37 70 01/29/21 11:30 69 12 01/29/21 11:20 70 12 01/29/21 11:10 70 12 01/29/21 11:00 69 12 01/29/21 10:50 69 12 01/29/21 10:40 70 12 01/29/21 10:30 70 12 01/29/21 10:20 70 12 01/29/21 10:10 69 12 01/29/21 10:00 70 12 01/29/21 09:50 71 13 01/29/21 09:40 70 12 01/29/21 09:35 71 01/29/21 09:30 71 12 01/29/21 09:20 70 12 01/29/21 09:10 70 12 01/29/21 09:00 69 13 01/29/21 08:51 69 12 01/29/21 08:40 70 12 01/29/21 08:30 69 12 01/29/21 08:20 69 12 01/29/21 08:10 69 12 01/29/21 08:00 94.4 F L 69 69 12 01/29/21 07:50 70 12 01/29/21 07:40 70 12 01/29/21 07:30 69 12 01/29/21 07:20 70 12 01/29/21 07:10 70 12 01/29/21 07:00 70 12 01/29/21 06:50 71 12 01/29/21 06:40 71 12 01/29/21 06:30 70 12 01/29/21 06:21 71 12 01/29/21 06:10 69 12 01/29/21 06:00 71 12 01/29/21 05:50 70 12 01/29/21 05:40 70 12 05 05:30 70 12 01/29/21 05:20 70 12 01/29/21 05:10 71 12 01/29/21 05:00 70 12 01/29/21 04:50 71 12 01/29/21 04:40 71 12 01/29/21 04:30 71 12 01/29/21 04:20 71 12 01/29/21 04:10 70 12 01/29/21 04:00 70 74 12 01/29/21 03:50 71 12 01/29/21 03:40 71 12 01/29/21 03:30 70 12 01/29/21 03:20 71 12 01/29/21 03:18 98.4 F 01/29/21 03:10 71 12 01/29/21 03:00 72 12 01/29/21 02:50 71 12 01/29/21 02:40 72 12 01/29/21 02:30 71 12 01/29/21 02:20 71 12 01/29/21 02:10 73 12 01/29/21 02:00 71 12 01/29/21 01:50 71 12 01/29/21 01:40 71 12 01/29/21 01:30 73 12 01/29/21 01:20 72 12 01/29/21 01:10 72 12 01/29/21 01:00 72 12 01/29/21 00:50 71 12 01/29/21 00:40 71 12 01/29/21 00:30 71 12 01/29/21 00:20 71 12 01/29/21 00:10 72 12 01/29/21 00:01 72 12 01/29/21 00:00 71 74 12 01/28/21 23:50 72 12 01/28/21 23:40 72 12 01/28/21 23:30 73 12 01/28/21 23:28 97.4 F L 01/28/21 23:20 73 12 01/28/21 23:10 74 12 01/28/21 23:00 74 16 01/28/21 22:50 74 16 01/28/21 22:40 74 13 01/28/21 22:30 74 13 01/28/21 22:20 74 11 L 01/28/21 22:13 74 17 01/28/21 22:10 74 12 01/28/21 22:00 74 13 01/28/21 21:50 76 12 01/28/21 21:40 76 17 01/28/21 21:30 76 12 01/28/21 21:20 77 12 01/28/21 21:10 77 14 01/28/21 21:00 78 12 01/28/21 20:50 78 20 01/28/21 20:40 78 15 01/28/21 20:30 78 15 01/28/21 20:20 78 13 01/28/21 20:10 78 17 01/28/21 20:06 79 01/28/21 20:01 78 12 01/28/21 20:00 78 74 12 01/28/21 19:50 97.9 F 79 13 01/28/21 19:40 78 12 01/28/21 19:30 78 11 L 01/28/21 19:20 76 12 01/28/21 19:10 78 12 01/28/21 19:05 97.6 F 77 14 01/28/21 19:00 77 13 01/28/21 18:51 76 13 01/28/21 18:45 77 01/28/21 18:40 78 15 01/28/21 18:30 78 13 01/28/21 18:20 79 15 01/28/21 18:15 80 01/28/21 18:10 80 18 01/28/21 18:01 80 11 L 01/28/21 18:00 81 01/28/21 17:50 81 14 01/28/21 17:45 81 01/28/21 17:40 81 16 01/28/21 17:30 79 13 01/28/21 17:20 78 12 01/28/21 17:15 78 01/28/21 17:10 78 12 01/28/21 17:00 76 16 01/28/21 16:50 76 13 01/28/21 16:45 72 01/28/21 16:40 74 12 01/28/21 16:30 71 13 01/28/21 16:20 73 12 01/28/21 16:15 72 01/28/21 16:10 71 12 01/28/21 16:00 97.6 F 70 74 70 72 72 12 01/28/21 15:55 97.6 F 71 12 01/28/21 15:51 71 12 01/28/21 15:41 72 11 L 01/28/21 15:30 71 12 01/28/21 15:21 70 12 01/28/21 15:10 69 12 01/28/21 15:00 71 12 01/28/21 14:51 72 12 01/28/21 14:45 72 11 L 01/28/21 13:51 67 19 01/28/21 13:41 67 17 01/28/21 13:30 69 23 BP Pulse Ox Pulse Ox 01/29/21 13:00 104/53 100 01/29/21 12:50 105/58 100 01/29/21 12:40 121/61 100 01/29/21 12:30 121/61 100 01/29/21 12:20 114/61 100 01/29/21 12:10 123/64 100 01/29/21 12:00 123/64 100 01/29/21 11:50 108/57 100 01/29/21 11:40 125/65 100 01/29/21 11:37 116/59 100 01/29/21 11:30 125/65 100 01/29/21 11:20 116/59 100 01/29/21 11:10 130/65 100 01/29/21 11:00 130/65 100 01/29/21 10:50 125/61 100 01/29/21 10:40 122/60 100 01/29/21 10:30 122/60 100 01/29/21 10:20 118/61 100 01/29/21 10:10 133/67 100 01/29/21 10:00 133/67 100 01/29/21 09:50 108/62 100 01/29/21 09:40 112/63 100 01/29/21 09:35 104/61 06/05/21 09:30 104/61 100 06/05/21 09:20 122/64 100 06/05/21 09:10 109/59 100 06/05/21 09:00 133/67 100 06/05/21 08:51 137/66 100 06/05/21 08:40 109/61 100 06/05/21 08:30 133/69 100 06/05/21 08:20 113/63 100 06/05/21 08:10 129/67 100 06/05/21 08:00 121/64 99 06/05/21 07:50 114/64 96 06/05/21 07:40 115/64 99 06/05/21 07:30 126/65 100 06/05/21 07:20 136/69 100 06/05/21 07:10 128/66 98 06/05/21 07:00 122/67 97 06/05/21 06:50 117/62 97 06/05/21 06:40 114/63 98 06/05/21 06:30 110/60 99 06/05/21 06:21 106/59 98 06/05/21 06:10 123/66 100 06/05/21 06:00 142/71 100 06/05/21 05:50 134/70 98 06/05/21 05:40 145/70 99 06/05/21 05:30 141/71 98 06/05/21 05:20 146/72 99 06/05/21 05:10 141/68 99 06/05/21 05:00 134/67 99 06/05/21 04:50 134/67 99 06/05/21 04:40 135/67 100 06/05/21 04:30 129/67 100 06/05/21 04:20 133/67 100 06/05/21 04:10 142/70 99 06/05/21 04:00 145/71 99 06/05/21 03:50 129/65 100 06/05/21 03:40 143/70 99 06/05/21 03:30 145/72 99 06/05/21 03:20 151/73 99 06/05/21 03:18 06/05/21 03:10 133/67 100 06/05/21 03:00 152/74 99 06/05/21 02:50 143/72 99 06/05/21 02:40 143/71 99 01/29/21 02:30 151/67 99 01/29/21 02:20 146/72 99 01/29/21 02:10 133/69 100 01/29/21 02:00 131/66 99 01/29/21 01:50 132/67 100 01/29/21 01:40 135/69 100 01/29/21 01:30 148/70 99 01/29/21 01:20 145/69 99 01/29/21 01:10 140/71 99 01/29/21 01:00 129/67 100 01/29/21 00:50 151/70 99 01/29/21 00:40 156/73 99 06 00:30 150/71 99 01/29/21 00:20 160/73 99 01/29/21 00:10 160/73 99 01/29/21 00:01 161/74 100 01/29/21 00:00 142/70 100 01/28/21 23:50 150/69 99 01/28/21 23:40 160/77 100 01/28/21 23:30 159/74 99 01/28/21 23:28 06 23:20 159/73 99 01/28/21 23:10 161/78 100 01/28/21 23:00 155/75 99 06 22:50 143/70 99 01/28/21 22:40 149/72 99 01/28/21 22:30 157/75 99 01/28/21 22:20 155/76 99 01/28/21 22:13 150/70 99 01/28/21 22:10 150/70 98 01/28/21 22:00 155/72 100 01/28/21 21:50 159/74 99 01/28/21 21:40 148/73 99 06 21:30 151/73 99 01/28/21 21:20 148/71 98 06 21:10 154/72 98 01/28/21 21:00 150/74 98 01/28/21 20:50 145/70 99 01/28/21 20:40 145/71 98 01/28/21 20:30 148/73 98 01/28/21 20:20 141/71 99 0621 20:10 141/71 98 01/28/21 20:06 135/67 99 01/28/21 20:01 135/67 99 01/28/21 20:00 99 01/28/21 19:50 148/72 98 01/28/21 19:40 149/77 98 01/28/21 19:30 145/72 98 01/28/21 19:20 161/75 98 01/28/21 19:10 153/75 99 01/28/21 19:05 153/75 99 01/28/21 19:00 170/80 99 01/28/21 18:51 196/85 100 01/28/21 18:45 110/61 06 18:40 110/61 98 01/28/21 18:30 105/58 97 01/28/21 18:20 110/62 97 01/28/21 18:15 102/59 01/28/21 18:10 83/51 97 01/28/21 18:01 91/52 98 01/28/21 18:00 106/55 01/28/21 17:50 106/55 98 01/28/21 17:45 105/57 01/28/21 17:40 106/57 100 01/28/21 17:30 113/58 99 01/28/21 17:20 104/58 98 01/28/21 17:15 104/58 01/28/21 17:10 108/56 98 01/28/21 17:00 110/59 99 01/28/21 16:50 104/58 98 01/28/21 16:45 108/55 01/28/21 16:40 108/55 100 01/28/21 16:30 108/58 99 01/28/21 16:20 108/58 100 01/28/21 16:15 110/57 01/28/21 16:10 137/71 100 01/28/21 16:00 137/71 100 01/28/21 15:55 137/69 100 01/28/21 15:51 133/68 100 01/28/21 15:41 131/66 100 06 15:30 131/66 100 06 15:21 133/68 100 01/28/21 15:10 132/71 100 01/28/21 15:00 132/71 100 01/28/21 14:51 157/76 100 01/28/21 14:45 157/76 01/28/21 13:51 164/72 100 01/28/21 13:41 159/73 100 01/28/21 13:30 159/73 100 - Physical Examination General: Other (unresponsive on the vent) Neck: Positive: neck supple Cardiac: Positive: Regular Rate, S1/S2, S3, PMI, Dilated, Laterally Displaced Lungs: Positive: clear to auscultation, No Wheeze, Rales, Rhonchi Neuro: Positive: Other (intubated and unresponsive ( See Neuro note )) Abdomen: Positive: Soft Extremities: Present: Other (NO EDEMA). Absent: edema - Labs and Meds CBC 01/28/21 01/29/21 Range/Units 15:42 08:07 WBC 10.8 7.6 (4.5-11.0) K/mm3 RBC 2.94 L 2.68 L (3.65-5.03) M/mm3 Hgb 8.3 L 7.5 L (11.8-15.2) gm/dl Hct 26.2 L 23.6 L (35.5-45.6) % Plt Count 143 148 (140-440) K/mm3 Comprehensive Metabolic Panel 01/28/21 01/29/21 Range/Units 15:42 08:07 Sodium 136 L 140 (137-145) mmol/L Potassium 4.3 4.0 (3.6-5.0) mmol/L Chloride 98.0 102.7 (98-107) mmol/L Carbon Dioxide 24 30 (22-30) mmol/L BUN 38 H 23 H (9-20) mg/dL Creatinine 4.6 H 3.4 H (0.8-1.3) mg/dL Glucose 150 H 139 H (75-100) mg/dL Calcium 7.2 L 8.6 D (8.4-10.2) mg/dL - Allied health notes Allied health notes reviewed: nursing (edema pattern improved)
--- NOTE | 2021-01-29 16:47 | Progress Note ---
Assessment and Plan Cultures: COVID-19 PCR: Negative Hepatitis serologies: Positive for hepatitis C antibody 01/25/2021 tracheal aspirate: In process 01/25/2021 blood culture: No growth 01/25/2021 urine culture: No growth MRSA nasal PCR: positive A/P: 65/M with hypertension, diabetes, ESRD on HD, malnutrition, gastroesophageal reflux disease, tobacco abuse: #Shock, status post cardiac arrest, sepsis: Source of sepsis could be possible UTI given significant pyuria, aspiration. Rule out bacteremia due to indwelling HD catheter. Off pressors. #ESRD on HD: Renally dose antibiotics. #Acute respiratory failure: On mechanical ventilation. #Acute encephalopathy, possible seizures: Neurology following, concern for anoxic brain injury. #Hepatitis C: unknown status. Can f/u outpt. Recs: -continue renally dosed cefepime, vancomycin, stop in 1 day -f/u cultures, no growth so far -Likely brain given absent intracranial perfusion. Larisa Royal MD [facility] ([facility] O: [phone] F: [phone] Subjective Date of service: 01/29/21 Principal diagnosis: Cardiac arrest; Ac hypoxemic resp failure; Septic Shock; UTI; AMS; ESRD Interval history: Afebrile, normal white count. Cultures remain negative. Imaging personally viewed: Brain flow scan: Absent intracranial cerebral perfusion. Objective - Exam Narrative Exam: Constitutional: unresponsive, intubated, on the vent Head, Ears, Nose: Normocephalic, atraumatic. External ears, nose normal Eyes: Conjunctivae/corneas clear. No icterus. No ptosis. 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 HD cath + Skin: No rash or abscess Hem/Lymphatic: No palpable cervical or supraclavicular nodes. No lymphangitis Psych: no agitation Neurological: unresponsive, intubated, on the vent, exam limited - Constitutional Vitals: Vital Signs Temp Pulse Resp BP Pulse Ox 97.9 F 77 12 102/55 100 01/29/21 16:00 01/29/21 16:20 01/29/21 16:20 01/29/21 16:20 01/29/21 16:20 Temperature -Last 24 Hours Temperature 97.9 F Temperature 97.4 F Temperature 94.4 F Temperature 94.4 F Temperature 98.4 F Temperature 97.4 F Temperature 97.9 F Temperature 97.6 F - Labs CBC & Chem 7: 01/29/21 08:07 01/29/21 08:07 Labs: Abnormal lab results 01/28/21 01/28/21 01/28/21 Range/Units 17:40 17:42 23:11 RBC (3.65-5.03) M/mm3 Hgb (11.8-15.2) gm/dl Hct (35.5-45.6) % RDW (13.2-15.2) % POC ABG pCO2 (32.0-48.0) mmHg POC ABG pO2 (83-108) mmHg ABG Hemoglobin (12.0-17.5) ABG Sodium (136.0-145.0) mmol/L ABG Glucose (65-95) mg/dL BUN (9-20) mg/dL Creatinine (0.8-1.3) mg/dL Glucose (75-100) mg/dL POC Glucose 151 H 143 H 159 H (70-105) mg/dL Arterial Blood Glucose (65-95) mg/dL 01/29/21 01/29/21 01/29/21 Range/Units 03:45 05:26 08:07 RBC 2.68 L (3.65-5.03) M/mm3 Hgb 7.5 L (11.8-15.2) gm/dl Hct 23.6 L (35.5-45.6) % RDW 18.2 H (13.2-15.2) % POC ABG pCO2 48.2 H (32.0-48.0) mmHg POC ABG pO2 115.2 H (83-108) mmHg ABG Hemoglobin 8.1 L (12.0-17.5) ABG Sodium 135.8 L (136.0-145.0) mmol/L ABG Glucose 173 H (65-95) mg/dL BUN (9-20) mg/dL Creatinine (0.8-1.3) mg/dL Glucose (75-100) mg/dL POC Glucose 161 H (70-105) mg/dL Arterial Blood Glucose 173 H (65-95) mg/dL 01/29/21 01/29/21 Range/Units 08:07 11:16 RBC (3.65-5.03) M/mm3 Hgb (11.8-15.2) gm/dl Hct (35.5-45.6) % RDW (13.2-15.2) % POC ABG pCO2 (32.0-48.0) mmHg POC ABG pO2 (83-108) mmHg ABG Hemoglobin (12.0-17.5) ABG Sodium (136.0-145.0) mmol/L ABG Glucose (65-95) mg/dL BUN 23 H (9-20) mg/dL Creatinine 3.4 H (0.8-1.3) mg/dL Glucose 139 H (75-100) mg/dL POC Glucose 153 H (70-105) mg/dL Arterial Blood Glucose (65-95) mg/dL
[2021-01-29] MEDS: LATANOPROST 0.005% OPHTH SOLN 2.5 ML OU SCH (18:17)
[2021-01-29] MEDS: CEFEPIME/NS 1 GM/100 ML 1 GM/100 ML BAG IV SCH (18:17)
[2021-01-30] MEDS ORDERED: SODIUM CHLORIDE 0.9% 500 ML 500 ML ONE (00:32)
--- NOTE | 2021-01-30 00:57 | XRay Report ---
CHEST 1 VIEW INDICATION / CLINICAL INFORMATION: follow up respiratory failure. COMPARISON: 01/28/2021 FINDINGS: SUPPORT DEVICES: Stable, satisfactory device positioning. HEART / MEDIASTINUM: No significant abnormality. LUNGS / PLEURA: Interval development of minimal patchy parenchymal disease in the right midlung. The lungs are otherwise grossly clear.. No pneumothorax. ADDITIONAL FINDINGS: No significant additional findings. IMPRESSION: 1. Mild patchy parenchymal disease, right midlung. No other significant interval change. Signer Name: Maria Luz Benton MD Signed: 01/30/2021 12:47 AM Workstation Name: [id number]
[2021-01-30] MEDS: hydrALAZINE 20 MG/1 ML INJ IV PRN ×2 (05:33→14:08)
[2021-01-30] MEDS: INSULIN REGULAR, HUMAN 100 UNITS/1 ML SUB-Q SCH ×4 (05:49→17:49)
--- NOTE | 2021-01-30 10:12 | Progress Note ---
<GABYLARYJacquelyn - Last Filed: 01/30/21 12:41> Assessment and Plan Assessment and plan: This is a 65-year-old female with hypertension, diabetes mellitus, ESRD on HD, hepatitis C, CHF, HLD, GERD, nicotine dependence admitted s/p cardiac arrest Sepsis Shock: Source of sepsis could be possible UTI given significant pyuria, aspiration, r/o bacteremia S/p cardiac arrest COVID-19 PUI, ruled out Acute hypoxic respiratory failure on mechanical ventilation Seizure versus myoclonic jerking Dilated cardiomyopathy left ventricular ejection fraction 15 to 20% Chronic combined systolic and diastolic heart failure Urinary tract infection ESRD on HD Anemia of chronic disease Peripheral vascular disease status post right BKA Hypertension Diabetes mellitus Hyperlipidemia GERD Nicotine dependence MRSA PCR positive -CCM, nephrology, cardiology, infectious disease, neurology consulted, appreciate recommendations -12/02/2020 echocardiogram shows four-chamber dilated cardiomyopathy, left ventricle systolic function severely decreased with LVEF of 15 to 20%, mild to moderate concentric LVH, mild AR, mild to moderate MR, mild TR, RVSP is 30 mmHg, left pleural effusion is evident with no pericardial effusion. -01/25 CT head shows areas of diminished attenuation identified throughout the basal ganglia concerning for anoxic injury, no evidence of hemorrhage or mass- effects, MRI recommended for further evaluation. -01/26 MRI brain shows global restricted diffusion involving cerebral cortex, basal ganglia, cerebral cortex and dorsal brain stroma suggestive of anoxic brain injury -01/27 EEG shows significantly abnormal record with low voltage slowing noted, suggestive of severe encephalopathic process and/or drug effect as possibilities of severe anoxic brain injury cannot be totally excluded -01/28 nuclear med brain flow study shows intracranial cerebral perfusion is essentially absent, little flow with any seen in the internal carotid arteries but no significant intracranial activity is identified -01/28 repeat COVID-19 PCR negative -COVID-19 PCR negative -Contact precautions d/t MRSA PCR positive -Intubated 01/25, wean mechanical ventilation as tolerated, VAP bundle -IV antibiotics -IV Valproic acid -Seizure/aspiration precautions -Resume antihypertensives gradually -s/p vasopressor support with levophed -TF -SSI, Accu-Cheks every 6, hypoglycemic protocol -Resume home statin GI/DVT prophylaxis: PPI, SCDs to bilateral lower extremities while in bed, heparin subcu Disposition: ICU, awaiting transfer to hospice). Patient has been ruled out for organ donation by [facility]. The high probability of a clinically significant, sudden or life threatening deterioration of the [multi] system(s) required my full and direct attention, intervention and personal management. The aggregate critical care time was [35] minutes. This time is in addition to time spent performing reported procedures but includes the following: [x] Data Review and interpretation [x] Patient assessment and monitoring of vital signs [x] Documentation [x] Medication orders and management History Interval history: This is a 65-year-old male with hypertension, diabetes mellitus, ESRD on HD ([place] [facility]), hepatitis C, congestive heart failure, hyperlipidemia, GERD, nicotine dependence presented to the emergency department on 01/25 s/p cardiac arrest. Patient was found to be asystolic upon arrival of EMS and ACLS protocol was followed however he was unable to be intubated. Upon arrival to the emergency department patient was found to be in systolic arrest and ACLS was continued per ED staff with eventual ROSC. Patient was intubated in the emergency department. Patient was admitted to the hospital service with acute hypoxemic respiratory failure, s/p cardiac arrest, acute encephalopathy with consults to nephrology, CCM, neurology, infectious disease and cardiology. 01/26: Patient remains hypertensive and his home antihypertensive regimen will be resumed gradually. Nutrition consult pending. Called to bedside by RN this morning patient was noted to have seizure-like activity, and Ativan IV given. Neurology was later at bedside and witnessed activity. Patient was started on valproic acid and EEG ordered. Fentanyl gtt increased per neurology request. At the time of my examination he was on CMV TV 450, R 16, PEEP 6 and FiO2 of 30%. 01/27: Patient noted to be hypotensive and Levophed was ordered. MRI and EEG are pending. Leukocytosis slightly worsened today. Patient received HD yesterday. No DVT noted in BLE dopplar US. Family will update care team if decision regarding goals of care 01/28: did not convey goals of care decision, [facility] ordered a nuclear med brain flow study. Increase in Norvasc d/t hypertension. Will gradually restart home antihypertensive regimen as tolerated. Cardio suggests Hydral TID, nitrol and coreg 01/29: Yesterday evening case management informed me that the family is looking into inpatient hospice and will inform case management of the decision. This morning case management spoke to patient's family and they had not decided on inpatient hospice unit but they did later in the afternoon. Patients neuro exam remains unchanged. Blood pressure is better controlled. The plan is to discharge the patient to hospice per family decision on Sunday. 01/30: No acute changes reported overnight. Patient is awaiting transfer to hospice tomorrow. IV abx to stop today Hospitalist Physical - Constitutional Vitals: Temp Pulse Resp BP Pulse Ox 98.4 F 71 16 134/33 92 01/30/21 08:00 01/30/21 09:10 01/30/21 09:10 01/30/21 09:10 01/30/21 09:10 General appearance: Present: other (unresponsive to painful stimuli on mechanical ventilation) - EENT Eyes: Absent: PERRL ENT: poor dentition - Neck Neck: Present: normal ROM - Respiratory Respiratory effort: normal Respiratory: bilateral: CTA - Cardiovascular Rhythm: regular Heart Sounds: Present: S1 & S2. Absent: systolic murmur, diastolic murmur - Extremities Extremities: no ischemia, pulses intact, pulses symmetrical, No edema, normal temperature, normal color Peripheral Pulses: within normal limits - Abdominal General gastrointestinal: soft, non-tender, non-distended, normal bowel sounds - Integumentary Integumentary: Present: warm, dry - Psychiatric Psychiatric: other (not interactive) - Neurologic Neurologic: no moves all extremities - Allied Health Allied health notes reviewed: nursing, RT, social work HEART Score - HEART Score Troponin: Troponin T 0.233 ng/mL (0.00-0.029) H* 01/25/21 08:13 Results - Labs CBC & Chem 7: 01/29/21 08:07 01/29/21 08:07 Labs: Laboratory Last Values WBC 7.6 K/mm3 (4.5-11.0) 01/29/21 08:07 RBC 2.68 M/mm3 (3.65-5.03) L 01/29/21 08:07 Hgb 7.5 gm/dl (11.8-15.2) L 01/29/21 08:07 Hct 23.6 % (35.5-45.6) L 01/29/21 08:07 MCV 88 fl (84-94) 01/29/21 08:07 MCH 28 pg (28-32) 01/29/21 08:07 MCHC 32 % (32-34) 01/29/21 08:07 RDW 18.2 % (13.2-15.2) H 01/29/21 08:07 Plt Count 148 K/mm3 (140-440) 01/29/21 08:07 Lymph % (Auto) 13.0 % (13.4-35.0) L 01/25/21 08:13 Sunflower % (Auto) 1.6 % (0.0-7.3) 01/25/21 08:13 Eos % (Auto) 1.5 % (0.0-4.3) 01/25/21 08:13 Baso % (Auto) 2.2 % (0.0-1.8) H 01/25/21 08:13 Lymph # (Auto) 1.5 K/mm3 (1.2-5.4) 01/25/21 08:13 Sunflower # (Auto) 0.2 K/mm3 (0.0-0.8) 01/25/21 08:13 Eos # (Auto) 0.2 K/mm3 (0.0-0.4) 01/25/21 08:13 Baso # (Auto) 0.3 K/mm3 (0.0-0.1) H 01/25/21 08:13 Add Manual Diff Complete 01/26/21 07:58 Total Counted 100 01/26/21 07:58 Seg Neutrophils % Electrical Cad Technician 01/26/21 07:58 Seg Neuts % (Manual) 93.0 % (40.0-70.0) H 01/26/21 07:58 Lymphocytes % (Manual) 5.0 % (13.4-35.0) L 01/26/21 07:58 Monocytes % (Manual) 2.0 % (0.0-7.3) 01/26/21 07:58 Nucleated RBC % Not Reportable 01/26/21 07:58 Seg Neutrophils # 9.3 K/mm3 (1.8-7.7) H 01/25/21 08:13 Seg Neutrophils # Man 15.4 K/mm3 (1.8-7.7) H 01/26/21 07:58 Band Neutrophils # 0.0 K/mm3 01/26/21 07:58 Lymphocytes # (Manual) 0.8 K/mm3 (1.2-5.4) L 01/26/21 07:58 Abs React Lymphs (Man) 0.0 K/mm3 01/26/21 07:58 Monocytes # (Manual) 0.3 K/mm3 (0.0-0.8) 01/26/21 07:58 Eosinophils # (Manual) 0.0 K/mm3 (0.0-0.4) 01/26/21 07:58 Basophils # (Manual) 0.0 K/mm3 (0.0-0.1) 01/26/21 07:58 Metamyelocytes # 0.0 K/mm3 01/26/21 07:58 Myelocytes # 0.0 K/mm3 01/26/21 07:58 Promyelocytes # 0.0 K/mm3 01/26/21 07:58 Blast Cells # 0.0 K/mm3 01/26/21 07:58 WBC Morphology Not Reportable 01/26/21 07:58 Hypersegmented Neuts Not Reportable 01/26/21 07:58 Hyposegmented Neuts Not Reportable 01/26/21 07:58 Hypogranular Neuts Not Reportable 01/26/21 07:58 Smudge Cells Not Reportable 01/26/21 07:58 Toxic Granulation Not Reportable 01/26/21 07:58 Toxic Vacuolation Not Reportable 01/26/21 07:58 Dohle Bodies Not Reportable 01/26/21 07:58 Pelger-Huet Anomaly Not Reportable 01/26/21 07:58 Soraida Rods Not Reportable 01/26/21 07:58 Platelet Estimate Consistent w auto 01/26/21 07:58 Clumped Platelets Not Reportable 01/26/21 07:58 Plt Clumps, EDTA Not Reportable 01/26/21 07:58 Large Platelets Not Reportable 01/26/21 07:58 Giant Platelets Not Reportable 01/26/21 07:58 Platelet Satelliting Not Reportable 01/26/21 07:58 Plt Morphology Comment Not Reportable 01/26/21 07:58 RBC Morphology Not Reportable 01/26/21 07:58 Dimorphic RBCs Not Reportable 01/26/21 07:58 Polychromasia Not Reportable 01/26/21 07:58 Hypochromasia Not Reportable 01/26/21 07:58 Poikilocytosis Not Reportable 01/26/21 07:58 Anisocytosis 1+ 01/26/21 07:58 Microcytosis Not Reportable 01/26/21 07:58 Macrocytosis Not Reportable 01/26/21 07:58 Spherocytes Not Reportable 01/26/21 07:58 Pappenheimer Bodies Not Reportable 01/26/21 07:58 Sickle Cells Not Reportable 01/26/21 07:58 Target Cells Not Reportable 01/26/21 07:58 Tear Drop Cells Not Reportable 01/26/21 07:58 Ovalocytes Not Reportable 01/26/21 07:58 Helmet Cells Not Reportable 01/26/21 07:58 [place] Bodies Not Reportable 01/26/21 07:58 [place] Rings Not Reportable 01/26/21 07:58 [place] Cells Not Reportable 01/26/21 07:58 Bite Cells Not Reportable 01/26/21 07:58 Crenated Cell Not Reportable 01/26/21 07:58 Elliptocytes Not Reportable 01/26/21 07:58 Acanthocytes (Spur) Not Reportable 01/26/21 07:58 Rouleaux Not Reportable 01/26/21 07:58 Hemoglobin C Crystals Not Reportable 01/26/21 07:58 Schistocytes Not Reportable 01/26/21 07:58 Malaria parasites Not Reportable 01/26/21 07:58 Mike Bodies Not Reportable 01/26/21 07:58 Hem Pathologist Commnt No 01/26/21 07:58 PT 16.0 Sec. (12.2-14.9) H 01/25/21 08:13 INR 1.28 (0.87-1.13) H 01/25/21 08:13 APTT 56.8 Sec. (24.2-36.6) H 01/25/21 08:13 D-Dimer 8335.22 ng/mlDDU (0-234) H 01/26/21 07:40 ABG pH 7.367 (7.320-7.450) 01/30/21 04:00 POC ABG pCO2 46.6 mmHg (32.0-48.0) 01/30/21 04:00 POC ABG pO2 87.8 mmHg (83-108) 01/30/21 04:00 POC ABG HCO3 26.2 01/30/21 04:00 ABG O2 Saturation 96.7 (0-100) 01/30/21 04:00 POC ABG Base Excess 0.7 01/30/21 04:00 ABG Hemoglobin 7.7 (12.0-17.5) L 01/30/21 04:00 ABG Oxyhemoglobin 94.7 (94-98) 01/30/21 04:00 ABG Methemoglobin 0.3 (0.0-1.5) 01/30/21 04:00 ABG Sodium 134.6 mmol/L (136.0-145.0) L 01/30/21 04:00 ABG Potassium 4.1 mmol/L (3.40-4.50) 01/30/21 04:00 ABG Chloride 104.0 mmol/L (98-107) 01/30/21 04:00 ABG Glucose 156 mg/dL (65-95) H 01/30/21 04:00 VBG pH 7.100 (7.320-7.420) L* 01/25/21 08:13 Carboxyhemoglobin 1.8 (0.5-1.5) H 01/30/21 04:00 FiO2 % 25.0 01/30/21 04:00 Sodium 140 mmol/L (137-145) 01/29/21 08:07 Potassium 4.0 mmol/L (3.6-5.0) 01/29/21 08:07 Chloride 102.7 mmol/L (98-107) 01/29/21 08:07 Carbon Dioxide 30 mmol/L (22-30) 01/29/21 08:07 Anion Gap 11 mmol/L 01/29/21 08:07 BUN 23 mg/dL (9-20) H 01/29/21 08:07 Creatinine 3.4 mg/dL (0.8-1.3) H 01/29/21 08:07 Estimated GFR 22 ml/min 01/29/21 08:07 BUN/Creatinine Ratio 7 % 01/29/21 08:07 Glucose 139 mg/dL (75-100) H 01/29/21 08:07 POC Glucose 143 mg/dL (70-105) H 01/30/21 05:27 Hemoglobin A1c 4.9 % (4-6) 01/26/21 07:58 Lactic Acid 1.40 mmol/L (0.7-2.0) 01/26/21 16:15 Calcium 8.6 mg/dL (8.4-10.2) D 01/29/21 08:07 Magnesium 2.30 mg/dL (1.7-2.3) 01/25/21 08:13 Ferritin 1817.0 ng/mL (30.0-300.0) H 01/26/21 07:40 Total Bilirubin 0.20 mg/dL (0.1-1.2) 01/25/21 08:13 AST 284 units/L (5-40) H 01/25/21 08:13 ALT 85 units/L (7-56) H 01/25/21 08:13 Alkaline Phosphatase 102 units/L (35-129) 01/25/21 08:13 Lactate Dehydrogenase 770 units/L (91-180) H 01/26/21 07:40 Total Creatine Kinase 156 units/L (55-170) 01/25/21 08:13 CK-MB (CK-2) 3.4 ng/mL (0.0-4.0) 01/25/21 08:13 CK-MB (CK-2) Rel Index 2.1 (0-4) 01/25/21 08:13 Troponin T 0.233 ng/mL (0.00-0.029) H* 01/25/21 08:13 C-Reactive Protein 11.00 mg/dL (0.00-1.30) H 01/26/21 07:40 NT-Pro-B Natriuret Pep 40816 pg/mL (0-900) H 01/25/21 08:13 Total Protein 5.8 g/dL (6.3-8.2) L 01/25/21 08:13 Albumin 2.5 g/dL (3.9-5) L 01/25/21 08:13 Albumin/Globulin Ratio 0.8 % 01/25/21 08:13 Triglycerides 83 mg/dL (2-149) 01/25/21 08:13 Cholesterol 101 mg/dL (50-199) 01/25/21 08:13 LDL Cholesterol Direct 54 mg/dL (50-130) 01/25/21 08:13 HDL Cholesterol 43 mg/dL (40-59) 01/25/21 08:13 Cholesterol/HDL Ratio 2.34 % 01/25/21 08:13 Procalcitonin 0.28 ng/mL (<0.15) 01/25/21 08:13 Arterial Blood Glucose 156 mg/dL (65-95) H 01/30/21 04:00 Arterial Blood Ionized Calcium 4.8 mg/dL (4.6-5.3) 01/30/21 04:00 Urine Color Yellow (Yellow) 01/25/21 Unknown Urine Turbidity Turbid (Clear) 01/25/21 Unknown Urine pH 8.0 (5.0-7.0) H 01/25/21 Unknown Ur Specific [place] 1.015 (1.003-1.030) 01/25/21 Unknown Urine Protein >500 mg/dL (Negative) 01/25/21 Unknown Urine Glucose (UA) Neg mg/dL (Negative) 01/25/21 Unknown Urine Ketones Neg mg/dL (Negative) 01/25/21 Unknown Urine Blood Mod (Negative) 01/25/21 Unknown Urine Nitrite Neg (Negative) 01/25/21 Unknown Urine Bilirubin Neg (Negative) 01/25/21 Unknown Urine Urobilinogen < 2.0 mg/dL (<2.0) 01/25/21 Unknown Ur Leukocyte Esterase Lg (Negative) 01/25/21 Unknown Urine WBC (Auto) > 182.0 /HPF (0.0-6.0) H 01/25/21 Unknown Urine RBC (Auto) > 182.0 /HPF (0.0-6.0) 01/25/21 Unknown Urine Bacteria (Auto) 3+ /HPF (Negative) 01/25/21 Unknown Urine WBC Clumps 3+ /HPF 01/25/21 Unknown Ur Transition Epith Cell 7 /HPF 01/25/21 Unknown Urine Mucus Few /HPF 01/25/21 Unknown Nasal Screen MRSA (PCR) Positive (Negative) 01/26/21 06:25 Random Vancomycin 15.4 ug/mL (0-40.0) 01/28/21 04:39 Coronavirus (PCR) Negative (Negative) 01/28/21 Unknown Hepatitis A IgM Ab Non-reactive (NonReactive) 01/25/21 08:13 Hep Bs Antigen Non-reactive (Negative) 01/25/21 08:13 Hep B Core IgM Ab Non-reactive (NonReactive) 01/25/21 08:13 Hepatitis C Antibody Reactive (NonReactive) A 01/25/21 08:13 Microbiology: Microbiology 01/25/21 09:16 Peripheral/Venous Blood Culture - Preliminary NO GROWTH AFTER 4 DAYS 01/25/21 09:16 Peripheral/Venous Blood Culture - Preliminary NO GROWTH AFTER 4 DAYS [place]/IV: Voiding Method Incontinent Active Medications - Current Medications Current Medications: Generic Name Dose Route Start Last Admin Trade Name Freq PRN Reason Stop Dose Admin Acetaminophen 650 mg 01/26/21 03:47 01/26/21 04:52 Acetaminophen 325 Mg/10.15 Ml Oral Liqd Unit Dose FEEDTUBE 650 mg Q6H PRN Administration Non Cardiac Pain or Temp>100.5 Albuterol 2.5 mg 01/25/21 12:47 Albuterol 2.5 Mg/3 Ml Nebu IH Q3HRT PRN Shortness Of Breath Amlodipine Besylate 10 mg 01/29/21 10:00 01/29/21 09:35 Amlodipine 10 Mg Tab PO 10 mg QDAY JOHANA Administration Lipase/Protease/Amylase 1 each 01/26/21 08:55 Lipase 10,500/Protease 25,000/Amylase 43,750 (Units) Dr Langley FEEDTUBE PRN PRN For Clogged Feeding Tube Aspirin 325 mg 01/26/21 11:00 01/29/21 09:36 Aspirin 325 Mg Tab PO 325 mg QDAY JOHANA Administration Atorvastatin Calcium 40 mg 01/26/21 22:00 01/29/21 21:19 Atorvastatin 40 Mg Tab PO 40 mg QHS JOHANA Administration Dextrose 50 ml 01/26/21 08:00 Dextrose 50% In Water (25gm) 50 Ml Syringe IV Q30MIN PRN Hypoglycemia Protocol Famotidine 10 mg 01/25/21 19:41 01/29/21 21:19 Famotidine 20 Mg/2 Ml Inj IV 10 mg BID JOHANA Administration Fentanyl 50 mcg 01/26/21 14:00 Fentanyl 100 Mcg/2 Ml Inj IV Q2H PRN Pain , Severe (7-10) Heparin Sodium (Porcine) 5,000 unit 01/25/21 22:00 01/29/21 21:19 Heparin 5,000 Unit/1 Ml Vial SUB-Q 5,000 unit Q12HR JOHANA Administration Hydralazine HCl 10 mg 01/28/21 11:39 01/30/21 05:33 Hydralazine 20 Mg/1 Ml Inj IV 10 mg Q4HR PRN Administration Hypertension Hydrophilic Ointment 1 applic 01/25/21 08:08 Lip Therapy Vaseline TP Q2HR PRN Dry Lips Sodium Chloride 100 mls @ 999 mls/hr 01/25/21 15:37 Nacl 0.9% IV KIMBERLY PRN Hypotension Valproate Sodium 500 mg/ 105 mls @ 100 mls/hr 01/26/21 11:00 01/29/21 21:19 Sodium Chloride IV 100 mls/hr Q12HR JOHANA Administration Cefepime HCl 1 gm in 100 mls @ 200 mls/hr 01/26/21 18:00 01/29/21 18:17 Cefepime/Ns 1 Gm/100 Ml IV 01/30/21 20:59 200 mls/hr QPM JOHANA Administration Protocol Propofol 1,000 mg in 100 mls @ 1.89 mls/hr 01/26/21 14:00 01/28/21 10:00 Diprivan 10 Mg/Ml IV 0 mcg/kg/min TITR JOHANA 0 mls/hr Titration Protocol 5 MCG/KG/MIN Norepinephrine 4 mg in 250 mls @ 7.5 mls/hr 01/27/21 08:00 01/27/21 08:30 Levophed Drip 4 Mg/Ns 250 Ml IV 0 mcg/min TITR JOHANA 0 mls/hr Titration Protocol 2 MCG/MIN Insulin Human Regular 0 units 01/26/21 12:00 01/30/21 05:49 Insulin Regular, Human 100 Units/1 Ml SUB-Q Not Given Q6H JOHANA Protocol Latanoprost 1 drops 01/26/21 18:00 01/29/21 18:17 Latanoprost 0.005% Ophth Soln 2.5 Ml OU 1 drops QPM JOHANA Administration Multi-Ingred Cream/Lotion/Oil/Oint 1 applic 01/25/21 08:08 Mineral Oil/Petrolatum, White Ophth Oint 3.5 Gm OU Q4HR PRN Dry Eye(s) Senna/Docusate Sodium 1 tab 01/25/21 10:00 01/29/21 22:14 Sennosides/Docusate Sodium 8.6/50 Mg Tab FEEDTUBE Not Given BID JOHANA Simple Syrup 15 ml 01/26/21 08:55 Simple Syrup 15 Ml FEEDTUBE PRN PRN Hypoglycemia Simple Syrup 30 ml 01/26/21 08:55 Simple Syrup 15 Ml FEEDTUBE PRN PRN Hypoglycemia Sodium Bicarbonate 325 mg 01/26/21 08:55 Sodium Bicarbonate 325 Mg Tab FEEDTUBE PRN PRN For Clogged Feeding Tube Sodium Chloride 10 ml 01/25/21 22:00 01/29/21 21:19 Sodium Chloride 0.9% 10 Ml Flush Syringe IV 10 ml BID JOHANA Administration Sodium Chloride 10 ml 01/25/21 12:47 Sodium Chloride 0.9% 10 Ml Flush Syringe IV PRN PRN LINE FLUSH Nutrition/Malnutrition Assess - Dietary Evaluation Nutrition/Malnutrition Findings: Nutrition Notes Start: 01/26/21 08:46 Freq: Status: Active Protocol: Document 01/28/21 08:57 CW (Rec: 01/28/21 09:08 CW [email or web address]) Nutrition Notes Need for Assessment generated from: MD Order Initial or Follow up Reassessment Current Diagnosis CKD (stage V CKD),Diabetes, Hypertension,Heart Failure, Respiratory Failure, Hyperlipidemia Other Pertinent Diagnosis UTI, cardiac arrest, R AKA Current Diet Nepro at 38 ml/hr Labs/Tests 01/27 BUN 23 Cr 3.1 Pertinent Medications propofol at 1.89 ml/hr (50 kcal) senokot Cefepime Height 5 ft 6 in Weight 60 kg [place] Body Weight (kg) 64.54 BMI 21.3 Weight change and time frame weight change noted Weight Status Appropriate Subjective/Other Information F/U for TF start and tolerance . TF is currently running at goal of 38 ml/hr of Nepro. Pt remains on mechanical vent. Pt has had diarrhea recently; possibly related to ABTx usage . Percent of energy/protein needs met: 100%/97% Burn Absent Trauma Absent GI Symptoms Diarrhea Skin Integrity/Comment open wound on LUE Current % PO Negligible Minimum of two criteria No Muscle Mass Mild Depletion (non-severe) #2 Nutrition Diagnosis Increased nutrient needs ( specify in comment below) Comments: protein Etiology wound healing As Evidenced by Signs and Symptoms Pt has large open wound on LUE #1 Nutrition Diagnosis Inadequate oral intake Diagnosis Progress(for reassessment Continues documentation) Is patient on ventilator? Yes Is Patient Ambulatory and/or Out of Bed No REE-([place]-St. Jeor-confined to bed) 9548.820 Calculation Used for Recommendations [place] Jeor Additional Notes Protein: (1.2-2g/kg) 76-95g Fluid: 6821-7383 ml or per MD Nutrition Intervention Change Diet Order: Continue TF ar ordered Nutrition Support: Nepro 1.8 at 38 ml/hr Flush 125 ml q4h or per MD Kcal 1,641 Protein (gm) 74 Fluid (mL) 663 Goal #1 Meet at least 75% of protein and energy needs via TF Anticipated Discharge Needs: Unable to determine at this time Follow-Up By: 01/31/21 Additional Comments F/U for TF tolerance <JAQUELINE MUÑOZ O - Last Filed: 01/30/21 14:52> History Interval history: I saw and evaluated the patient. I agree with the findings and the plan of care as documented in the Nurse Practitioner's~note, with the following corrections and additions. Patient has poor prognosis. I have discussed with Nurse Practitioner. Hospitalist Physical - Constitutional Vitals: Temp Pulse Resp BP Pulse Ox 97.7 F 65 12 175/49 100 01/30/21 12:00 01/30/21 14:00 01/30/21 14:00 01/30/21 14:00 01/30/21 14:00 HEART Score - HEART Score Troponin: Troponin T 0.233 ng/mL (0.00-0.029) H* 01/25/21 08:13 Results - Labs CBC & Chem 7: 01/29/21 08:07 01/29/21 08:07 Labs: Laboratory Last Values WBC 7.6 K/mm3 (4.5-11.0) 01/29/21 08:07 RBC 2.68 M/mm3 (3.65-5.03) L 01/29/21 08:07 Hgb 7.5 gm/dl (11.8-15.2) L 01/29/21 08:07 Hct 23.6 % (35.5-45.6) L 01/29/21 08:07 MCV 88 fl (84-94) 01/29/21 08:07 MCH 28 pg (28-32) 01/29/21 08:07 MCHC 32 % (32-34) 01/29/21 08:07 RDW 18.2 % (13.2-15.2) H 01/29/21 08:07 Plt Count 148 K/mm3 (140-440) 01/29/21 08:07 Lymph % (Auto) 13.0 % (13.4-35.0) L 01/25/21 08:13 Sunflower % (Auto) 1.6 % (0.0-7.3) 01/25/21 08:13 Eos % (Auto) 1.5 % (0.0-4.3) 01/25/21 08:13 Baso % (Auto) 2.2 % (0.0-1.8) H 01/25/21 08:13 Lymph # (Auto) 1.5 K/mm3 (1.2-5.4) 01/25/21 08:13 Sunflower # (Auto) 0.2 K/mm3 (0.0-0.8) 01/25/21 08:13 Eos # (Auto) 0.2 K/mm3 (0.0-0.4) 01/25/21 08:13 Baso # (Auto) 0.3 K/mm3 (0.0-0.1) H 01/25/21 08:13 Add Manual Diff Complete 01/26/21 07:58 Total Counted 100 01/26/21 07:58 Seg Neutrophils % Electrical Cad Technician 01/26/21 07:58 Seg Neuts % (Manual) 93.0 % (40.0-70.0) H 01/26/21 07:58 Lymphocytes % (Manual) 5.0 % (13.4-35.0) L 01/26/21 07:58 Monocytes % (Manual) 2.0 % (0.0-7.3) 01/26/21 07:58 Nucleated RBC % Not Reportable 01/26/21 07:58 Seg Neutrophils # 9.3 K/mm3 (1.8-7.7) H 01/25/21 08:13 Seg Neutrophils # Man 15.4 K/mm3 (1.8-7.7) H 01/26/21 07:58 Band Neutrophils # 0.0 K/mm3 01/26/21 07:58 Lymphocytes # (Manual) 0.8 K/mm3 (1.2-5.4) L 01/26/21 07:58 Abs React Lymphs (Man) 0.0 K/mm3 01/26/21 07:58 Monocytes # (Manual) 0.3 K/mm3 (0.0-0.8) 01/26/21 07:58 Eosinophils # (Manual) 0.0 K/mm3 (0.0-0.4) 01/26/21 07:58 Basophils # (Manual) 0.0 K/mm3 (0.0-0.1) 01/26/21 07:58 Metamyelocytes # 0.0 K/mm3 01/26/21 07:58 Myelocytes # 0.0 K/mm3 01/26/21 07:58 Promyelocytes # 0.0 K/mm3 01/26/21 07:58 Blast Cells # 0.0 K/mm3 01/26/21 07:58 WBC Morphology Not Reportable 01/26/21 07:58 Hypersegmented Neuts Not Reportable 01/26/21 07:58 Hyposegmented Neuts Not Reportable 01/26/21 07:58 Hypogranular Neuts Not Reportable 01/26/21 07:58 Smudge Cells Not Reportable 01/26/21 07:58 Toxic Granulation Not Reportable 01/26/21 07:58 Toxic Vacuolation Not Reportable 01/26/21 07:58 Dohle Bodies Not Reportable 01/26/21 07:58 Pelger-Huet Anomaly Not Reportable 01/26/21 07:58 Soraida Rods Not Reportable 01/26/21 07:58 Platelet Estimate Consistent w auto 01/26/21 07:58 Clumped Platelets Not Reportable 01/26/21 07:58 Plt Clumps, EDTA Not Reportable 01/26/21 07:58 Large Platelets Not Reportable 01/26/21 07:58 Giant Platelets Not Reportable 01/26/21 07:58 Platelet Satelliting Not Reportable 01/26/21 07:58 Plt Morphology Comment Not Reportable 01/26/21 07:58 RBC Morphology Not Reportable 01/26/21 07:58 Dimorphic RBCs Not Reportable 01/26/21 07:58 Polychromasia Not Reportable 01/26/21 07:58 Hypochromasia Not Reportable 01/26/21 07:58 Poikilocytosis Not Reportable 01/26/21 07:58 Anisocytosis 1+ 01/26/21 07:58 Microcytosis Not Reportable 01/26/21 07:58 Macrocytosis Not Reportable 01/26/21 07:58 Spherocytes Not Reportable 01/26/21 07:58 Pappenheimer Bodies Not Reportable 01/26/21 07:58 Sickle Cells Not Reportable 01/26/21 07:58 Target Cells Not Reportable 01/26/21 07:58 Tear Drop Cells Not Reportable 01/26/21 07:58 Ovalocytes Not Reportable 01/26/21 07:58 Helmet Cells Not Reportable 01/26/21 07:58 [place] Bodies Not Reportable 01/26/21 07:58 [place] Rings Not Reportable 01/26/21 07:58 [place] Cells Not Reportable 01/26/21 07:58 Bite Cells Not Reportable 01/26/21 07:58 Crenated Cell Not Reportable 01/26/21 07:58 Elliptocytes Not Reportable 01/26/21 07:58 Acanthocytes (Spur) Not Reportable 01/26/21 07:58 Rouleaux Not Reportable 01/26/21 07:58 Hemoglobin C Crystals Not Reportable 01/26/21 07:58 Schistocytes Not Reportable 01/26/21 07:58 Malaria parasites Not Reportable 01/26/21 07:58 Mike Bodies Not Reportable 01/26/21 07:58 Hem Pathologist Commnt No 01/26/21 07:58 PT 16.0 Sec. (12.2-14.9) H 01/25/21 08:13 INR 1.28 (0.87-1.13) H 01/25/21 08:13 APTT 56.8 Sec. (24.2-36.6) H 01/25/21 08:13 D-Dimer 8335.22 ng/mlDDU (0-234) H 01/26/21 07:40 ABG pH 7.367 (7.320-7.450) 01/30/21 04:00 POC ABG pCO2 46.6 mmHg (32.0-48.0) 01/30/21 04:00 POC ABG pO2 87.8 mmHg (83-108) 01/30/21 04:00 POC ABG HCO3 26.2 01/30/21 04:00 ABG O2 Saturation 96.7 (0-100) 01/30/21 04:00 POC ABG Base Excess 0.7 01/30/21 04:00 ABG Hemoglobin 7.7 (12.0-17.5) L 01/30/21 04:00 ABG Oxyhemoglobin 94.7 (94-98) 01/30/21 04:00 ABG Methemoglobin 0.3 (0.0-1.5) 01/30/21 04:00 ABG Sodium 134.6 mmol/L (136.0-145.0) L 01/30/21 04:00 ABG Potassium 4.1 mmol/L (3.40-4.50) 01/30/21 04:00 ABG Chloride 104.0 mmol/L (98-107) 01/30/21 04:00 ABG Glucose 156 mg/dL (65-95) H 01/30/21 04:00 VBG pH 7.100 (7.320-7.420) L* 01/25/21 08:13 Carboxyhemoglobin 1.8 (0.5-1.5) H 01/30/21 04:00 FiO2 % 25.0 01/30/21 04:00 Sodium 140 mmol/L (137-145) 01/29/21 08:07 Potassium 4.0 mmol/L (3.6-5.0) 01/29/21 08:07 Chloride 102.7 mmol/L (98-107) 01/29/21 08:07 Carbon Dioxide 30 mmol/L (22-30) 01/29/21 08:07 Anion Gap 11 mmol/L 01/29/21 08:07 BUN 23 mg/dL (9-20) H 01/29/21 08:07 Creatinine 3.4 mg/dL (0.8-1.3) H 01/29/21 08:07 Estimated GFR 22 ml/min 01/29/21 08:07 BUN/Creatinine Ratio 7 % 01/29/21 08:07 Glucose 139 mg/dL (75-100) H 01/29/21 08:07 POC Glucose 157 mg/dL (70-105) H 01/30/21 11:31 Hemoglobin A1c 4.9 % (4-6) 01/26/21 07:58 Lactic Acid 1.40 mmol/L (0.7-2.0) 01/26/21 16:15 Calcium 8.6 mg/dL (8.4-10.2) D 01/29/21 08:07 Magnesium 2.30 mg/dL (1.7-2.3) 01/25/21 08:13 Ferritin 1817.0 ng/mL (30.0-300.0) H 01/26/21 07:40 Total Bilirubin 0.20 mg/dL (0.1-1.2) 01/25/21 08:13 AST 284 units/L (5-40) H 01/25/21 08:13 ALT 85 units/L (7-56) H 01/25/21 08:13 Alkaline Phosphatase 102 units/L (35-129) 01/25/21 08:13 Lactate Dehydrogenase 770 units/L (91-180) H 01/26/21 07:40 Total Creatine Kinase 156 units/L (55-170) 01/25/21 08:13 CK-MB (CK-2) 3.4 ng/mL (0.0-4.0) 01/25/21 08:13 CK-MB (CK-2) Rel Index 2.1 (0-4) 01/25/21 08:13 Troponin T 0.233 ng/mL (0.00-0.029) H* 01/25/21 08:13 C-Reactive Protein 11.00 mg/dL (0.00-1.30) H 01/26/21 07:40 NT-Pro-B Natriuret Pep 31457 pg/mL (0-900) H 01/25/21 08:13 Total Protein 5.8 g/dL (6.3-8.2) L 01/25/21 08:13 Albumin 2.5 g/dL (3.9-5) L 01/25/21 08:13 Albumin/Globulin Ratio 0.8 % 01/25/21 08:13 Triglycerides 83 mg/dL (2-149) 01/25/21 08:13 Cholesterol 101 mg/dL (50-199) 01/25/21 08:13 LDL Cholesterol Direct 54 mg/dL (50-130) 01/25/21 08:13 HDL Cholesterol 43 mg/dL (40-59) 01/25/21 08:13 Cholesterol/HDL Ratio 2.34 % 01/25/21 08:13 Procalcitonin 0.28 ng/mL (<0.15) 01/25/21 08:13 Arterial Blood Glucose 156 mg/dL (65-95) H 01/30/21 04:00 Arterial Blood Ionized Calcium 4.8 mg/dL (4.6-5.3) 01/30/21 04:00 Urine Color Yellow (Yellow) 01/25/21 Unknown Urine Turbidity Turbid (Clear) 01/25/21 Unknown Urine pH 8.0 (5.0-7.0) H 01/25/21 Unknown Ur Specific [place] 1.015 (1.003-1.030) 01/25/21 Unknown Urine Protein >500 mg/dL (Negative) 01/25/21 Unknown Urine Glucose (UA) Neg mg/dL (Negative) 01/25/21 Unknown Urine Ketones Neg mg/dL (Negative) 01/25/21 Unknown Urine Blood Mod (Negative) 01/25/21 Unknown Urine Nitrite Neg (Negative) 01/25/21 Unknown Urine Bilirubin Neg (Negative) 01/25/21 Unknown Urine Urobilinogen < 2.0 mg/dL (<2.0) 01/25/21 Unknown Ur Leukocyte Esterase Lg (Negative) 01/25/21 Unknown Urine WBC (Auto) > 182.0 /HPF (0.0-6.0) H 01/25/21 Unknown Urine RBC (Auto) > 182.0 /HPF (0.0-6.0) 01/25/21 Unknown Urine Bacteria (Auto) 3+ /HPF (Negative) 01/25/21 Unknown Urine WBC Clumps 3+ /HPF 01/25/21 Unknown Ur Transition Epith Cell 7 /HPF 01/25/21 Unknown Urine Mucus Few /HPF 01/25/21 Unknown Nasal Screen MRSA (PCR) Positive (Negative) 01/26/21 06:25 Random Vancomycin 15.4 ug/mL (0-40.0) 01/28/21 04:39 Coronavirus (PCR) Negative (Negative) 01/28/21 Unknown Hepatitis A IgM Ab Non-reactive (NonReactive) 01/25/21 08:13 Hep Bs Antigen Non-reactive (Negative) 01/25/21 08:13 Hep B Core IgM Ab Non-reactive (NonReactive) 01/25/21 08:13 Hepatitis C Antibody Reactive (NonReactive) A 01/25/21 08:13 Microbiology: Microbiology 01/25/21 09:16 Peripheral/Venous Blood Culture - Final NO GROWTH AFTER 5 DAYS 01/25/21 09:16 Peripheral/Venous Blood Culture - Final NO GROWTH AFTER 5 DAYS [place]born/IV: Voiding Method Incontinent Active Medications - Current Medications Current Medications: Generic Name Dose Route Start Last Admin Trade Name Freq PRN Reason Stop Dose Admin Acetaminophen 650 mg 01/26/21 03:47 01/26/21 04:52 Acetaminophen 325 Mg/10.15 Ml Oral Liqd Unit Dose FEEDTUBE 650 mg Q6H PRN Administration Non Cardiac Pain or Temp>100.5 Albuterol 2.5 mg 01/25/21 12:47 Albuterol 2.5 Mg/3 Ml Nebu IH Q3HRT PRN Shortness Of Breath Amlodipine Besylate 10 mg 01/29/21 10:00 01/30/21 10:28 Amlodipine 10 Mg Tab PO 10 mg QDAY JOHANA Administration Lipase/Protease/Amylase 1 each 01/26/21 08:55 Lipase 10,500/Protease 25,000/Amylase 43,750 (Units) Dr Langley FEEDTUBE PRN PRN For Clogged Feeding Tube Aspirin 325 mg 01/26/21 11:00 01/30/21 10:28 Aspirin 325 Mg Tab PO 325 mg QDAY JOHANA Administration Atorvastatin Calcium 40 mg 01/26/21 22:00 01/29/21 21:19 Atorvastatin 40 Mg Tab PO 40 mg QHS JOHANA Administration Dextrose 50 ml 01/26/21 08:00 Dextrose 50% In Water (25gm) 50 Ml Syringe IV Q30MIN PRN Hypoglycemia Protocol Famotidine 10 mg 01/25/21 19:41 01/30/21 10:29 Famotidine 20 Mg/2 Ml Inj IV 10 mg BID JOHANA Administration Fentanyl 50 mcg 01/26/21 14:00 Fentanyl 100 Mcg/2 Ml Inj IV Q2H PRN Pain , Severe (7-10) Heparin Sodium (Porcine) 5,000 unit 01/25/21 22:00 01/30/21 10:51 Heparin 5,000 Unit/1 Ml Vial SUB-Q 5,000 unit Q12HR JOHANA Administration Hydralazine HCl 10 mg 01/28/21 11:39 01/30/21 14:08 Hydralazine 20 Mg/1 Ml Inj IV 10 mg Q4HR PRN Administration Hypertension Hydrophilic Ointment 1 applic 01/25/21 08:08 Lip Therapy Vaseline TP Q2HR PRN Dry Lips Sodium Chloride 100 mls @ 999 mls/hr 01/25/21 15:37 Nacl 0.9% IV KIMBERLY PRN Hypotension Valproate Sodium 500 mg/ 105 mls @ 100 mls/hr 01/26/21 11:00 01/30/21 10:28 Sodium Chloride IV 100 mls/hr Q12HR JOHANA Administration Cefepime HCl 1 gm in 100 mls @ 200 mls/hr 01/26/21 18:00 01/29/21 18:17 Cefepime/Ns 1 Gm/100 Ml IV 01/30/21 20:59 200 mls/hr QPM JOHANA Administration Protocol Propofol 1,000 mg in 100 mls @ 1.89 mls/hr 01/26/21 14:00 01/28/21 10:00 Diprivan 10 Mg/Ml IV 0 mcg/kg/min TITR JOHANA 0 mls/hr Titration Protocol 5 MCG/KG/MIN Norepinephrine 4 mg in 250 mls @ 7.5 mls/hr 01/27/21 08:00 01/27/21 08:30 Levophed Drip 4 Mg/Ns 250 Ml IV 0 mcg/min TITR JOHANA 0 mls/hr Titration Protocol 2 MCG/MIN Insulin Human Regular 0 units 01/26/21 12:00 01/30/21 05:49 Insulin Regular, Human 100 Units/1 Ml SUB-Q Not Given Q6H JOHANA Protocol Latanoprost 1 drops 01/26/21 18:00 01/29/21 18:17 Latanoprost 0.005% Ophth Soln 2.5 Ml OU 1 drops QPM JOHANA Administration Multi-Ingred Cream/Lotion/Oil/Oint 1 applic 01/25/21 08:08 Mineral Oil/Petrolatum, White Ophth Oint 3.5 Gm OU Q4HR PRN Dry Eye(s) Senna/Docusate Sodium 1 tab 01/25/21 10:00 01/30/21 10:28 Sennosides/Docusate Sodium 8.6/50 Mg Tab FEEDTUBE 1 tab BID JOHANA Administration Simple Syrup 15 ml 01/26/21 08:55 Simple Syrup 15 Ml FEEDTUBE PRN PRN Hypoglycemia Simple Syrup 30 ml 01/26/21 08:55 Simple Syrup 15 Ml FEEDTUBE PRN PRN Hypoglycemia Sodium Bicarbonate 325 mg 01/26/21 08:55 Sodium Bicarbonate 325 Mg Tab FEEDTUBE PRN PRN For Clogged Feeding Tube Sodium Chloride 10 ml 01/25/21 22:00 01/30/21 10:29 Sodium Chloride 0.9% 10 Ml Flush Syringe IV 10 ml BID JOHANA Administration Sodium Chloride 10 ml 01/25/21 12:47 Sodium Chloride 0.9% 10 Ml Flush Syringe IV PRN PRN LINE FLUSH Nutrition/Malnutrition Assess - Dietary Evaluation Nutrition/Malnutrition Findings: Nutrition Notes Start: 01/26/21 08:46 Freq: Status: Active Protocol: Document 01/28/21 08:57 CW (Rec: 01/28/21 09:08 CW [id number]) Nutrition Notes Need for Assessment generated from: MD Order Initial or Follow up Reassessment Current Diagnosis CKD (stage V CKD),Diabetes, Hypertension,Heart Failure, Respiratory Failure, Hyperlipidemia Other Pertinent Diagnosis UTI, cardiac arrest, R AKA Current Diet Nepro at 38 ml/hr Labs/Tests 01/27 BUN 23 Cr 3.1 Pertinent Medications propofol at 1.89 ml/hr (50 kcal) senokot Cefepime Height 5 ft 6 in Weight 60 kg [place] Body Weight (kg) 64.54 BMI 21.3 Weight change and time frame weight change noted Weight Status Appropriate Subjective/Other Information F/U for TF start and tolerance . TF is currently running at goal of 38 ml/hr of Nepro. Pt remains on mechanical vent. Pt has had diarrhea recently; possibly related to ABTx usage . Percent of energy/protein needs met: 100%/97% Burn Absent Trauma Absent GI Symptoms Diarrhea Skin Integrity/Comment open wound on LUE Current % PO Negligible Minimum of two criteria No Muscle Mass Mild Depletion (non-severe) #2 Nutrition Diagnosis Increased nutrient needs ( specify in comment below) Comments: protein Etiology wound healing As Evidenced by Signs and Symptoms Pt has large open wound on LUE #1 Nutrition Diagnosis Inadequate oral intake Diagnosis Progress(for reassessment Continues documentation) Is patient on ventilator? Yes Is Patient Ambulatory and/or Out of Bed No REE-([facility]-confined to bed) 2406.827 Calculation Used for Recommendations [facility] Additional Notes Protein: (1.2-2g/kg) 76-95g Fluid: 5557-9622 ml or per MD Nutrition Intervention Change Diet Order: Continue TF ar ordered Nutrition Support: Nepro 1.8 at 38 ml/hr Flush 125 ml q4h or per MD Kcal 1,641 Protein (gm) 74 Fluid (mL) 663 Goal #1 Meet at least 75% of protein and energy needs via TF Anticipated Discharge Needs: Unable to determine at this time Follow-Up By: 01/31/21 Additional Comments F/U for TF tolerance
--- NOTE | 2021-01-30 10:23 | Progress Note ---
Assessment and Plan Assessment - End-stage renal disease on hemodialysis - Anemia of ESRD - Acidosis - Cardiac arrest - Acute resp failure, s/p intubation - Septic shock - Acute encephalopathy, suspect anoxic brain injury - Seizure Recommendations - Status post HD daily x 2 days - . He also had dialysis treatment on Sunday. - Keep MAP>65, vasopressors prn - Epogen with HD once acute issues resolve - Agree with antibiotics - Antiepileptics as per neurology - Renally dose medication for creatinine clearance less than 15 cc/min - Prognosis is guarded -Brain scan shows absence of cerebral perfusion. Plans for discharge to hospice tomorrow noted. Spoke with patient's daughter Ann Heck at [phone] . Will discontinue dialysis. Subjective Date of service: 01/30/21 Principal diagnosis: Cardiac arrest; Ac hypoxemic resp failure; Septic Shock; UTI; AMS; ESRD Interval history: Patient remains on the ventilator. Currently on 25% FiO2. Oxygen saturation is 100%. Patient is unresponsive. Objective - Vital Signs Vital signs: Vital Signs - 12hr 01/29/21 01/29/21 01/29/21 22:30 22:40 22:50 Temperature Pulse Rate 81 82 82 Pulse Rate [ From Monitor] Respiratory 12 12 12 Rate Blood Pressure 164/57 164/57 174/60 O2 Sat by Pulse 100 100 100 Oximetry 01/29/21 01/29/21 01/29/21 23:00 23:10 23:20 Temperature Pulse Rate 83 83 84 Pulse Rate [ From Monitor] Respiratory 12 12 12 Rate Blood Pressure 149/59 149/59 158/60 O2 Sat by Pulse 100 100 100 Oximetry 01/29/21 01/29/21 01/29/21 23:30 23:40 23:50 Temperature Pulse Rate 84 82 82 Pulse Rate [ From Monitor] Respiratory 12 12 12 Rate Blood Pressure 159/61 159/61 178/57 O2 Sat by Pulse 100 100 100 Oximetry 01/30/21 01/30/21 01/30/21 00:00 00:07 00:10 Temperature 100.2 F H Pulse Rate 82 84 83 Pulse Rate [ 77 From Monitor] Respiratory 12 12 Rate Blood Pressure 165/56 149/59 165/56 O2 Sat by Pulse 100 100 100 Oximetry 01/30/21 01/30/21 01/30/21 00:20 00:30 00:40 Temperature Pulse Rate 81 81 82 Pulse Rate [ From Monitor] Respiratory 12 21 14 Rate Blood Pressure 177/57 163/55 163/55 O2 Sat by Pulse 98 100 98 Oximetry 01/30/21 01/30/21 01/30/21 00:50 01:00 01:10 Temperature Pulse Rate 83 83 82 Pulse Rate [ From Monitor] Respiratory 12 12 15 Rate Blood Pressure 159/57 166/58 166/58 O2 Sat by Pulse 98 98 95 Oximetry 01/30/21 01/30/21 01/30/21 01:20 01:30 01:40 Temperature Pulse Rate 82 82 81 Pulse Rate [ From Monitor] Respiratory 11 L 13 12 Rate Blood Pressure 167/56 164/56 166/58 O2 Sat by Pulse 95 94 93 Oximetry 01/30/21 01/30/21 01/30/21 01:50 02:00 02:10 Temperature Pulse Rate 81 81 81 Pulse Rate [ From Monitor] Respiratory 16 12 12 Rate Blood Pressure 175/58 170/55 170/55 O2 Sat by Pulse 92 93 93 Oximetry 01/30/21 01/30/21 01/30/21 02:20 02:30 02:40 Temperature Pulse Rate 82 81 80 Pulse Rate [ From Monitor] Respiratory 15 20 17 Rate Blood Pressure 152/53 168/57 168/57 O2 Sat by Pulse 93 92 92 Oximetry 01/30/21 01/30/21 01/30/21 02:50 03:00 03:10 Temperature Pulse Rate 81 80 80 Pulse Rate [ From Monitor] Respiratory 15 12 15 Rate Blood Pressure 165/51 168/55 168/55 O2 Sat by Pulse 92 91 91 Oximetry 01/30/21 01/30/21 01/30/21 03:20 03:25 03:30 Temperature 99.9 F H Pulse Rate 80 80 Pulse Rate [ From Monitor] Respiratory 20 15 Rate Blood Pressure 168/55 168/55 O2 Sat by Pulse 91 92 Oximetry 01/30/21 01/30/21 01/30/21 03:40 03:50 04:00 Temperature Pulse Rate 80 80 80 Pulse Rate [ 77 From Monitor] Respiratory 14 13 11 L Rate Blood Pressure 168/55 168/55 171/50 O2 Sat by Pulse 90 91 91 Oximetry 01/30/21 01/30/21 01/30/21 04:10 04:20 04:30 Temperature Pulse Rate 79 79 79 Pulse Rate [ From Monitor] Respiratory 21 18 16 Rate Blood Pressure 168/55 168/55 168/55 O2 Sat by Pulse 90 90 90 Oximetry 01/30/21 01/30/21 01/30/21 04:40 04:50 05:00 Temperature Pulse Rate 78 79 79 Pulse Rate [ From Monitor] Respiratory 17 16 13 Rate Blood Pressure 171/50 171/50 189/64 O2 Sat by Pulse 89 92 92 Oximetry 01/30/21 01/30/21 01/30/21 05:10 05:20 05:24 Temperature Pulse Rate 79 79 78 Pulse Rate [ From Monitor] Respiratory 18 14 Rate Blood Pressure 189/64 189/64 171/50 O2 Sat by Pulse 92 91 91 Oximetry 01/30/21 01/30/21 01/30/21 05:30 05:33 05:40 Temperature Pulse Rate 79 79 77 Pulse Rate [ From Monitor] Respiratory 14 16 Rate Blood Pressure 195/60 195/60 195/60 O2 Sat by Pulse 91 93 Oximetry 01/30/21 01/30/21 01/30/21 05:50 05:52 06:00 Temperature Pulse Rate 76 76 Pulse Rate [ From Monitor] Respiratory 17 15 15 Rate Blood Pressure 195/60 142/42 144/42 O2 Sat by Pulse 93 95 97 Oximetry 01/30/21 01/30/21 01/30/21 06:10 06:20 06:30 Temperature Pulse Rate 75 76 76 Pulse Rate [ From Monitor] Respiratory 22 16 22 Rate Blood Pressure 144/42 144/42 144/42 O2 Sat by Pulse 98 97 97 Oximetry 01/30/21 01/30/21 01/30/21 06:40 06:50 07:00 Temperature Pulse Rate 75 75 73 Pulse Rate [ From Monitor] Respiratory 20 19 19 Rate Blood Pressure 144/42 144/42 143/48 O2 Sat by Pulse 97 95 95 Oximetry 01/30/21 01/30/21 01/30/21 07:10 07:20 07:30 Temperature Pulse Rate 73 74 72 Pulse Rate [ From Monitor] Respiratory 22 15 15 Rate Blood Pressure 143/48 143/48 143/48 O2 Sat by Pulse 96 94 95 Oximetry 01/30/21 01/30/21 01/30/21 07:40 07:50 08:00 Temperature 98.4 F Pulse Rate 72 72 72 Pulse Rate [ From Monitor] Respiratory 20 12 12 Rate Blood Pressure 143/48 143/48 150/44 O2 Sat by Pulse 94 95 91 Oximetry 01/30/21 01/30/21 01/30/21 08:08 08:10 08:20 Temperature Pulse Rate 72 72 72 Pulse Rate [ From Monitor] Respiratory 23 18 Rate Blood Pressure 150/44 150/44 150/44 O2 Sat by Pulse 98 96 97 Oximetry 01/30/21 01/30/21 01/30/21 08:30 08:40 08:50 Temperature Pulse Rate 70 73 73 Pulse Rate [ From Monitor] Respiratory 20 16 16 Rate Blood Pressure 150/44 150/44 150/44 O2 Sat by Pulse 91 90 93 Oximetry 01/30/21 01/30/21 09:00 09:10 Temperature Pulse Rate 73 71 Pulse Rate [ From Monitor] Respiratory 17 16 Rate Blood Pressure 134/33 134/33 O2 Sat by Pulse 95 92 Oximetry - General Appearance General appearance: well-developed, well-nourished, intubated EENT: PERRL, mucous membranes moist Neck: no JVD, no thyromegaly, other (Left IJ PermCath in place) Respiratory: Present: Clear to Ascultation Cardiology: regular, normal heart rate Gastrointestinal: normal, normoactive bowel sounds Integumentary: other (No edema) - Lab 01/29/21 08:07 01/29/21 08:07 Most recent lab results ABG pH 7.367 (7.320-7.450) 01/30/21 04:00 ABG O2 Saturation 96.7 (0-100) 01/30/21 04:00 Calcium 8.6 mg/dL (8.4-10.2) D 01/29/21 08:07 Magnesium 2.30 mg/dL (1.7-2.3) 01/25/21 08:13 Medications & Allergies - Medications Allergies/Adverse Reactions: Allergies No Known Allergies Allergy (Verified 01/25/21 07:55) Home Medications: Home Medications Medication Instructions Recorded Confirmed Last Taken Type Atorvastatin [Lipitor] 40 mg PO QHS 09/28/17 01/27/21 Unknown History Omeprazole 20 mg PO BID 09/28/17 01/27/21 Unknown History Vit B Comp No.3/Folic/C/Biotin 1 tab PO DAILY 09/28/17 01/27/21 Unknown History [Processing Mgr-Stanley Rx Tablet] amLODIPine 10 mg PO DAILY 09/28/17 01/27/21 Unknown History carvediloL [Coreg] 12.5 mg PO BID 09/28/17 01/27/21 Unknown History Albuterol Mdi (or & Nicu Only) 2 puff IH QID PRN 05/01/19 01/27/21 Unknown History [ProAir HFA Inhaler] Gabapentin 300 mg PO Q8HR 05/01/19 01/27/21 Unknown History Latanoprost 0.005% 1 drop OP QPM 05/01/19 01/27/21 Unknown History lisinopriL [Zestril TAB] 40 mg PO QDAY 05/01/19 01/27/21 Unknown History Active Medications: Generic Name Dose Route Start Last Admin Trade Name Freq PRN Reason Stop Dose Admin Acetaminophen 650 mg 01/26/21 03:47 01/26/21 04:52 Acetaminophen 325 Mg/10.15 Ml Oral Liqd Unit Dose FEEDTUBE 650 mg Q6H PRN Administration Non Cardiac Pain or Temp>100.5 Albuterol 2.5 mg 01/25/21 12:47 Albuterol 2.5 Mg/3 Ml Nebu IH Q3HRT PRN Shortness Of Breath Amlodipine Besylate 10 mg 01/29/21 10:00 01/29/21 09:35 Amlodipine 10 Mg Tab PO 10 mg QDAY JOHANA Administration Lipase/Protease/Amylase 1 each 01/26/21 08:55 Lipase 10,500/Protease 25,000/Amylase 43,750 (Units) Dr Langley FEEDTUBE PRN PRN For Clogged Feeding Tube Aspirin 325 mg 01/26/21 11:00 01/29/21 09:36 Aspirin 325 Mg Tab PO 325 mg QDAY JOHANA Administration Atorvastatin Calcium 40 mg 01/26/21 22:00 01/29/21 21:19 Atorvastatin 40 Mg Tab PO 40 mg QHS JOHANA Administration Dextrose 50 ml 01/26/21 08:00 Dextrose 50% In Water (25gm) 50 Ml Syringe IV Q30MIN PRN Hypoglycemia Protocol Famotidine 10 mg 01/25/21 19:41 01/29/21 21:19 Famotidine 20 Mg/2 Ml Inj IV 10 mg BID JOHANA Administration Fentanyl 50 mcg 01/26/21 14:00 Fentanyl 100 Mcg/2 Ml Inj IV Q2H PRN Pain , Severe (7-10) Heparin Sodium (Porcine) 5,000 unit 01/25/21 22:00 01/29/21 21:19 Heparin 5,000 Unit/1 Ml Vial SUB-Q 5,000 unit Q12HR JOHANA Administration Hydralazine HCl 10 mg 01/28/21 11:39 01/30/21 05:33 Hydralazine 20 Mg/1 Ml Inj IV 10 mg Q4HR PRN Administration Hypertension Hydrophilic Ointment 1 applic 01/25/21 08:08 Lip Therapy Vaseline TP Q2HR PRN Dry Lips Sodium Chloride 100 mls @ 999 mls/hr 01/25/21 15:37 Nacl 0.9% IV KIMBERLY PRN Hypotension Valproate Sodium 500 mg/ 105 mls @ 100 mls/hr 01/26/21 11:00 01/29/21 21:19 Sodium Chloride IV 100 mls/hr Q12HR JOHANA Administration Cefepime HCl 1 gm in 100 mls @ 200 mls/hr 01/26/21 18:00 01/29/21 18:17 Cefepime/Ns 1 Gm/100 Ml IV 01/30/21 20:59 200 mls/hr QPM JOHANA Administration Protocol Propofol 1,000 mg in 100 mls @ 1.89 mls/hr 01/26/21 14:00 01/28/21 10:00 Diprivan 10 Mg/Ml IV 0 mcg/kg/min TITR JOHANA 0 mls/hr Titration Protocol 5 MCG/KG/MIN Norepinephrine 4 mg in 250 mls @ 7.5 mls/hr 01/27/21 08:00 01/27/21 08:30 Levophed Drip 4 Mg/Ns 250 Ml IV 0 mcg/min TITR JOHANA 0 mls/hr Titration Protocol 2 MCG/MIN Insulin Human Regular 0 units 01/26/21 12:00 01/30/21 05:49 Insulin Regular, Human 100 Units/1 Ml SUB-Q Not Given Q6H JOHANA Protocol Latanoprost 1 drops 01/26/21 18:00 01/29/21 18:17 Latanoprost 0.005% Ophth Soln 2.5 Ml OU 1 drops QPM JOHANA Administration Multi-Ingred Cream/Lotion/Oil/Oint 1 applic 01/25/21 08:08 Mineral Oil/Petrolatum, White Ophth Oint 3.5 Gm OU Q4HR PRN Dry Eye(s) Senna/Docusate Sodium 1 tab 01/25/21 10:00 01/29/21 22:14 Sennosides/Docusate Sodium 8.6/50 Mg Tab FEEDTUBE Not Given BID JOHANA Simple Syrup 15 ml 01/26/21 08:55 Simple Syrup 15 Ml FEEDTUBE PRN PRN Hypoglycemia Simple Syrup 30 ml 01/26/21 08:55 Simple Syrup 15 Ml FEEDTUBE PRN PRN Hypoglycemia Sodium Bicarbonate 325 mg 01/26/21 08:55 Sodium Bicarbonate 325 Mg Tab FEEDTUBE PRN PRN For Clogged Feeding Tube Sodium Chloride 10 ml 01/25/21 22:00 01/29/21 21:19 Sodium Chloride 0.9% 10 Ml Flush Syringe IV 10 ml BID JOHANA Administration Sodium Chloride 10 ml 01/25/21 12:47 Sodium Chloride 0.9% 10 Ml Flush Syringe IV PRN PRN LINE FLUSH
[2021-01-30] MEDS: SENNOSIDES/DOCUSATE SODIUM 8.6/50 MG TAB FEEDTUBE SCH (10:28)
[2021-01-30] MEDS: amLODIPine 10 MG TAB PO SCH (10:28)
[2021-01-30] MEDS: VALPROATE SODIUM 500 MG in SODIUM CHLORIDE 0.9% 100 ML IV SCH ×2 (10:28→21:24)
[2021-01-30] MEDS: ASPIRIN 325 MG TAB PO SCH (10:28)
[2021-01-30] MEDS: FAMOTIDINE 20 MG/2 ML INJ IV SCH ×2 (10:29→21:23)
[2021-01-30] MEDS: HEPARIN 5,000 UNIT/1 ML VIAL SUB-Q SCH ×2 (10:51→21:23)
--- NOTE | 2021-01-30 11:06 | Progress Note ---
Assessment and Plan 1. Status post cardiac arrest 2. Respiratory failure intubated on mechanical ventilator 3. Chronic combined systolic and diastolic heart failure 4. Dilated cardiomyopathy left ventricular ejection fraction 15 to 20% 5. End-stage renal disease on hemodialysis 6. Peripheral vascular disease status post right BKA 7. Anoxic encephalopathy 8. Essential hypertension Plan. Hemodynamically stable we will continue supportive cardiac management. Further cardiac work-up will depend on neurologic status. Subjective Date of service: 01/30/21 Principal diagnosis: Cardiac arrest; Ac hypoxemic resp failure; Septic Shock; UTI; AMS; ESRD Interval history: Intubated on mechanical ventilator Objective Vital Signs Temp Pulse Pulse Resp BP Pulse Ox 01/30/21 10:20 69 14 155/45 100 01/30/21 10:10 70 16 155/45 100 01/30/21 10:00 70 20 155/45 100 01/30/21 09:50 70 16 134/33 90 01/30/21 09:40 70 16 134/33 93 01/30/21 09:30 70 15 134/33 90 01/30/21 09:20 71 13 134/33 84 01/30/21 09:10 71 16 134/33 92 01/30/21 09:00 73 17 134/33 95 01/30/21 08:50 73 16 150/44 93 01/30/21 08:40 73 16 150/44 90 01/30/21 08:30 70 20 150/44 91 01/30/21 08:20 72 18 150/44 97 01/30/21 08:10 72 23 150/44 96 01/30/21 08:08 72 150/44 98 01/30/21 08:00 98.4 F 72 12 150/44 91 01/30/21 07:50 72 12 143/48 95 01/30/21 07:40 72 20 143/48 94 01/30/21 07:30 72 15 143/48 95 01/30/21 07:20 74 15 143/48 94 01/30/21 07:10 73 22 143/48 96 01/30/21 07:00 73 19 143/48 95 01/30/21 06:50 75 19 144/42 95 01/30/21 06:40 75 20 144/42 97 01/30/21 06:30 76 22 144/42 97 01/30/21 06:20 76 16 144/42 97 06/06/21 06:10 75 22 144/42 98 06/06/21 06:00 76 15 144/42 97 06/06/21 05:52 15 142/42 95 06/06/21 05:50 76 17 195/60 93 06/06/21 05:40 77 16 195/60 93 06/06/21 05:33 79 195/60 06/06/21 05:30 79 14 195/60 91 06/06/21 05:24 78 171/50 91 06/06/21 05:20 79 14 189/64 91 06/06/21 05:10 79 18 189/64 92 06/06/21 05:00 79 13 189/64 92 06/06/21 04:50 79 16 171/50 92 06/06/21 04:40 78 17 171/50 89 06/06/21 04:30 79 16 168/55 90 06/06/21 04:20 79 18 168/55 90 06/06/21 04:10 79 21 168/55 90 06/06/ 04:00 80 77 11 L 171/50 91 06/06/21 03:50 80 13 168/55 91 06/06/21 03:40 80 14 168/55 90 06/06/21 03:30 80 15 168/55 92 06/06/21 03:25 99.9 F H 06/06/21 03:20 80 20 168/55 91 06/06/21 03:10 80 15 168/55 91 06/06/21 03:00 80 12 168/55 91 06/06/21 02:50 81 15 165/51 92 06/06/21 02:40 80 17 168/57 92 06/06/21 02:30 81 20 168/57 92 06/06/21 02:20 82 15 152/53 93 06/06/21 02:10 81 12 170/55 93 06/06/21 02:00 81 12 170/55 93 06/06/21 01:50 81 16 175/58 92 06/06/21 01:40 81 12 166/58 93 06/06/21 01:30 82 13 164/56 94 06/06/21 01:20 82 11 L 167/56 95 06/06/21 01:10 82 15 166/58 95 06/06/21 01:00 83 12 166/58 98 06/06/21 00:50 83 12 159/57 98 06/06/21 00:40 82 14 163/55 98 06/06/21 00:30 81 21 163/55 100 06/06/21 00:20 81 12 177/57 98 06/06/21 00:10 83 12 165/56 100 06/06/21 00:07 84 149/59 100 06/06/21 00:00 100.2 F H 82 77 12 165/56 100 06/05/21 23:50 82 12 178/57 100 06/05/21 23:40 82 12 159/61 100 06/05/21 23:30 84 12 159/61 100 06/05/21 23:20 84 12 158/60 100 06/05/21 23:10 83 12 149/59 100 06/05/21 23:00 83 12 149/59 100 06/05/21 22:50 82 12 174/60 100 06/05/21 22:40 82 12 164/57 100 06/05/21 22:30 81 12 164/57 100 06/05/21 22:20 80 12 169/62 100 06/05/21 22:10 80 12 173/64 100 06/05/21 22:00 81 12 173/64 100 06/05/21 21:50 81 12 164/60 100 06/05/21 21:40 81 12 163/56 99 06/05/21 21:30 80 12 163/56 100 06/05/21 21:20 80 12 162/58 100 06/05/21 21:10 80 12 182/53 100 06/05/21 21:00 80 12 182/53 100 06/05/21 20:50 80 12 182/50 100 06/05/21 20:40 79 12 180/46 100 06/05/21 20:30 80 12 180/46 100 06/05/21 20:20 80 12 176/64 100 06/05/21 20:10 79 12 169/60 100 06/05/21 20:02 78 169/60 100 06/05/21 20:00 98.6 F 79 77 12 169/60 99 06/05/21 19:50 79 12 161/66 99 06/05/21 19:40 79 12 168/58 100 06/05/21 19:30 79 12 168/58 99 06/05/21 19:20 78 12 168/64 99 06/05/21 19:10 80 12 162/60 100 06/05/21 19:00 79 12 162/60 100 06/05/21 18:50 78 12 160/55 100 06/05/21 18:40 79 12 142/58 100 06/05/21 18:30 78 12 120/58 100 06/05/21 18:20 76 12 120/58 99 06/05/21 18:10 78 12 115/57 98 06/05/21 18:00 76 10 L 115/57 100 06/05/21 17:50 77 12 106/52 100 06/05/21 17:40 77 12 103/53 98 06/05/21 17:30 77 12 103/53 98 06/05/21 17:20 78 12 94/51 100 06/05/21 17:10 79 12 94/51 99 06/05/21 17:00 78 12 88/51 100 06/05/21 16:50 78 12 90/49 100 06/05/21 16:40 78 12 100/54 100 06/05/21 16:30 77 14 100/54 100 06/05/21 16:20 77 12 102/55 100 06/05/21 16:10 77 12 92/53 100 06/05/21 16:00 97.9 F 76 77 11 L 92/53 100 06/05/21 15:50 77 12 94/52 100 06/05/21 15:40 75 11 L 93/47 100 06/05/21 15:32 75 102/54 100 06/05/21 15:30 76 14 93/47 100 06/05/21 15:20 75 13 102/54 100 06/05/21 15:10 78 13 94/52 100 06/05/21 15:00 75 10 L 94/52 100 06/05/21 14:50 75 13 92/52 100 06/05/21 14:40 75 12 103/58 100 06/05/21 14:30 75 15 103/58 100 06/05/21 14:20 75 13 93/49 100 06/05/21 14:10 74 12 90/49 100 06/05/21 14:00 75 12 90/49 100 06/05/21 13:50 74 14 105/54 100 01/29/21 13:40 74 14 115/59 100 01/29/21 13:30 73 12 115/59 100 01/29/21 13:20 73 15 102/53 99 01/29/21 13:10 73 12 104/53 100 01/29/21 13:00 73 13 104/53 100 01/29/21 12:50 72 13 105/58 100 01/29/21 12:40 72 16 121/61 100 01/29/21 12:30 73 11 L 121/61 100 01/29/21 12:20 71 13 114/61 100 01/29/21 12:10 71 12 123/64 100 01/29/21 12:00 97.4 F L 71 72 13 123/64 01/29/21 11:50 69 12 108/57 100 01/29/21 11:40 69 12 125/65 100 01/29/21 11:37 70 116/59 100 01/29/21 11:30 69 12 125/65 100 01/29/21 11:20 70 12 116/59 100 01/29/21 11:10 70 12 130/65 100 - Physical Examination General: Other (unresponsive on the vent) HEENT: Positive: PERRL Neck: Positive: neck supple, trachea midline. Negative: JVD/HJR Cardiac: Positive: Regular Rate, S1/S2, S3, PMI, Dilated, Laterally Displaced Lungs: Positive: clear to auscultation, No Wheeze, Rales, Rhonchi Neuro: Positive: Other (intubated and unresponsive ( See Neuro note )) Abdomen: Positive: Soft, Active Bowel Sounds Extremities: Present: Other (NO EDEMA). Absent: edema - Allied health notes Allied health notes reviewed: nursing (edema pattern improved)
--- NOTE | 2021-01-30 15:18 | Progress Note ---
Assessment and Plan Cardiac arrest with return of spontaneous circulation. Acute hypoxemic respiratory failure, on mechanical ventilatory support. Severe sepsis with shock Urinary tract infection. ESRD on dialysis. Acute toxic metabolic encephalopathy, possibly anoxic. Anemia that is normocytic. Hypercapnia Leukocytosis. Hyperkalemia. NSTEMI DM II Congestive heart failure. Gastroesophageal reflux disease. Oropharyngeal dysphagia (Discussed very poor prognosis with his at bedside requested a substituted judgment as to wether he would want a tracheostomy and watchful waiting knowing the poor prognosis or perhaps hospice / comfort care. She states she has to discuss with their son and daughter. I also discussed likely brain flow scan evaluation in am and the consequences of a positive flow scan confirming brain ) - await hospice transfer - follow repeat COVID-19 test result - HD/UF decisions per nephrology re: hospice transfer - prn Levophed for target MAP > 65 mmHg - continue care as below otherwise; - continue on AED's (Keppra, dilantin) - keep set rate at 12/min - complete AB's per ID recommendations (Cefepime & Vancomycin) - continue to wean supplemental oxygen for target O2 sat's > 90% acutely - VAP bundle addressed - continue lung protective strategies - continue bronchodilators with pulmonary hygiene per RT - Daily SAT and SBT assessment as tolerated - wean per pulmonary driven protocols otherwise - continue accuchecks with glycemic control per SSI (While critically ill target blood glucose of 140-180 mg/dL; avoid hypoglycemia) - sedation prn for target RASS 0 to -1 - avoid nephrotoxins, renally dose all medications - avoid benzodiazepine's if possible, reduce the possibility of delirium - prn analgesia per CPOT score - Maintenance of sleep-wake cycle, avoid delirium - continue enteral nutritional support at goal rate as tolerated - G.I. & VTE prophylaxis - PT/OT/ROM exercises - continue mobility protocols for pressure ulcer prophylaxis - Monitor hemodynamics closely - continue other care per attending / other consultants - discharge planning ongoing concurrently .... Re-evaluate in am & prn CONDITION: CRITICAL PROGNOSIS: GUARDED CODE STATUS: FULL CODE The high probability of a clinically significant, sudden or life-threatening deterioration of the [respiratory, cardiovascular, GI & neurologic] system(s) required my full and direct attention, intervention and personal management. The aggregate critical care time was [32] minutes without overlap. Time includes spent on; [x] Data Review and interpretation [x] Patient assessment and monitoring of vital signs [x] Documentation [x] Medication orders and management Subjective Date of service: 01/30/21 Principal diagnosis: Cardiac arrest; Ac hypoxemic resp failure; Septic Shock; UTI; AMS; ESRD Interval history: Patient is seen today for: Cardiac arrest with ROSC; Acute hypoxemic respiratory failure; Septic Shock; UTI; ESRD on dialysis; Acute toxic metabolic encephalopathy, possibly anoxic; NSTEMI; CHF Seen and examined at bedside; 24hour events reviewed; nursing and respiratory care staff consulted; no adverse overnight events reported to me; resting peacefully in bed; remains on MVS; awaiting hospice transfer but remains a full code; no emesis or overt aspiration and no seizures Objective Vital Signs - 12hr 01/30/21 01/30/21 01/30/21 03:20 03:25 03:30 Temperature 99.9 F H Pulse Rate 80 80 Pulse Rate [ From Monitor] Respiratory 20 15 Rate Blood Pressure 168/55 168/55 O2 Sat by Pulse 91 92 Oximetry 01/30/21 01/30/21 01/30/21 03:40 03:50 04:00 Temperature Pulse Rate 80 80 80 Pulse Rate [ 77 From Monitor] Respiratory 14 13 11 L Rate Blood Pressure 168/55 168/55 171/50 O2 Sat by Pulse 90 91 91 Oximetry 01/30/21 01/30/21 01/30/21 04:10 04:20 04:30 Temperature Pulse Rate 79 79 79 Pulse Rate [ From Monitor] Respiratory 21 18 16 Rate Blood Pressure 168/55 168/55 168/55 O2 Sat by Pulse 90 90 90 Oximetry 01/30/21 01/30/21 01/30/21 04:40 04:50 05:00 Temperature Pulse Rate 78 79 79 Pulse Rate [ From Monitor] Respiratory 17 16 13 Rate Blood Pressure 171/50 171/50 189/64 O2 Sat by Pulse 89 92 92 Oximetry 01/30/21 01/30/21 01/30/21 05:10 05:20 05:24 Temperature Pulse Rate 79 79 78 Pulse Rate [ From Monitor] Respiratory 18 14 Rate Blood Pressure 189/64 189/64 171/50 O2 Sat by Pulse 92 91 91 Oximetry 01/30/21 01/30/21 01/30/21 05:30 05:33 05:40 Temperature Pulse Rate 79 79 77 Pulse Rate [ From Monitor] Respiratory 14 16 Rate Blood Pressure 195/60 195/60 195/60 O2 Sat by Pulse 91 93 Oximetry 01/30/21 01/30/21 01/30/21 05:50 05:52 06:00 Temperature Pulse Rate 76 76 Pulse Rate [ From Monitor] Respiratory 17 15 15 Rate Blood Pressure 195/60 142/42 144/42 O2 Sat by Pulse 93 95 97 Oximetry 01/30/21 01/30/21 01/30/21 06:10 06:20 06:30 Temperature Pulse Rate 75 76 76 Pulse Rate [ From Monitor] Respiratory 22 16 22 Rate Blood Pressure 144/42 144/42 144/42 O2 Sat by Pulse 98 97 97 Oximetry 01/30/21 01/30/21 01/30/21 06:40 06:50 07:00 Temperature Pulse Rate 75 75 73 Pulse Rate [ From Monitor] Respiratory 20 19 19 Rate Blood Pressure 144/42 144/42 143/48 O2 Sat by Pulse 97 95 95 Oximetry 01/30/21 01/30/21 01/30/21 07:10 07:20 07:30 Temperature Pulse Rate 73 74 72 Pulse Rate [ From Monitor] Respiratory 22 15 15 Rate Blood Pressure 143/48 143/48 143/48 O2 Sat by Pulse 96 94 95 Oximetry 01/30/21 01/30/21 01/30/21 07:40 07:50 08:00 Temperature 98.4 F Pulse Rate 72 72 72 Pulse Rate [ From Monitor] Respiratory 20 12 12 Rate Blood Pressure 143/48 143/48 150/44 O2 Sat by Pulse 94 95 100 Oximetry 01/30/21 01/30/21 01/30/21 08:08 08:10 08:20 Temperature Pulse Rate 72 72 72 Pulse Rate [ From Monitor] Respiratory 23 18 Rate Blood Pressure 150/44 150/44 150/44 O2 Sat by Pulse 98 96 97 Oximetry 01/30/21 01/30/21 01/30/21 08:30 08:40 08:50 Temperature Pulse Rate 70 73 73 Pulse Rate [ From Monitor] Respiratory 20 16 16 Rate Blood Pressure 150/44 150/44 150/44 O2 Sat by Pulse 91 90 93 Oximetry 01/30/21 01/30/21 01/30/21 09:00 09:10 09:20 Temperature Pulse Rate 73 71 71 Pulse Rate [ From Monitor] Respiratory 17 16 13 Rate Blood Pressure 134/33 134/33 134/33 O2 Sat by Pulse 95 92 84 Oximetry 01/30/21 01/30/21 01/30/21 09:30 09:40 09:50 Temperature Pulse Rate 70 70 70 Pulse Rate [ From Monitor] Respiratory 15 16 16 Rate Blood Pressure 134/33 134/33 134/33 O2 Sat by Pulse 90 93 90 Oximetry 01/30/21 01/30/21 01/30/21 10:00 10:10 10:20 Temperature Pulse Rate 70 70 69 Pulse Rate [ From Monitor] Respiratory 20 16 14 Rate Blood Pressure 155/45 155/45 155/45 O2 Sat by Pulse 100 100 100 Oximetry 01/30/21 01/30/21 01/30/21 10:30 10:40 10:50 Temperature Pulse Rate 70 69 69 Pulse Rate [ From Monitor] Respiratory 13 15 12 Rate Blood Pressure 155/45 155/45 155/45 O2 Sat by Pulse 100 98 100 Oximetry 01/30/21 01/30/21 01/30/21 11:00 11:10 11:20 Temperature Pulse Rate 67 67 68 Pulse Rate [ From Monitor] Respiratory 12 12 12 Rate Blood Pressure 141/45 141/45 141/45 O2 Sat by Pulse 100 100 100 Oximetry 01/30/21 01/30/21 01/30/21 11:30 11:40 11:50 Temperature Pulse Rate 71 69 66 Pulse Rate [ From Monitor] Respiratory 12 12 12 Rate Blood Pressure 141/45 141/45 141/45 O2 Sat by Pulse 100 100 100 Oximetry 01/30/21 01/30/21 01/30/21 12:00 12:07 12:10 Temperature 97.7 F Pulse Rate 67 66 69 Pulse Rate [ From Monitor] Respiratory 12 12 Rate Blood Pressure 149/51 141/45 149/51 O2 Sat by Pulse 98 100 100 Oximetry 01/30/21 01/30/21 01/30/21 12:20 12:30 12:40 Temperature Pulse Rate 68 68 68 Pulse Rate [ From Monitor] Respiratory 12 12 12 Rate Blood Pressure 149/51 149/51 149/51 O2 Sat by Pulse 100 100 100 Oximetry 01/30/21 01/30/21 01/30/21 12:50 13:00 13:10 Temperature Pulse Rate 67 68 68 Pulse Rate [ From Monitor] Respiratory 12 12 12 Rate Blood Pressure 149/51 163/59 163/59 O2 Sat by Pulse 100 100 100 Oximetry 01/30/21 01/30/21 01/30/21 13:20 13:30 13:40 Temperature Pulse Rate 67 64 66 Pulse Rate [ From Monitor] Respiratory 12 12 12 Rate Blood Pressure 163/59 163/59 163/59 O2 Sat by Pulse 100 100 100 Oximetry 01/30/21 01/30/21 13:50 14:00 Temperature Pulse Rate 64 65 Pulse Rate [ From Monitor] Respiratory 12 12 Rate Blood Pressure 163/59 175/49 O2 Sat by Pulse 100 100 Oximetry Constitutional: no acute distress, other (elderly thin male riding set rate on MVS) Eyes: non-icteric ENT: oropharynx moist, other (ETT 24 cm FREDI) Neck: supple, no lymphadenopathy, no JVD Effort: mildly labored Ascultation: Bilateral: diminished breath sounds, rhonchi Percussion: Bilateral: not dull Cardiovascular: regular rate and rhythm Gastrointestinal: normoactive bowel sounds Integumentary: normal Extremities: no cyanosis, no edema, pulses normal, no ischemia or petechiae Neurologic: pupils equal and round (fixed and dilated), unable to assess Psychiatric: other (unable to assess re: AMS) CBC and BMP: 01/29/21 08:07 01/29/21 08:07 ABG, PT/INR, D-dimer: ABG ABG pH 7.367 (7.320-7.450) 01/30/21 04:00 POC ABG pCO2 46.6 mmHg (32.0-48.0) 01/30/21 04:00 POC ABG pO2 87.8 mmHg (83-108) 01/30/21 04:00 POC ABG HCO3 26.2 01/30/21 04:00 ABG O2 Saturation 96.7 (0-100) 01/30/21 04:00 PT/INR, D-dimer PT 16.0 Sec. (12.2-14.9) H 01/25/21 08:13 INR 1.28 (0.87-1.13) H 01/25/21 08:13 D-Dimer 8335.22 ng/mlDDU (0-234) H 01/26/21 07:40 Abnormal lab findings: Abnormal Labs 01/25/21 01/25/21 01/25/21 07:56 08:13 08:13 WBC 11.4 H RBC 2.50 L Hgb 7.3 L Hct 22.2 L RDW 17.5 H Lymph % (Auto) 13.0 L Baso % (Auto) 2.2 H Baso # (Auto) 0.3 H Seg Neutrophils % 81.7 H Seg Neuts % (Manual) Lymphocytes % (Manual) Seg Neutrophils # 9.3 H Seg Neutrophils # Man Lymphocytes # (Manual) PT 16.0 H INR 1.28 H APTT 56.8 H D-Dimer ABG pH POC ABG pCO2 POC ABG pO2 ABG Hemoglobin ABG Oxyhemoglobin ABG Sodium ABG Potassium ABG Chloride ABG Glucose VBG pH Carboxyhemoglobin Sodium Potassium Chloride Carbon Dioxide BUN Creatinine Glucose POC Glucose 139 H Lactic Acid Calcium Ferritin AST ALT Lactate Dehydrogenase Troponin T C-Reactive Protein NT-Pro-B Natriuret Pep Total Protein Albumin Arterial Blood Glucose Arterial Blood Ionized Calcium Urine pH Urine WBC (Auto) Hepatitis C Antibody 01/25/21 01/25/21 01/25/21 08:13 08:13 08:13 WBC RBC Hgb Hct RDW Lymph % (Auto) Baso % (Auto) Baso # (Auto) Seg Neutrophils % Seg Neuts % (Manual) Lymphocytes % (Manual) Seg Neutrophils # Seg Neutrophils # Man Lymphocytes # (Manual) PT INR APTT D-Dimer ABG pH POC ABG pCO2 POC ABG pO2 ABG Hemoglobin ABG Oxyhemoglobin ABG Sodium ABG Potassium ABG Chloride ABG Glucose VBG pH 7.100 L* Carboxyhemoglobin Sodium 135 L Potassium 5.4 H Chloride 92.1 L Carbon Dioxide 21 L BUN Creatinine 4.8 H Glucose 157 H POC Glucose Lactic Acid Calcium Ferritin AST 284 H ALT 85 H Lactate Dehydrogenase Troponin T 0.233 H* C-Reactive Protein NT-Pro-B Natriuret Pep 12438 H Total Protein 5.8 L Albumin 2.5 L Arterial Blood Glucose Arterial Blood Ionized Calcium Urine pH Urine WBC (Auto) Hepatitis C Antibody Reactive A 01/25/21 01/25/21 01/25/21 08:44 16:31 16:57 WBC RBC Hgb Hct RDW Lymph % (Auto) Baso % (Auto) Baso # (Auto) Seg Neutrophils % Seg Neuts % (Manual) Lymphocytes % (Manual) Seg Neutrophils # Seg Neutrophils # Man Lymphocytes # (Manual) PT INR APTT D-Dimer ABG pH 7.174 L 7.572 H 7.608 H POC ABG pCO2 58.4 H 24.4 L 25.2 L POC ABG pO2 109.3 H 41.6 L 257.8 H ABG Hemoglobin 7.7 L 9.3 L 9.4 L ABG Oxyhemoglobin 92.0 L 79.4 L 99.1 H ABG Sodium 133.9 L ABG Potassium 5.4 H 4.6 H ABG Chloride 97.0 L 97.0 L ABG Glucose 157 H 107 H 124 H VBG pH Carboxyhemoglobin 4.3 H 0.3 L Sodium Potassium Chloride Carbon Dioxide BUN Creatinine Glucose POC Glucose Lactic Acid Calcium Ferritin AST ALT Lactate Dehydrogenase Troponin T C-Reactive Protein NT-Pro-B Natriuret Pep Total Protein Albumin Arterial Blood Glucose 157 H 107 H 124 H Arterial Blood Ionized Calcium 4.5 L 4.3 L 4.3 L Urine pH Urine WBC (Auto) Hepatitis C Antibody 01/25/21 01/25/21 01/26/21 23:31 Unknown 03:10 WBC RBC Hgb Hct RDW Lymph % (Auto) Baso % (Auto) Baso # (Auto) Seg Neutrophils % Seg Neuts % (Manual) Lymphocytes % (Manual) Seg Neutrophils # Seg Neutrophils # Man Lymphocytes # (Manual) PT INR APTT D-Dimer ABG pH 7.547 H POC ABG pCO2 31.7 L POC ABG pO2 ABG Hemoglobin 9.2 L ABG Oxyhemoglobin ABG Sodium ABG Potassium ABG Chloride ABG Glucose 108 H VBG pH Carboxyhemoglobin Sodium Potassium Chloride Carbon Dioxide BUN Creatinine Glucose POC Glucose 111 H Lactic Acid Calcium Ferritin AST ALT Lactate Dehydrogenase Troponin T C-Reactive Protein NT-Pro-B Natriuret Pep Total Protein Albumin Arterial Blood Glucose 108 H Arterial Blood Ionized Calcium 4.0 L Urine pH 8.0 H Urine WBC (Auto) > 182.0 H Hepatitis C Antibody 01/26/21 01/26/21 01/26/21 04:00 07:40 07:40 WBC RBC Hgb Hct RDW Lymph % (Auto) Baso % (Auto) Baso # (Auto) Seg Neutrophils % Seg Neuts % (Manual) Lymphocytes % (Manual) Seg Neutrophils # Seg Neutrophils # Man Lymphocytes # (Manual) PT INR APTT D-Dimer 8335.22 H ABG pH POC ABG pCO2 POC ABG pO2 ABG Hemoglobin ABG Oxyhemoglobin ABG Sodium ABG Potassium ABG Chloride ABG Glucose VBG pH Carboxyhemoglobin Sodium Potassium Chloride Carbon Dioxide BUN 27 H Creatinine 4.4 H Glucose 105 H POC Glucose Lactic Acid Calcium 8.1 L Ferritin 1817.0 H AST ALT Lactate Dehydrogenase Troponin T C-Reactive Protein NT-Pro-B Natriuret Pep Total Protein Albumin Arterial Blood Glucose Arterial Blood Ionized Calcium Urine pH Urine WBC (Auto) Hepatitis C Antibody 01/26/21 01/26/21 01/26/21 07:40 07:58 07:58 WBC 16.6 H RBC 3.10 L Hgb 8.9 L Hct 26.7 L RDW 17.4 H Lymph % (Auto) Baso % (Auto) Baso # (Auto) Seg Neutrophils % Seg Neuts % (Manual) 93.0 H Lymphocytes % (Manual) 5.0 L Seg Neutrophils # Seg Neutrophils # Man 15.4 H Lymphocytes # (Manual) 0.8 L PT INR APTT D-Dimer ABG pH POC ABG pCO2 POC ABG pO2 ABG Hemoglobin ABG Oxyhemoglobin ABG Sodium ABG Potassium ABG Chloride ABG Glucose VBG pH Carboxyhemoglobin Sodium Potassium Chloride Carbon Dioxide BUN Creatinine Glucose POC Glucose Lactic Acid 3.20 H* Calcium Ferritin AST ALT Lactate Dehydrogenase 770 H Troponin T C-Reactive Protein 11.00 H NT-Pro-B Natriuret Pep Total Protein Albumin Arterial Blood Glucose Arterial Blood Ionized Calcium Urine pH Urine WBC (Auto) Hepatitis C Antibody 01/26/21 01/26/21 01/26/21 11:29 18:10 23:15 WBC RBC Hgb Hct RDW Lymph % (Auto) Baso % (Auto) Baso # (Auto) Seg Neutrophils % Seg Neuts % (Manual) Lymphocytes % (Manual) Seg Neutrophils # Seg Neutrophils # Man Lymphocytes # (Manual) PT INR APTT D-Dimer ABG pH POC ABG pCO2 POC ABG pO2 ABG Hemoglobin ABG Oxyhemoglobin ABG Sodium ABG Potassium ABG Chloride ABG Glucose VBG pH Carboxyhemoglobin Sodium Potassium Chloride Carbon Dioxide BUN Creatinine Glucose POC Glucose 108 H 149 H 113 H Lactic Acid Calcium Ferritin AST ALT Lactate Dehydrogenase Troponin T C-Reactive Protein NT-Pro-B Natriuret Pep Total Protein Albumin Arterial Blood Glucose Arterial Blood Ionized Calcium Urine pH Urine WBC (Auto) Hepatitis C Antibody 01/27/21 01/27/21 01/27/21 04:39 04:39 05:00 WBC 17.3 H RBC 3.11 L Hgb 8.6 L Hct 27.3 L RDW 18.4 H Lymph % (Auto) Baso % (Auto) Baso # (Auto) Seg Neutrophils % Seg Neuts % (Manual) Lymphocytes % (Manual) Seg Neutrophils # Seg Neutrophils # Man Lymphocytes # (Manual) PT INR APTT D-Dimer ABG pH POC ABG pCO2 POC ABG pO2 ABG Hemoglobin 8.8 L ABG Oxyhemoglobin ABG Sodium ABG Potassium ABG Chloride ABG Glucose 98 H VBG pH Carboxyhemoglobin Sodium Potassium Chloride Carbon Dioxide BUN 23 H Creatinine 3.1 H Glucose POC Glucose Lactic Acid Calcium 7.1 L Ferritin AST ALT Lactate Dehydrogenase Troponin T C-Reactive Protein NT-Pro-B Natriuret Pep Total Protein Albumin Arterial Blood Glucose 98 H Arterial Blood Ionized Calcium 3.9 L Urine pH Urine WBC (Auto) Hepatitis C Antibody 01/27/21 01/27/21 01/27/21 11:30 18:10 23:22 WBC RBC Hgb Hct RDW Lymph % (Auto) Baso % (Auto) Baso # (Auto) Seg Neutrophils % Seg Neuts % (Manual) Lymphocytes % (Manual) Seg Neutrophils # Seg Neutrophils # Man Lymphocytes # (Manual) PT INR APTT D-Dimer ABG pH POC ABG pCO2 POC ABG pO2 ABG Hemoglobin ABG Oxyhemoglobin ABG Sodium ABG Potassium ABG Chloride ABG Glucose VBG pH Carboxyhemoglobin Sodium Potassium Chloride Carbon Dioxide BUN Creatinine Glucose POC Glucose 132 H 122 H 134 H Lactic Acid Calcium Ferritin AST ALT Lactate Dehydrogenase Troponin T C-Reactive Protein NT-Pro-B Natriuret Pep Total Protein Albumin Arterial Blood Glucose Arterial Blood Ionized Calcium Urine pH Urine WBC (Auto) Hepatitis C Antibody 01/28/21 01/28/21 01/28/21 03:14 11:17 12:43 WBC RBC Hgb Hct RDW Lymph % (Auto) Baso % (Auto) Baso # (Auto) Seg Neutrophils % Seg Neuts % (Manual) Lymphocytes % (Manual) Seg Neutrophils # Seg Neutrophils # Man Lymphocytes # (Manual) PT INR APTT D-Dimer ABG pH POC ABG pCO2 48.6 H POC ABG pO2 ABG Hemoglobin 8.1 L ABG Oxyhemoglobin ABG Sodium ABG Potassium ABG Chloride ABG Glucose 140 H VBG pH Carboxyhemoglobin 1.7 H Sodium Potassium Chloride Carbon Dioxide BUN Creatinine Glucose POC Glucose 137 H 140 H Lactic Acid Calcium Ferritin AST ALT Lactate Dehydrogenase Troponin T C-Reactive Protein NT-Pro-B Natriuret Pep Total Protein Albumin Arterial Blood Glucose 140 H Arterial Blood Ionized Calcium 4.1 L Urine pH Urine WBC (Auto) Hepatitis C Antibody 01/28/21 01/28/21 01/28/21 15:42 15:42 17:40 WBC RBC 2.94 L Hgb 8.3 L Hct 26.2 L RDW 18.5 H Lymph % (Auto) Baso % (Auto) Baso # (Auto) Seg Neutrophils % Seg Neuts % (Manual) Lymphocytes % (Manual) Seg Neutrophils # Seg Neutrophils # Man Lymphocytes # (Manual) PT INR APTT D-Dimer ABG pH POC ABG pCO2 POC ABG pO2 ABG Hemoglobin ABG Oxyhemoglobin ABG Sodium ABG Potassium ABG Chloride ABG Glucose VBG pH Carboxyhemoglobin Sodium 136 L Potassium Chloride Carbon Dioxide BUN 38 H Creatinine 4.6 H Glucose 150 H POC Glucose 151 H Lactic Acid Calcium 7.2 L Ferritin AST ALT Lactate Dehydrogenase Troponin T C-Reactive Protein NT-Pro-B Natriuret Pep Total Protein Albumin Arterial Blood Glucose Arterial Blood Ionized Calcium Urine pH Urine WBC (Auto) Hepatitis C Antibody 01/28/21 01/28/21 01/29/21 17:42 23:11 03:45 WBC RBC Hgb Hct RDW Lymph % (Auto) Baso % (Auto) Baso # (Auto) Seg Neutrophils % Seg Neuts % (Manual) Lymphocytes % (Manual) Seg Neutrophils # Seg Neutrophils # Man Lymphocytes # (Manual) PT INR APTT D-Dimer ABG pH POC ABG pCO2 48.2 H POC ABG pO2 115.2 H ABG Hemoglobin 8.1 L ABG Oxyhemoglobin ABG Sodium 135.8 L ABG Potassium ABG Chloride ABG Glucose 173 H VBG pH Carboxyhemoglobin Sodium Potassium Chloride Carbon Dioxide BUN Creatinine Glucose POC Glucose 143 H 159 H Lactic Acid Calcium Ferritin AST ALT Lactate Dehydrogenase Troponin T C-Reactive Protein NT-Pro-B Natriuret Pep Total Protein Albumin Arterial Blood Glucose 173 H Arterial Blood Ionized Calcium Urine pH Urine WBC (Auto) Hepatitis C Antibody 01/29/21 01/29/21 01/29/21 05:26 08:07 08:07 WBC RBC 2.68 L Hgb 7.5 L Hct 23.6 L RDW 18.2 H Lymph % (Auto) Baso % (Auto) Baso # (Auto) Seg Neutrophils % Seg Neuts % (Manual) Lymphocytes % (Manual) Seg Neutrophils # Seg Neutrophils # Man Lymphocytes # (Manual) PT INR APTT D-Dimer ABG pH POC ABG pCO2 POC ABG pO2 ABG Hemoglobin ABG Oxyhemoglobin ABG Sodium ABG Potassium ABG Chloride ABG Glucose VBG pH Carboxyhemoglobin Sodium Potassium Chloride Carbon Dioxide BUN 23 H Creatinine 3.4 H Glucose 139 H POC Glucose 161 H Lactic Acid Calcium Ferritin AST ALT Lactate Dehydrogenase Troponin T C-Reactive Protein NT-Pro-B Natriuret Pep Total Protein Albumin Arterial Blood Glucose Arterial Blood Ionized Calcium Urine pH Urine WBC (Auto) Hepatitis C Antibody 01/29/21 01/29/21 01/29/21 11:16 12:15 23:26 WBC RBC Hgb Hct RDW Lymph % (Auto) Baso % (Auto) Baso # (Auto) Seg Neutrophils % Seg Neuts % (Manual) Lymphocytes % (Manual) Seg Neutrophils # Seg Neutrophils # Man Lymphocytes # (Manual) PT INR APTT D-Dimer ABG pH POC ABG pCO2 POC ABG pO2 ABG Hemoglobin ABG Oxyhemoglobin ABG Sodium ABG Potassium ABG Chloride ABG Glucose VBG pH Carboxyhemoglobin Sodium Potassium Chloride Carbon Dioxide BUN Creatinine Glucose POC Glucose 153 H 155 H 119 H Lactic Acid Calcium Ferritin AST ALT Lactate Dehydrogenase Troponin T C-Reactive Protein NT-Pro-B Natriuret Pep Total Protein Albumin Arterial Blood Glucose Arterial Blood Ionized Calcium Urine pH Urine WBC (Auto) Hepatitis C Antibody 01/30/21 01/30/21 01/30/21 04:00 05:27 11:31 WBC RBC Hgb Hct RDW Lymph % (Auto) Baso % (Auto) Baso # (Auto) Seg Neutrophils % Seg Neuts % (Manual) Lymphocytes % (Manual) Seg Neutrophils # Seg Neutrophils # Man Lymphocytes # (Manual) PT INR APTT D-Dimer ABG pH POC ABG pCO2 POC ABG pO2 ABG Hemoglobin 7.7 L ABG Oxyhemoglobin ABG Sodium 134.6 L ABG Potassium ABG Chloride ABG Glucose 156 H VBG pH Carboxyhemoglobin 1.8 H Sodium Potassium Chloride Carbon Dioxide BUN Creatinine Glucose POC Glucose 143 H 157 H Lactic Acid Calcium Ferritin AST ALT Lactate Dehydrogenase Troponin T C-Reactive Protein NT-Pro-B Natriuret Pep Total Protein Albumin Arterial Blood Glucose 156 H Arterial Blood Ionized Calcium Urine pH Urine WBC (Auto) Hepatitis C Antibody Chest x-ray: image reviewed (no new infiltrate) Allied health notes reviewed: nursing
[2021-01-30] MEDS: LATANOPROST 0.005% OPHTH SOLN 2.5 ML OU SCH (17:48)
[2021-01-30] MEDS: CEFEPIME/NS 1 GM/100 ML 1 GM/100 ML BAG IV SCH (17:48)
[2021-01-31] MEDS: INSULIN REGULAR, HUMAN 100 UNITS/1 ML SUB-Q SCH ×2 (06:02)
--- NOTE | 2021-01-31 09:49 | Progress Note ---
Assessment and Plan Assessment - End-stage renal disease on hemodialysis - Anemia of ESRD - Acidosis - Cardiac arrest - Acute resp failure, s/p intubation - Septic shock - Acute encephalopathy, suspect anoxic brain injury - Seizure Recommendations - Status post HD daily x 2 days on arrival. He also had dialysis treatment on Sunday. - Keep MAP>65, vasopressors prn - Epogen with HD if remains on HD - Agree with antibiotics - Antiepileptics as per neurology - Renally dose medication for creatinine clearance less than 15 cc/min - Prognosis is guarded - Brain scan shows absence of cerebral perfusion. Plans for discharge to hospice noted. Dr. Taylor spoke with patient's daughter Ann Heck at [phone] previously, will continue to hold dialysis per that discussion Subjective Date of service: 01/31/21 Principal diagnosis: Cardiac arrest; Ac hypoxemic resp failure; Septic Shock; UTI; AMS; ESRD Interval history: No acute changes noted. Patient remains on the ventilator. Currently on 25% FiO2. Oxygen saturation is 100%. Patient is unresponsive. Objective - Vital Signs Vital signs: Vital Signs - 12hr 01/30/21 01/30/21 01/30/21 21:51 22:00 22:11 Temperature Pulse Rate 57 L 56 L 56 L Pulse Rate [ From Monitor] Respiratory 12 12 12 Rate Blood Pressure 138/56 144/58 144/58 O2 Sat by Pulse 100 100 100 Oximetry 01/30/21 01/30/21 01/30/21 22:21 22:30 22:41 Temperature Pulse Rate 57 L 56 L 55 L Pulse Rate [ From Monitor] Respiratory 12 12 12 Rate Blood Pressure 138/60 128/54 128/54 O2 Sat by Pulse 100 100 100 Oximetry 01/30/21 01/30/21 01/30/21 22:51 23:00 23:11 Temperature Pulse Rate 56 L 56 L 57 L Pulse Rate [ From Monitor] Respiratory 12 12 12 Rate Blood Pressure 118/53 119/53 119/53 O2 Sat by Pulse 100 100 100 Oximetry 01/30/21 01/30/21 01/30/21 23:21 23:30 23:34 Temperature 96.8 F L Pulse Rate 56 L 55 L Pulse Rate [ From Monitor] Respiratory 12 12 Rate Blood Pressure 144/60 118/53 O2 Sat by Pulse 100 100 Oximetry 06/06/21 06/06/21 06/06/21 23:39 23:41 23:51 Temperature Pulse Rate 56 L 57 L 58 L Pulse Rate [ From Monitor] Respiratory 12 12 12 Rate Blood Pressure 118/53 118/53 134/60 O2 Sat by Pulse 100 100 100 Oximetry 01/31/21 01/31/21 01/31/21 00:00 00:11 00:20 Temperature Pulse Rate 57 L 59 L 58 L Pulse Rate [ 74 From Monitor] Respiratory 12 12 12 Rate Blood Pressure 134/58 134/58 126/53 O2 Sat by Pulse 100 100 100 Oximetry 01/31/21 01/31/21 01/31/21 00:30 00:41 00:51 Temperature Pulse Rate 59 L 59 L 57 L Pulse Rate [ From Monitor] Respiratory 12 12 12 Rate Blood Pressure 138/59 138/59 144/60 O2 Sat by Pulse 100 100 100 Oximetry 01/31/21 01/31/21 01/31/21 01:00 01:11 01:21 Temperature Pulse Rate 57 L 57 L 57 L Pulse Rate [ From Monitor] Respiratory 12 12 12 Rate Blood Pressure 121/55 121/55 137/62 O2 Sat by Pulse 100 100 100 Oximetry 01/31/21 01/31/21 01/31/21 01:30 01:41 01:51 Temperature Pulse Rate 57 L 58 L 56 L Pulse Rate [ From Monitor] Respiratory 12 12 12 Rate Blood Pressure 132/60 132/60 124/52 O2 Sat by Pulse 100 100 100 Oximetry 01/31/21 01/31/21 01/31/21 02:00 02:11 02:21 Temperature Pulse Rate 56 L 55 L 55 L Pulse Rate [ From Monitor] Respiratory 12 12 12 Rate Blood Pressure 137/60 137/60 117/54 O2 Sat by Pulse 100 100 100 Oximetry 01/31/21 01/31/21 01/31/21 02:30 02:41 02:51 Temperature Pulse Rate 56 L 55 L 56 L Pulse Rate [ From Monitor] Respiratory 12 12 12 Rate Blood Pressure 133/61 133/61 125/54 O2 Sat by Pulse 100 100 100 Oximetry 01/31/21 01/31/21 01/31/21 03:00 03:11 03:21 Temperature Pulse Rate 55 L 53 L 54 L Pulse Rate [ From Monitor] Respiratory 12 12 12 Rate Blood Pressure 132/56 132/56 139/61 O2 Sat by Pulse 100 100 100 Oximetry 0601/31/21 01/31/21 03:30 03:41 03:43 Temperature 97.2 F L Pulse Rate 54 L 55 L Pulse Rate [ From Monitor] Respiratory 12 12 Rate Blood Pressure 120/52 120/52 O2 Sat by Pulse 100 100 Oximetry 01/31/21 01/31/21 01/31/21 03:51 04:00 04:02 Temperature Pulse Rate 53 L 53 L 53 L Pulse Rate [ 74 From Monitor] Respiratory 12 12 Rate Blood Pressure 165/59 117/49 117/49 O2 Sat by Pulse 100 100 100 Oximetry 01/31/21 01/31/21 01/31/21 04:11 04:21 04:30 Temperature Pulse Rate 53 L 54 L 53 L Pulse Rate [ From Monitor] Respiratory 12 12 Rate Blood Pressure 117/49 122/54 122/56 O2 Sat by Pulse 100 100 100 Oximetry 01/31/21 01/31/21 01/31/21 04:41 04:51 05:00 Temperature Pulse Rate 54 L 54 L 52 L Pulse Rate [ From Monitor] Respiratory 12 12 12 Rate Blood Pressure 165/59 136/61 115/50 O2 Sat by Pulse 100 100 100 Oximetry 01/31/21 01/31/21 01/31/21 05:11 05:21 05:30 Temperature Pulse Rate 52 L 53 L 52 L Pulse Rate [ From Monitor] Respiratory 12 12 12 Rate Blood Pressure 115/50 127/57 137/56 O2 Sat by Pulse 100 100 100 Oximetry 01/31/21 01/31/21 01/31/21 05:41 05:51 06:00 Temperature Pulse Rate 52 L 53 L 51 L Pulse Rate [ From Monitor] Respiratory 12 12 12 Rate Blood Pressure 137/56 138/62 120/52 O2 Sat by Pulse 100 100 100 Oximetry 01/31/21 01/31/21 01/31/21 06:11 06:21 06:30 Temperature Pulse Rate 52 L 52 L 51 L Pulse Rate [ From Monitor] Respiratory 12 12 12 Rate Blood Pressure 137/56 126/54 117/50 O2 Sat by Pulse 100 100 100 Oximetry 01/31/21 01/31/21 01/31/21 06:41 06:51 07:00 Temperature Pulse Rate 51 L 51 L 51 L Pulse Rate [ From Monitor] Respiratory 12 12 12 Rate Blood Pressure 117/50 132/59 135/60 O2 Sat by Pulse 100 100 100 Oximetry 01/31/21 01/31/21 01/31/21 07:11 07:21 07:30 Temperature Pulse Rate 50 L 50 L 51 L Pulse Rate [ From Monitor] Respiratory 12 12 12 Rate Blood Pressure 135/60 130/55 136/60 O2 Sat by Pulse 100 100 100 Oximetry 01/31/21 01/31/21 01/31/21 07:41 07:50 07:51 Temperature Pulse Rate 50 L 51 L 51 L Pulse Rate [ From Monitor] Respiratory 12 12 Rate Blood Pressure 136/60 135/59 116/51 O2 Sat by Pulse 100 100 100 Oximetry 01/31/21 08:00 Temperature 94 F L Pulse Rate 50 L Pulse Rate [ From Monitor] Respiratory 12 Rate Blood Pressure 135/59 O2 Sat by Pulse 100 Oximetry - General Appearance General appearance: sedated on ventilator, intubated EENT: ATNC Neck: no JVD Respiratory: Present: Decreased Breath Sounds Cardiology: regular, normal heart rate Gastrointestinal: normoactive bowel sounds Integumentary: warm and dry Neurologic: obtunded - Lab 01/29/21 08:07 01/29/21 08:07 Most recent lab results ABG pH 7.367 (7.320-7.450) 01/30/21 04:00 ABG O2 Saturation 96.7 (0-100) 01/30/21 04:00 Calcium 8.6 mg/dL (8.4-10.2) D 01/29/21 08:07 Magnesium 2.30 mg/dL (1.7-2.3) 01/25/21 08:13 Medications & Allergies - Medications Allergies/Adverse Reactions: Allergies No Known Allergies Allergy (Verified 01/25/21 07:55) Home Medications: Home Medications Medication Instructions Recorded Confirmed Last Taken Type Atorvastatin [Lipitor] 40 mg PO QHS 09/28/17 01/27/21 Unknown History Omeprazole 20 mg PO BID 09/28/17 01/27/21 Unknown History Vit B Comp No.3/Folic/C/Biotin 1 tab PO DAILY 09/28/17 01/27/21 Unknown History [[employer] Tablet] amLODIPine 10 mg PO DAILY 09/28/17 01/27/21 Unknown History carvediloL [Coreg] 12.5 mg PO BID 09/28/17 01/27/21 Unknown History Albuterol Mdi (or & Nicu Only) 2 puff IH QID PRN 05/01/19 01/27/21 Unknown History [ProAir HFA Inhaler] Gabapentin 300 mg PO Q8HR 05/01/19 01/27/21 Unknown History Latanoprost 0.005% 1 drop OP QPM 05/01/19 01/27/21 Unknown History lisinopriL [Zestril TAB] 40 mg PO QDAY 05/01/19 01/27/21 Unknown History Active Medications: Generic Name Dose Route Start Last Admin Trade Name Freq PRN Reason Stop Dose Admin Acetaminophen 650 mg 01/26/21 03:47 01/26/21 04:52 Acetaminophen 325 Mg/10.15 Ml Oral Liqd Unit Dose FEEDTUBE 650 mg Q6H PRN Administration Non Cardiac Pain or Temp>100.5 Albuterol 2.5 mg 01/25/21 12:47 Albuterol 2.5 Mg/3 Ml Nebu IH Q3HRT PRN Shortness Of Breath Amlodipine Besylate 10 mg 01/29/21 10:00 01/30/21 10:28 Amlodipine 10 Mg Tab PO 10 mg QDAY JOHANA Administration Lipase/Protease/Amylase 1 each 01/26/21 08:55 Lipase 10,500/Protease 25,000/Amylase 43,750 (Units) Dr Langley FEEDTUBE PRN PRN For Clogged Feeding Tube Aspirin 325 mg 01/26/21 11:00 01/30/21 10:28 Aspirin 325 Mg Tab PO 325 mg QDAY JOHANA Administration Atorvastatin Calcium 40 mg 01/26/21 22:00 01/30/21 21:23 Atorvastatin 40 Mg Tab PO 40 mg QHS JOHANA Administration Dextrose 50 ml 01/26/21 08:00 Dextrose 50% In Water (25gm) 50 Ml Syringe IV Q30MIN PRN Hypoglycemia Protocol Famotidine 10 mg 01/31/21 10:00 Famotidine 10 Mg Tab PO BID JOHANA Fentanyl 50 mcg 01/26/21 14:00 Fentanyl 100 Mcg/2 Ml Inj IV Q2H PRN Pain , Severe (7-10) Heparin Sodium (Porcine) 5,000 unit 01/25/21 22:00 01/30/21 21:23 Heparin 5,000 Unit/1 Ml Vial SUB-Q 5,000 unit Q12HR JOHANA Administration Hydralazine HCl 10 mg 01/28/21 11:39 01/30/21 14:08 Hydralazine 20 Mg/1 Ml Inj IV 10 mg Q4HR PRN Administration Hypertension Hydrophilic Ointment 1 applic 01/25/21 08:08 Lip Therapy Vaseline TP Q2HR PRN Dry Lips Sodium Chloride 100 mls @ 999 mls/hr 01/25/21 15:37 Nacl 0.9% IV KIMBERLY PRN Hypotension Valproate Sodium 500 mg/ 105 mls @ 100 mls/hr 01/26/21 11:00 01/30/21 21:24 Sodium Chloride IV 01/31/21 10:59 100 mls/hr Q12HR JOHANA Administration Propofol 1,000 mg in 100 mls @ 1.89 mls/hr 01/26/21 14:00 01/28/21 10:00 Diprivan 10 Mg/Ml IV 0 mcg/kg/min TITR JOHANA 0 mls/hr Titration Protocol 5 MCG/KG/MIN Norepinephrine 4 mg in 250 mls @ 7.5 mls/hr 01/27/21 08:00 01/27/21 08:30 Levophed Drip 4 Mg/Ns 250 Ml IV 0 mcg/min TITR JOHANA 0 mls/hr Titration Protocol 2 MCG/MIN Insulin Human Regular 0 units 01/26/21 12:00 01/31/21 06:02 Insulin Regular, Human 100 Units/1 Ml SUB-Q Not Given Q6H JOHANA Protocol Latanoprost 1 drops 01/26/21 18:00 01/30/21 17:48 Latanoprost 0.005% Ophth Soln 2.5 Ml OU 1 drops QPM JOHANA Administration Multi-Ingred Cream/Lotion/Oil/Oint 1 applic 01/25/21 08:08 Mineral Oil/Petrolatum, White Ophth Oint 3.5 Gm OU Q4HR PRN Dry Eye(s) Senna/Docusate Sodium 1 tab 01/25/21 10:00 01/30/21 10:28 Sennosides/Docusate Sodium 8.6/50 Mg Tab FEEDTUBE 1 tab BID JOHANA Administration Simple Syrup 15 ml 01/26/21 08:55 Simple Syrup 15 Ml FEEDTUBE PRN PRN Hypoglycemia Simple Syrup 30 ml 01/26/21 08:55 Simple Syrup 15 Ml FEEDTUBE PRN PRN Hypoglycemia Sodium Bicarbonate 325 mg 01/26/21 08:55 Sodium Bicarbonate 325 Mg Tab FEEDTUBE PRN PRN For Clogged Feeding Tube Sodium Chloride 10 ml 01/25/21 22:00 01/30/21 22:03 Sodium Chloride 0.9% 10 Ml Flush Syringe IV 10 ml BID JOHANA Administration Sodium Chloride 10 ml 01/25/21 12:47 Sodium Chloride 0.9% 10 Ml Flush Syringe IV PRN PRN LINE FLUSH Valproic Acid 500 mg 01/31/21 22:00 Valproic Acid 250 Mg/5 Ml Oral Liqd FEEDTUBE BID JOHANA
[2021-01-31] MEDS ORDERED: FAMOTIDINE 10 MG TAB PO SCH (10:00)
[2021-01-31] MEDS: HEPARIN 5,000 UNIT/1 ML VIAL SUB-Q SCH (10:01)
[2021-01-31] MEDS: ASPIRIN 325 MG TAB PO SCH (10:01)
[2021-01-31] MEDS: SENNOSIDES/DOCUSATE SODIUM 8.6/50 MG TAB FEEDTUBE SCH (10:02)
[2021-01-31] MEDS: VALPROATE SODIUM 500 MG in SODIUM CHLORIDE 0.9% 100 ML IV SCH (10:02)
--- NOTE | 2021-01-31 10:02 | Progress Note ---
Assessment and Plan - Patient Problems (1) Cardiac arrest Current Visit: Yes Status: Acute (2) Respiratory failure Current Visit: No Status: Acute Qualifiers: Chronicity: acute Respiratory failure complication: hypoxia Qualified Code(s): J96.01 - Acute respiratory failure with hypoxia (3) Sepsis Current Visit: No Status: Acute Qualifiers: Sepsis type: sepsis due to unspecified organism Sepsis acute organ dy sfunction status: unspecified Qualified Code(s): A41.9 - Sepsis, unspecified organism Subjective Date of service: 01/31/21 Principal diagnosis: Cardiac arrest; Ac hypoxemic resp failure; Septic Shock; UTI; AMS; ESRD Interval history: UNRESPONSIVE Objective Vital Signs Temp Pulse Pulse Resp BP Pulse Ox 01/31/21 08:00 94 F L 50 L 12 135/59 100 01/31/21 07:51 51 L 12 116/51 01/31/21 07:50 51 L 135/59 100 01/31/21 07:41 50 L 12 136/60 01/31/21 07:30 51 L 12 136/60 01/31/21 07:21 50 L 12 130/55 100 01/31/21 07:11 50 L 12 135/60 100 01/31/21 07:00 51 L 12 135/60 100 01/31/21 06:51 51 L 12 132/59 01/31/21 06:41 51 L 12 117/50 01/31/21 06:30 51 L 12 117/50 100 01/31/21 06:21 52 L 12 126/54 100 01/31/21 06:11 52 L 12 137/56 01/31/21 06:00 51 L 12 120/52 01/31/21 05:51 53 L 12 138/62 01/31/21 05:41 52 L 12 137/56 01/31/21 05:30 52 L 12 137/56 100 01/31/21 05:21 53 L 12 127/57 01/31/21 05:11 52 L 12 115/50 100 01/31/21 05:00 52 L 12 115/50 100 01/31/21 04:51 54 L 12 136/61 01/31/21 04:41 54 L 12 165/59 100 01/31/21 04:30 53 L 12 122/56 01/31/21 04:21 54 L 12 122/54 100 01/31/21 04:11 53 L 12 117/49 01/31/21 04:02 53 L 117/49 01/31/21 04:00 53 L 74 12 117/49 01/31/21 03:51 53 L 12 165/59 01/31/21 03:43 97.2 F L 01/31/21 03:41 55 L 12 120/52 01/31/21 03:30 54 L 12 120/52 01/31/21 03:21 54 L 12 139/61 01/31/21 03:11 53 L 12 132/56 01/31/21 03:00 55 L 12 132/56 01/31/21 02:51 56 L 12 125/54 01/31/21 02:41 55 L 12 133/61 01/31/21 02:30 56 L 12 133/61 01/31/21 02:21 55 L 12 117/54 01/31/21 02:11 55 L 12 137/60 01/31/21 02:00 56 L 12 137/60 01/31/21 01:51 56 L 12 124/52 01/31/21 01:41 58 L 12 132/60 01/31/21 01:30 57 L 12 132/60 01/31/21 01:21 57 L 12 137/62 01/31/21 01:11 57 L 12 121/55 01/31/21 01:00 57 L 12 121/55 01/31/21 00:51 57 L 12 144/60 01/31/21 00:41 59 L 12 138/59 01/31/21 00:30 59 L 12 138/59 01/31/21 00:20 58 L 12 126/53 01/31/21 00:11 59 L 12 134/58 01/31/21 00:00 57 L 74 12 134/58 01/30/21 23:51 58 L 12 134/60 100 01/30/21 23:41 57 L 12 118/53 100 01/30/21 23:39 56 L 12 118/53 100 01/30/21 23:34 96.8 F L 01/30/21 23:30 55 L 12 118/53 100 01/30/21 23:21 56 L 12 144/60 100 01/30/21 23:11 57 L 12 119/53 100 01/30/21 23:00 56 L 12 119/53 100 01/30/21 22:51 56 L 12 118/53 100 01/30/21 22:41 55 L 12 128/54 100 01/30/21 22:30 56 L 12 128/54 100 01/30/21 22:21 57 L 12 138/60 100 01/30/21 22:11 56 L 12 144/58 100 01/30/21 22:00 56 L 12 144/58 100 01/30/21 21:51 57 L 12 138/56 01/30/21 21:41 56 L 12 134/59 100 01/30/21 21:30 57 L 12 134/59 100 01/30/21 21:21 57 L 12 134/58 01/30/21 21:11 57 L 12 100 01/30/21 21:00 57 L 12 123/54 01/30/21 20:50 57 L 12 123/54 100 01/30/21 20:40 58 L 12 122/52 100 01/30/21 20:30 58 L 12 122/52 100 01/30/21 20:20 58 L 12 124/54 100 01/30/21 20:10 58 L 12 114/51 100 01/30/21 20:00 58 L 74 12 126/53 01/30/21 19:50 58 L 12 117/52 100 01/30/21 19:40 58 L 12 112/48 100 01/30/21 19:39 97.7 F 01/30/21 19:30 59 L 12 112/48 100 01/30/21 19:20 59 L 12 112/47 100 01/30/21 19:10 59 L 12 114/49 100 01/30/21 19:00 60 12 114/49 100 01/30/21 18:50 60 12 118/52 100 01/30/21 18:40 60 12 123/52 100 01/30/21 18:30 61 12 123/52 100 01/30/21 18:20 61 12 126/54 100 01/30/21 18:10 60 12 106/46 100 01/30/21 18:00 62 12 106/46 100 06/06/21 17:50 63 12 112/48 100 06/06/21 17:40 64 12 157/57 100 06/06/21 17:30 62 12 157/57 100 06/06/21 17:20 63 12 84/46 100 06/06/21 17:10 63 13 105/48 100 06/06/21 17:00 63 12 107/29 100 06/06/21 16:50 63 12 120/38 100 06/06/21 16:40 63 12 120/38 100 06/06/21 16:36 63 157/57 100 06/06/21 16:30 63 12 120/38 100 06/06/21 16:20 63 12 120/38 100 06/06/21 16:10 64 12 120/38 100 06/06/21 16:00 63 74 12 120/38 100 06/06/21 15:50 63 12 98/22 100 06/06/21 15:40 64 12 98/22 100 06/06/21 15:30 65 12 98/22 100 06/06/21 15:20 65 12 98/22 100 06/06/21 15:10 64 12 98/22 100 06/06/21 15:00 64 12 159/31 100 06/06/21 14:50 63 12 159/31 100 06/06/21 14:40 63 12 159/31 100 06/06/21 14:30 64 12 159/31 100 06/06/21 14:20 64 12 159/31 100 06/06/21 14:10 64 12 159/31 100 06/06/21 14:00 65 12 175/49 100 06/06/21 13:50 64 12 163/59 100 06/06/21 13:40 66 12 163/59 100 06/06/21 13:30 64 12 163/59 100 06/06/21 13:20 67 12 163/59 100 06/06/21 13:10 68 12 163/59 100 06/06/21 13:00 68 12 163/59 100 06/06/21 12:50 67 12 149/51 100 06/06/21 12:40 68 12 149/51 100 06/06/21 12:30 68 12 149/51 100 06/06/21 12:20 68 12 149/51 100 06/06/21 12:10 69 12 149/51 100 06/06/21 12:07 66 141/45 100 01/30/21 12:00 97.7 F 67 12 149/51 98 01/30/21 11:50 66 12 141/45 100 01/30/21 11:40 69 12 141/45 100 01/30/21 11:30 71 12 141/45 100 01/30/21 11:20 68 12 141/45 100 01/30/21 11:10 67 12 141/45 100 01/30/21 11:00 67 12 141/45 100 01/30/21 10:50 69 12 155/45 100 01/30/21 10:40 69 15 155/45 98 01/30/21 10:30 70 13 155/45 100 01/30/21 10:20 69 14 155/45 100 01/30/21 10:10 70 16 155/45 100 - Physical Examination General: Other (unresponsive on the vent) HEENT: Positive: PERRL Neck: Positive: neck supple, trachea midline. Negative: JVD/HJR Cardiac: Positive: Reg Rate and Rhythm Lungs: Positive: clear to auscultation Neuro: Positive: Other (intubated and unresponsive ( See Neuro note )) Abdomen: Positive: Soft, Active Bowel Sounds Extremities: Present: Other (R.BKA,,,NO EDEMA). Absent: edema - Allied health notes Allied health notes reviewed: nursing (edema pattern improved)
--- NOTE | 2021-01-31 10:17 | Discharge Summary ---
Providers - Providers Date of Admission: 01/25/21 12:47 Date of discharge: 01/31/21 Attending physician: JAQUELINE MUÑOZ 01/25/21 08:08 Consult to Dietitian/Nutrition [CONS] Routine Physician Instructions: Reason For Exam: Reason for Consult: Evaluate nutritional intake 01/25/21 12:52 Consult to Physician [CONS] Routine Comment: Consulting Provider: SHAUNNA GARCIA Physician Instructions: Reason For Exam: Resp Failure/Cardiac Arrest 01/25/21 13:10 Consult to Physician [CONS] Routine Comment: Consulting Provider: JAMES BOATENG Physician Instructions: Reason For Exam: esrd 01/25/21 13:57 Consult to Physician [CONS] Routine Comment: Consulting Provider: RAMO SNYDER Physician Instructions: Reason For Exam: cardiac arrest 01/25/21 18:49 Consult to Wound/ET Nurse [CONS] Routine Reason For Exam: wound eval 01/25/21 19:36 Consult to Physician [CONS] Routine Comment: Consulting Provider: DAISY DAVILA Physician Instructions: Reason For Exam: acute encephalopathy (? Anoxic) Consult to Physician [CONS] Routine Comment: Consulting Provider: LARRY LESLIE Physician Instructions: Reason For Exam: Severe Sepsis 01/25/21 19:40 Consult to Dietitian/Nutrition [CONS] Routine Physician Instructions: Reason For Exam: Reason for Consult: Write/Manage Tube Feeding 01/27/21 08:39 Consult to Wound/ET Nurse [CONS] Routine Reason For Exam: wound eval, old fistula site on Left upper arm 01/27/21 14:31 Midline [Consult to PICC Line RN] [CONS] Stat Reason For Exam: better access Type Line:: Midline Primary care physician: [employer] Hospitalization Condition: Critical Hospital course: This is a 65-year-old male with hypertension, diabetes mellitus, ESRD on HD ( MWF), hepatitis C, congestive heart failure, hyperlipidemia, GERD, nicotine dependence presented to the emergency department on 01/25/21 s/p cardiac arrest. Patient was found to be asystolic upon arrival of EMS . Upon arrival to the emergency department patient was found to be in systolic arrest and ACLS was continued per ED staff with eventual ROSC. Patient was intubated in the emergency department. Patient was admitted to the hospital service with acute hypoxemic respiratory failure, s/p cardiac arrest, acute encephalopathy with consults to nephrology, [facility], neurology, infectious disease and cardiology. Sepsis Shock: Source of sepsis could be possible UTI given significant pyuria, aspiration, S/p cardiac arrest Acute hypoxic respiratory failure on mechanical ventilation Seizure versus myoclonic jerking Dilated cardiomyopathy left ventricular ejection fraction 15 to 20% Chronic combined systolic and diastolic heart failure Urinary tract infection ESRD on HD Anemia of chronic disease Peripheral vascular disease status post right BKA Hypertension Diabetes mellitus Hyperlipidemia GERD Nicotine dependence MRSA PCR positive -CCM, nephrology, cardiology, infectious disease, neurology consulted, appreciate recommendations -12/02/2020 echocardiogram shows four-chamber dilated cardiomyopathy, left ventricle systolic function severely decreased with LVEF of 15 to 20%, mild to moderate concentric LVH, mild AR, mild to moderate MR, mild TR, RVSP is 30 mmHg, left pleural effusion is evident with no pericardial effusion. -01/25 CT head shows areas of diminished attenuation identified throughout the basal ganglia concerning for anoxic injury, no evidence of hemorrhage or mass- effects, MRI recommended for further evaluation. -01/26 MRI brain shows global restricted diffusion involving cerebral cortex, basal ganglia, cerebral cortex and dorsal brain stroma suggestive of anoxic brain injury -01/27 EEG shows significantly abnormal record with low voltage slowing noted, suggestive of severe encephalopathic process and/or drug effect as possibilities of severe anoxic brain injury cannot be totally excluded -01/28 nuclear med brain flow study shows intracranial cerebral perfusion is esse ntially absent, little flow with any seen in the internal carotid arteries but no significant intracranial activity is identified -01/28 repeat COVID-19 PCR negative -COVID-19 PCR negative -Contact precautions d/t MRSA PCR positive -Intubated 01/25, wean mechanical ventilation as tolerated, VAP bundle -IV antibiotics -IV Valproic acid -Seizure/aspiration precautions -Resume antihypertensives gradually -s/p vasopressor support with levophed -TF -SSI, Accu-Cheks every 6, hypoglycemic protocol -Resume home statin GI/DVT prophylaxis: PPI, SCDs to bilateral lower extremities while in bed, heparin subcu Disposition: ICU, awaiting transfer to hospice). Patient has been ruled out for organ donation by [employer]. Interval history: This is a 65-year-old male with hypertension, diabetes mellitus, ESRD on HD (MWF), hepatitis C, congestive heart failure, hyperlipidemia, GERD, nicotine dependence presented to the emergency department on 6/1 s/p cardiac arrest. Patient was found to be asystolic upon arrival of EMS. Upon arrival to the emergency department patient was found to be in systolic arrest and ACLS was continued per ED staff with eventual ROSC. Patient was intubated in the emergency department. Patient was admitted to the hospital service with acute hypoxemic respiratory failure, s/p cardiac arrest, acute encephalopathy with consults to nephrology, CCM, neurology, infectious disease and cardiology. 01/26: Patient remains hypertensive and his home antihypertensive regimen will be resumed gradually. Nutrition consult pending. Called to bedside by RN this morning patient was noted to have seizure-like activity, and Ativan IV given. Neurology was later at bedside and witnessed activity. Patient was started on valproic acid and EEG ordered. Fentanyl gtt increased per neurology request. At the time of my examination he was on CMV TV 450, R 16, PEEP 6 and FiO2 of 30%. 01/27: Patient noted to be hypotensive and Levophed was ordered. MRI and EEG are pending. Leukocytosis slightly worsened today. Patient received HD yesterday. No DVT noted in BLE dopplar US. Family will update care team if decision regarding goals of care 01/28: did not convey goals of care decision, [facility] ordered a nuclear med brain flow study. Increase in Norvasc d/t hypertension. Will gradually restart home antihypertensive regimen as tolerated. Cardio suggests Hydral TID, nitrol and coreg 01/29: Yesterday evening case management informed me that the family is looking into inpatient hospice and will inform case management of the decision. This morning case management spoke to patient's family and they had not decided on inpatient hospice unit but they did later in the afternoon. Patients neuro exam remains unchanged. Blood pressure is better controlled. The plan is to discharge the patient to hospice per family decision on Sunday. 01/30: No acute changes reported overnight. Patient is awaiting transfer to hospice tomorrow. IV abx to stop today 01/31 Patient critically ill. Family decided on hospice so patient discharged to inpatient hospice. Disposition: [id number] ([facility]) Final Discharge Diagnosis (Prints w/discharge instructions): 1.Cardiac arrest. 2.Severe sepsis with septic shock. 3.Acute respiratory failure - Discharge Diagnoses (1) Acute hypoxemic respiratory failure Status: Acute (2) Cardiac arrest Status: Acute (3) Sepsis Status: Acute Qualifiers: Sepsis type: sepsis due to unspecified organism Sepsis acute organ dysfunction status: unspecified Qualified Code(s): A41.9 - Sepsis, unspecified organism (4) UTI (urinary tract infection) Status: Acute Qualifiers: Encounter type: initial encounter (5) ESRD (end stage renal disease) on dialysis Status: Chronic (6) Chronic combined systolic (congestive) and diastolic (congestive) heart failure Status: Chronic (7) Hypertension Status: Chronic (8) Diabetes mellitus type 2 in nonobese Status: Chronic Core Measure Documentation - Palliative Care Palliative Care/ Comfort Measures: Hospice Care - Core Measures Any of the following diagnoses?: heart failure - Heart Failure Discharge Requirements PAULINE/ARB for LVSD if EF <40%: Not Applicable Reason for no PAULINE/ARB: Palliative care Beta shila at discharge: No Reason for no beta shila on DC: Palliative care Exam - Constitutional Vitals: Temp Pulse Resp BP Pulse Ox 94 F L 50 L 12 135/59 100 01/31/21 08:00 01/31/21 08:00 01/31/21 08:00 01/31/21 08:00 01/31/21 08:00 Plan Plan of Treatment: 1.To care of Hospice director of in service education Follow up with: RENAY BERGER MD [Primary Care Provider] - 7 Days
--- NOTE | 2021-01-31 11:03 | Progress Note ---
Assessment and Plan Cardiac arrest with return of spontaneous circulation. Acute hypoxemic respiratory failure, on mechanical ventilatory support. Severe sepsis with shock Urinary tract infection. ESRD on dialysis. Acute toxic metabolic encephalopathy, possibly anoxic. Anemia that is normocytic. Hypercapnia Leukocytosis. Hyperkalemia. NSTEMI DM II Congestive heart failure. Gastroesophageal reflux disease. Oropharyngeal dysphagia (Discussed very poor prognosis with his at bedside requested a substituted judgment as to wether he would want a tracheostomy and watchful waiting knowing the poor prognosis or perhaps hospice / comfort care. She states she has to discuss with their son and daughter. I also discussed likely brain flow scan evaluation in am and the consequences of a positive flow scan confirming brain ) - await hospice transfer - follow repeat COVID-19 test result - HD/UF decisions per nephrology re: hospice transfer - prn Levophed for target MAP > 65 mmHg - continue care as below otherwise; - continue on AED's (Keppra, dilantin) - keep set rate at 12/min - complete AB's per ID recommendations (Cefepime & Vancomycin) - continue to wean supplemental oxygen for target O2 sat's > 90% acutely - VAP bundle addressed - continue lung protective strategies - continue bronchodilators with pulmonary hygiene per RT - Daily SAT and SBT assessment as tolerated - wean per pulmonary driven protocols otherwise - continue accuchecks with glycemic control per SSI (While critically ill target blood glucose of 140-180 mg/dL; avoid hypoglycemia) - sedation prn for target RASS 0 to -1 - avoid nephrotoxins, renally dose all medications - avoid benzodiazepine's if possible, reduce the possibility of delirium - prn analgesia per CPOT score - Maintenance of sleep-wake cycle, avoid delirium - continue enteral nutritional support at goal rate as tolerated - G.I. & VTE prophylaxis - PT/OT/ROM exercises - continue mobility protocols for pressure ulcer prophylaxis - Monitor hemodynamics closely - continue other care per attending / other consultants - discharge planning ongoing concurrently .... Re-evaluate in am & prn CONDITION: CRITICAL PROGNOSIS: GUARDED CODE STATUS: FULL CODE The high probability of a clinically significant, sudden or life-threatening deterioration of the [respiratory, cardiovascular, GI & neurologic] system(s) required my full and direct attention, intervention and personal management. The aggregate critical care time was [32] minutes without overlap. Time includes spent on; [x] Data Review and interpretation [x] Patient assessment and monitoring of vital signs [x] Documentation [x] Medication orders and management Subjective Date of service: 01/31/21 Principal diagnosis: Cardiac arrest; Ac hypoxemic resp failure; Septic Shock; UTI; AMS; ESRD Interval history: Patient is seen today for: Cardiac arrest with ROSC; Acute hypoxemic respiratory failure; Septic Shock; UTI; ESRD on dialysis; Acute toxic metabolic encephalopathy, possibly anoxic; NSTEMI; CHF Seen and examined at bedside; 24hour events reviewed; nursing and respiratory care staff consulted; no adverse overnight events reported to me; resting peacefully in bed; remains on MVS; awaiting hospice transfer but remains a full code; Objective Vital Signs - 12hr 01/30/21 01/30/21 01/30/21 23:11 23:21 23:30 Temperature Pulse Rate 57 L 56 L 55 L Pulse Rate [ From Monitor] Respiratory 12 12 12 Rate Blood Pressure 119/53 144/60 118/53 O2 Sat by Pulse 100 100 100 Oximetry 01/30/21 01/30/21 01/30/21 23:34 23:39 23:41 Temperature 96.8 F L Pulse Rate 56 L 57 L Pulse Rate [ From Monitor] Respiratory 12 12 Rate Blood Pressure 118/53 118/53 O2 Sat by Pulse 100 100 Oximetry 01/30/21 01/31/21 01/31/21 23:51 00:00 00:11 Temperature Pulse Rate 58 L 57 L 59 L Pulse Rate [ 74 From Monitor] Respiratory 12 12 12 Rate Blood Pressure 134/60 134/58 134/58 O2 Sat by Pulse 100 100 100 Oximetry 01/31/21 01/31/21 01/31/21 00:20 00:30 00:41 Temperature Pulse Rate 58 L 59 L 59 L Pulse Rate [ From Monitor] Respiratory 12 12 12 Rate Blood Pressure 126/53 138/59 138/59 O2 Sat by Pulse 100 100 100 Oximetry 01/31/21 01/31/21 01/31/21 00:51 01:00 01:11 Temperature Pulse Rate 57 L 57 L 57 L Pulse Rate [ From Monitor] Respiratory 12 12 12 Rate Blood Pressure 144/60 121/55 121/55 O2 Sat by Pulse 100 100 100 Oximetry 01/31/21 01/31/21 01/31/21 01:21 01:30 01:41 Temperature Pulse Rate 57 L 57 L 58 L Pulse Rate [ From Monitor] Respiratory 12 12 12 Rate Blood Pressure 137/62 132/60 132/60 O2 Sat by Pulse 100 100 100 Oximetry 01/31/21 01/31/21 01/31/21 01:51 02:00 02:11 Temperature Pulse Rate 56 L 56 L 55 L Pulse Rate [ From Monitor] Respiratory 08 07 12 Rate Blood Pressure 124/52 137/60 137/60 O2 Sat by Pulse 100 100 100 Oximetry 01/31/21 01/31/21 01/31/21 02:21 02:30 02:41 Temperature Pulse Rate 55 L 56 L 55 L Pulse Rate [ From Monitor] Respiratory 08 07 12 Rate Blood Pressure 117/54 133/61 133/61 O2 Sat by Pulse 100 100 100 Oximetry 01/31/21 01/31/21 01/31/21 02:51 03:00 03:11 Temperature Pulse Rate 56 L 55 L 53 L Pulse Rate [ From Monitor] Respiratory 08 07 12 Rate Blood Pressure 125/54 132/56 132/56 O2 Sat by Pulse 100 100 100 Oximetry 01/31/21 01/31/21 01/31/21 03:21 03:30 03:41 Temperature Pulse Rate 54 L 54 L 55 L Pulse Rate [ From Monitor] Respiratory 08 07 12 Rate Blood Pressure 139/61 120/52 120/52 O2 Sat by Pulse 100 100 100 Oximetry 01/31/21 01/31/21 01/31/21 03:43 03:51 04:00 Temperature 97.2 F L Pulse Rate 53 L 53 L Pulse Rate [ 74 From Monitor] Respiratory 08 07 Rate Blood Pressure 165/59 117/49 O2 Sat by Pulse 100 100 Oximetry 01/31/21 01/31/21 01/31/21 04:02 04:11 04:21 Temperature Pulse Rate 53 L 53 L 54 L Pulse Rate [ From Monitor] Respiratory 12 Rate Blood Pressure 117/49 117/49 122/54 O2 Sat by Pulse 100 100 100 Oximetry 01/31/21 01/31/21 01/31/21 04:30 04:41 04:51 Temperature Pulse Rate 53 L 54 L 54 L Pulse Rate [ From Monitor] Respiratory 12 12 Rate Blood Pressure 122/56 165/59 136/61 O2 Sat by Pulse 100 100 100 Oximetry 01/31/21 01/31/21 01/31/21 05:00 05:11 05:21 Temperature Pulse Rate 52 L 52 L 53 L Pulse Rate [ From Monitor] Respiratory 12 12 12 Rate Blood Pressure 115/50 115/50 127/57 O2 Sat by Pulse 100 100 100 Oximetry 01/31/21 01/31/21 01/31/21 05:30 05:41 05:51 Temperature Pulse Rate 52 L 52 L 53 L Pulse Rate [ From Monitor] Respiratory 12 12 12 Rate Blood Pressure 137/56 137/56 138/62 O2 Sat by Pulse 100 100 100 Oximetry 01/31/21 01/31/21 01/31/21 06:00 06:11 06:21 Temperature Pulse Rate 51 L 52 L 52 L Pulse Rate [ From Monitor] Respiratory 12 12 12 Rate Blood Pressure 120/52 137/56 126/54 O2 Sat by Pulse 100 100 100 Oximetry 01/31/21 01/31/21 01/31/21 06:30 06:41 06:51 Temperature Pulse Rate 51 L 51 L 51 L Pulse Rate [ From Monitor] Respiratory 12 12 12 Rate Blood Pressure 117/50 117/50 132/59 O2 Sat by Pulse 100 100 100 Oximetry 01/31/21 01/31/21 01/31/21 07:00 07:11 07:21 Temperature Pulse Rate 51 L 50 L 50 L Pulse Rate [ From Monitor] Respiratory 12 12 12 Rate Blood Pressure 135/60 135/60 130/55 O2 Sat by Pulse 100 100 100 Oximetry 01/31/21 01/31/21 01/31/21 07:30 07:41 07:50 Temperature Pulse Rate 51 L 50 L 51 L Pulse Rate [ From Monitor] Respiratory 12 12 Rate Blood Pressure 136/60 136/60 135/59 O2 Sat by Pulse 100 100 100 Oximetry 01/31/21 01/31/21 07:51 08:00 Temperature 94 F L Pulse Rate 51 L 50 L Pulse Rate [ From Monitor] Respiratory 12 12 Rate Blood Pressure 116/51 135/59 O2 Sat by Pulse 100 100 Oximetry Constitutional: no acute distress, other (elderly thin male riding set rate on locr) Eyes: non-icteric ENT: oropharynx moist, other (ETT 24 cm FREDI) Neck: supple, no lymphadenopathy, no JVD Effort: mildly labored Ascultation: Bilateral: diminished breath sounds, rhonchi Percussion: Bilateral: not dull Cardiovascular: regular rate and rhythm Gastrointestinal: normoactive bowel sounds Integumentary: normal Extremities: no cyanosis, no edema, pulses normal, no ischemia or petechiae Neurologic: pupils equal and round (fixed and dilated), unable to assess Psychiatric: other (unable to assess re: AMS) CBC and BMP: 01/29/21 08:07 01/29/21 08:07 ABG, PT/INR, D-dimer: ABG ABG pH 7.367 (7.320-7.450) 01/30/21 04:00 POC ABG pCO2 46.6 mmHg (32.0-48.0) 01/30/21 04:00 POC ABG pO2 87.8 mmHg (83-108) 01/30/21 04:00 POC ABG HCO3 26.2 01/30/21 04:00 ABG O2 Saturation 96.7 (0-100) 01/30/21 04:00 PT/INR, D-dimer PT 16.0 Sec. (12.2-14.9) H 01/25/21 08:13 INR 1.28 (0.87-1.13) H 01/25/21 08:13 D-Dimer 8335.22 ng/mlDDU (0-234) H 01/26/21 07:40 Abnormal lab findings: Abnormal Labs 01/25/21 01/25/21 01/25/21 07:56 08:13 08:13 WBC 11.4 H RBC 2.50 L Hgb 7.3 L Hct 22.2 L RDW 17.5 H Lymph % (Auto) 13.0 L Baso % (Auto) 2.2 H Baso # (Auto) 0.3 H Seg Neutrophils % 81.7 H Seg Neuts % (Manual) Lymphocytes % (Manual) Seg Neutrophils # 9.3 H Seg Neutrophils # Man Lymphocytes # (Manual) PT 16.0 H INR 1.28 H APTT 56.8 H D-Dimer ABG pH POC ABG pCO2 POC ABG pO2 ABG Hemoglobin ABG Oxyhemoglobin ABG Sodium ABG Potassium ABG Chloride ABG Glucose VBG pH Carboxyhemoglobin Sodium Potassium Chloride Carbon Dioxide BUN Creatinine Glucose POC Glucose 139 H Lactic Acid Calcium Ferritin AST ALT Lactate Dehydrogenase Troponin T C-Reactive Protein NT-Pro-B Natriuret Pep Total Protein Albumin Arterial Blood Glucose Arterial Blood Ionized Calcium Urine pH Urine WBC (Auto) Hepatitis C Antibody 0601/25/21 01/25/21 08:13 08:13 08:13 WBC RBC Hgb Hct RDW Lymph % (Auto) Baso % (Auto) Baso # (Auto) Seg Neutrophils % Seg Neuts % (Manual) Lymphocytes % (Manual) Seg Neutrophils # Seg Neutrophils # Man Lymphocytes # (Manual) PT INR APTT D-Dimer ABG pH POC ABG pCO2 POC ABG pO2 ABG Hemoglobin ABG Oxyhemoglobin ABG Sodium ABG Potassium ABG Chloride ABG Glucose VBG pH 7.100 L* Carboxyhemoglobin Sodium 135 L Potassium 5.4 H Chloride 92.1 L Carbon Dioxide 21 L BUN Creatinine 4.8 H Glucose 157 H POC Glucose Lactic Acid Calcium Ferritin AST 284 H ALT 85 H Lactate Dehydrogenase Troponin T 0.233 H* C-Reactive Protein NT-Pro-B Natriuret Pep 41022 H Total Protein 5.8 L Albumin 2.5 L Arterial Blood Glucose Arterial Blood Ionized Calcium Urine pH Urine WBC (Auto) Hepatitis C Antibody Reactive A 01/25/21 01/25/21 01/25/21 08:44 16:31 16:57 WBC RBC Hgb Hct RDW Lymph % (Auto) Baso % (Auto) Baso # (Auto) Seg Neutrophils % Seg Neuts % (Manual) Lymphocytes % (Manual) Seg Neutrophils # Seg Neutrophils # Man Lymphocytes # (Manual) PT INR APTT D-Dimer ABG pH 7.174 L 7.572 H 7.608 H POC ABG pCO2 58.4 H 24.4 L 25.2 L POC ABG pO2 109.3 H 41.6 L 257.8 H ABG Hemoglobin 7.7 L 9.3 L 9.4 L ABG Oxyhemoglobin 92.0 L 79.4 L 99.1 H ABG Sodium 133.9 L ABG Potassium 5.4 H 4.6 H ABG Chloride 97.0 L 97.0 L ABG Glucose 157 H 107 H 124 H VBG pH Carboxyhemoglobin 4.3 H 0.3 L Sodium Potassium Chloride Carbon Dioxide BUN Creatinine Glucose POC Glucose Lactic Acid Calcium Ferritin AST ALT Lactate Dehydrogenase Troponin T C-Reactive Protein NT-Pro-B Natriuret Pep Total Protein Albumin Arterial Blood Glucose 157 H 107 H 124 H Arterial Blood Ionized Calcium 4.5 L 4.3 L 4.3 L Urine pH Urine WBC (Auto) Hepatitis C Antibody 01/25/21 01/25/21 01/26/21 23:31 Unknown 03:10 WBC RBC Hgb Hct RDW Lymph % (Auto) Baso % (Auto) Baso # (Auto) Seg Neutrophils % Seg Neuts % (Manual) Lymphocytes % (Manual) Seg Neutrophils # Seg Neutrophils # Man Lymphocytes # (Manual) PT INR APTT D-Dimer ABG pH 7.547 H POC ABG pCO2 31.7 L POC ABG pO2 ABG Hemoglobin 9.2 L ABG Oxyhemoglobin ABG Sodium ABG Potassium ABG Chloride ABG Glucose 108 H VBG pH Carboxyhemoglobin Sodium Potassium Chloride Carbon Dioxide BUN Creatinine Glucose POC Glucose 111 H Lactic Acid Calcium Ferritin AST ALT Lactate Dehydrogenase Troponin T C-Reactive Protein NT-Pro-B Natriuret Pep Total Protein Albumin Arterial Blood Glucose 108 H Arterial Blood Ionized Calcium 4.0 L Urine pH 8.0 H Urine WBC (Auto) > 182.0 H Hepatitis C Antibody 01/26/21 01/26/21 01/26/21 04:00 07:40 07:40 WBC RBC Hgb Hct RDW Lymph % (Auto) Baso % (Auto) Baso # (Auto) Seg Neutrophils % Seg Neuts % (Manual) Lymphocytes % (Manual) Seg Neutrophils # Seg Neutrophils # Man Lymphocytes # (Manual) PT INR APTT D-Dimer 8335.22 H ABG pH POC ABG pCO2 POC ABG pO2 ABG Hemoglobin ABG Oxyhemoglobin ABG Sodium ABG Potassium ABG Chloride ABG Glucose VBG pH Carboxyhemoglobin Sodium Potassium Chloride Carbon Dioxide BUN 27 H Creatinine 4.4 H Glucose 105 H POC Glucose Lactic Acid Calcium 8.1 L Ferritin 1817.0 H AST ALT Lactate Dehydrogenase Troponin T C-Reactive Protein NT-Pro-B Natriuret Pep Total Protein Albumin Arterial Blood Glucose Arterial Blood Ionized Calcium Urine pH Urine WBC (Auto) Hepatitis C Antibody 01/26/21 01/26/21 01/26/21 07:40 07:58 07:58 WBC 16.6 H RBC 3.10 L Hgb 8.9 L Hct 26.7 L RDW 17.4 H Lymph % (Auto) Baso % (Auto) Baso # (Auto) Seg Neutrophils % Seg Neuts % (Manual) 93.0 H Lymphocytes % (Manual) 5.0 L Seg Neutrophils # Seg Neutrophils # Man 15.4 H Lymphocytes # (Manual) 0.8 L PT INR APTT D-Dimer ABG pH POC ABG pCO2 POC ABG pO2 ABG Hemoglobin ABG Oxyhemoglobin ABG Sodium ABG Potassium ABG Chloride ABG Glucose VBG pH Carboxyhemoglobin Sodium Potassium Chloride Carbon Dioxide BUN Creatinine Glucose POC Glucose Lactic Acid 3.20 H* Calcium Ferritin AST ALT Lactate Dehydrogenase 770 H Troponin T C-Reactive Protein 11.00 H NT-Pro-B Natriuret Pep Total Protein Albumin Arterial Blood Glucose Arterial Blood Ionized Calcium Urine pH Urine WBC (Auto) Hepatitis C Antibody 01/26/21 01/26/21 01/26/21 11:29 18:10 23:15 WBC RBC Hgb Hct RDW Lymph % (Auto) Baso % (Auto) Baso # (Auto) Seg Neutrophils % Seg Neuts % (Manual) Lymphocytes % (Manual) Seg Neutrophils # Seg Neutrophils # Man Lymphocytes # (Manual) PT INR APTT D-Dimer ABG pH POC ABG pCO2 POC ABG pO2 ABG Hemoglobin ABG Oxyhemoglobin ABG Sodium ABG Potassium ABG Chloride ABG Glucose VBG pH Carboxyhemoglobin Sodium Potassium Chloride Carbon Dioxide BUN Creatinine Glucose POC Glucose 108 H 149 H 113 H Lactic Acid Calcium Ferritin AST ALT Lactate Dehydrogenase Troponin T C-Reactive Protein NT-Pro-B Natriuret Pep Total Protein Albumin Arterial Blood Glucose Arterial Blood Ionized Calcium Urine pH Urine WBC (Auto) Hepatitis C Antibody 01/27/21 01/27/21 01/27/21 04:39 04:39 05:00 WBC 17.3 H RBC 3.11 L Hgb 8.6 L Hct 27.3 L RDW 18.4 H Lymph % (Auto) Baso % (Auto) Baso # (Auto) Seg Neutrophils % Seg Neuts % (Manual) Lymphocytes % (Manual) Seg Neutrophils # Seg Neutrophils # Man Lymphocytes # (Manual) PT INR APTT D-Dimer ABG pH POC ABG pCO2 POC ABG pO2 ABG Hemoglobin 8.8 L ABG Oxyhemoglobin ABG Sodium ABG Potassium ABG Chloride ABG Glucose 98 H VBG pH Carboxyhemoglobin Sodium Potassium Chloride Carbon Dioxide BUN 23 H Creatinine 3.1 H Glucose POC Glucose Lactic Acid Calcium 7.1 L Ferritin AST ALT Lactate Dehydrogenase Troponin T C-Reactive Protein NT-Pro-B Natriuret Pep Total Protein Albumin Arterial Blood Glucose 98 H Arterial Blood Ionized Calcium 3.9 L Urine pH Urine WBC (Auto) Hepatitis C Antibody 01/27/21 01/27/21 01/27/21 11:30 18:10 23:22 WBC RBC Hgb Hct RDW Lymph % (Auto) Baso % (Auto) Baso # (Auto) Seg Neutrophils % Seg Neuts % (Manual) Lymphocytes % (Manual) Seg Neutrophils # Seg Neutrophils # Man Lymphocytes # (Manual) PT INR APTT D-Dimer ABG pH POC ABG pCO2 POC ABG pO2 ABG Hemoglobin ABG Oxyhemoglobin ABG Sodium ABG Potassium ABG Chloride ABG Glucose VBG pH Carboxyhemoglobin Sodium Potassium Chloride Carbon Dioxide BUN Creatinine Glucose POC Glucose 132 H 122 H 134 H Lactic Acid Calcium Ferritin AST ALT Lactate Dehydrogenase Troponin T C-Reactive Protein NT-Pro-B Natriuret Pep Total Protein Albumin Arterial Blood Glucose Arterial Blood Ionized Calcium Urine pH Urine WBC (Auto) Hepatitis C Antibody 01/28/21 01/28/21 01/28/21 03:14 11:17 12:43 WBC RBC Hgb Hct RDW Lymph % (Auto) Baso % (Auto) Baso # (Auto) Seg Neutrophils % Seg Neuts % (Manual) Lymphocytes % (Manual) Seg Neutrophils # Seg Neutrophils # Man Lymphocytes # (Manual) PT INR APTT D-Dimer ABG pH POC ABG pCO2 48.6 H POC ABG pO2 ABG Hemoglobin 8.1 L ABG Oxyhemoglobin ABG Sodium ABG Potassium ABG Chloride ABG Glucose 140 H VBG pH Carboxyhemoglobin 1.7 H Sodium Potassium Chloride Carbon Dioxide BUN Creatinine Glucose POC Glucose 137 H 140 H Lactic Acid Calcium Ferritin AST ALT Lactate Dehydrogenase Troponin T C-Reactive Protein NT-Pro-B Natriuret Pep Total Protein Albumin Arterial Blood Glucose 140 H Arterial Blood Ionized Calcium 4.1 L Urine pH Urine WBC (Auto) Hepatitis C Antibody 01/28/21 01/28/21 01/28/21 15:42 15:42 17:40 WBC RBC 2.94 L Hgb 8.3 L Hct 26.2 L RDW 18.5 H Lymph % (Auto) Baso % (Auto) Baso # (Auto) Seg Neutrophils % Seg Neuts % (Manual) Lymphocytes % (Manual) Seg Neutrophils # Seg Neutrophils # Man Lymphocytes # (Manual) PT INR APTT D-Dimer ABG pH POC ABG pCO2 POC ABG pO2 ABG Hemoglobin ABG Oxyhemoglobin ABG Sodium ABG Potassium ABG Chloride ABG Glucose VBG pH Carboxyhemoglobin Sodium 136 L Potassium Chloride Carbon Dioxide BUN 38 H Creatinine 4.6 H Glucose 150 H POC Glucose 151 H Lactic Acid Calcium 7.2 L Ferritin AST ALT Lactate Dehydrogenase Troponin T C-Reactive Protein NT-Pro-B Natriuret Pep Total Protein Albumin Arterial Blood Glucose Arterial Blood Ionized Calcium Urine pH Urine WBC (Auto) Hepatitis C Antibody 01/28/21 01/28/21 01/29/21 17:42 23:11 03:45 WBC RBC Hgb Hct RDW Lymph % (Auto) Baso % (Auto) Baso # (Auto) Seg Neutrophils % Seg Neuts % (Manual) Lymphocytes % (Manual) Seg Neutrophils # Seg Neutrophils # Man Lymphocytes # (Manual) PT INR APTT D-Dimer ABG pH POC ABG pCO2 48.2 H POC ABG pO2 115.2 H ABG Hemoglobin 8.1 L ABG Oxyhemoglobin ABG Sodium 135.8 L ABG Potassium ABG Chloride ABG Glucose 173 H VBG pH Carboxyhemoglobin Sodium Potassium Chloride Carbon Dioxide BUN Creatinine Glucose POC Glucose 143 H 159 H Lactic Acid Calcium Ferritin AST ALT Lactate Dehydrogenase Troponin T C-Reactive Protein NT-Pro-B Natriuret Pep Total Protein Albumin Arterial Blood Glucose 173 H Arterial Blood Ionized Calcium Urine pH Urine WBC (Auto) Hepatitis C Antibody 01/29/21 01/29/21 01/29/21 05:26 08:07 08:07 WBC RBC 2.68 L Hgb 7.5 L Hct 23.6 L RDW 18.2 H Lymph % (Auto) Baso % (Auto) Baso # (Auto) Seg Neutrophils % Seg Neuts % (Manual) Lymphocytes % (Manual) Seg Neutrophils # Seg Neutrophils # Man Lymphocytes # (Manual) PT INR APTT D-Dimer ABG pH POC ABG pCO2 POC ABG pO2 ABG Hemoglobin ABG Oxyhemoglobin ABG Sodium ABG Potassium ABG Chloride ABG Glucose VBG pH Carboxyhemoglobin Sodium Potassium Chloride Carbon Dioxide BUN 23 H Creatinine 3.4 H Glucose 139 H POC Glucose 161 H Lactic Acid Calcium Ferritin AST ALT Lactate Dehydrogenase Troponin T C-Reactive Protein NT-Pro-B Natriuret Pep Total Protein Albumin Arterial Blood Glucose Arterial Blood Ionized Calcium Urine pH Urine WBC (Auto) Hepatitis C Antibody 01/29/21 01/29/21 01/29/21 11:16 12:15 23:26 WBC RBC Hgb Hct RDW Lymph % (Auto) Baso % (Auto) Baso # (Auto) Seg Neutrophils % Seg Neuts % (Manual) Lymphocytes % (Manual) Seg Neutrophils # Seg Neutrophils # Man Lymphocytes # (Manual) PT INR APTT D-Dimer ABG pH POC ABG pCO2 POC ABG pO2 ABG Hemoglobin ABG Oxyhemoglobin ABG Sodium ABG Potassium ABG Chloride ABG Glucose VBG pH Carboxyhemoglobin Sodium Potassium Chloride Carbon Dioxide BUN Creatinine Glucose POC Glucose 153 H 155 H 119 H Lactic Acid Calcium Ferritin AST ALT Lactate Dehydrogenase Troponin T C-Reactive Protein NT-Pro-B Natriuret Pep Total Protein Albumin Arterial Blood Glucose Arterial Blood Ionized Calcium Urine pH Urine WBC (Auto) Hepatitis C Antibody 01/30/21 01/30/21 01/30/21 04:00 05:27 11:31 WBC RBC Hgb Hct RDW Lymph % (Auto) Baso % (Auto) Baso # (Auto) Seg Neutrophils % Seg Neuts % (Manual) Lymphocytes % (Manual) Seg Neutrophils # Seg Neutrophils # Man Lymphocytes # (Manual) PT INR APTT D-Dimer ABG pH POC ABG pCO2 POC ABG pO2 ABG Hemoglobin 7.7 L ABG Oxyhemoglobin ABG Sodium 134.6 L ABG Potassium ABG Chloride ABG Glucose 156 H VBG pH Carboxyhemoglobin 1.8 H Sodium Potassium Chloride Carbon Dioxide BUN Creatinine Glucose POC Glucose 143 H 157 H Lactic Acid Calcium Ferritin AST ALT Lactate Dehydrogenase Troponin T C-Reactive Protein NT-Pro-B Natriuret Pep Total Protein Albumin Arterial Blood Glucose 156 H Arterial Blood Ionized Calcium Urine pH Urine WBC (Auto) Hepatitis C Antibody 01/30/21 01/30/21 01/31/21 16:36 23:20 04:53 WBC RBC Hgb Hct RDW Lymph % (Auto) Baso % (Auto) Baso # (Auto) Seg Neutrophils % Seg Neuts % (Manual) Lymphocytes % (Manual) Seg Neutrophils # Seg Neutrophils # Man Lymphocytes # (Manual) PT INR APTT D-Dimer ABG pH POC ABG pCO2 POC ABG pO2 ABG Hemoglobin ABG Oxyhemoglobin ABG Sodium ABG Potassium ABG Chloride ABG Glucose VBG pH Carboxyhemoglobin Sodium Potassium Chloride Carbon Dioxide BUN Creatinine Glucose POC Glucose 126 H 147 H 151 H Lactic Acid Calcium Ferritin AST ALT Lactate Dehydrogenase Troponin T C-Reactive Protein NT-Pro-B Natriuret Pep Total Protein Albumin Arterial Blood Glucose Arterial Blood Ionized Calcium Urine pH Urine WBC (Auto) Hepatitis C Antibody Allied health notes reviewed: nursing
[2021-01-31 11:17] VITALS: BP 126/80
--- NOTE | 2021-01-31 14:05 | Progress Note ---
Assessment and Plan Cultures: COVID-19 PCR: Negative Hepatitis serologies: Positive for hepatitis C antibody 01/25/2021 tracheal aspirate: In process 01/25/2021 blood culture: No growth 01/25/2021 urine culture: No growth MRSA nasal PCR: positive A/P: 65/M with hypertension, diabetes, ESRD on HD, malnutrition, gastroesophageal reflux disease, tobacco abuse: #Shock, status post cardiac arrest, sepsis: Source of sepsis could be possible UTI given significant pyuria, aspiration. Rule out bacteremia due to indwelling HD catheter. Off pressors. #ESRD on HD: Renally dose antibiotics. #Acute respiratory failure: On mechanical ventilation. #Acute encephalopathy, possible seizures: Neurology following, concern for anoxic brain injury. #Hepatitis C: unknown status. Can f/u outpt. Recs: -Stop antibiotics today -Likely brain given absent intracranial perfusion. Noted transfer to hospice. Larisa Royal MD [facility] ([facility]) O: [phone] F: [phone] Subjective Date of service: 01/31/21 Principal diagnosis: Cardiac arrest; Ac hypoxemic resp failure; Septic Shock; UTI; AMS; ESRD Interval history: Afebrile with low temperatures. Normal white count. Objective - Exam Narrative Exam: Constitutional: unresponsive, intubated, on the vent Head, Ears, Nose: Normocephalic, atraumatic. External ears, nose normal Eyes: Conjunctivae/corneas clear. No icterus. No ptosis. 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 HD cath + Skin: No rash or abscess Hem/Lymphatic: No palpable cervical or supraclavicular nodes. No lymphangitis Psych: no agitation Neurological: unresponsive, intubated, on the vent, exam limited - Constitutional Vitals: Vital Signs Temp Pulse Resp BP Pulse Ox 94 F L 50 L 12 126/80 100 01/31/21 08:00 01/31/21 11:11 01/31/21 08:00 01/31/21 11:11 01/31/21 11:11 Temperature -Last 24 Hours Temperature 94 F Temperature 97.2 F Temperature 96.8 F Temperature 97.7 F - Labs CBC & Chem 7: 01/29/21 08:07 01/29/21 08:07 Labs: Abnormal lab results 01/30/21 01/30/21 01/31/21 Range/Units 16:36 23:20 04:53 POC Glucose 126 H 147 H 151 H (70-105) mg/dL
[2021-01-31] MEDS ORDERED: VALPROIC ACID 250 MG/5 ML ORAL LIQD FEEDTUBE SCH (22:00)
== END 2021-01-31 13:40 | disposition hospice, inpatient (51) | DRG 870 ==
LOC: ED 07:43 → CC1 12:47
PROVIDERS: ADMIT Internal Medicine; ATTEND Internal Medicine
PROC: 5A1955Z Respiratory Ventilation, Greater than 96 Consecutive Hours (ICD-10-PCS; principal; 2021-01-25)
PROC: 0BH17EZ Insertion of Endotracheal Airway into Trachea, Via Natural or Artificial Opening (ICD-10-PCS; 2021-01-25)
PROC: 06HY33Z Insertion of Infusion Device into Lower Vein, Percutaneous Approach (ICD-10-PCS; 2021-01-25)
PROC: 4A033R1 Measurement of Arterial Saturation, Peripheral, Percutaneous Approach (ICD-10-PCS; 2021-01-25)
PROC: 5A1D70Z Performance of Urinary Filtration, Intermittent, Less than 6 Hours Per Day (ICD-10-PCS; 2021-01-25)
PROC: 5A1D70Z Performance of Urinary Filtration, Intermittent, Less than 6 Hours Per Day (ICD-10-PCS; 2021-01-26)
PROC: 05HY33Z Insertion of Infusion Device into Upper Vein, Percutaneous Approach (ICD-10-PCS; 2021-01-27)
PROC: 5A1D70Z Performance of Urinary Filtration, Intermittent, Less than 6 Hours Per Day (ICD-10-PCS; 2021-01-28)
DX: A41.9 Sepsis, unspecified organism (principal); J96.01 Acute respiratory failure with hypoxia; R65.21 Severe sepsis with septic shock; G92 Toxic encephalopathy; I21.4 Non-ST elevation (NSTEMI) myocardial infarction; N18.6 End stage renal disease; I46.9 Cardiac arrest, cause unspecified; E43 Unspecified severe protein-calorie malnutrition; N39.0 Urinary tract infection, site not specified; I42.0 Dilated cardiomyopathy; I13.2 Hypertensive heart and chronic kidney disease with heart failure and with stage 5 chronic kidney disease, or end stage renal disease; I50.42 Chronic combined systolic (congestive) and diastolic (congestive) heart failure; Z20.822 Contact with and (suspected) exposure to COVID-19; E11.22 Type 2 diabetes mellitus with diabetic chronic kidney disease; K21.9 Gastro-esophageal reflux disease without esophagitis; F17.200 Nicotine dependence, unspecified, uncomplicated; Y83.2 Surgical operation with anastomosis, bypass or graft as the cause of abnormal reaction of the patient, or of later complication, without mention of misadventure at the time of the procedure; B19.20 Unspecified viral hepatitis C without hepatic coma; E87.5 Hyperkalemia; R13.12 Dysphagia, oropharyngeal phase; D63.1 Anemia in chronic kidney disease; E11.51 Type 2 diabetes mellitus with diabetic peripheral angiopathy without gangrene; Z83.3 Family history of diabetes mellitus; Z99.2 Dependence on renal dialysis; Z68.21 Body mass index [BMI] 21.0-21.9, adult; Z82.49 Family history of ischemic heart disease and other diseases of the circulatory system; Y92.89 Other specified places as the place of occurrence of the external cause; Z79.899 Other long term (current) drug therapy
CPT/HCPCS: 36415; 36600; 70450; 70551; 71045; 74018; 78601; 80048; 80053; 80061; 80074; 80202; 81001; 82140; 82550; 82553; 82728; 82805; 82962; 83036; 83615; 83735; 83880; 84145; 84484; 85007; 85025; 85027; 85379; 85610; 85730; 86140; 87040; 87070; 87086; 87205; 87641; 93005; 93970; 94002; 94003; 95819; 96365; 96366; G0378; A9512; J0360; J0456; J0692; J0696; J1644; J1815; J2060; J2543; J2704; J3010; J3370; J7040; J7050; U0003